=== PATIENT | male | born 1940 | race Caucasian/White ===

== ENCOUNTER 2020-01-03 13:19 | Inpatient (IN) | payer OTHER ==
--- NOTE | 2020-01-03 13:44 | PDOC ---
History of Present Illness - History of Present Illness Initial Comments: 79M hx of HLD, ESRD on HD T//Thu, BPH, anemia, HTN, PVD, DM, sent in from group home today for lethargy and decreased appetite. On presentation, pt is lethargic, but A&Ox4 and arousable. States that nothing is hurting or bothering him. States that he was sent in from group home due to decreased appetite. Denies chest pain/shortness of breath/abd pain. No headache/dizziness. No back pain. No leg swelling. 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 - General Stated Complaint: SEPSIS Time Seen by Provider: 01/03/20 13:43 Past History - Medical History Anemia: No Asthma: No Cancer: No CVA: Yes COPD: No CHF: Yes Dementia: No Diabetes: No GI Disorders: No HTN: No Hypercholesterolemia: No Liver Disease: No Seizures: No Thyroid Disease: No - Surgical History Abdominal Surgery: No Appendectomy: No Cardiac Surgery: No Cholecystectomy: No Lung Surgery: No Neurologic Surgery: No Orthopedic Surgery: No - Psycho-Social/Smoking History Smoking History: Former smoker Have you smoked in the past 12 months: No - Medical History Allergies/Adverse Reactions: Allergies Allergy/AdvReac Type Severity Reaction Status Date / Time No Known Allergies Allergy Verified 09/02/19 16:03 Home Medications: Ambulatory Orders Acetaminophen [Tylenol .Regular Strength -] 325 mg PO Q6H PRN tablet 09/09/19 Aspirin [ASA -] 81 mg PO DAILY 09/09/19 Atorvastatin Ca [Lipitor] 40 mg PO HS 09/09/19 Calcium 500Mg/Vit-D 200 Units [Os-Dustin 500+D -] 1 tab PO DAILY tab 09/09/19 Cyanocobalamin (Vitamin B-12) [Vitamin B-12] 1,000 mcg PO DAILY 09/09/19 Doxycycline Oral Suspension [Vibramycin Oral Suspension -] 100 mg PO BID@1000,1800 ml 09/09/19 Hydralazine HCl 25 mg PO TID 09/09/19 Lisinopril [Zestril] 2.5 mg PO DAILY 09/09/19 Tamsulosin HCl [Flomax] 0.4 mg PO DAILY 09/09/19 Zinc Sulfate [Orazinc -] 220 mg PO BID capsule 09/09/19 Review of Systems - Review of Systems Comments:: GENERAL/CONSTITUTIONAL: No fever or chills. No weakness._ HEAD, EYES, EARS, NOSE AND THROAT: No change in vision. No change in hearing. No sore throat._ CARDIOVASCULAR: No chest pain or shortness of breath_ RESPIRATORY: Denies cough, hemoptysis_ GASTROINTESTINAL: No nausea, vomiting, diarrhea or constipation._ GENITOURINARY: No dysuria, frequency, or change in urination._ MUSCULOSKELETAL: No joint or muscle swelling or pain. No neck or back pain._ SKIN: No rash_ NEUROLOGIC: No headache, vertigo, loss of consciousness, or change in strength/sensation._ HEMATOLOGIC/LYMPHATIC: No anemia, easy bleeding, or history of blood clots._ ALLERGIC/IMMUNOLOGIC: No hives or skin allergy._ *Physical Exam - Physical Exam GENERAL: Awake, alert, and oriented to person/place/time, in no acute distress_ HEAD: No signs of trauma, normocephalic, atraumatic _ EYES: PERRLA, EOMI, sclera anicteric, conjunctiva clear_ ENT: Hearing grossly normal, nares patent, oropharynx clear without exudates. No uvular deviation. Moist mucosa_ NECK: Normal ROM, supple, no lymphadenopathy, JVD, or masses_ LUNGS: No distress, speaks in full sentences, clear to auscultation bilaterally _ HEART: Regular rate and rhythm, normal S1 and S2, no murmurs appreciated, peripheral pulses normal and equal bilaterally._ CHEST: dialysis port in place ABDOMEN: Soft, nontender, normoactive bowel sounds. No guarding, no rebound. No masses_ EXTREMITIES: AV fistual over bilateral arms. Cellulitis over anterior aspect of right foot. Black gangrene covering right foot from toe to midfoot. No active bleeding or purulent discharge. NEUROLOGICAL: Limited assessment. No gross or focal neuro findings. Moving all four extremities. Normal speech. SKIN: Warm, Dry, normal turgor. Stage 1 sacral ulcer. ED Treatment Course - LABORATORY CBC & Chemistry Diagram: 01/03/20 13:52 01/03/20 14:02 - RADIOLOGY Radiology Studies Ordered: Category Date Time Status CHEST X-RAY PORTABLE* [RAD] Stat Radiology 01/03/20 13:43 Ordered Medical Decision Making - Medical Decision Making 79M hx of ESRD on HD, HTN, PVD DM, BIBEMS today from group home for lethargy and decreased appetite. Gangrenous right foot, awaiting BKA. -sepsis work up -bharat mayer 01/03/20 13:59 EKG shows 89 bpm, sinus rhythm with 1st degree AV block, LAFB, bifascicular block V1, AR 218, QTc 496, no ST elevation/depression, no significant interval changes from prior EKG (09/2019). 01/03/20 14:47 CXR negative for acute intrathoracic pathology. 01/03/20 15:00 Labs reviewed. Laboratory Last Values WBC 22.6 K/mm3 (4.0-10.0) H 01/03/20 13:52 RBC 4.32 M/mm3 (4.00-5.60) 01/03/20 13:52 Hgb 12.1 GM/dL (11.7-16.9) 01/03/20 13:52 Hct 39.0 % (35.4-49) D 01/03/20 13:52 MCV 90.3 fl (80-96) 01/03/20 13:52 MCH 28.0 pg (25.7-33.7) 01/03/20 13:52 MCHC 31.0 g/dl (32.0-35.9) L 01/03/20 13:52 RDW 16.3 % (11.9-15.9) H 01/03/20 13:52 Plt Count 369 K/MM3 (134-434) D 01/03/20 13:52 MPV 9.0 fl (7.5-11.1) 01/03/20 13:52 Absolute Neuts (auto) 21.0 K/mm3 (1.5-8.0) H 01/03/20 13:52 Neutrophils % 92.8 % (42.8-82.8) H 01/03/20 13:52 Neutrophils % (Manual) 95.0 % (42.8-82.8) H 01/03/20 13:52 Band Neutrophils % 0.0 % 01/03/20 13:52 Lymphocytes % 2.8 % (8-40) L D 01/03/20 13:52 Lymphocytes % (Manual) 1.0 % (8-40) L D 01/03/20 13:52 Monocytes % 4.2 % (3.8-10.2) 01/03/20 13:52 Monocytes % (Manual) 4 % (3.8-10.2) 01/03/20 13:52 Eosinophils % 0.1 % (0-4.5) D 01/03/20 13:52 Eosinophils % (Manual) 0.0 % (0-4.5) D 01/03/20 13:52 Basophils % 0.1 % (0-2.0) 01/03/20 13:52 Basophils % (Manual) 0.0 % (0-2.0) 01/03/20 13:52 Myelocytes % (Man) 0 % (0-2) 01/03/20 13:52 Promyelocytes % (Man) 0 % (0-2) 01/03/20 13:52 Blast Cells % (Manual) 0 % (0-0) 01/03/20 13:52 Nucleated RBC % 0 % (0-0) 01/03/20 13:52 Metamyelocytes 0 % (0-2) 01/03/20 13:52 Hypochromia 0 01/03/20 13:52 Platelet Estimate Normal 01/03/20 13:52 Polychromasia 0 01/03/20 13:52 Poikilocytosis 0 01/03/20 13:52 Anisocytosis 0 01/03/20 13:52 Microcytosis 0 01/03/20 13:52 Macrocytosis 0 01/03/20 13:52 PT with INR 12.90 SEC (9.7-13.0) 01/03/20 13:52 INR 1.09 (0.83-1.09) 01/03/20 13:52 PTT (Actin FS) 28.8 SECONDS (25.2-36.5) 01/03/20 13:52 Sodium 132 mmol/L (136-145) L 01/03/20 14:02 Potassium 6.9 mmol/L (3.5-5.1) H* 01/03/20 14:02 Chloride 97 mmol/L (98-107) L 01/03/20 14:02 Carbon Dioxide 21 mmol/L (21-32) 01/03/20 14:02 Anion Gap 14 MMOL/L (8-16) 01/03/20 14:02 BUN 84.8 mg/dL (7-18) H 01/03/20 14:02 Creatinine 7.4 mg/dL (0.55-1.3) H* 01/03/20 14:02 Est GFR (CKD-EPI)AfAm 7.29 01/03/20 14:02 Est GFR (CKD-EPI)NonAf 6.29 01/03/20 14:02 Random Glucose 161 mg/dL (74-106) H 01/03/20 14:02 Lactic Acid 1.6 mmol/L (0.4-2.0) 01/03/20 14:02 Calcium 9.1 mg/dL (8.5-10.1) 01/03/20 14:02 Total Bilirubin 0.8 mg/dL (0.2-1) 01/03/20 14:02 AST 105 U/L (15-37) H 01/03/20 14:02 ALT 94 U/L (13-61) H 01/03/20 14:02 Alkaline Phosphatase 118 U/L (45-117) H 01/03/20 14:02 Troponin I 0.12 ng/ml (0.00-0.05) H 01/03/20 13:43 Total Protein 7.4 g/dl (6.4-8.2) 01/03/20 14:02 Albumin 2.2 g/dl (3.4-5.0) L 01/03/20 14:02 01/03/20 15:36 D/w Dr. Dill who accepts the patient for admission. Discharge - Discharge Information Problems reviewed: Yes - Admission Yes - Discharge Information Clinical Impression/Diagnosis: Sepsis, Gangrene of foot, Failure to thrive Condition: Guarded
[2020-01-03] MEDS ORDERED: PIPERACILLIN/TAZOB 3.375 GM 3.375 GM in DEXTROSE 5%-WATER - 50 ML IVPB ONE (14:26)
[2020-01-03] MEDS ORDERED: VANCOMYCIN 1,000 MG in DEXTROSE 5%-WATER - 250 ML IVPB ONE (14:26)
--- NOTE | 2020-01-03 14:27 | PDOC ---
Attending Attestation - Resident Resident Name: Javed Charles - ED Attending Attestation I have performed the following: I have examined & evaluated the patient, The case was reviewed & discussed with the resident, I agree w/resident's findings & plan, Exceptions are as noted - HPI HPI: 01/03/20 14:25 79y M hx of esrd (tu,Th,Sa, last dialysis sat), dm, hl, anemia, htn, dm, pvd with a gangrenous foot pending BKA presents with lethargy, decreaesd appetite from skilled nursing. The pt states he has not been felling well recently, but is unable to provide detaioled history. He denies any acute pain including cp, sob, abd pain, back pain fevers, diarrhea, cough. - Physicial Exam PE: 01/03/20 15:12 exam: GENERAL: The patient is arousable, aox3, but will fall back asleep during exam HEAD: Normocephalic, atraumatic. EYES: extraocular movements intact, sclera anicteric, conjunctiva clear. ENT: Normal voice, Moist mucous membranes. NECK: Normal range of motion, supple LUNGS: Breath sounds equal, clear to auscultation bilaterally. No wheezes, no rhonchi, no rales. HEART: Regular rate and rhythm, normal S1 and S2 without murmur, rub or gallop. ABDOMEN: Soft, nontender, No guarding, no rebound. No CVA tenderness EXTREMITIES: gangrenous R foot, delayed cap refill NEUROLOGICAL: No facial assymetry, Normal speech, moving all 4 extremities spontaneously and symmetrically PSYCH: Normal mood, normal affect. SKIN: Warm, Dry, normal turgor, permcath in R chest - Medical Decision Making 01/03/20 15:12 A&p hemoydynamically stable, low grade temp will obtain blood work, bactermia, uti, pna, metabolic derangement anticipate admission Heart Score/ECG Review - ECG Impressions Comment:: 01/03/20 15:12 Twelve-lead EKG was performed and reviewed by me. There is normal sinus rhythm with a Rate of 89 First-degree AV block Left anterior fascicular block, right bundle ranch block When compared with prior EKG dated 09/09/2019, there are no significant changes Discharge - Discharge Information Problems reviewed: Yes Clinical Impression/Diagnosis: Sepsis, Gangrene of foot, Failure to thrive Condition: Guarded - Follow up/Referral - Patient Discharge Instructions - Post Discharge Activity
[2020-01-03] MEDS ORDERED: PIPERACILLIN/TAZOB 2.25 GM 2.25 GM in DEXTROSE 5%-WATER - 50 ML IVPB ONE (14:28)
[2020-01-03 14:35] LABS: BASO % 0.1 % (0-2.0); EOS % 0.1 % (0-4.5); HEMOGLOBIN 12.1 GM/dL (11.7-16.9); LYMPH % 2.8 % (8-40); MEAN CELL VOLUME 90.3 fl (80-96); MONO % 4.2 % (3.8-10.2); NEUT % 92.8 % (42.8-82.8); PLATELET COUNT 369 K/MM3 (134-434); RBC 4.32 M/mm3 (4.00-5.60); RDW 16.3 % (11.9-15.9); WHITE BLOOD COUNT 22.6 K/mm3 (4.0-10.0)
[2020-01-03 14:51] LABS: ACTIVATED PTT 28.8 SECONDS (25.2-36.5)
[2020-01-03 14:57] LABS: INR 1.09 (0.83-1.09); PROTHROMBIN TIME (PATIENT) 12.9 SEC (9.7-13.0)
[2020-01-03 15:01] LABS: ALBUMIN 2.2 g/dl (3.4-5.0); BILIRUBIN,TOTAL 0.8 mg/dL (0.2-1); BLOOD UREA NITROGEN 84.8 mg/dL (7-18); CALCIUM 9.1 mg/dL (8.5-10.1); TOT PROT 7.4 g/dl (6.4-8.2)
[2020-01-03 15:07] LABS: ANISOCYTOSIS 0; MACROCYTOSIS 0; PLATELET ESTIMATE NORMAL
[2020-01-03 15:18] LABS: CREATININE 7.4 mg/dL (0.55-1.3); POTASSIUM 6.9 mmol/L (3.5-5.1)
[2020-01-03] MEDS ORDERED: SODIUM CHLORIDE 250 ML IV PRN (16:09)
[2020-01-03] MEDS ORDERED: PIPERACILLIN/TAZOB 2.25 GM 2.25 GM/50 ML BAG IVPB ONE (16:19)
[2020-01-03] MEDS ORDERED: VANCOMYCIN 1 GRAM (PRE-DOCKED) 1,000 MG/250 ML BAG IVPB ONE (16:20)
[2020-01-03 17:02] LABS: ALBUMIN 2.5 g/dl (3.4-5.0); BILIRUBIN,TOTAL 0.5 mg/dL (0.2-1); CALCIUM 9.5 mg/dL (8.5-10.1); POTASSIUM 4.1 mmol/L (3.5-5.1); TOT PROT 7.3 g/dl (6.4-8.2)
[2020-01-03 17:24] LABS: CREATININE 7.6 mg/dL (0.55-1.3)
--- NOTE | 2020-01-03 17:51 | CONSULT ---
Consult Consult Specialty:: Nephrology Reason for Consultation:: ESRD - History of Present Illness Chief Complaint: lethargy and decreased appetite History of Present Illness: Pt is an 79 year old male with pmxh of esrd (TTS), dm, hld, anemia, htn, dm, pvd who was send in for increased lethargy and decreased po intake. He missed his HD today. He is unable to give much history. He has a pending BKA for gangrene. He denies shortness of breath. He appears fatigued. He was found to be hyperkalemic. 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 Cardio/Vascular: Yes: CHF, HTN Renal/: Yes: Renal Failure, Hemodialysis - Alcohol/Substance Use Hx Alcohol Use: No - Smoking History Smoking history: Former smoker Have you smoked in the past 12 months: No Home Medications - Allergies Allergies/Adverse Reactions: Allergies Allergy/AdvReac Type Severity Reaction Status Date / Time No Known Allergies Allergy Verified 09/02/19 16:03 - Home Medications Home Medications: Ambulatory Orders Acetaminophen [Tylenol .Regular Strength -] 325 mg PO Q6H PRN tablet 09/09/19 Aspirin [ASA -] 81 mg PO DAILY 09/09/19 Atorvastatin Ca [Lipitor] 40 mg PO HS 09/09/19 Calcium 500Mg/Vit-D 200 Units [Os-Dustin 500+D -] 1 tab PO DAILY tab 09/09/19 Cyanocobalamin (Vitamin B-12) [Vitamin B-12] 1,000 mcg PO DAILY 09/09/19 Doxycycline Oral Suspension [Vibramycin Oral Suspension -] 100 mg PO BID@1000,1800 ml 09/09/19 Hydralazine HCl 25 mg PO TID 09/09/19 Lisinopril [Zestril] 2.5 mg PO DAILY 09/09/19 Tamsulosin HCl [Flomax] 0.4 mg PO DAILY 09/09/19 Zinc Sulfate [Orazinc -] 220 mg PO BID capsule 09/09/19 Family Medical History Family History: Unable to Obtain Review of Systems - Review of Systems Constitutional: reports: Loss of Appetite, Malaise, Weakness Eyes: reports: No Symptoms HENT: reports: No Symptoms Neck: reports: No Symptoms Cardiovascular: reports: No Symptoms Respiratory: reports: No Symptoms Gastrointestinal: reports: No Symptoms Genitourinary: reports: No Symptoms Musculoskeletal: reports: No Symptoms Integumentary: reports: No Symptoms Neurological: reports: No Symptoms Endocrine: reports: No Symptoms Psychiatric: reports: No Symptoms Physical Exam Vital Signs: Vital Signs Temperature 99.9 F H 01/03/20 14:00 Pulse Rate 89 01/03/20 14:00 Respiratory Rate 16 01/03/20 14:00 Blood Pressure 111/51 L 01/03/20 14:00 O2 Sat by Pulse Oximetry (%) 97 01/03/20 14:00 Constitutional: Yes: Calm Eyes: Yes: Conjunctiva Clear HENT: Yes: Atraumatic Neck: Yes: Supple Cardiovascular: Yes: S1, S2 Respiratory: Yes: CTA Bilaterally Gastrointestinal: Yes: Normal Bowel Sounds, Soft Renal/: Yes: WNL Musculoskeletal: Yes: WNL Edema: No Neurological: Yes: Oriented Psychiatric: Yes: Oriented Labs: CBC, BMP 01/03/20 13:52 01/03/20 14:02 Imaging - Results Chest X-ray: Report Reviewed Problem List - Problems (1) ESRD (end stage renal disease) Code(s): N18.6 - END STAGE RENAL DISEASE Assessment/Plan Current Medications Generic Name Dose Route Start Last Admin Trade Name Freq PRN Reason Stop Dose Admin Sodium Chloride 250 mls @ 3,000 mls/hr 01/03/20 16:09 Normal Saline - IV 01/04/20 16:09 PRN PRN Hypotension during Dialysis 1. ESRD on HD 2. Hyperkalemia 3. hx covid 4. CHF 5. DM 6. anemia 7. gangrene Plan - will arrange for urgent HD tonight - will treat potassium with HD - renal diet - send blood cultures - vascular eval - repeat labs in am
[2020-01-03] MEDS ORDERED: ACETAMINOPHEN 325 MG TABLET (FP) PO PRN (20:00)
--- NOTE | 2020-01-03 20:02 | HP ---
Admitting History and Physical - Admission History of Present Illness: - HPI HPI: 01/03/20 14:25 79y M hx of esrd (,,, last dialysis sat), dm, hl, anemia, htn, dm, pvd with a gangrenous foot pending BKA presents with lethargy, decreaesd appetite from custodial. The pt states he has not been felling well recently, but is unable to provide detaioled history. He denies any acute pain including cp, sob, abd pain, back pain fevers, diarrhea, cough. 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 Cardiovascular: Yes: CHF, HTN Renal/: Yes: Renal Failure, Hemodialysis - Smoking History Smoking history: Former smoker Have you smoked in the past 12 months: No - Alcohol/Substance Use Hx Alcohol Use: No Home Medications - Allergies Allergies/Adverse Reactions: Allergies Allergy/AdvReac Type Severity Reaction Status Date / Time No Known Allergies Allergy Verified 09/02/19 16:03 - Home Medications Home Medications: Ambulatory Orders Acetaminophen [Tylenol .Regular Strength -] 325 mg PO Q6H PRN tablet 09/09/19 Aspirin [ASA -] 81 mg PO DAILY 09/09/19 Atorvastatin Ca [Lipitor] 40 mg PO HS 09/09/19 Calcium 500Mg/Vit-D 200 Units [Os-Dustin 500+D -] 1 tab PO DAILY tab 09/09/19 Cyanocobalamin (Vitamin B-12) [Vitamin B-12] 1,000 mcg PO DAILY 09/09/19 Doxycycline Oral Suspension [Vibramycin Oral Suspension -] 100 mg PO BID@1000,1800 ml 09/09/19 Hydralazine HCl 25 mg PO TID 09/09/19 Lisinopril [Zestril] 2.5 mg PO DAILY 09/09/19 Tamsulosin HCl [Flomax] 0.4 mg PO DAILY 09/09/19 Zinc Sulfate [Orazinc -] 220 mg PO BID capsule 09/09/19 Physical Examination Vital Signs: Vital Signs Temperature 99.8 F H 01/03/20 16:40 Pulse Rate 102 H 01/03/20 18:50 Respiratory Rate 18 01/03/20 18:50 Blood Pressure 130/65 01/03/20 18:50 O2 Sat by Pulse Oximetry (%) 97 01/03/20 14:00 Labs: CBC, BMP 01/03/20 13:52 01/03/20 14:02
[2020-01-03] MEDS ORDERED: PIPERACILLIN/TAZOBACTAM 2.25 GM VIAL IVPB ONE (22:37)
[2020-01-03] MEDS ORDERED: DEXTROSE 5%-WATER - 50 ML IVPB ONE (22:38)
[2020-01-03] MEDS: ATORVASTATIN CA 40 MG TABLET (FP) PO SCH (22:45)
[2020-01-03] MEDS: hydrALAZINE HCL 25 MG TABLET (FP) PO SCH (22:45)
[2020-01-03] MEDS: PIPERACILLIN/TAZOB 2.25 GM 2.25 GM in DEXTROSE 5%-WATER - 50 ML IVPB SCH (22:47)
[2020-01-04] MEDS ORDERED: DEXTROSE 5%-WATER - 50 ML IVPB ONE ×4 (01:55→17:36)
[2020-01-04] MEDS ORDERED: PIPERACILLIN/TAZOBACTAM 2.25 GM VIAL IVPB ONE ×4 (01:55→17:36)
[2020-01-04] MEDS: PIPERACILLIN/TAZOB 2.25 GM 2.25 GM in DEXTROSE 5%-WATER - 50 ML IVPB SCH ×3 (04:00→17:50)
[2020-01-04] MEDS: hydrALAZINE HCL 25 MG TABLET (FP) PO SCH ×3 (06:08→23:29)
[2020-01-04 08:33] LABS: BASO % 0.4 % (0-2.0); HEMATOCRIT 35.3 % (35.4-49); LYMPH % 3.5 % (8-40); MCH 27.7 pg (25.7-33.7); MCHC 31.1 g/dl (32.0-35.9); MEAN CELL VOLUME 89.3 fl (80-96); MEAN PLT VOLUME 8.3 fl (7.5-11.1); MONO % 4.4 % (3.8-10.2); NEUT % 91.7 % (42.8-82.8); PLATELET COUNT 331 K/MM3 (134-434); RBC 3.95 M/mm3 (4.00-5.60); WHITE BLOOD COUNT 20.4 K/mm3 (4.0-10.0)
[2020-01-04 09:11] LABS: ALBUMIN 2.2 g/dl (3.4-5.0); BILIRUBIN,TOTAL 0.8 mg/dL (0.2-1); CALCIUM 8.7 mg/dL (8.5-10.1); CREATININE 4.7 mg/dL (0.55-1.3); POTASSIUM 3.6 mmol/L (3.5-5.1); TOT PROT 6.7 g/dl (6.4-8.2)
[2020-01-04 09:14] LABS: BLOOD UREA NITROGEN 44.6 mg/dL (7-18)
--- NOTE | 2020-01-04 09:21 | EKG ---
Test Reason : Blood Pressure : / mmHG Vent. Rate : 089 BPM Atrial Rate : 089 BPM P-R Int : 218 ms QRS Dur : 150 ms QT Int : 408 ms P-R-T Axes : 067 -83 068 degrees QTc Int : 496 ms SINUS RHYTHM WITH 1ST DEGREE A-V BLOCK RIGHT BUNDLE BRANCH BLOCK LEFT ANTERIOR FASCICULAR BLOCK BIFASCICULAR BLOCK MINIMAL VOLTAGE CRITERIA FOR LVH, MAY BE NORMAL VARIANT SEPTAL INFARCT (CITED ON OR BEFORE 02-SEP-2019) ABNORMAL ECG WHEN COMPARED WITH ECG OF 09-SEP-2019 10:49, QUESTIONABLE CHANGE IN INITIAL FORCES OF SEPTAL LEADS NONSPECIFIC T WAVE ABNORMALITY NO LONGER EVIDENT IN INFERIOR LEADS QT HAS SHORTENED Confirmed by MD MERRY, LOPEZ ([id number]) on 01/04/2020 9:21:00 AM Referred By: Confirmed By:LOPEZ SOUSA MD
[2020-01-04 09:42] LABS: ANISOCYTOSIS 1+; MACROCYTOSIS 0; PLATELET ESTIMATE NORMAL
[2020-01-04] MEDS: ASPIRIN 81 MG CHEWABLE TABLETS PO SCH (10:10)
[2020-01-04] MEDS: LISINOPRIL 5 MG TABLET (FP) PO SCH (10:10)
--- NOTE | 2020-01-04 11:11 | CONSULT ---
- Consultation REQUESTING PROVIDER: CONSULT REQUEST: We have been asked to surgically evaluate this patient for right foot gangrene. PCP: Patricia Dill HISTORY OF PRESENT ILLNESS: 79M hx of HLD, ESRD on HD T//Thu, BPH, anemia, HTN, PVD, DM, sent in from long-term yesterday for lethargy and decreased appetite. 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 He denies shortness of breath. He appears fatigued. He was found to be hyperkalemic upon admission. Past History - Medical History Anemia: No Asthma: No Cancer: No CVA: Yes COPD: No CHF: Yes Dementia: No Diabetes: No GI Disorders: No HTN: No Hypercholesterolemia: No Liver Disease: No Seizures: No Thyroid Disease: No - Surgical History Abdominal Surgery: No Appendectomy: No Cardiac Surgery: No Cholecystectomy: No Lung Surgery: No Neurologic Surgery: No Orthopedic Surgery: No - Psycho-Social/Smoking History Smoking History: Former smoker Have you smoked in the past 12 months: No - Medical History Allergies/Adverse Reactions: Allergies Allergy/AdvReac Type Severity Reaction Status Date / Time No Known Allergies Allergy Verified 09/02/19 16:03 Home Medications: Ambulatory Orders Acetaminophen [Tylenol .Regular Strength -] 325 mg PO Q6H PRN tablet 09/09/19 Aspirin [ASA -] 81 mg PO DAILY 09/09/19 Atorvastatin Ca [Lipitor] 40 mg PO HS 09/09/19 Calcium 500Mg/Vit-D 200 Units [Os-Dustin 500+D -] 1 tab PO DAILY tab 09/09/19 Cyanocobalamin (Vitamin B-12) [Vitamin B-12] 1,000 mcg PO DAILY 09/09/19 Doxycycline Oral Suspension [Vibramycin Oral Suspension -] 100 mg PO BID@1000,1800 ml 09/09/19 Hydralazine HCl 25 mg PO TID 09/09/19 Lisinopril [Zestril] 2.5 mg PO DAILY 09/09/19 Tamsulosin HCl [Flomax] 0.4 mg PO DAILY 09/09/19 Zinc Sulfate [Orazinc -] 220 mg PO BID capsule 09/09/19 Review of Systems Unable to obtain Physical Exam GENERAL: Awake, alert, NAD HEAD: No signs of trauma, NC/AT LUNGS: Unlabored resp on RA on 2L NC, no accessory muscle use ABDOMEN: Soft, nontender, non-distended EXTREMITIES: B/L LE contracted, with no rashes or lesions seen over the legs. Cellulitis over anterior aspect of right forefoot extending up onto the ankle with large ulcerating wound extending over the dorsum of the foot with underlying structures exposed, dry gangrene/mummification covering right foot from great toe and second toe extending posteriorly over the plantar surface at the base of the 1st MTP joint with dry gangrene/eschar of instep and heel, + foul odor noted with no significant d/c. SKIN: Warm, Dry, normal turgor. Vital Signs Temp 98.7 F 01/04/20 10:33 Pulse 92 H 01/04/20 10:33 Resp 18 01/04/20 10:33 BP 112/55 L 01/04/20 10:33 Pulse Ox 96 01/04/20 10:33 Intake & Output 01/03/20 01/04/20 01/04/20 23:59 11:59 23:59 Intake Total 550 50 Output Total 500 Balance 50 50 Weight 100 lb Intake: IVPB 550 50 Output: Fluid Removed, 500 Hemodialysis Other: Voiding Method Toilet External Catheter Height 5 ft 2 in Body Mass Index (BMI) 18.3 Weight Measurement Method Built in [facility] Weight Measurement Method Estimated by Staff Labs WBC 22.6 K/mm3 (4.0-10.0) H 01/03/20 13:52 RBC 4.32 M/mm3 (4.00-5.60) 01/03/20 13:52 Hgb 12.1 GM/dL (11.7-16.9) 01/03/20 13:52 Hct 39.0 % (35.4-49) D 01/03/20 13:52 MCV 90.3 fl (80-96) 01/03/20 13:52 MCH 28.0 pg (25.7-33.7) 01/03/20 13:52 MCHC 31.0 g/dl (32.0-35.9) L 01/03/20 13:52 RDW 16.3 % (11.9-15.9) H 01/03/20 13:52 Plt Count 369 K/MM3 (134-434) D 01/03/20 13:52 MPV 9.0 fl (7.5-11.1) 01/03/20 13:52 Absolute Neuts (auto) 21.0 K/mm3 (1.5-8.0) H 01/03/20 13:52 Neutrophils % 92.8 % (42.8-82.8) H 01/03/20 13:52 Neutrophils % (Manual) 95.0 % (42.8-82.8) H 01/03/20 13:52 Band Neutrophils % 0.0 % 01/03/20 13:52 Lymphocytes % 2.8 % (8-40) L D 01/03/20 13:52 Lymphocytes % (Manual) 1.0 % (8-40) L D 01/03/20 13:52 Monocytes % 4.2 % (3.8-10.2) 01/03/20 13:52 Monocytes % (Manual) 4 % (3.8-10.2) 01/03/20 13:52 Eosinophils % 0.1 % (0-4.5) D 01/03/20 13:52 Eosinophils % (Manual) 0.0 % (0-4.5) D 01/03/20 13:52 Basophils % 0.1 % (0-2.0) 01/03/20 13:52 Basophils % (Manual) 0.0 % (0-2.0) 01/03/20 13:52 Myelocytes % (Man) 0 % (0-2) 01/03/20 13:52 Promyelocytes % (Man) 0 % (0-2) 01/03/20 13:52 Blast Cells % (Manual) 0 % (0-0) 01/03/20 13:52 Nucleated RBC % 0 % (0-0) 01/03/20 13:52 Metamyelocytes 0 % (0-2) 01/03/20 13:52 Hypochromia 0 01/03/20 13:52 Platelet Estimate Normal 01/03/20 13:52 Polychromasia 0 01/03/20 13:52 Poikilocytosis 0 01/03/20 13:52 Anisocytosis 0 01/03/20 13:52 Microcytosis 0 01/03/20 13:52 Macrocytosis 0 01/03/20 13:52 PT with INR 12.90 SEC (9.7-13.0) 01/03/20 13:52 INR 1.09 (0.83-1.09) 01/03/20 13:52 PTT (Actin FS) 28.8 SECONDS (25.2-36.5) 01/03/20 13:52 Sodium 132 mmol/L (136-145) L 01/03/20 14:02 Potassium 6.9 mmol/L (3.5-5.1) H* 01/03/20 14:02 Chloride 97 mmol/L (98-107) L 01/03/20 14:02 Carbon Dioxide 21 mmol/L (21-32) 01/03/20 14:02 Anion Gap 14 MMOL/L (8-16) 01/03/20 14:02 BUN 84.8 mg/dL (7-18) H 01/03/20 14:02 Creatinine 7.4 mg/dL (0.55-1.3) H* 01/03/20 14:02 Est GFR (CKD-EPI)AfAm 7.29 01/03/20 14:02 Est GFR (CKD-EPI)NonAf 6.29 01/03/20 14:02 Random Glucose 161 mg/dL (74-106) H 01/03/20 14:02 Lactic Acid 1.6 mmol/L (0.4-2.0) 01/03/20 14:02 Calcium 9.1 mg/dL (8.5-10.1) 01/03/20 14:02 Total Bilirubin 0.8 mg/dL (0.2-1) 01/03/20 14:02 AST 105 U/L (15-37) H 01/03/20 14:02 ALT 94 U/L (13-61) H 01/03/20 14:02 Alkaline Phosphatase 118 U/L (45-117) H 01/03/20 14:02 Troponin I 0.12 ng/ml (0.00-0.05) H 01/03/20 13:43 Total Protein 7.4 g/dl (6.4-8.2) 01/03/20 14:02 Albumin 2.2 g/dl (3.4-5.0) L 01/03/20 14:02 Problem List - Problems (1) Gangrene of foot Assessment/Plan: 79yo male with dry gangrene of right foot, will likely benefit from BKA. -CTA with runoff to evaluate right LE flow for surgical planning BKA vs AKA -Dialysis per renal-will plan CTA with dialysis to follow -renal puree diet -offload pressure sensitive areas -ABX per ID -surgical plan pending imaging -medical clearance for OR Evaluation and plan discussed with Dr Hensley Code(s): I96 - GANGRENE, NOT ELSEWHERE CLASSIFIED
--- NOTE | 2020-01-04 12:42 | CON.ID ---
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 CONTROL: Yes: CVA Cardio/Vascular: Yes: CHF, HTN Renal/: Yes: Renal Failure, BPH, Hemodialysis Heme/Onc: Yes: Anemia Additional Medical History: PVD - Past Surgical History Additional Surgical History: permacath - Alcohol/Substance Use Hx Alcohol Use: No - Smoking History Smoking history: Former smoker Have you smoked in the past 12 months: No - Social History Usual Living Arrangement: Snf ADL: Support Services History of Recent Travel: No Home Medications - Allergies Allergies/Adverse Reactions: Allergies Allergy/AdvReac Type Severity Reaction Status Date / Time No Known Allergies Allergy Verified 09/02/19 16:03 - Home Medications Home Medications: Ambulatory Orders Acetaminophen [Tylenol .Regular Strength -] 325 mg PO Q6H PRN tablet 09/09/19 Aspirin [ASA -] 81 mg PO DAILY 09/09/19 Atorvastatin Ca [Lipitor] 40 mg PO HS 09/09/19 Calcium 500Mg/Vit-D 200 Units [Os-Dustin 500+D -] 1 tab PO DAILY tab 09/09/19 Cyanocobalamin (Vitamin B-12) [Vitamin B-12] 1,000 mcg PO DAILY 09/09/19 Doxycycline Oral Suspension [Vibramycin Oral Suspension -] 100 mg PO BID@1000,1800 ml 09/09/19 Hydralazine HCl 25 mg PO TID 09/09/19 Lisinopril [Zestril] 2.5 mg PO DAILY 09/09/19 Tamsulosin HCl [Flomax] 0.4 mg PO DAILY 09/09/19 Zinc Sulfate [Orazinc -] 220 mg PO BID capsule 09/09/19 Family Medical History Family History: Unable to Obtain Review of Systems Unable to obtain ROS, reason: unable to obtain Physical Exam Vital Signs: Vital Signs Temperature 98.7 F 01/04/20 10:33 Pulse Rate 92 H 01/04/20 10:33 Respiratory Rate 18 01/04/20 10:33 Blood Pressure 112/55 L 01/04/20 10:33 O2 Sat by Pulse Oximetry (%) 96 01/04/20 10:33 Constitutional: Yes: No Distress, Calm HENT: Yes: Atraumatic, Normocephalic Neck: Yes: Supple Cardiovascular: Yes: Regular Rate and Rhythm Respiratory: Yes: Regular, CTA Bilaterally Gastrointestinal: Yes: Normal Bowel Sounds, Soft ...Rectal Exam: Yes: Deferred Extremities: Yes: Other (drygangrene of the right foot, exposed tendons, erythem of the forefoot, plantar surface and heel with large eschar +erythema) Neurological: Yes: Alert Labs: CBC, BMP 01/04/20 06:54 01/04/20 06:54 cultures pending Imaging - Results Chest X-ray: Report Reviewed, Image Reviewed Problem List - Problems (1) Cellulitis Code(s): L03.90 - CELLULITIS, UNSPECIFIED (2) Gangrene of foot Code(s): I96 - GANGRENE, NOT ELSEWHERE CLASSIFIED (3) ESRD (end stage renal disease) Code(s): N18.6 - END STAGE RENAL DISEASE (4) Abnormal LFTs Code(s): R94.5 - ABNORMAL RESULTS OF LIVER FUNCTION STUDIES (5) Elevated troponin Code(s): R79.89 - OTHER SPECIFIED ABNORMAL FINDINGS OF BLOOD CHEMISTRY Assessment/Plan will require amputation surgical eval in progress vancomycin by level continue zosyn adjusted for esrd consider imaging of gallbladder /lliver if lfts remain elevated cardiology eval for elevated troponins
--- NOTE | 2020-01-04 13:03 | PN ---
Progress Note (short form) - Note Progress Note: pt examined he is verbalizing pain in right foot awake looks weak Vital Signs - 24 hr 01/03/20 01/03/20 01/03/20 14:00 16:40 16:50 Temperature 99.9 F H 99.8 F H Pulse Rate 89 98 H 97 H Respiratory 16 18 18 Rate Blood Pressure 111/51 L 124/60 157/99 O2 Sat by Pulse 97 Oximetry (%) 01/03/20 01/03/20 01/03/20 17:20 17:50 18:20 Temperature Pulse Rate 100 H 98 H 70 Respiratory 18 18 18 Rate Blood Pressure 144/88 145/88 116/62 O2 Sat by Pulse Oximetry (%) 01/03/20 01/03/20 01/03/20 18:50 19:20 19:50 Temperature Pulse Rate 102 H 100 H 98 H Respiratory 18 18 18 Rate Blood Pressure 130/65 143/70 132/80 O2 Sat by Pulse Oximetry (%) 01/03/20 01/03/20 01/03/20 20:00 21:38 21:49 Temperature 98.4 F Pulse Rate 78 93 H Respiratory 18 20 20 Rate Blood Pressure 140/70 114/76 O2 Sat by Pulse 100 Oximetry (%) 01/04/20 01/04/20 00:51 10:33 Temperature 98.7 F Pulse Rate 92 H Respiratory 20 18 Rate Blood Pressure 112/55 L O2 Sat by Pulse 100 96 Oximetry (%) Current Medications Generic Name Dose Route Start Last Admin Trade Name Freq PRN Reason Stop Dose Admin Acetaminophen 650 mg 01/03/20 20:00 Tylenol - PO Q6H PRN FEVER Aspirin 81 mg 01/04/20 10:00 01/04/20 10:10 Asa - PO 81 mg DAILY ZOLTAN Administration Atorvastatin Calcium 40 mg 01/03/20 22:00 01/03/20 22:45 Lipitor - PO Not Given HS ZOLTAN Hydralazine HCl 25 mg 01/03/20 22:00 01/04/20 06:08 Apresoline - PO 25 mg TID ZOLTAN Administration Sodium Chloride 250 mls @ 3,000 mls/hr 01/03/20 16:09 Normal Saline - IV 01/04/20 16:09 PRN PRN Hypotension during Dialysis Piperacillin Sod/Tazobactam 50 mls @ 100 mls/hr 01/03/20 21:00 Sod 2.25 gm/ Dextrose IVPB Q6H-IV ZOLTAN Protocol Piperacillin Sod/Tazobactam 50 mls @ 100 mls/hr 01/03/20 21:00 01/04/20 09:55 Sod 2.25 gm/ Dextrose IVPB 01/04/20 15:29 100 mls/hr Q6H-IV ZOLTAN Administration Protocol Lisinopril 2.5 mg 01/04/20 10:00 01/04/20 10:10 Prinivil PO 2.5 mg DAILY ZOLTAN Administration Laboratory Results - last 24 hr 01/03/20 01/03/20 01/03/20 13:31 13:43 13:52 WBC RBC Hgb Hct MCV MCH MCHC RDW Plt Count MPV Absolute Neuts (auto) Neutrophils % Neutrophils % (Manual) Band Neutrophils % Lymphocytes % Lymphocytes % (Manual) Monocytes % Monocytes % (Manual) Eosinophils % Eosinophils % (Manual) Basophils % Basophils % (Manual) Myelocytes % (Man) Promyelocytes % (Man) Blast Cells % (Manual) Nucleated RBC % Metamyelocytes Hypochromia Platelet Estimate Polychromasia Poikilocytosis Anisocytosis Microcytosis Macrocytosis PT with INR 12.90 INR 1.09 PTT (Actin FS) 28.8 Sodium 136 Potassium 4.1 Chloride 97 L Carbon Dioxide 20 L Anion Gap 19 H BUN 85.0 H Creatinine 7.6 H* Est GFR (CKD-EPI)AfAm 7.06 Est GFR (CKD-EPI)NonAf 6.09 Random Glucose 130 H Lactic Acid Calcium 9.5 Total Bilirubin 0.5 AST 70 H ALT 93 H Alkaline Phosphatase 129 H Creatine Kinase Creatine Kinase Index CK-MB (CK-2) Troponin I 0.12 H Total Protein 7.3 Albumin 2.5 L 01/03/20 01/03/20 01/03/20 13:52 14:02 14:02 WBC 22.6 H RBC 4.32 Hgb 12.1 Hct 39.0 D MCV 90.3 MCH 28.0 MCHC 31.0 L RDW 16.3 H Plt Count 369 D MPV 9.0 Absolute Neuts (auto) 21.0 H Neutrophils % 92.8 H Neutrophils % (Manual) 95.0 H Band Neutrophils % 0.0 Lymphocytes % 2.8 L D Lymphocytes % (Manual) 1.0 L D Monocytes % 4.2 Monocytes % (Manual) 4 Eosinophils % 0.1 D Eosinophils % (Manual) 0.0 D Basophils % 0.1 Basophils % (Manual) 0.0 Myelocytes % (Man) 0 Promyelocytes % (Man) 0 Blast Cells % (Manual) 0 Nucleated RBC % 0 Metamyelocytes 0 Hypochromia 0 Platelet Estimate Normal Polychromasia 0 Poikilocytosis 0 Anisocytosis 0 Microcytosis 0 Macrocytosis 0 PT with INR INR PTT (Actin FS) Sodium 132 L Potassium 6.9 H* Chloride 97 L Carbon Dioxide 21 Anion Gap 14 BUN 84.8 H Creatinine 7.4 H* Est GFR (CKD-EPI)AfAm 7.29 Est GFR (CKD-EPI)NonAf 6.29 Random Glucose 161 H Lactic Acid 1.6 Calcium 9.1 Total Bilirubin 0.8 AST 105 H ALT 94 H Alkaline Phosphatase 118 H Creatine Kinase Creatine Kinase Index CK-MB (CK-2) Troponin I Total Protein 7.4 Albumin 2.2 L 01/04/20 01/04/20 01/04/20 00:15 06:54 06:54 WBC 20.4 H RBC 3.95 L Hgb 11.0 L Hct 35.3 L MCV 89.3 MCH 27.7 MCHC 31.1 L RDW 16.0 H Plt Count 331 MPV 8.3 Absolute Neuts (auto) 18.7 H Neutrophils % 91.7 H Neutrophils % (Manual) 85.8 H Band Neutrophils % 0.0 Lymphocytes % 3.5 L D Lymphocytes % (Manual) 6.1 L D Monocytes % 4.4 Monocytes % (Manual) 8 D Eosinophils % 0.0 D Eosinophils % (Manual) 0.0 Basophils % 0.4 D Basophils % (Manual) 0.0 Myelocytes % (Man) 0 Promyelocytes % (Man) 0 Blast Cells % (Manual) 0 Nucleated RBC % 0 Metamyelocytes 0 Hypochromia 0 Platelet Estimate Normal Polychromasia 0 Poikilocytosis 0 Anisocytosis 1+ Microcytosis 1+ Macrocytosis 0 PT with INR INR PTT (Actin FS) Sodium 143 Potassium 3.6 Chloride 106 Carbon Dioxide 25 Anion Gap 13 BUN 44.6 H Creatinine 4.7 H Est GFR (CKD-EPI)AfAm 12.63 Est GFR (CKD-EPI)NonAf 10.90 Random Glucose 117 H Lactic Acid Calcium 8.7 Total Bilirubin 0.8 AST 45 H ALT 67 H Alkaline Phosphatase 98 Creatine Kinase 163 Creatine Kinase Index 1.2 CK-MB (CK-2) 2.0 Troponin I 0.11 H Total Protein 6.7 Albumin 2.2 L S 1 S2 RRR Lungs decreased left chest wall permacath Abd- soft, NT No edema right foot -- gangrene toes, slight edema right foot A/P Sepsis AMS ESRD on HD severe malnutrition toxic metabolic encephalopathy gangrene right foot -- for CTA today -- will have HD afterwards -- pain control -- spoke with granddaughter-- Chery Dean - she consented for CTA, discussed about pt's condition -- iv antibiotics-- cardiology eval for clearance-- has bifascicular block on EKG-- ordered Echo-- he is not in heart failure Problem List - Problems (1) Failure to thrive Code(s): [id number] - (2) Gangrene of foot Code(s): I96 - GANGRENE, NOT ELSEWHERE CLASSIFIED (3) Sepsis Code(s): A41.9 - SEPSIS, UNSPECIFIED ORGANISM (4) Altered mental status Code(s): R41.82 - ALTERED MENTAL STATUS, UNSPECIFIED (5) Weakness Code(s): R53.1 - WEAKNESS (6) AMS (altered mental status) Code(s): R41.82 - ALTERED MENTAL STATUS, UNSPECIFIED Qualifiers: Altered mental status type: unspecified Qualified Code(s): R41.82 - Altered mental status, unspecified
--- NOTE | 2020-01-04 14:13 | CON.CARD ---
Consult Consult Specialty:: Cardiology - History of Present Illness History of Present Illness: 79y M hx of esrd (,Th,Sa, last dialysis sat), dm, hl, anemia, htn, dm, pvd with a gangrenous foot pending BKA presents with lethargy, decreaesd appetite from care home. The pt states he has not been felling well recently, but is unable to provide detaioled history. He denies any acute pain including cp, sob, abd pain, back pain fevers, diarrhea, cough. 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 Cardio/Vascular: Yes: CHF, HTN Renal/: Yes: Renal Failure, Hemodialysis - Alcohol/Substance Use Hx Alcohol Use: No - Smoking History Smoking history: Former smoker Have you smoked in the past 12 months: No Home Medications - Allergies Allergies/Adverse Reactions: Allergies Allergy/AdvReac Type Severity Reaction Status Date / Time No Known Allergies Allergy Verified 09/02/19 16:03 - Home Medications Home Medications: Ambulatory Orders Acetaminophen [Tylenol .Regular Strength -] 325 mg PO Q6H PRN tablet 09/09/19 Aspirin [ASA -] 81 mg PO DAILY 09/09/19 Atorvastatin Ca [Lipitor] 40 mg PO HS 09/09/19 Calcium 500Mg/Vit-D 200 Units [Os-Dustin 500+D -] 1 tab PO DAILY tab 09/09/19 Cyanocobalamin (Vitamin B-12) [Vitamin B-12] 1,000 mcg PO DAILY 09/09/19 Doxycycline Oral Suspension [Vibramycin Oral Suspension -] 100 mg PO BID@1000,1800 ml 09/09/19 Hydralazine HCl 25 mg PO TID 09/09/19 Lisinopril [Zestril] 2.5 mg PO DAILY 09/09/19 Tamsulosin HCl [Flomax] 0.4 mg PO DAILY 09/09/19 Zinc Sulfate [Orazinc -] 220 mg PO BID capsule 09/09/19 Review of Systems - Review of Systems Constitutional: reports: No Symptoms, Lethargy Eyes: reports: No Symptoms HENT: reports: No Symptoms Neck: reports: No Symptoms Cardiovascular: reports: No Symptoms Gastrointestinal: reports: No Symptoms Genitourinary: reports: No Symptoms Breasts: reports: No Symptoms Reported Musculoskeletal: reports: No Symptoms Integumentary: reports: No Symptoms Neurological: reports: No Symptoms Endocrine: reports: No Symptoms Hematology/Lymphatic: reports: No Symptoms Psychiatric: reports: No Symptoms Vital Signs: Vital Signs Temperature 98.7 F 01/04/20 10:33 Pulse Rate 92 H 01/04/20 10:33 Respiratory Rate 18 01/04/20 10:33 Blood Pressure 112/55 L 01/04/20 10:33 O2 Sat by Pulse Oximetry (%) 96 01/04/20 10:33 Constitutional: Yes: No Distress, Cachectic Eyes: Yes: WNL, Conjunctiva Clear, EOM Intact HENT: Yes: WNL, Atraumatic, Normocephalic Neck: Yes: WNL, Supple, Trachea Midline Respiratory: Yes: WNL, Regular, CTA Bilaterally Gastrointestinal: Yes: WNL, Normal Bowel Sounds Renal/: Yes: WNL Cardiovascular: Yes: WNL, Regular Rate and Rhythm Musculoskeletal: Yes: WNL Extremities: Yes: Other (gangrene r foot) Integumentary: Yes: WNL ...Motor Strength: WNL - Other Data Labs, Other Data: CBC, BMP 01/04/20 06:54 01/04/20 06:54 INR, PTT INR 1.09 (0.83-1.09) 01/03/20 13:52 Troponin, BNP 01/03/20 01/04/20 13:43 00:15 Troponin I 0.12 H 0.11 H Troponin, BNP 01/03/20 01/04/20 13:43 00:15 Troponin I 0.12 H 0.11 H Imaging - Results Chest X-ray: Image Reviewed (no i/e) EKG: Image Reviewed (sr bifascicular block) Problem List - Problems (1) Failure to thrive Code(s): [id number] - (2) Gangrene of foot Code(s): I96 - GANGRENE, NOT ELSEWHERE CLASSIFIED (3) Sepsis Code(s): A41.9 - SEPSIS, UNSPECIFIED ORGANISM (4) Altered mental status Code(s): R41.82 - ALTERED MENTAL STATUS, UNSPECIFIED (5) COVID-19 Code(s): U07.1 - COVID POSITIVE (6) Weakness Code(s): R53.1 - WEAKNESS (7) AMS (altered mental status) Code(s): R41.82 - ALTERED MENTAL STATUS, UNSPECIFIED Qualifiers: Altered mental status type: unspecified Qualified Code(s): R41.82 - Altered mental status, unspecified (8) CHF exacerbation Code(s): I50.9 - HEART FAILURE, UNSPECIFIED Qualifiers: Heart failure type: unspecified Qualified Code(s): I50.9 - Heart failure, unspecified (9) Diabetes Code(s): E11.9 - TYPE 2 DIABETES MELLITUS WITHOUT COMPLICATIONS (10) ESRD (end stage renal disease) Code(s): N18.6 - END STAGE RENAL DISEASE (11) Weakness Code(s): R53.1 - WEAKNESS (12) Elevated troponin Code(s): R79.89 - OTHER SPECIFIED ABNORMAL FINDINGS OF BLOOD CHEMISTRY (13) Transaminitis Code(s): R74.0 - NONSPEC ELEV OF LEVELS OF TRANSAMNS & LACTIC ACID DEHYDRGNSE Assessment/Plan Bifascicular block - chronic elevated troponins most likely due to ESRD/sepsis Sepsis AMS ESRD on HD severe malnutrition toxic metabolic encephalopathy gangrene right foot Plan; ECHO f/u EKG Cycle CE CTA
--- NOTE | 2020-01-04 14:30 | PN ---
Progress Note (short form) - Note Progress Note: RENAL Pt is awake and alert somewhat confused. Says he goes to hd everyday Last Vital Signs Temp Pulse Resp BP Pulse Ox 98.7 F 92 H 18 112/55 L 96 01/04/20 10:33 01/04/20 10:33 01/04/20 10:33 01/04/20 10:33 01/04/20 10:33 lungs clear cvs s1s2 rr abd soft ext no edema neuro awake. alert CBC, BMP 01/04/20 06:54 01/04/20 06:54 Current Medications Generic Name Dose Route Start Last Admin Trade Name Freq PRN Reason Stop Dose Admin Acetaminophen 650 mg 01/03/20 20:00 Tylenol - PO Q6H PRN FEVER Aspirin 81 mg 01/04/20 10:00 01/04/20 10:10 Asa - PO 81 mg DAILY ZOLTAN Administration Atorvastatin Calcium 40 mg 01/03/20 22:00 01/03/20 22:45 Lipitor - PO Not Given HS ZOLTAN Hydralazine HCl 25 mg 01/03/20 22:00 01/04/20 06:08 Apresoline - PO 25 mg TID ZOLTAN Administration Sodium Chloride 250 mls @ 3,000 mls/hr 01/03/20 16:09 Normal Saline - IV 01/04/20 16:09 PRN PRN Hypotension during Dialysis Piperacillin Sod/Tazobactam 50 mls @ 100 mls/hr 01/04/20 15:00 Sod 2.25 gm/ Dextrose IVPB Q6H-IV ZOLTAN Protocol Lisinopril 2.5 mg 01/04/20 10:00 01/04/20 10:10 Prinivil PO 2.5 mg DAILY ZOLTAN Administration IMPRESSION esr4d htn dementia gangrene PLAN would do cta tomorrow followed by hd continue antibiotics MV
[2020-01-04] MEDS ORDERED: HEPARIN NA (PORCINE) 5,000 UNITS/ML 1ML VIAL IVPUSH ONE (14:36)
[2020-01-04] MEDS ORDERED: PIPERACILLIN/TAZOB 2.25 GM 2.25 GM in DEXTROSE 5%-WATER - 50 ML IVPB SCH (15:00)
--- NOTE | 2020-01-04 15:30 | ECHO ---
Name: MARQUISE, GENE Exam:Adult Echocardiogram Study Date: 01/04/2020 02:23 PM Age: 79 yrs Height: 62 in Weight: 100 lb BSA: 1.4 m2 MMode/2D Measurements & Calculations IVSd: 1.1 cm Ao root diam: 2.3 cm LVIDd: 4.1 cm LA dimension: 3.0 cm LVIDs: 3.0 cm ACS: 1.0 cm LVPWd: 1.0 cm LVPWs: 1.5 cm EDV(Teich): 72.4 ml ESV(Teich): 35.8 ml Doppler Measurements & Calculations PA V2 max: 126.2 cm/sec PA max P.4 mmHg Tech Comments Technically difficult study due to body habitus. Images and measurements taken at subcostal view. Procedure Images were not obtained from all of the standard acoustic windows due to the limited scope of the [facility]. A two-dimensional transthoracic echocardiogram with color flow and Doppler was performed in limited e only. Left Ventricle The left ventricle is grossly normal size. Left ventricular systolic function is grossly normal. Ejec tion Fraction = 50-55%. Regional wall motion abnormalities cannot be excluded due to limited visualization . Right Ventricle The right ventricle is grossly normal size. The right ventricular systolic function is normal. Atria Normal left and right atrial size and function. Mitral Valve There is moderate to severe mitral annular calcification. Calcified mitral apparatus. Tricuspid Valve The tricuspid valve is not well visualized. Aortic Valve There is moderate to severe aortic sclerosis.;. Hemodynamically significant valvular aortic stenosis cannot be excluded. Pulmonic Valve The pulmonic valve is not well visualized. Great Vessels The aortic root is normal size. Pericardium/Pleura There is no pericardial effusion. Interpretation Summary Two-dimensional transthoracic echocardiogram with color flow and Doppler was performed in limited e only. Images were not obtained from all of the standard acoustic windows due to the limited scope of the [facility]. Left ventricular systolic function is grossly normal. Ejection Fraction = 50-55%. The right ventricle is grossly normal size. The right ventricular systolic function is normal. Normal left and right atrial size and function. There is moderate to severe aortic sclerosis.; Hemodynamically significant valvular aortic stenosis c annot be excluded. There is moderate to severe mitral annular calcification. Calcified mitral apparatus. MD Loan Bergeron 01/04/2020 03:29 PM
[2020-01-04] MEDS: ATORVASTATIN CA 40 MG TABLET (FP) PO SCH ×2 (23:29→23:36)
[2020-01-05] MEDS ORDERED: PIPERACILLIN/TAZOBACTAM 2.25 GM VIAL IVPB ONE ×3 (02:08→18:27)
[2020-01-05] MEDS ORDERED: DEXTROSE 5%-WATER - 50 ML IVPB ONE ×3 (02:08→18:27)
[2020-01-05] MEDS: PIPERACILLIN/TAZOB 2.25 GM 2.25 GM in DEXTROSE 5%-WATER - 50 ML IVPB SCH ×3 (02:20→18:44)
[2020-01-05] MEDS: hydrALAZINE HCL 25 MG TABLET (FP) PO SCH ×3 (06:16→22:06)
--- NOTE | 2020-01-05 07:02 | PN ---
Progress Note (short form) - Note Progress Note: VASCULAR SURGERY CTA with LE runoff to evaluate right LE flow pending Surgical plan to follow once results reviewed (planning BKA vs AKA) Cont medical optimization for impending surgery
[2020-01-05 08:34] LABS: BASO % 0.2 % (0-2.0); EOS % 0.1 % (0-4.5); HEMATOCRIT 34.2 % (35.4-49); HEMOGLOBIN 10.8 GM/dL (11.7-16.9); LYMPH % 5.2 % (8-40); MCHC 31.5 g/dl (32.0-35.9); MEAN CELL VOLUME 88.8 fl (80-96); MEAN PLT VOLUME 8.3 fl (7.5-11.1); MONO % 4.9 % (3.8-10.2); NEUT % 89.6 % (42.8-82.8); PLATELET COUNT 314 K/MM3 (134-434); RBC 3.86 M/mm3 (4.00-5.60); RDW 16.1 % (11.9-15.9)
[2020-01-05] MEDS ORDERED: SODIUM CHLORIDE 250 ML IV PRN (09:00)
[2020-01-05 09:05] LABS: ALBUMIN 2.1 g/dl (3.4-5.0); BILIRUBIN,TOTAL 0.6 mg/dL (0.2-1); BLOOD UREA NITROGEN 56.8 mg/dL (7-18); CALCIUM 8.6 mg/dL (8.5-10.1); POTASSIUM 3.7 mmol/L (3.5-5.1); TOT PROT 6.6 g/dl (6.4-8.2)
--- NOTE | 2020-01-05 10:29 | PN ---
Progress Note (short form) - Note Progress Note: pt examined he is verbalizing pain in right foot awake looks weak Vital Signs - 24 hr 01/04/20 01/04/20 01/04/20 14:38 21:00 23:25 Temperature 97.3 F L 98.8 F Pulse Rate 86 79 Respiratory 18 18 Rate Blood Pressure 106/58 L 115/54 L O2 Sat by Pulse 99 99 Oximetry (%) 01/05/20 06:00 Temperature 98.5 F Pulse Rate 74 Respiratory 18 Rate Blood Pressure 122/58 L O2 Sat by Pulse 96 Oximetry (%) Current Medications Generic Name Dose Route Start Last Admin Trade Name Freq PRN Reason Stop Dose Admin Acetaminophen 650 mg 01/03/20 20:00 Tylenol - PO Q6H PRN FEVER Aspirin 81 mg 01/04/20 10:00 01/04/20 10:10 Asa - PO 81 mg DAILY ZOLTAN Administration Atorvastatin Calcium 40 mg 01/03/20 22:00 01/04/20 23:36 Lipitor - PO Not Given HS ZOLTAN Hydralazine HCl 25 mg 01/03/20 22:00 01/05/20 06:16 Apresoline - PO Not Given TID ZOLTAN Piperacillin Sod/Tazobactam 50 mls @ 100 mls/hr 01/04/20 18:00 01/05/20 02:20 Sod 2.25 gm/ Dextrose IVPB 100 mls/hr Q8H-IV ZOLTAN Administration Protocol Lisinopril 2.5 mg 01/04/20 10:00 01/04/20 10:10 Prinivil PO 2.5 mg DAILY ZOLTAN Administration Laboratory Results - last 24 hr 01/04/20 01/05/20 01/05/20 01:15 07:05 07:05 WBC 20.0 H RBC 3.86 L Hgb 10.8 L Hct 34.2 L MCV 88.8 MCH 28.0 MCHC 31.5 L RDW 16.1 H Plt Count 314 MPV 8.3 Absolute Neuts (auto) 17.9 H Neutrophils % 89.6 H Lymphocytes % 5.2 L D Monocytes % 4.9 Eosinophils % 0.1 D Basophils % 0.2 Nucleated RBC % 0 Sodium Potassium Chloride Carbon Dioxide Anion Gap BUN Creatinine Est GFR (CKD-EPI)AfAm Est GFR (CKD-EPI)NonAf Random Glucose Calcium Total Bilirubin AST ALT Alkaline Phosphatase Total Protein Albumin Random Vancomycin 7.8 COVID-19 (ADRIANO) Not detected 01/05/20 07:05 WBC RBC Hgb Hct MCV MCH MCHC RDW Plt Count MPV Absolute Neuts (auto) Neutrophils % Lymphocytes % Monocytes % Eosinophils % Basophils % Nucleated RBC % Sodium 141 Potassium 3.7 Chloride 104 Carbon Dioxide 25 Anion Gap 12 BUN 56.8 H Creatinine 6.0 H Est GFR (CKD-EPI)AfAm 9.40 Est GFR (CKD-EPI)NonAf 8.11 Random Glucose 122 H Calcium 8.6 Total Bilirubin 0.6 AST 61 H ALT 77 H Alkaline Phosphatase 104 Total Protein 6.6 Albumin 2.1 L Random Vancomycin COVID-19 (ADRIANO) S 1 S2 RRR Lungs decreased left chest wall permacath Abd- soft, NT No edema right foot -- gangrene toes, slight edema right foot A/P Sepsis AMS ESRD on HD severe malnutrition toxic metabolic encephalopathy gangrene right foot -- contacted vascular team-- CTA could not be done as pt is contracted and iv lines are on his feet -- DR Hensley will take a look at the pt -- will have HD afterwards -- pain control -- spoke with granddaughter-- Chery Dean - she consented for CTA, discussed about pt's condition -- iv antibiotics-- cardiology eval for clearance-- has bifascicular block on EKG-- ordered Echo- results noted - he is not in heart failure
--- NOTE | 2020-01-05 10:34 | PN ---
Progress Note (short form) - Note Progress Note: RENAL Pt is awake and alert somewhat confused. Says he goes to hd everyday Last Vital Signs Temp Pulse Resp BP Pulse Ox 98.5 F 74 18 122/58 L 96 01/05/20 06:00 01/05/20 06:00 01/05/20 06:00 01/05/20 06:00 01/05/20 06:00 lungs clear cvs s1s2 rr abd soft ext no edema neuro awake. alert CBC, BMP 01/05/20 07:05 01/05/20 07:05 Current Medications Generic Name Dose Route Start Last Admin Trade Name Freq PRN Reason Stop Dose Admin Acetaminophen 650 mg 01/03/20 20:00 Tylenol - PO Q6H PRN FEVER Aspirin 81 mg 01/04/20 10:00 01/04/20 10:10 Asa - PO 81 mg DAILY ZOLTAN Administration Atorvastatin Calcium 40 mg 01/03/20 22:00 01/04/20 23:36 Lipitor - PO Not Given HS ZOLTAN Hydralazine HCl 25 mg 01/03/20 22:00 01/05/20 06:16 Apresoline - PO Not Given TID ZOLTAN Piperacillin Sod/Tazobactam 50 mls @ 100 mls/hr 01/04/20 18:00 01/05/20 02:20 Sod 2.25 gm/ Dextrose IVPB 100 mls/hr Q8H-IV ZOLTAN Administration Protocol Lisinopril 2.5 mg 01/04/20 10:00 01/04/20 10:10 Prinivil PO 2.5 mg DAILY ZOLTAN Administration IMPRESSION esr4d htn dementia gangrene PLAN to be dialyzed today, orders written continue antibiotics will use 3 k bath MV
[2020-01-05 11:19] LABS: ANISOCYTOSIS 1+; MACROCYTOSIS 0; PLATELET ESTIMATE NORMAL
[2020-01-05] MEDS: LISINOPRIL 5 MG TABLET (FP) PO SCH (12:35)
[2020-01-05] MEDS: ASPIRIN 81 MG CHEWABLE TABLETS PO SCH (12:35)
--- NOTE | 2020-01-05 13:48 | PN ---
Progress Note, Physician Chief Complaint: Pt alert; c/o pain "all over my body" (but no chest pain). History of Present Illness: Mr. Dean is an 79 yr old man with PM hx of esrd (,,, last dialysis sat), dm, hld, anemia, htn, dm, pvd with a gangrenous foot pending BKA presents with lethargy, decreased appetite from long-term. The pt states he has not been felling well recently, but is unable to provide detailed history. He denies any acute pain including cp, sob, abd pain, back pain fevers, diarrhea, cough. - Current Medication List Current Medications: Active Medications Acetaminophen (Tylenol -) 650 mg PO Q6H PRN PRN Reason: FEVER Aspirin (Asa -) 81 mg PO DAILY [facility] Last Admin: 01/05/20 12:35 Dose: 81 mg Documented by: Atorvastatin Calcium (Lipitor -) 40 mg PO HS [facility] Last Admin: 01/04/20 23:36 Dose: Not Given Documented by: Hydralazine HCl (Apresoline -) 25 mg PO TID [facility] Last Admin: 01/05/20 06:16 Dose: Not Given Documented by: Piperacillin Sod/Tazobactam (Sod 2.25 gm/ Dextrose) 50 mls @ 100 mls/hr IVPB Q8H-IV [facility]; Protocol Last Admin: 01/05/20 10:35 Dose: 100 mls/hr Documented by: Lisinopril (Prinivil) 2.5 mg PO DAILY [facility] Last Admin: 01/05/20 12:35 Dose: 2.5 mg Documented by: - Objective Vital Signs: Vital Signs Temperature 98.5 F 01/05/20 06:00 Pulse Rate 74 01/05/20 06:00 Respiratory Rate 18 01/05/20 06:00 Blood Pressure 122/58 L 01/05/20 06:00 O2 Sat by Pulse Oximetry (%) 96 01/05/20 06:00 Constitutional: Yes: Calm, Cachectic Eyes: Yes: Other (no gross abnormalities; pt does not like opening eyes because of the sun's brightness) Cardiovascular: Yes: Murmur (2/6 CONOR, RSB-->apex), S1, S2 (split) Respiratory: Yes: WNL Gastrointestinal: Yes: Soft ...Rectal Exam: Yes: Deferred Genitourinary: No: Anuria Musculoskeletal: Yes: Muscle Weakness Extremities: Yes: Cool Edema: Yes Edema: RLE: 1+ Peripheral Pulses WNL: No Peripheral Pulses: Left Doralis Pedis: 1+, Right Dorsalis Pedis: 1+ Integumentary: Yes: Other Wound/Incision: Yes: Dressing Dry and Intact Neurological: Yes: Alert, Oriented, Weakness Psychiatric: Yes: Alert, Oriented Labs: CBC, BMP 01/05/20 07:05 01/05/20 07:05 INR, PTT INR 1.09 (0.83-1.09) 01/03/20 13:52 Abnormal Lab Results 01/05/20 01/05/20 07:05 07:05 WBC 20.0 H RBC 3.86 L Hgb 10.8 L Hct 34.2 L MCHC 31.5 L RDW 16.1 H Absolute Neuts (auto) 17.9 H Neutrophils % 89.6 H Neutrophils % (Manual) 86.9 H Lymphocytes % 5.2 L D BUN 56.8 H Creatinine 6.0 H Random Glucose 122 H AST 61 H ALT 77 H Albumin 2.1 L Assessment/Plan Bifascicular block - chronic elevated troponins (since at least 08/2019), most likely due to ESRD/sepsis toxic metabolic encephalopathy Noted Rt cerebral infarct(s) on CT head AMS ESRD on HD Mild COPD (emphysema) PVD (Rt subclavian stent) severe malnutrition; cachexia gangrene right foot ECHO: normal LVEF; (limited study; cannot r/o significant aortic stenosis) elevated LFTS (improving) ?thyroid disorder Plan: COVID not detected. Continue lisinopril and hydralazine; f/u BP, BUN/Cr, electrolytes. Future repeat ECHO, when pt better able to cooperate, for closer study of aortic valve. Hemodialysis per network operations center technician (w/u noted) wound care, antibiotics; vascular f/u Aggressive control of lipids (hx CVA); on atorvastatin 40 mg daily. On ASA.
[2020-01-05] MEDS ORDERED: VANCOMYCIN 1 GRAM (PRE-DOCKED) 1,000 MG/250 ML BAG IVPB ONE (15:48)
--- NOTE | 2020-01-05 16:25 | EKG ---
Test Reason : Blood Pressure : / mmHG Vent. Rate : 084 BPM Atrial Rate : 084 BPM P-R Int : 226 ms QRS Dur : 148 ms QT Int : 430 ms P-R-T Axes : 071 -79 067 degrees QTc Int : 508 ms SINUS RHYTHM WITH 1ST DEGREE A-V BLOCK WITH PREMATURE ATRIAL COMPLEXES RIGHT BUNDLE BRANCH BLOCK LEFT ANTERIOR FASCICULAR BLOCK BIFASCICULAR BLOCK ABNORMAL ECG WHEN COMPARED WITH ECG OF 03-JAN-2020 13:42, PREMATURE ATRIAL COMPLEXES ARE NOW PRESENT CRITERIA FOR SEPTAL INFARCT ARE NO LONGER PRESENT Confirmed by UMAIR TO MD ([id number]) on 01/05/2020 4:25:20 PM Referred By: Confirmed By:UMAIR TO MD
--- NOTE | 2020-01-05 16:58 | PN ---
Progress Note (short form) - Note Progress Note: Vascular Surgery Pt seen and examined. Bilateral legs are contracted. The right foot has dry gangrene. Pt will need a AKA due to contracture. Please clear from cardiology standpoint. Will then book for surgery as long as pt consents. Shaun Hensley DO
--- NOTE | 2020-01-05 18:54 | PN ---
Progress Note (short form) - Note Progress Note: seen earlier this afternoon meditech down so could not document alert NAD Vital Signs Period Temp Pulse Resp BP Sys/Tapia Pulse Ox Last 24 Hr 97.4 F-98.8 F 74-83 18-18 115-138/54-77 96-99 cor-rrr lungs clear abd-soft, nt ext foot gangrene/cellulitis unchanged right cw pc no erythema CBC, BMP 01/05/20 07:05 01/05/20 07:05 Microbiology 01/03/20 13:52 Blood - Peripheral Venous Blood Culture - Preliminary NO GROWTH OBTAINED AFTER 48 HOURS, INCUBATION TO CONTINUE FOR 3 DAYS. 01/03/20 13:52 Blood - Peripheral Venous Blood Culture - Preliminary NO GROWTH OBTAINED AFTER 48 HOURS, INCUBATION TO CONTINUE FOR 3 DAYS. a/p gangrene of foot -redose vanco, continue zosyn, for aka per vascular esrd/hd-dose antibiotcs for ESRD Problem List - Problems (1) Cellulitis Code(s): L03.90 - CELLULITIS, UNSPECIFIED (2) Gangrene of foot Code(s): I96 - GANGRENE, NOT ELSEWHERE CLASSIFIED (3) ESRD (end stage renal disease) Code(s): N18.6 - END STAGE RENAL DISEASE (4) Abnormal LFTs Code(s): R94.5 - ABNORMAL RESULTS OF LIVER FUNCTION STUDIES (5) Elevated troponin Code(s): R79.89 - OTHER SPECIFIED ABNORMAL FINDINGS OF BLOOD CHEMISTRY
[2020-01-05] MEDS: ATORVASTATIN CA 40 MG TABLET (FP) PO SCH (22:06)
[2020-01-06] MEDS ORDERED: DEXTROSE 5%-WATER - 50 ML IVPB ONE ×3 (02:46→18:00)
[2020-01-06] MEDS ORDERED: PIPERACILLIN/TAZOBACTAM 2.25 GM VIAL IVPB ONE ×3 (02:46→18:00)
[2020-01-06] MEDS: PIPERACILLIN/TAZOB 2.25 GM 2.25 GM in DEXTROSE 5%-WATER - 50 ML IVPB SCH ×3 (02:47→18:02)
[2020-01-06] MEDS: hydrALAZINE HCL 25 MG TABLET (FP) PO SCH ×4 (07:03→21:10)
--- NOTE | 2020-01-06 08:48 | PN ---
Progress Note, Physician History of Present Illness: 79y M hx of esrd (,Th,Sa, last dialysis sat), dm, hl, anemia, htn, dm, pvd with a gangrenous foot pending BKA presents with lethargy, decreaesd appetite from [facility]. The pt states he has not been felling well recently, but is unable to provide detaioled history. He denies any acute pain including cp, sob, abd pain, back pain fevers, diarrhea, cough. - Current Medication List Current Medications: Active Medications Acetaminophen (Tylenol -) 650 mg PO Q6H PRN PRN Reason: FEVER Aspirin (Asa -) 81 mg PO DAILY [facility] Last Admin: 01/05/20 12:35 Dose: 81 mg Documented by: Atorvastatin Calcium (Lipitor -) 40 mg PO HS [facility] Last Admin: 01/05/20 22:06 Dose: 40 mg Documented by: Hydralazine HCl (Apresoline -) 25 mg PO TID [facility] Last Admin: 01/06/20 07:03 Dose: Not Given Documented by: Piperacillin Sod/Tazobactam (Sod 2.25 gm/ Dextrose) 50 mls @ 100 mls/hr IVPB Q8H-IV [facility]; Protocol Last Admin: 01/06/20 02:47 Dose: 100 mls/hr Documented by: Lisinopril (Prinivil) 2.5 mg PO DAILY [facility] Last Admin: 01/05/20 12:35 Dose: 2.5 mg Documented by: - Objective Vital Signs: Vital Signs Temperature 98.2 F 01/06/20 05:49 Pulse Rate 80 01/06/20 05:49 Respiratory Rate 18 01/06/20 05:49 Blood Pressure 107/60 01/06/20 05:49 O2 Sat by Pulse Oximetry (%) 98 01/06/20 05:49 Eyes: Yes: WNL, Conjunctiva Clear, EOM Intact HENT: Yes: WNL, Atraumatic, Normocephalic Neck: Yes: WNL, Supple, Trachea Midline Cardiovascular: Yes: WNL, Regular Rate and Rhythm, Murmur Respiratory: Yes: WNL, Regular, CTA Bilaterally Gastrointestinal: Yes: WNL, Normal Bowel Sounds Genitourinary: Yes: WNL Musculoskeletal: Yes: WNL Extremities: Yes: WNL Edema: No Integumentary: Yes: WNL Neurological: Yes: WNL, Alert, Oriented ...Motor Strength: WNL Psychiatric: Yes: WNL Labs: CBC, BMP 01/05/20 07:05 01/05/20 07:05 INR, PTT INR 1.09 (0.83-1.09) 01/03/20 13:52 Problem List - Problems (1) Failure to thrive Code(s): [id number] - (2) Gangrene of foot Code(s): I96 - GANGRENE, NOT ELSEWHERE CLASSIFIED (3) Sepsis Code(s): A41.9 - SEPSIS, UNSPECIFIED ORGANISM (4) Altered mental status Code(s): R41.82 - ALTERED MENTAL STATUS, UNSPECIFIED (5) COVID-19 Code(s): U07.1 - COVID POSITIVE (6) Weakness Code(s): R53.1 - WEAKNESS (7) AMS (altered mental status) Code(s): R41.82 - ALTERED MENTAL STATUS, UNSPECIFIED Qualifiers: Altered mental status type: unspecified Qualified Code(s): R41.82 - Altered mental status, unspecified (8) CHF exacerbation Code(s): I50.9 - HEART FAILURE, UNSPECIFIED Qualifiers: Heart failure type: unspecified Qualified Code(s): I50.9 - Heart failure, unspecified (9) Diabetes Code(s): E11.9 - TYPE 2 DIABETES MELLITUS WITHOUT COMPLICATIONS (10) ESRD (end stage renal disease) Code(s): N18.6 - END STAGE RENAL DISEASE (11) Weakness Code(s): R53.1 - WEAKNESS (12) Elevated troponin Code(s): R79.89 - OTHER SPECIFIED ABNORMAL FINDINGS OF BLOOD CHEMISTRY (13) Transaminitis Code(s): R74.0 - NONSPEC ELEV OF LEVELS OF TRANSAMNS & LACTIC ACID DEHYDRGNSE Assessment/Plan Bifascicular block - chronic elevated troponins (since at least 08/2019), most likely due to ESRD/sepsis toxic metabolic encephalopathy Noted Rt cerebral infarct(s) on CT head AMS ESRD on HD Mild COPD (emphysema) PVD (Rt subclavian stent) severe malnutrition; cachexia gangrene right foot ECHO: normal LVEF; (limited study; cannot r/o significant aortic stenosis) elevated LFTS (improving) ?thyroid disorder Plan: COVID not detected. Continue lisinopril and hydralazine; f/u BP, BUN/Cr, electrolytes. Future repeat ECHO, when pt better able to cooperate, for closer study of aortic valve. Hemodialysis per printing engineer (w/u noted) wound care, antibiotics; vascular f/u Aggressive control of lipids (hx CVA); on atorvastatin 40 mg daily. On ASA.
[2020-01-06] MEDS: LISINOPRIL 5 MG TABLET (FP) PO SCH (10:20)
[2020-01-06] MEDS: ASPIRIN 81 MG CHEWABLE TABLETS PO SCH (10:21)
--- NOTE | 2020-01-06 11:05 | PN ---
Progress Note, Physician History of Present Illness: pt seen/ examined chart reviewed awake chronic ill appearance complains of pain - Current Medication List Current Medications: Active Medications Acetaminophen (Tylenol -) 650 mg PO Q6H PRN PRN Reason: FEVER Aspirin (Asa -) 81 mg PO DAILY [facility] Last Admin: 01/06/20 10:21 Dose: 81 mg Documented by: Atorvastatin Calcium (Lipitor -) 40 mg PO HS [facility] Last Admin: 01/05/20 22:06 Dose: 40 mg Documented by: Hydralazine HCl (Apresoline -) 25 mg PO TID [facility] Last Admin: 01/06/20 07:03 Dose: Not Given Documented by: Piperacillin Sod/Tazobactam (Sod 2.25 gm/ Dextrose) 50 mls @ 100 mls/hr IVPB Q8H-IV [facility]; Protocol Last Admin: 01/06/20 10:21 Dose: 100 mls/hr Documented by: Lisinopril (Prinivil) 2.5 mg PO DAILY [facility] Last Admin: 01/06/20 10:20 Dose: 2.5 mg Documented by: - Objective Vital Signs: Vital Signs Temperature 98.2 F 01/06/20 05:49 Pulse Rate 80 01/06/20 05:49 Respiratory Rate 18 01/06/20 05:49 Blood Pressure 107/60 01/06/20 05:49 O2 Sat by Pulse Oximetry (%) 98 01/06/20 05:49 Constitutional: Yes: Mild Distress HENT: No: Tonsillar Exudate Neck: Yes: Supple Cardiovascular: Yes: Regular Rate and Rhythm Respiratory: Yes: Diminished Gastrointestinal: Yes: Soft Wound/Incision: Yes: Other (gangrenous foot -- right) Labs: CBC, BMP 01/05/20 07:05 01/05/20 07:05 INR, PTT INR 1.09 (0.83-1.09) 01/03/20 13:52 Problem List - Problems (1) Gangrene of foot Code(s): I96 - GANGRENE, NOT ELSEWHERE CLASSIFIED (2) Sepsis Code(s): A41.9 - SEPSIS, UNSPECIFIED ORGANISM (3) Weakness Code(s): R53.1 - WEAKNESS (4) ESRD (end stage renal disease) Code(s): N18.6 - END STAGE RENAL DISEASE Assessment/Plan Abx AKA recommended by Vascular Dialysis per renal Likely today Pain control Will add oxy for moderate to sever pain Cardiology on case Abx Will follow
--- NOTE | 2020-01-06 12:15 | PN ---
Progress Note (short form) - Note Progress Note: NAD Vital Signs Period Temp Pulse Resp BP Sys/Tapia Pulse Ox Last 24 Hr 97.4 F-98.2 F 80-92 18-18 107-145/60-81 96-98 cor-rrr lungs decreased bs at bases abd soft,nt ext Right foot unchanged CBC, BMP 01/05/20 07:05 01/05/20 07:05 Microbiology 01/03/20 13:52 Blood - Peripheral Venous Blood Culture - Preliminary NO GROWTH OBTAINED AFTER 48 HOURS, INCUBATION TO CONTINUE FOR 3 DAYS. 01/03/20 13:52 Blood - Peripheral Venous Blood Culture - Preliminary NO GROWTH OBTAINED AFTER 48 HOURS, INCUBATION TO CONTINUE FOR 3 DAYS. a/p gangrene of foot -redose vanco, continue zosyn, for aka per vascular esrd/hd-dose antibiotcs for ESRD check vanco level in am Problem List - Problems (1) Cellulitis Code(s): L03.90 - CELLULITIS, UNSPECIFIED (2) Gangrene of foot Code(s): I96 - GANGRENE, NOT ELSEWHERE CLASSIFIED (3) ESRD (end stage renal disease) Code(s): N18.6 - END STAGE RENAL DISEASE (4) Abnormal LFTs Code(s): R94.5 - ABNORMAL RESULTS OF LIVER FUNCTION STUDIES (5) Elevated troponin Code(s): R79.89 - OTHER SPECIFIED ABNORMAL FINDINGS OF BLOOD CHEMISTRY
--- NOTE | 2020-01-06 13:44 | PN ---
Progress Note (short form) - Note Progress Note: RENAL Pt is awake and alert did not get dialyzed yesterday as we were waiting for the cta to be done Last Vital Signs Temp Pulse Resp BP Pulse Ox 98.2 F 80 18 107/60 98 01/06/20 05:49 01/06/20 05:49 01/06/20 05:49 01/06/20 05:49 01/06/20 05:49 lungs clear cvs s1s2 rr abd soft ext no edema, left foot is dressed neuro awake. alert CBC, BMP 01/05/20 07:05 01/05/20 07:05 Current Medications Generic Name Dose Route Start Last Admin Trade Name Freq PRN Reason Stop Dose Admin Acetaminophen 650 mg 01/03/20 20:00 Tylenol - PO Q6H PRN FEVER Aspirin 81 mg 01/04/20 10:00 01/06/20 10:21 Asa - PO 81 mg DAILY [facility] Administration Atorvastatin Calcium 40 mg 01/03/20 22:00 01/05/20 22:06 Lipitor - PO 40 mg HS [facility] Administration Hydralazine HCl 25 mg 01/03/20 22:00 01/06/20 07:03 Apresoline - PO Not Given TID [facility] Piperacillin Sod/Tazobactam 50 mls @ 100 mls/hr 01/04/20 18:00 01/06/20 10:21 Sod 2.25 gm/ Dextrose IVPB 100 mls/hr Q8H-IV [facility] Administration Protocol Lisinopril 2.5 mg 01/04/20 10:00 01/06/20 10:20 Prinivil PO 2.5 mg DAILY [facility] Administration IMPRESSION esrd htn dementia gangrene PLAN pt needs to be dialyzed today with or without cta MV
[2020-01-06] MEDS ORDERED: DOCUSATE SODIUM 100 MG CAPSULE (FP) PO PRN (14:05)
[2020-01-06] MEDS: oxyCODONE HCL 5 MG TABLET PO PRN (18:02)
[2020-01-06] MEDS: ATORVASTATIN CA 40 MG TABLET (FP) PO SCH ×2 (21:06→21:12)
[2020-01-07] MEDS ORDERED: PIPERACILLIN/TAZOBACTAM 2.25 GM VIAL IVPB ONE ×3 (01:02→16:54)
[2020-01-07] MEDS ORDERED: DEXTROSE 5%-WATER - 50 ML IVPB ONE ×3 (01:02→16:54)
[2020-01-07] MEDS: PIPERACILLIN/TAZOB 2.25 GM 2.25 GM in DEXTROSE 5%-WATER - 50 ML IVPB SCH ×3 (01:17→17:01)
[2020-01-07] MEDS: hydrALAZINE HCL 25 MG TABLET (FP) PO SCH ×3 (05:50→21:03)
[2020-01-07] MEDS: ASPIRIN 81 MG CHEWABLE TABLETS PO SCH (09:43)
[2020-01-07] MEDS: LISINOPRIL 5 MG TABLET (FP) PO SCH (09:43)
--- NOTE | 2020-01-07 12:24 | PN ---
Progress Note, Physician History of Present Illness: pt seen/ examined chart reviewed awake chronic ill appearance comfortable - Current Medication List Current Medications: Active Medications Acetaminophen (Tylenol -) 650 mg PO Q6H PRN PRN Reason: FEVER Aspirin (Asa -) 81 mg PO DAILY [facility] Last Admin: 01/07/20 09:43 Dose: 81 mg Documented by: Atorvastatin Calcium (Lipitor -) 40 mg PO HS [facility] Last Admin: 01/06/20 21:12 Dose: Not Given Documented by: Docusate Sodium (Colace -) 100 mg PO BID PRN PRN Reason: CONSTIPATION Hydralazine HCl (Apresoline -) 25 mg PO TID [facility] Last Admin: 01/07/20 05:50 Dose: Not Given Documented by: Piperacillin Sod/Tazobactam (Sod 2.25 gm/ Dextrose) 50 mls @ 100 mls/hr IVPB Q8H-IV [facility]; Protocol Last Admin: 01/07/20 09:42 Dose: 100 mls/hr Documented by: Lisinopril (Prinivil) 2.5 mg PO DAILY [facility] Last Admin: 01/07/20 09:43 Dose: 2.5 mg Documented by: Oxycodone HCl (Roxicodone -) 5 mg PO Q6H PRN PRN Reason: PAIN LEVEL 6-10 Last Admin: 01/06/20 18:02 Dose: 5 mg Documented by: - Objective Vital Signs: Vital Signs Temperature 98.9 F 01/07/20 07:00 Pulse Rate 97 H 01/07/20 07:00 Respiratory Rate 18 01/07/20 07:00 Blood Pressure 112/65 01/07/20 07:00 O2 Sat by Pulse Oximetry (%) 96 01/07/20 07:00 Constitutional: Yes: No Distress, Other (weak) Neck: Yes: Supple Cardiovascular: Yes: Regular Rate and Rhythm Respiratory: Yes: Diminished Gastrointestinal: Yes: Soft Wound/Incision: Yes: Dressing Dry and Intact Neurological: Yes: Alert Labs: CBC, BMP 01/05/20 07:05 01/05/20 07:05 INR, PTT INR 1.09 (0.83-1.09) 01/03/20 13:52 Problem List - Problems (1) Gangrene of foot Code(s): I96 - GANGRENE, NOT ELSEWHERE CLASSIFIED (2) Sepsis Code(s): A41.9 - SEPSIS, UNSPECIFIED ORGANISM (3) Weakness Code(s): R53.1 - WEAKNESS (4) ESRD (end stage renal disease) Code(s): N18.6 - END STAGE RENAL DISEASE Assessment/Plan Abx AKA recommended by Vascular Dialysis per renal Pain control Cardiology on case Will continue to follow
--- NOTE | 2020-01-07 14:44 | PN ---
Progress Note (short form) - Note Progress Note: RENAL Pt is awake and alert comfortable Last Vital Signs Temp Pulse Resp BP Pulse Ox 98.9 F 97 H 18 112/65 96 01/07/20 07:00 01/07/20 07:00 01/07/20 07:00 01/07/20 07:00 01/07/20 07:00 lungs clear cvs s1s2 rr abd soft ext no edema, left foot is dressed neuro awake. alert CBC, BMP 01/05/20 07:05 01/05/20 07:05 Current Medications Generic Name Dose Route Start Last Admin Trade Name Freq PRN Reason Stop Dose Admin Acetaminophen 650 mg 01/03/20 20:00 Tylenol - PO Q6H PRN FEVER Aspirin 81 mg 01/04/20 10:00 01/07/20 09:43 Asa - PO 81 mg DAILY [facility] Administration Atorvastatin Calcium 40 mg 01/03/20 22:00 01/06/20 21:12 Lipitor - PO Not Given HS [facility] Docusate Sodium 100 mg 01/06/20 14:05 Colace - PO BID PRN CONSTIPATION Hydralazine HCl 25 mg 01/03/20 22:00 01/07/20 13:40 Apresoline - PO 25 mg TID [facility] Administration Piperacillin Sod/Tazobactam 50 mls @ 100 mls/hr 01/04/20 18:00 01/07/20 09:42 Sod 2.25 gm/ Dextrose IVPB 100 mls/hr Q8H-IV [facility] Administration Protocol Insulin Aspart 1 vial 01/07/20 16:30 Novolog Vial Sliding Scale - SQ BIDAC [facility] Protocol Lisinopril 2.5 mg 01/04/20 10:00 01/07/20 09:43 Prinivil PO 2.5 mg DAILY [facility] Administration Oxycodone HCl 5 mg 01/06/20 14:05 01/06/20 18:02 Roxicodone - PO 5 mg Q6H PRN Administration PAIN LEVEL 6-10 IMPRESSION esrd htn dementia gangrene PLAN will redialyze thursday can have his amputation aferwards MV
--- NOTE | 2020-01-07 16:08 | PN ---
Progress Note, Physician History of Present Illness: 79y M hx of esrd (,Th,Sa, last dialysis sat), dm, hl, anemia, htn, dm, pvd with a gangrenous foot pending BKA presents with lethargy, decreaesd appetite from skilled nursing. The pt states he has not been felling well recently, but is unable to provide detaioled history. He denies any acute pain including cp, sob, abd pain, back pain fevers, diarrhea, cough. - Current Medication List Current Medications: Active Medications Acetaminophen (Tylenol -) 650 mg PO Q6H PRN PRN Reason: FEVER Aspirin (Asa -) 81 mg PO DAILY [facility] Last Admin: 01/07/20 09:43 Dose: 81 mg Documented by: Atorvastatin Calcium (Lipitor -) 40 mg PO HS [facility] Last Admin: 01/06/20 21:12 Dose: Not Given Documented by: Docusate Sodium (Colace -) 100 mg PO BID PRN PRN Reason: CONSTIPATION Hydralazine HCl (Apresoline -) 25 mg PO TID [facility] Last Admin: 01/07/20 13:40 Dose: 25 mg Documented by: Piperacillin Sod/Tazobactam (Sod 2.25 gm/ Dextrose) 50 mls @ 100 mls/hr IVPB Q8H-IV [facility]; Protocol Last Admin: 01/07/20 09:42 Dose: 100 mls/hr Documented by: Insulin Aspart (Novolog Vial Sliding Scale -) 1 vial SQ [facility]IDAC [facility]; Protocol Lisinopril (Prinivil) 2.5 mg PO DAILY [facility] Last Admin: 01/07/20 09:43 Dose: 2.5 mg Documented by: Oxycodone HCl (Roxicodone -) 5 mg PO Q6H PRN PRN Reason: PAIN LEVEL 6-10 Last Admin: 01/06/20 18:02 Dose: 5 mg Documented by: - Objective Vital Signs: Vital Signs Temperature 98.9 F 01/07/20 07:00 Pulse Rate 97 H 01/07/20 07:00 Respiratory Rate 18 01/07/20 07:00 Blood Pressure 112/65 01/07/20 07:00 O2 Sat by Pulse Oximetry (%) 96 01/07/20 07:00 Eyes: Yes: WNL, Conjunctiva Clear, EOM Intact HENT: Yes: WNL, Atraumatic, Normocephalic Neck: Yes: WNL, Supple, Trachea Midline Cardiovascular: Yes: WNL, Regular Rate and Rhythm Respiratory: Yes: WNL, Regular, CTA Bilaterally Gastrointestinal: Yes: WNL, Normal Bowel Sounds Genitourinary: Yes: WNL Musculoskeletal: Yes: WNL Extremities: Yes: WNL Edema: No Integumentary: Yes: WNL Labs: CBC, BMP 01/05/20 07:05 01/05/20 07:05 INR, PTT INR 1.09 (0.83-1.09) 01/03/20 13:52 Problem List - Problems (1) Failure to thrive Code(s): DAC4269 - (2) Gangrene of foot Code(s): I96 - GANGRENE, NOT ELSEWHERE CLASSIFIED (3) Sepsis Code(s): A41.9 - SEPSIS, UNSPECIFIED ORGANISM (4) Altered mental status Code(s): R41.82 - ALTERED MENTAL STATUS, UNSPECIFIED (5) COVID-19 Code(s): U07.1 - COVID POSITIVE (6) Weakness Code(s): R53.1 - WEAKNESS (7) AMS (altered mental status) Code(s): R41.82 - ALTERED MENTAL STATUS, UNSPECIFIED Qualifiers: Altered mental status type: unspecified Qualified Code(s): R41.82 - Altered mental status, unspecified (8) CHF exacerbation Code(s): I50.9 - HEART FAILURE, UNSPECIFIED Qualifiers: Heart failure type: unspecified Qualified Code(s): I50.9 - Heart failure, unspecified (9) Diabetes Code(s): E11.9 - TYPE 2 DIABETES MELLITUS WITHOUT COMPLICATIONS (10) ESRD (end stage renal disease) Code(s): N18.6 - END STAGE RENAL DISEASE (11) Weakness Code(s): R53.1 - WEAKNESS (12) Elevated troponin Code(s): R79.89 - OTHER SPECIFIED ABNORMAL FINDINGS OF BLOOD CHEMISTRY (13) Transaminitis Code(s): R74.0 - NONSPEC ELEV OF LEVELS OF TRANSAMNS & LACTIC ACID DEHYDRGNSE Assessment/Plan Bifascicular block - chronic elevated troponins most likely due to ESRD/sepsis Sepsis AMS ESRD on HD severe malnutrition toxic metabolic encephalopathy gangrene right foot ECHO nl EF TDS cannot exclude severe Plan; Cardiac francois stable cont present rx
[2020-01-07] MEDS ORDERED: INSULIN (NOVOLOG) ASPART 100 UNITS/ML 10ML VIAL ONE (16:55)
[2020-01-07] MEDS: INSULIN SLIDING SCALE (NOVOLOG) 1 VIAL SQ SCH (17:01)
--- NOTE | 2020-01-07 18:46 | PN ---
Progress Note, Physician Chief Complaint: AWAKE IN BED CHRONICALLY ILL APPEARING AFEBRILE - Current Medication List Current Medications: Active Medications Acetaminophen (Tylenol -) 650 mg PO Q6H PRN PRN Reason: FEVER Aspirin (Asa -) 81 mg PO DAILY [facility] Last Admin: 01/07/20 09:43 Dose: 81 mg Documented by: Atorvastatin Calcium (Lipitor -) 40 mg PO HS [facility] Last Admin: 01/06/20 21:12 Dose: Not Given Documented by: Docusate Sodium (Colace -) 100 mg PO BID PRN PRN Reason: CONSTIPATION Hydralazine HCl (Apresoline -) 25 mg PO TID [facility] Last Admin: 01/07/20 13:40 Dose: 25 mg Documented by: Piperacillin Sod/Tazobactam (Sod 2.25 gm/ Dextrose) 50 mls @ 100 mls/hr IVPB Q8H-IV [facility]; Protocol Last Admin: 01/07/20 17:01 Dose: 100 mls/hr Documented by: Insulin Aspart (Novolog Vial Sliding Scale -) 1 vial SQ BIDAC [facility]; Protocol Last Admin: 01/07/20 17:01 Dose: 2 units Documented by: Lisinopril (Prinivil) 2.5 mg PO DAILY [facility] Last Admin: 01/07/20 09:43 Dose: 2.5 mg Documented by: Oxycodone HCl (Roxicodone -) 5 mg PO Q6H PRN PRN Reason: PAIN LEVEL 6-10 Last Admin: 01/06/20 18:02 Dose: 5 mg Documented by: - Objective Vital Signs: Vital Signs Temperature 98.9 F 01/07/20 07:00 Pulse Rate 97 H 01/07/20 07:00 Respiratory Rate 18 01/07/20 07:00 Blood Pressure 112/65 01/07/20 07:00 O2 Sat by Pulse Oximetry (%) 96 01/07/20 07:00 Constitutional: Yes: No Distress Eyes: Yes: Conjunctiva Clear Cardiovascular: Yes: Regular Rate and Rhythm, S1, S2 Respiratory: Yes: Diminished Gastrointestinal: Yes: Normal Bowel Sounds Extremities: Yes: Other (+ CONTRACTURES) Edema: No Labs: CBC, BMP 01/05/20 07:05 01/05/20 07:05 INR, PTT INR 1.09 (0.83-1.09) 07/28/20 13:52 Assessment/Plan GANGRENE,FOOT ESRD CONTINUE ZOSYN/ VANCOMYCIN CHECK RANDOM VANCO LEVEL AM
[2020-01-07] MEDS: ATORVASTATIN CA 40 MG TABLET (FP) PO SCH (21:03)
[2020-01-08] MEDS ORDERED: PIPERACILLIN/TAZOBACTAM 2.25 GM VIAL IVPB ONE ×3 (00:55→16:43)
[2020-01-08] MEDS ORDERED: DEXTROSE 5%-WATER - 50 ML IVPB ONE ×3 (00:56→16:43)
[2020-01-08] MEDS: PIPERACILLIN/TAZOB 2.25 GM 2.25 GM in DEXTROSE 5%-WATER - 50 ML IVPB SCH ×3 (01:13→17:10)
[2020-01-08] MEDS: hydrALAZINE HCL 25 MG TABLET (FP) PO SCH ×3 (06:16→21:15)
[2020-01-08] MEDS: INSULIN SLIDING SCALE (NOVOLOG) 1 VIAL SQ SCH ×2 (06:17→16:56)
[2020-01-08 09:05] LABS: BASO % 0.2 % (0-2.0); EOS % 0.3 % (0-4.5); HEMATOCRIT 34.4 % (35.4-49); HEMOGLOBIN 10.7 GM/dL (11.7-16.9); LYMPH % 5.7 % (8-40); MCH 28.2 pg (25.7-33.7); MONO % 3.4 % (3.8-10.2); NEUT % 90.4 % (42.8-82.8); PLATELET COUNT 259 K/MM3 (134-434); RBC 3.78 M/mm3 (4.00-5.60); RDW 16.5 % (11.9-15.9); WHITE BLOOD COUNT 19.5 K/mm3 (4.0-10.0)
[2020-01-08] MEDS: ASPIRIN 81 MG CHEWABLE TABLETS PO SCH (10:12)
[2020-01-08] MEDS: LISINOPRIL 5 MG TABLET (FP) PO SCH (10:12)
[2020-01-08 10:19] LABS: ANISOCYTOSIS 1+; MACROCYTOSIS 0; PLATELET ESTIMATE NORMAL
--- NOTE | 2020-01-08 10:49 | PN ---
Progress Note (short form) - Note Progress Note: RENAL Pt is awake and alert comfortable says he is as usual Last Vital Signs Temp Pulse Resp BP Pulse Ox 98.3 F 92 H 18 128/72 99 01/08/20 05:49 01/08/20 05:49 01/08/20 05:49 01/08/20 05:49 01/08/20 05:49 lungs clear cvs s1s2 rr abd soft ext no edema, left foot is dressed, contracted neuro awake. alert CBC, BMP 01/08/20 07:36 01/05/20 07:05 Current Medications Generic Name Dose Route Start Last Admin Trade Name Freq PRN Reason Stop Dose Admin Acetaminophen 650 mg 01/03/20 20:00 Tylenol - PO Q6H PRN FEVER Aspirin 81 mg 01/04/20 10:00 01/08/20 10:12 Asa - PO 81 mg DAILY ZOLTAN Administration Atorvastatin Calcium 40 mg 01/03/20 22:00 01/07/20 21:03 Lipitor - PO 40 mg HS ZOLTAN Administration Docusate Sodium 100 mg 01/06/20 14:05 Colace - PO BID PRN CONSTIPATION Hydralazine HCl 25 mg 01/03/20 22:00 01/08/20 06:16 Apresoline - PO 25 mg TID ZOLTAN Administration Piperacillin Sod/Tazobactam 50 mls @ 100 mls/hr 01/04/20 18:00 01/08/20 10:31 Sod 2.25 gm/ Dextrose IVPB 100 mls/hr Q8H-IV ZOLTAN Administration Protocol Insulin Aspart 1 vial 01/07/20 16:30 01/08/20 06:17 Novolog Vial Sliding Scale - SQ Not Given BIDAC [facility] Protocol Lisinopril 2.5 mg 01/04/20 10:00 01/08/20 10:12 Prinivil PO 2.5 mg DAILY ZOLTAN Administration Oxycodone HCl 5 mg 01/06/20 14:05 01/06/20 18:02 Roxicodone - PO 5 mg Q6H PRN Administration PAIN LEVEL 6-10 IMPRESSION esrd htn dementia gangrene PLAN will redialyze tomorrow can have his amputation aferwards MV
--- NOTE | 2020-01-08 12:11 | PN ---
Progress Note, Physician History of Present Illness: pt seen/ examined chart reviewed awake chronic ill appearance comfortable + PAIN d/w RN also - Current Medication List Current Medications: Active Medications Acetaminophen (Tylenol -) 650 mg PO Q6H PRN PRN Reason: FEVER Aspirin (Asa -) 81 mg PO DAILY [facility] Last Admin: 01/08/20 10:12 Dose: 81 mg Documented by: Atorvastatin Calcium (Lipitor -) 40 mg PO HS [facility] Last Admin: 01/07/20 21:03 Dose: 40 mg Documented by: Docusate Sodium (Colace -) 100 mg PO BID PRN PRN Reason: CONSTIPATION Hydralazine HCl (Apresoline -) 25 mg PO TID [facility] Last Admin: 01/08/20 06:16 Dose: 25 mg Documented by: Piperacillin Sod/Tazobactam (Sod 2.25 gm/ Dextrose) 50 mls @ 100 mls/hr IVPB Q8H-IV [facility]; Protocol Last Admin: 01/08/20 10:31 Dose: 100 mls/hr Documented by: Insulin Aspart (Novolog Vial Sliding Scale -) 1 vial SQ BIDAC [facility]; Protocol Last Admin: 01/08/20 06:17 Dose: Not Given Documented by: Lisinopril (Prinivil) 2.5 mg PO DAILY [facility] Last Admin: 01/08/20 10:12 Dose: 2.5 mg Documented by: Oxycodone HCl (Roxicodone -) 5 mg PO Q6H PRN PRN Reason: PAIN LEVEL 6-10 Last Admin: 01/06/20 18:02 Dose: 5 mg Documented by: - Objective Vital Signs: Vital Signs Temperature 98.3 F 01/08/20 05:49 Pulse Rate 92 H 01/08/20 05:49 Respiratory Rate 18 01/08/20 09:00 Blood Pressure 128/72 01/08/20 05:49 O2 Sat by Pulse Oximetry (%) 96 01/08/20 09:00 Constitutional: Yes: No Distress, Calm Eyes: Yes: Conjunctiva Clear Neck: Yes: Supple Cardiovascular: Yes: Regular Rate and Rhythm Respiratory: Yes: Diminished Gastrointestinal: Yes: Soft Extremities: Yes: Other (contracted --) Wound/Incision: Yes: Dressing Dry and Intact Neurological: Yes: Alert Labs: CBC, BMP 01/08/20 07:36 01/05/20 07:05 INR, PTT INR 1.09 (0.83-1.09) 01/03/20 13:52 Problem List - Problems (1) Gangrene of foot Code(s): I96 - GANGRENE, NOT ELSEWHERE CLASSIFIED (2) Sepsis Code(s): A41.9 - SEPSIS, UNSPECIFIED ORGANISM (3) Weakness Code(s): R53.1 - WEAKNESS (4) ESRD (end stage renal disease) Code(s): N18.6 - END STAGE RENAL DISEASE Assessment/Plan Abx AKVito recommended by Vascular Vascular to follow Medically stable for procedure-- Moderate risk Cardiology also cleared Dialysis per renal Pain control-- D/W RN also I discussed in detail with pts grand daughter -- Including AKA She agrees and understands She also would like to Vascular D/W RN Will continue to follow Monitor bgm
[2020-01-08] MEDS: oxyCODONE HCL 5 MG TABLET PO PRN ×2 (12:26→17:40)
--- NOTE | 2020-01-08 15:18 | PN ---
Progress Note, Physician History of Present Illness: 79y M hx of esrd (,Th,Sa, last dialysis sat), dm, hl, anemia, htn, dm, pvd with a gangrenous foot pending BKA presents with lethargy, decreaesd appetite from senior care. The pt states he has not been felling well recently, but is unable to provide detaioled history. He denies any acute pain including cp, sob, abd pain, back pain fevers, diarrhea, cough. - Current Medication List Current Medications: Active Medications Acetaminophen (Tylenol -) 650 mg PO Q6H PRN PRN Reason: FEVER Last Admin: 01/08/20 12:25 Dose: 650 mg Documented by: Aspirin (Asa -) 81 mg PO DAILY [facility] Last Admin: 01/08/20 10:12 Dose: 81 mg Documented by: Atorvastatin Calcium (Lipitor -) 40 mg PO HS [facility] Last Admin: 01/07/20 21:03 Dose: 40 mg Documented by: Docusate Sodium (Colace -) 100 mg PO BID PRN PRN Reason: CONSTIPATION Hydralazine HCl (Apresoline -) 25 mg PO TID [facility] Last Admin: 01/08/20 06:16 Dose: 25 mg Documented by: Piperacillin Sod/Tazobactam (Sod 2.25 gm/ Dextrose) 50 mls @ 100 mls/hr IVPB Q8H-IV [facility]; Protocol Last Admin: 01/08/20 10:31 Dose: 100 mls/hr Documented by: Insulin Aspart (Novolog Vial Sliding Scale -) 1 vial SQ BIDAC [facility]; Protocol Last Admin: 01/08/20 06:17 Dose: Not Given Documented by: Lisinopril (Prinivil) 2.5 mg PO DAILY [facility] Last Admin: 01/08/20 10:12 Dose: 2.5 mg Documented by: Oxycodone HCl (Roxicodone -) 5 mg PO Q6H PRN PRN Reason: PAIN LEVEL 6-10 Last Admin: 01/08/20 12:26 Dose: 5 mg Documented by: - Objective Vital Signs: Vital Signs Temperature 97.7 F 01/08/20 09:00 Pulse Rate 97 H 01/08/20 09:00 Respiratory Rate 18 01/08/20 09:00 Blood Pressure 136/69 01/08/20 09:00 O2 Sat by Pulse Oximetry (%) 96 01/08/20 09:00 Eyes: Yes: WNL, Conjunctiva Clear, EOM Intact HENT: Yes: WNL, Atraumatic, Normocephalic Neck: Yes: WNL, Supple, Trachea Midline Cardiovascular: Yes: WNL, Regular Rate and Rhythm Respiratory: Yes: WNL, Regular, CTA Bilaterally Gastrointestinal: Yes: WNL, Normal Bowel Sounds Genitourinary: Yes: WNL Musculoskeletal: Yes: WNL Edema: No Integumentary: Yes: WNL Labs: CBC, BMP 01/08/20 07:36 01/05/20 07:05 INR, PTT INR 1.09 (0.83-1.09) 01/03/20 13:52 Problem List - Problems (1) Failure to thrive Code(s): MIN5235 - (2) Gangrene of foot Code(s): I96 - GANGRENE, NOT ELSEWHERE CLASSIFIED (3) Sepsis Code(s): A41.9 - SEPSIS, UNSPECIFIED ORGANISM (4) Altered mental status Code(s): R41.82 - ALTERED MENTAL STATUS, UNSPECIFIED (5) COVID-19 Code(s): U07.1 - COVID POSITIVE (6) Weakness Code(s): R53.1 - WEAKNESS (7) AMS (altered mental status) Code(s): R41.82 - ALTERED MENTAL STATUS, UNSPECIFIED Qualifiers: Altered mental status type: unspecified Qualified Code(s): R41.82 - Altered mental status, unspecified (8) CHF exacerbation Code(s): I50.9 - HEART FAILURE, UNSPECIFIED Qualifiers: Heart failure type: unspecified Qualified Code(s): I50.9 - Heart failure, unspecified (9) Diabetes Code(s): E11.9 - TYPE 2 DIABETES MELLITUS WITHOUT COMPLICATIONS (10) ESRD (end stage renal disease) Code(s): N18.6 - END STAGE RENAL DISEASE (11) Weakness Code(s): R53.1 - WEAKNESS (12) Elevated troponin Code(s): R79.89 - OTHER SPECIFIED ABNORMAL FINDINGS OF BLOOD CHEMISTRY (13) Transaminitis Code(s): R74.0 - NONSPEC ELEV OF LEVELS OF TRANSAMNS & LACTIC ACID DEHYDRGNSE Assessment/Plan Bifascicular block - chronic elevated troponins most likely due to ESRD/sepsis Sepsis AMS ESRD on HD severe malnutrition toxic metabolic encephalopathy gangrene right foot ECHO nl EF TDS cannot exclude severe Plan; Cardiac francois stable cont present rx
[2020-01-08] MEDS: ATORVASTATIN CA 40 MG TABLET (FP) PO SCH (21:15)
[2020-01-09] MEDS: oxyCODONE HCL 5 MG TABLET PO PRN ×2 (00:19→09:14)
[2020-01-09] MEDS ORDERED: DEXTROSE 5%-WATER - 50 ML IVPB ONE ×3 (01:04→18:06)
[2020-01-09] MEDS ORDERED: PIPERACILLIN/TAZOBACTAM 2.25 GM VIAL IVPB ONE ×3 (01:04→18:06)
[2020-01-09] MEDS: PIPERACILLIN/TAZOB 2.25 GM 2.25 GM in DEXTROSE 5%-WATER - 50 ML IVPB SCH ×3 (01:17→18:12)
[2020-01-09] MEDS: INSULIN SLIDING SCALE (NOVOLOG) 1 VIAL SQ SCH ×2 (06:00→16:09)
[2020-01-09] MEDS: hydrALAZINE HCL 25 MG TABLET (FP) PO SCH ×3 (06:00→21:41)
--- NOTE | 2020-01-09 08:39 | PN ---
Progress Note, Physician History of Present Illness: 79y M hx of esrd (,Th,Sa, last dialysis sat), dm, hl, anemia, htn, dm, pvd with a gangrenous foot pending BKA presents with lethargy, decreaesd appetite from [facility]dc. The pt states he has not been felling well recently, but is unable to provide detaioled history. He denies any acute pain including cp, sob, abd pain, back pain fevers, diarrhea, cough. - Current Medication List Current Medications: Active Medications Acetaminophen (Tylenol -) 650 mg PO Q6H PRN PRN Reason: FEVER Last Admin: 01/08/20 12:25 Dose: 650 mg Documented by: Aspirin (Asa -) 81 mg PO DAILY [facility] Last Admin: 01/08/20 10:12 Dose: 81 mg Documented by: Atorvastatin Calcium (Lipitor -) 40 mg PO HS [facility] Last Admin: 01/08/20 21:15 Dose: 40 mg Documented by: Docusate Sodium (Colace -) 100 mg PO BID PRN PRN Reason: CONSTIPATION Hydralazine HCl (Apresoline -) 25 mg PO TID [facility] Last Admin: 01/09/20 06:00 Dose: 25 mg Documented by: Piperacillin Sod/Tazobactam (Sod 2.25 gm/ Dextrose) 50 mls @ 100 mls/hr IVPB Q8H-IV [facility]; Protocol Last Admin: 01/09/20 01:17 Dose: 100 mls/hr Documented by: Insulin Aspart (Novolog Vial Sliding Scale -) 1 vial SQ BIDAC [facility]; Protocol Last Admin: 01/09/20 06:00 Dose: Not Given Documented by: Lisinopril (Prinivil) 2.5 mg PO DAILY [facility] Last Admin: 01/08/20 10:12 Dose: 2.5 mg Documented by: Oxycodone HCl (Roxicodone -) 5 mg PO Q6H PRN PRN Reason: PAIN LEVEL 6-10 Last Admin: 01/09/20 00:19 Dose: 5 mg Documented by: - Objective Vital Signs: Vital Signs Temperature 98.2 F 01/09/20 05:00 Pulse Rate 97 H 01/09/20 05:00 Respiratory Rate 18 01/08/20 21:30 Blood Pressure 120/72 01/09/20 05:00 O2 Sat by Pulse Oximetry (%) 96 01/08/20 21:30 Eyes: Yes: WNL, Conjunctiva Clear, EOM Intact HENT: Yes: WNL, Atraumatic, Normocephalic Neck: Yes: WNL, Supple, Trachea Midline Cardiovascular: Yes: WNL, Regular Rate and Rhythm Respiratory: Yes: WNL, Regular, CTA Bilaterally Gastrointestinal: Yes: WNL, Normal Bowel Sounds Genitourinary: Yes: WNL Musculoskeletal: Yes: WNL Edema: No Integumentary: Yes: WNL Labs: CBC, BMP 01/08/20 07:36 01/05/20 07:05 INR, PTT INR 1.09 (0.83-1.09) 01/03/20 13:52 Problem List - Problems (1) Failure to thrive Code(s): [id number] - (2) Gangrene of foot Code(s): I96 - GANGRENE, NOT ELSEWHERE CLASSIFIED (3) Sepsis Code(s): A41.9 - SEPSIS, UNSPECIFIED ORGANISM (4) Altered mental status Code(s): R41.82 - ALTERED MENTAL STATUS, UNSPECIFIED (5) COVID-19 Code(s): U07.1 - COVID POSITIVE (6) Weakness Code(s): R53.1 - WEAKNESS (7) AMS (altered mental status) Code(s): R41.82 - ALTERED MENTAL STATUS, UNSPECIFIED Qualifiers: Altered mental status type: unspecified Qualified Code(s): R41.82 - Altered mental status, unspecified (8) CHF exacerbation Code(s): I50.9 - HEART FAILURE, UNSPECIFIED Qualifiers: Heart failure type: unspecified Qualified Code(s): I50.9 - Heart failure, unspecified (9) Diabetes Code(s): E11.9 - TYPE 2 DIABETES MELLITUS WITHOUT COMPLICATIONS (10) ESRD (end stage renal disease) Code(s): N18.6 - END STAGE RENAL DISEASE (11) Weakness Code(s): R53.1 - WEAKNESS (12) Elevated troponin Code(s): R79.89 - OTHER SPECIFIED ABNORMAL FINDINGS OF BLOOD CHEMISTRY (13) Transaminitis Code(s): R74.0 - NONSPEC ELEV OF LEVELS OF TRANSAMNS & LACTIC ACID DEHYDRGNSE Assessment/Plan Bifascicular block - chronic elevated troponins most likely due to ESRD/sepsis Sepsis AMS ESRD on HD severe malnutrition toxic metabolic encephalopathy gangrene right foot ECHO nl EF TDS cannot exclude severe Plan; Cardiac francois stable cont present rx
[2020-01-09] MEDS: ASPIRIN 81 MG CHEWABLE TABLETS PO SCH (09:14)
[2020-01-09] MEDS: LISINOPRIL 5 MG TABLET (FP) PO SCH (09:14)
--- NOTE | 2020-01-09 09:24 | PN ---
Progress Note (short form) - Note Progress Note: VASCULAR SURGERY Pt seen and examined. Bilateral legs are contracted. Right foot --> dry gangrene. Pt will need a AKA due to contracture. Cardio clearance Medical optimization/clearance
--- NOTE | 2020-01-09 11:26 | PN ---
Progress Note (short form) - Note Progress Note: RENAL Pt is awake and alert comfortable seen during hd Last Vital Signs Temp Pulse Resp BP Pulse Ox 97.7 F 109 H 18 81/38 L 96 01/09/20 09:45 01/09/20 10:50 01/09/20 10:50 01/09/20 10:50 01/08/20 21:30 lungs clear cvs s1s2 rr abd soft ext no edema, left foot is dressed, contracted neuro awake. alert CBC, BMP 01/08/20 07:36 01/05/20 07:05 Current Medications Generic Name Dose Route Start Last Admin Trade Name Freq PRN Reason Stop Dose Admin Acetaminophen 650 mg 01/03/20 20:00 01/08/20 12:25 Tylenol - PO 650 mg Q6H PRN Administration FEVER Aspirin 81 mg 01/04/20 10:00 01/09/20 09:14 Asa - PO 81 mg DAILY ZOLTAN Administration Atorvastatin Calcium 40 mg 01/03/20 22:00 01/08/20 21:15 Lipitor - PO 40 mg HS ZOLTAN Administration Docusate Sodium 100 mg 01/06/20 14:05 Colace - PO BID PRN CONSTIPATION Hydralazine HCl 25 mg 01/03/20 22:00 01/09/20 06:00 Apresoline - PO 25 mg TID ZOLTAN Administration Piperacillin Sod/Tazobactam 50 mls @ 100 mls/hr 01/04/20 18:00 01/09/20 09:15 Sod 2.25 gm/ Dextrose IVPB 100 mls/hr Q8H-IV [facility]AN Administration Protocol Insulin Aspart 1 vial 01/07/20 16:30 01/09/20 06:00 Novolog Vial Sliding Scale - SQ Not Given BIDAC [facility] Protocol Lisinopril 2.5 mg 01/04/20 10:00 01/09/20 09:14 Prinivil PO 2.5 mg DAILY [facility]AN Administration Oxycodone HCl 5 mg 01/06/20 14:05 01/09/20 09:14 Roxicodone - PO 5 mg Q6H PRN Administration PAIN LEVEL 6-10 IMPRESSION esrd htn dementia gangrene PLAN continue hd tiw for aka soon reduce bp meds MV
[2020-01-09] MEDS: ATORVASTATIN CA 40 MG TABLET (FP) PO SCH (21:41)
--- NOTE | 2020-01-09 22:45 | PN ---
Progress Note (short form) - Note Progress Note: pt examined he is verbalizing pain in right foot awake looks weak examined in dialysis today Vital Signs - 24 hr 01/09/20 01/09/20 01/09/20 05:00 09:45 09:50 Temperature 98.2 F 97.7 F Pulse Rate 97 H 91 H 91 H Respiratory 18 18 Rate Blood Pressure 120/72 109/43 L 117/44 L O2 Sat by Pulse Oximetry (%) 01/09/20 01/09/20 01/09/20 10:00 10:20 10:50 Temperature Pulse Rate 114 H 109 H Respiratory 18 18 Rate Blood Pressure 100/46 L 81/38 L O2 Sat by Pulse 97 Oximetry (%) 01/09/20 01/09/20 01/09/20 11:20 11:50 12:20 Temperature Pulse Rate 109 H 108 H 58 L Respiratory 18 18 18 Rate Blood Pressure 101/77 97/53 L 105/46 L O2 Sat by Pulse Oximetry (%) Current Medications Generic Name Dose Route Start Last Admin Trade Name Freq PRN Reason Stop Dose Admin Acetaminophen 650 mg 01/03/20 20:00 01/08/20 12:25 Tylenol - PO 650 mg Q6H PRN Administration FEVER Aspirin 81 mg 01/04/20 10:00 01/09/20 09:14 Asa - PO 81 mg DAILY [facility]AN Administration Atorvastatin Calcium 40 mg 01/03/20 22:00 01/09/20 21:41 Lipitor - PO 40 mg HS ZOLTAN Administration Docusate Sodium 100 mg 01/06/20 14:05 Colace - PO BID PRN CONSTIPATION Hydralazine HCl 25 mg 01/03/20 22:00 01/09/20 21:41 Apresoline - PO 25 mg TID [facility]OL[facility]AN Administration Piperacillin Sod/Tazobactam 50 mls @ 100 mls/hr 01/04/20 18:00 01/09/20 18:12 Sod 2.25 gm/ Dextrose IVPB 100 mls/hr Q8H-IV [facility] Administration Protocol Insulin Aspart 1 vial 01/07/20 16:30 01/09/20 16:09 Novolog Vial Sliding Scale - SQ Not Given BIDAC [facility] Protocol Lisinopril 2.5 mg 01/04/20 10:00 01/09/20 09:14 Prinivil PO 2.5 mg DAILY ZOLTAN Administration Laboratory Results - last 24 hr 01/09/20 01/09/20 05:53 16:03 POC Glucometer 146 149 S 1 S2 RRR Lungs decreased left chest wall permacath Abd- soft, NT No edema right foot -- gangrene toes, slight edema right foot A/P Sepsis AMS ESRD on HD severe malnutrition toxic metabolic encephalopathy gangrene right foot -- pt is scheduled for AKA -- [facility] in agreement -- medically cleared for surgery -- moderate risk -- senior account representative cleared pt -- continue with iv antibiotics Problem List - Problems (1) Cellulitis Code(s): L03.90 - CELLULITIS, UNSPECIFIED (2) Gangrene of foot Code(s): I96 - GANGRENE, NOT ELSEWHERE CLASSIFIED (3) Sepsis Code(s): A41.9 - SEPSIS, UNSPECIFIED ORGANISM (4) Altered mental status Code(s): R41.82 - ALTERED MENTAL STATUS, UNSPECIFIED (5) ESRD (end stage renal disease) Code(s): N18.6 - END STAGE RENAL DISEASE
[2020-01-09 23:07] LABS: HEP B CORE AB, TOT Negative (Negative)
[2020-01-10] MEDS ORDERED: PIPERACILLIN/TAZOBACTAM 2.25 GM VIAL IVPB ONE ×3 (01:07→18:23)
[2020-01-10] MEDS ORDERED: DEXTROSE 5%-WATER - 50 ML IVPB ONE ×3 (01:08→18:23)
[2020-01-10] MEDS: PIPERACILLIN/TAZOB 2.25 GM 2.25 GM in DEXTROSE 5%-WATER - 50 ML IVPB SCH ×3 (02:08→18:24)
[2020-01-10] MEDS: hydrALAZINE HCL 25 MG TABLET (FP) PO SCH ×3 (05:53→21:55)
[2020-01-10] MEDS: INSULIN SLIDING SCALE (NOVOLOG) 1 VIAL SQ SCH ×2 (06:02→16:45)
[2020-01-10] MEDS: LISINOPRIL 5 MG TABLET (FP) PO SCH (09:58)
[2020-01-10] MEDS: oxyCODONE HCL 5 MG TABLET PO PRN (09:58)
[2020-01-10] MEDS: ASPIRIN 81 MG CHEWABLE TABLETS PO SCH (09:58)
[2020-01-10] MEDS: HEPARIN NA (PORCINE) 5,000 UNITS/ML 1ML VIAL SQ SCH ×2 (09:58→21:55)
--- NOTE | 2020-01-10 11:56 | PN ---
Progress Note (short form) - Note Progress Note: RENAL Pt is awake and alert comfortable denies complaints Last Vital Signs Temp Pulse Resp BP Pulse Ox 98.0 F 95 H 20 123/68 95 01/10/20 10:00 01/10/20 10:00 01/10/20 10:00 01/10/20 10:00 01/10/20 10:00 lungs clear cvs s1s2 rr abd soft ext no edema, left foot is dressed, contracted neuro awake. alert Current Medications Generic Name Dose Route Start Last Admin Trade Name Freq PRN Reason Stop Dose Admin Acetaminophen 650 mg 01/03/20 20:00 01/08/20 12:25 Tylenol - PO 650 mg Q6H PRN Administration FEVER Aspirin 81 mg 01/04/20 10:00 01/10/20 09:58 Asa - PO 81 mg DAILY [facility] Administration Atorvastatin Calcium 40 mg 01/03/20 22:00 01/09/20 21:41 Lipitor - PO 40 mg HS [facility] Administration Docusate Sodium 100 mg 01/06/20 14:05 Colace - PO BID PRN CONSTIPATION Heparin Sodium (Porcine) 5,000 unit 01/10/20 10:00 01/10/20 09:58 Heparin - SQ 5,000 unit BID [facility] Administration Hydralazine HCl 25 mg 01/03/20 22:00 01/10/20 05:53 Apresoline - PO Not Given TID [facility]OLTAN Piperacillin Sod/Tazobactam 50 mls @ 100 mls/hr 01/04/20 18:00 01/10/20 10:05 Sod 2.25 gm/ Dextrose IVPB 100 mls/hr Q8H-IV [facility] Administration Protocol Insulin Aspart 1 vial 01/07/20 16:30 01/10/20 06:02 Novolog Vial Sliding Scale - SQ Not Given BIDAC [facility] Protocol Lisinopril 2.5 mg 01/04/20 10:00 01/10/20 09:58 Prinivil PO 2.5 mg DAILY [facility] Administration Oxycodone HCl 5 mg 01/10/20 01:29 01/10/20 09:58 Roxicodone - PO 5 mg Q6H PRN Administration PAIN LEVEL 6-10 CBC, BMP 01/08/20 07:36 01/05/20 07:05 IMPRESSION esrd htn dementia gangrene PLAN continue hd tiw for aka soon- has been cleared medically and cardiologically will order hd for tomorrow, no heparin MV
[2020-01-10] MEDS ORDERED: AMINO ACIDS/PROTEIN HYDROLYS 30 ML LIQUID.PKT PO SCH (17:30)
[2020-01-10] MEDS: AMINO ACIDS/PROTEIN HYDROLYS 30 ML LIQUID.PKT PO SCH (18:24)
--- NOTE | 2020-01-10 18:25 | PN ---
Progress Note, Physician Chief Complaint: Pt alert; says he has "mild" pain in leg, but does not want more pain medication.Says his appetite is "good". History of Present Illness: Mr. Dean is an 79 yr old white man with PM hx of esrd (,,, last dialysis sat), dm, hld, anemia, htn, dm, pvd with a gangrenous foot pending BKA presents with lethargy, decreased appetite from [facility]. The pt states he has not been felling well recently, but is unable to provide detailed history. He denies any acute pain including cp, sob, abd pain, back pain fevers, diarrhea, cough. - Current Medication List Current Medications: Active Medications Acetaminophen (Tylenol -) 650 mg PO Q6H PRN PRN Reason: FEVER Last Admin: 01/08/20 12:25 Dose: 650 mg Documented by: Amino Acids (Prosource No Carb Liquid Pkt) 30 ml PO BID@0800,1730 [facility] Aspirin (Asa -) 81 mg PO DAILY [facility] Last Admin: 01/10/20 09:58 Dose: 81 mg Documented by: Atorvastatin Calcium (Lipitor -) 40 mg PO HS [facility] Last Admin: 01/09/20 21:41 Dose: 40 mg Documented by: Docusate Sodium (Colace -) 100 mg PO BID PRN PRN Reason: CONSTIPATION Heparin Sodium (Porcine) (Heparin -) 5,000 unit SQ BID [facility] Last Admin: 01/10/20 09:58 Dose: 5,000 unit Documented by: Hydralazine HCl (Apresoline -) 25 mg PO TID [facility] Last Admin: 01/10/20 14:47 Dose: 25 mg Documented by: Piperacillin Sod/Tazobactam (Sod 2.25 gm/ Dextrose) 50 mls @ 100 mls/hr IVPB Q8H-IV [facility]; Protocol Last Admin: 01/10/20 10:05 Dose: 100 mls/hr Documented by: Insulin Aspart (Novolog Vial Sliding Scale -) 1 vial SQ BIDAC [facility]; Protocol Last Admin: 01/10/20 16:45 Dose: Not Given Documented by: Lisinopril (Prinivil) 2.5 mg PO DAILY [facility] Last Admin: 01/10/20 09:58 Dose: 2.5 mg Documented by: Oxycodone HCl (Roxicodone -) 5 mg PO Q6H PRN PRN Reason: PAIN LEVEL 6-10 Last Admin: 01/10/20 09:58 Dose: 5 mg Documented by: - Objective Vital Signs: Vital Signs Temperature 98.9 F 01/10/20 14:34 Pulse Rate 96 H 01/10/20 14:34 Respiratory Rate 01/10/20 14:34 Blood Pressure 123/70 01/10/20 14:34 O2 Sat by Pulse Oximetry (%) 94 L 01/10/20 14:34 Constitutional: Yes: Calm, Thin Eyes: Yes: Tearing, Other (left eye mildly ptotic) Neck: Yes: WNL Cardiovascular: Yes: S1 (varies in intensity), S2 Gastrointestinal: Yes: Soft ...Rectal Exam: Yes: Deferred Genitourinary: No: Anuria Musculoskeletal: Yes: Muscle Weakness Extremities: Yes: Cool, Other (amputation LE) Edema: No Peripheral Pulses WNL: No Integumentary: Yes: WNL Neurological: Yes: Alert, Oriented Psychiatric: Yes: Alert, Oriented Labs: CBC, BMP 01/08/20 07:36 01/05/20 07:05 INR, PTT INR 1.09 (0.83-1.09) 01/03/20 13:52 Assessment/Plan Bifascicular block - chronic elevated troponins (since at least 08/2019), most likely due to ESRD/sepsis toxic metabolic encephalopathy Noted Rt cerebral infarct(s) on CT head AMS ESRD on HD Mild COPD (emphysema) PVD (Rt subclavian stent) severe malnutrition; cachexia gangrene right foot ECHO: normal LVEF; (limited study; cannot r/o significant aortic stenosis) elevated LFTS (improving) ?thyroid disorder Plan: Planning for AKA of RLE. COVID not detected. Continue lisinopril and hydralazine; f/u BP, BUN/Cr, electrolytes. Future repeat ECHO, when pt better able to cooperate, for closer study of aortic valve. Hemodialysis per netsuite consultant ?on eye drops Aggressive control of lipids (hx CVA); on atorvastatin 40 mg daily.
--- NOTE | 2020-01-10 21:30 | PN ---
Progress Note (short form) - Note Progress Note: pt examined he is verbalizing pain in right foot awake looks weak Vital Signs - 24 hr 01/09/20 01/10/20 01/10/20 22:01 01:21 06:42 Temperature 98.8 F 98.6 F 98.8 F Pulse Rate 98 H 95 H 96 H Respiratory 18 18 20 Rate Blood Pressure 122/66 123/60 102/55 L O2 Sat by Pulse 95 97 Oximetry (%) 01/10/20 01/10/20 01/10/20 10:00 14:34 18:40 Temperature 98.0 F 98.9 F 98.7 F Pulse Rate 95 H 96 H 90 Respiratory 20 20 Rate Blood Pressure 123/68 123/70 129/60 O2 Sat by Pulse 95 94 L 96 Oximetry (%) Current Medications Generic Name Dose Route Start Last Admin Trade Name Freq PRN Reason Stop Dose Admin Acetaminophen 650 mg 01/03/20 20:00 01/08/20 12:25 Tylenol - PO 650 mg Q6H PRN Administration FEVER Amino Acids 30 ml 01/10/20 17:30 01/10/20 18:24 Prosource No Carb Liquid Pkt PO 30 ml BID@0800,1730 ZOLTAN Administration Aspirin 81 mg 01/04/20 10:00 01/10/20 09:58 Asa - PO 81 mg DAILY ZOLTAN Administration Atorvastatin Calcium 40 mg 01/03/20 22:00 01/09/20 21:41 Lipitor - PO 40 mg HS ZOLTAN Administration Docusate Sodium 100 mg 01/06/20 14:05 Colace - PO BID PRN CONSTIPATION Heparin Sodium (Porcine) 5,000 unit 01/10/20 10:00 01/10/20 09:58 Heparin - SQ 5,000 unit BID ZOLTAN Administration Hydralazine HCl 25 mg 01/03/20 22:00 01/10/20 14:47 Apresoline - PO 25 mg TID ZOLTAN Administration Piperacillin Sod/Tazobactam 50 mls @ 100 mls/hr 01/04/20 18:00 01/10/20 18:24 Sod 2.25 gm/ Dextrose IVPB 100 mls/hr Q8H-IV ZOLTAN Administration Protocol Insulin Aspart 1 vial 01/07/20 16:30 01/10/20 16:45 Novolog Vial Sliding Scale - SQ Not Given BIDAC [facility]OL[facility]AN Protocol Lisinopril 2.5 mg 01/04/20 10:00 01/10/20 09:58 Prinivil PO 2.5 mg DAILY ZOLTAN Administration Oxycodone HCl 5 mg 01/10/20 01:29 01/10/20 09:58 Roxicodone - PO 5 mg Q6H PRN Administration PAIN LEVEL 6-10 Laboratory Results - last 24 hr 01/03/20 01/10/20 01/10/20 17:10 05:49 07:15 POC Glucometer 103 Random Vancomycin 12.0 Hep A IgM Ab Confirm Negative Hepatitis A Ab Total Positive H Hep Bs Antigen Negative Hep Bs Antibody Non reactive Hep B Core Total Ab Negative Hep B Core IgM Ab Negative Hepatitis Be Antibody Negative Hepatitis Be Antigen Negative 01/10/20 16:35 POC Glucometer 147 Random Vancomycin Hep A IgM Ab Confirm Hepatitis A Ab Total Hep Bs Antigen Hep Bs Antibody Hep B Core Total Ab Hep B Core IgM Ab Hepatitis Be Antibody Hepatitis Be Antigen S 1 S2 RRR Lungs decreased left chest wall permacath Abd- soft, NT No edema right foot -- gangrene toes, slight edema right foot A/P Sepsis AMS ESRD on HD severe malnutrition toxic metabolic encephalopathy gangrene right foot -- pt is scheduled for AKA -- [facility] in agreement -- medically cleared for surgery -- moderate risk -- lead pressman cleared pt -- continue with iv antibiotics Problem List - Problems (1) Cellulitis Code(s): L03.90 - CELLULITIS, UNSPECIFIED (2) Gangrene of foot Code(s): I96 - GANGRENE, NOT ELSEWHERE CLASSIFIED (3) Sepsis Code(s): A41.9 - SEPSIS, UNSPECIFIED ORGANISM (4) Altered mental status Code(s): R41.82 - ALTERED MENTAL STATUS, UNSPECIFIED (5) ESRD (end stage renal disease) Code(s): N18.6 - END STAGE RENAL DISEASE
[2020-01-10] MEDS: ATORVASTATIN CA 40 MG TABLET (FP) PO SCH (21:55)
[2020-01-11] MEDS ORDERED: PIPERACILLIN/TAZOBACTAM 2.25 GM VIAL IVPB ONE ×3 (01:10→17:43)
[2020-01-11] MEDS: PIPERACILLIN/TAZOB 2.25 GM 2.25 GM in DEXTROSE 5%-WATER - 50 ML IVPB SCH ×3 (01:19→17:52)
[2020-01-11] MEDS: INSULIN SLIDING SCALE (NOVOLOG) 1 VIAL SQ SCH ×2 (06:16→17:12)
[2020-01-11] MEDS: hydrALAZINE HCL 25 MG TABLET (FP) PO SCH ×3 (06:16→21:38)
[2020-01-11] MEDS ORDERED: DEXTROSE 5%-WATER - 50 ML IVPB ONE ×2 (09:47→17:43)
[2020-01-11] MEDS: LISINOPRIL 5 MG TABLET (FP) PO SCH (09:50)
[2020-01-11] MEDS: oxyCODONE HCL 5 MG TABLET PO PRN (09:50)
[2020-01-11] MEDS: HEPARIN NA (PORCINE) 5,000 UNITS/ML 1ML VIAL SQ SCH ×2 (09:50→21:39)
[2020-01-11] MEDS: ASPIRIN 81 MG CHEWABLE TABLETS PO SCH (09:53)
[2020-01-11] MEDS: AMINO ACIDS/PROTEIN HYDROLYS 30 ML LIQUID.PKT PO SCH ×2 (09:53→17:52)
--- NOTE | 2020-01-11 10:44 | PN ---
Progress Note (short form) - Note Progress Note: Pt tentatively booked for tomorrow for r aka, 01/11 covid as of yesterday, reordered but needs to get to the lab prior to noon to be processed in time (RN aware) cleared by cards and medicine, anesthesia contacted and will evaluate pt. npo after midnight, cbc/chem t&s ordered 2 units prbc on hold for OR
--- NOTE | 2020-01-11 11:50 | PN ---
Progress Note, Physician History of Present Illness: 79y M hx of esrd (,Th,Sa, last dialysis sat), dm, hl, anemia, htn, dm, pvd with a gangrenous foot pending BKA presents with lethargy, decreaesd appetite from senior care. The pt states he has not been felling well recently, but is unable to provide detaioled history. He denies any acute pain including cp, sob, abd pain, back pain fevers, diarrhea, cough. - Current Medication List Current Medications: Active Medications Acetaminophen (Tylenol -) 650 mg PO Q6H PRN PRN Reason: FEVER Last Admin: 01/08/20 12:25 Dose: 650 mg Documented by: Amino Acids (Prosource No Carb Liquid Pkt) 30 ml PO BID@0800,1730 [facility] Last Admin: 01/11/20 09:53 Dose: 30 ml Documented by: Aspirin (Asa -) 81 mg PO DAILY [facility] Last Admin: 01/11/20 09:53 Dose: 81 mg Documented by: Atorvastatin Calcium (Lipitor -) 40 mg PO HS [facility] Last Admin: 01/10/20 21:55 Dose: 40 mg Documented by: Docusate Sodium (Colace -) 100 mg PO BID PRN PRN Reason: CONSTIPATION Heparin Sodium (Porcine) (Heparin -) 5,000 unit SQ BID [facility] Last Admin: 01/11/20 09:50 Dose: 5,000 unit Documented by: Hydralazine HCl (Apresoline -) 25 mg PO TID [facility] Last Admin: 01/11/20 06:16 Dose: 25 mg Documented by: Piperacillin Sod/Tazobactam (Sod 2.25 gm/ Dextrose) 50 mls @ 100 mls/hr IVPB Q8H-IV ZOLTAN; Protocol Last Admin: 01/11/20 09:48 Dose: 100 mls/hr Documented by: Insulin Aspart (Novolog Vial Sliding Scale -) 1 vial SQ BIDAC [facility]; Protocol Last Admin: 01/11/20 06:16 Dose: Not Given Documented by: Lisinopril (Prinivil) 2.5 mg PO DAILY [facility] Last Admin: 01/11/20 09:50 Dose: 2.5 mg Documented by: Oxycodone HCl (Roxicodone -) 5 mg PO Q6H PRN PRN Reason: PAIN LEVEL 6-10 Last Admin: 01/11/20 09:50 Dose: 5 mg Documented by: - Objective Vital Signs: Vital Signs Temperature 98.7 F 01/11/20 10:50 Pulse Rate 90 01/11/20 10:55 Respiratory Rate 18 01/11/20 10:55 Blood Pressure 118/60 01/11/20 10:55 O2 Sat by Pulse Oximetry (%) 94 L 01/11/20 09:05 Eyes: Yes: WNL, Conjunctiva Clear, EOM Intact HENT: Yes: WNL, Atraumatic, Normocephalic Neck: Yes: WNL, Supple, Trachea Midline Cardiovascular: Yes: WNL, Regular Rate and Rhythm Respiratory: Yes: WNL, Regular, CTA Bilaterally Gastrointestinal: Yes: WNL, Normal Bowel Sounds Genitourinary: Yes: WNL Musculoskeletal: Yes: WNL Edema: No Integumentary: Yes: WNL Labs: CBC, BMP 01/08/20 07:36 01/05/20 07:05 INR, PTT INR 1.09 (0.83-1.09) 01/03/20 13:52 Problem List - Problems (1) Failure to thrive Code(s): [id number] - (2) Gangrene of foot Code(s): I96 - GANGRENE, NOT ELSEWHERE CLASSIFIED (3) Sepsis Code(s): A41.9 - SEPSIS, UNSPECIFIED ORGANISM (4) Altered mental status Code(s): R41.82 - ALTERED MENTAL STATUS, UNSPECIFIED (5) COVID-19 Code(s): U07.1 - COVID POSITIVE (6) Weakness Code(s): R53.1 - WEAKNESS (7) AMS (altered mental status) Code(s): R41.82 - ALTERED MENTAL STATUS, UNSPECIFIED Qualifiers: Altered mental status type: unspecified Qualified Code(s): R41.82 - Altered mental status, unspecified (8) CHF exacerbation Code(s): I50.9 - HEART FAILURE, UNSPECIFIED Qualifiers: Heart failure type: unspecified Qualified Code(s): I50.9 - Heart failure, unspecified (9) Diabetes Code(s): E11.9 - TYPE 2 DIABETES MELLITUS WITHOUT COMPLICATIONS (10) ESRD (end stage renal disease) Code(s): N18.6 - END STAGE RENAL DISEASE (11) Weakness Code(s): R53.1 - WEAKNESS (12) Elevated troponin Code(s): R79.89 - OTHER SPECIFIED ABNORMAL FINDINGS OF BLOOD CHEMISTRY (13) Transaminitis Code(s): R74.0 - NONSPEC ELEV OF LEVELS OF TRANSAMNS & LACTIC ACID DEHYDRGNSE Assessment/Plan Bifascicular block - chronic elevated troponins (since at least 08/2019), most likely due to ESRD/sepsis toxic metabolic encephalopathy Noted Rt cerebral infarct(s) on CT head AMS ESRD on HD Mild COPD (emphysema) PVD (Rt subclavian stent) severe malnutrition; cachexia gangrene right foot ECHO: normal LVEF; (limited study; cannot r/o significant aortic stenosis) elevated LFTS (improving) ?thyroid disorder Plan: Planning for AKA of RLE. COVID not detected. Continue lisinopril and hydralazine; f/u BP, BUN/Cr, electrolytes. Future repeat ECHO, when pt better able to cooperate, for closer study of aortic valve. Hemodialysis per counselor education professor ?on eye drops Aggressive control of lipids (hx CVA); on atorvastatin 40 mg daily.
[2020-01-11 13:01] LABS: HEMOGLOBIN 9.9 GM/dL (11.7-16.9); MCH 27.7 pg (25.7-33.7); MCHC 30.9 g/dl (32.0-35.9); MEAN CELL VOLUME 89.6 fl (80-96); MEAN PLT VOLUME 9.3 fl (7.5-11.1); PLATELET COUNT 251 K/MM3 (134-434); RBC 3.58 M/mm3 (4.00-5.60); RDW 16.3 % (11.9-15.9); WHITE BLOOD COUNT 14.8 K/mm3 (4.0-10.0)
--- NOTE | 2020-01-11 13:50 | PN ---
Progress Note (short form) - Note Progress Note: RENAL Currently on hemodialysis comfortable Last Vital Signs Temp Pulse Resp BP Pulse Ox 98.7 F 90 18 118/60 94 L 01/11/20 10:50 01/11/20 10:55 01/11/20 10:55 01/11/20 10:55 01/11/20 09:05 lungs clear cvs s1s2 rr abd soft ext no edema, left foot is dressed, contracted neuro awake. alert Current Medications Generic Name Dose Route Start Last Admin Trade Name Freq PRN Reason Stop Dose Admin Acetaminophen 650 mg 01/03/20 20:00 01/08/20 12:25 Tylenol - PO 650 mg Q6H PRN Administration FEVER Amino Acids 30 ml 01/10/20 17:30 01/11/20 09:53 Prosource No Carb Liquid Pkt PO 30 ml BID@0800,1730 ZOLTAN Administration Aspirin 81 mg 01/04/20 10:00 01/11/20 09:53 Asa - PO 81 mg DAILY ZOLTAN Administration Atorvastatin Calcium 40 mg 01/03/20 22:00 01/10/20 21:55 Lipitor - PO 40 mg HS ZOLTAN Administration Docusate Sodium 100 mg 01/06/20 14:05 Colace - PO BID PRN CONSTIPATION Heparin Sodium (Porcine) 5,000 unit 01/10/20 10:00 01/11/20 09:50 Heparin - SQ 5,000 unit BID ZOLTAN Administration Hydralazine HCl 25 mg 01/03/20 22:00 01/11/20 06:16 Apresoline - PO 25 mg TID ZOLTAN Administration Piperacillin Sod/Tazobactam 50 mls @ 100 mls/hr 01/04/20 18:00 01/11/20 09:48 Sod 2.25 gm/ Dextrose IVPB 100 mls/hr Q8H-IV ZOLTAN Administration Protocol Insulin Aspart 1 vial 01/07/20 16:30 01/11/20 06:16 Novolog Vial Sliding Scale - SQ Not Given BIDAC [facility] Protocol Lisinopril 2.5 mg 01/04/20 10:00 01/11/20 09:50 Prinivil PO 2.5 mg DAILY ZOLTAN Administration Oxycodone HCl 5 mg 01/10/20 01:29 01/11/20 09:50 Roxicodone - PO 5 mg Q6H PRN Administration PAIN LEVEL 6-10 CBC, BMP 01/11/20 11:00 IMPRESSION esrd htn dementia gangrene PLAN continue hd tiw for aka soon- has been cleared medically and cardiologically no objection to proposed surgery MV
[2020-01-11] MEDS ORDERED: SODIUM CHLORIDE 250 ML IV PRN (13:51)
[2020-01-11 13:59] LABS: CALCIUM 7.7 mg/dL (8.5-10.1); CREATININE 6.6 mg/dL (0.55-1.3); POTASSIUM 4.1 mmol/L (3.5-5.1)
--- NOTE | 2020-01-11 14:19 | PN ---
Progress Note (short form) - Note Progress Note: pt examined no complaints pt in dialysis awake looks weak Vital Signs - 24 hr 01/10/20 01/10/20 01/10/20 14:34 18:40 21:00 Temperature 98.9 F 98.7 F Pulse Rate 96 H 90 Respiratory 20 20 Rate Blood Pressure 123/70 129/60 O2 Sat by Pulse 94 L 96 96 Oximetry (%) 01/11/20 01/11/20 01/11/20 06:00 09:00 09:05 Temperature 98.9 F 98.0 F Pulse Rate 89 93 H Respiratory 20 18 Rate Blood Pressure 121/57 L 100/74 O2 Sat by Pulse 97 94 L 94 L Oximetry (%) 01/11/20 01/11/20 10:50 10:55 Temperature 98.7 F Pulse Rate 94 H 90 Respiratory 18 18 Rate Blood Pressure 126/58 L 118/60 O2 Sat by Pulse Oximetry (%) Current Medications Generic Name Dose Route Start Last Admin Trade Name Freq PRN Reason Stop Dose Admin Acetaminophen 650 mg 01/03/20 20:00 01/08/20 12:25 Tylenol - PO 650 mg Q6H PRN Administration FEVER Amino Acids 30 ml 01/10/20 17:30 01/11/20 09:53 Prosource No Carb Liquid Pkt PO 30 ml BID@0800,1730 ZOLTAN Administration Aspirin 81 mg 01/04/20 10:00 01/11/20 09:53 Asa - PO 81 mg DAILY ZOLTAN Administration Atorvastatin Calcium 40 mg 01/03/20 22:00 01/10/20 21:55 Lipitor - PO 40 mg HS ZOLTAN Administration Docusate Sodium 100 mg 01/06/20 14:05 Colace - PO BID PRN CONSTIPATION Heparin Sodium (Porcine) 5,000 unit 01/10/20 10:00 01/11/20 09:50 Heparin - SQ 5,000 unit BID ZOLTAN Administration Hydralazine HCl 25 mg 01/03/20 22:00 01/11/20 06:16 Apresoline - PO 25 mg TID ZOLTAN Administration Piperacillin Sod/Tazobactam 50 mls @ 100 mls/hr 01/04/20 18:00 01/11/20 09:48 Sod 2.25 gm/ Dextrose IVPB 100 mls/hr Q8H-IV ZOLTAN Administration Protocol Sodium Chloride 250 mls @ 3,000 mls/hr 01/11/20 13:51 Normal Saline - IV 01/12/20 13:51 PRN PRN Hypotension during Dialysis Insulin Aspart 1 vial 01/07/20 16:30 01/11/20 06:16 Novolog Vial Sliding Scale - SQ Not Given BIDAC [facility] Protocol Lisinopril 2.5 mg 01/04/20 10:00 01/11/20 09:50 Prinivil PO 2.5 mg DAILY ZOLTAN Administration Multivit/Ca Carb/B Cmplx/FA/Prenat 1 tablet 01/12/20 10:00 Nephro-Cata - PO DAILY ZOLTAN Oxycodone HCl 5 mg 01/10/20 01:29 01/11/20 09:50 Roxicodone - PO 5 mg Q6H PRN Administration PAIN LEVEL 6-10 Laboratory Results - last 24 hr 01/10/20 01/11/20 01/11/20 16:35 06:13 11:00 WBC 14.8 H RBC 3.58 L Hgb 9.9 L Hct 32.0 L MCV 89.6 MCH 27.7 MCHC 30.9 L RDW 16.3 H Plt Count 251 MPV 9.3 Sodium Potassium Chloride Carbon Dioxide Anion Gap BUN Creatinine Est GFR (CKD-EPI)AfAm Est GFR (CKD-EPI)NonAf POC Glucometer 147 113 Random Glucose Calcium 01/11/20 11:00 WBC RBC Hgb Hct MCV MCH MCHC RDW Plt Count MPV Sodium 141 Potassium 4.1 Chloride 102 Carbon Dioxide 27 Anion Gap 13 BUN 53.0 H Creatinine 6.6 H Est GFR (CKD-EPI)AfAm 8.38 Est GFR (CKD-EPI)NonAf 7.23 POC Glucometer Random Glucose 154 H Calcium 7.7 L S 1 S2 RRR Lungs decreased left chest wall permacath Abd- soft, NT No edema right foot -- gangrene toes, slight edema right foot A/P Sepsis AMS ESRD on HD severe malnutrition toxic metabolic encephalopathy gangrene right foot -- pt is scheduled for [facility] -- lidiaefra in agreement -- medically cleared for surgery -- moderate risk -- [facility] former brace end cleared pt -- continue with iv antibiotics -- for surgery tomorrow Problem List - Problems (1) Cellulitis Code(s): L03.90 - CELLULITIS, UNSPECIFIED (2) Gangrene of foot Code(s): I96 - GANGRENE, NOT ELSEWHERE CLASSIFIED (3) Sepsis Code(s): A41.9 - SEPSIS, UNSPECIFIED ORGANISM (4) Altered mental status Code(s): R41.82 - ALTERED MENTAL STATUS, UNSPECIFIED (5) ESRD (end stage renal disease) Code(s): N18.6 - END STAGE RENAL DISEASE
[2020-01-11] MEDS: ATORVASTATIN CA 40 MG TABLET (FP) PO SCH (21:39)
[2020-01-12] MEDS ORDERED: DEXTROSE 5%-WATER - 50 ML IVPB ONE ×3 (01:47→17:40)
[2020-01-12] MEDS ORDERED: PIPERACILLIN/TAZOBACTAM 2.25 GM VIAL IVPB ONE ×3 (01:47→17:40)
[2020-01-12] MEDS: PIPERACILLIN/TAZOB 2.25 GM 2.25 GM in DEXTROSE 5%-WATER - 50 ML IVPB SCH ×3 (02:40→17:43)
[2020-01-12] MEDS: hydrALAZINE HCL 25 MG TABLET (FP) PO SCH ×3 (06:23→21:16)
[2020-01-12] MEDS: INSULIN SLIDING SCALE (NOVOLOG) 1 VIAL SQ SCH ×2 (06:24→17:32)
[2020-01-12] MEDS ORDERED: INSULIN (LEVEMIR) 100 UNITS/ML UNITS SQ ONE (06:56)
[2020-01-12] MEDS: AMINO ACIDS/PROTEIN HYDROLYS 30 ML LIQUID.PKT PO SCH ×2 (08:11→17:43)
[2020-01-12 08:13] LABS: BASO % 0.2 % (0-2.0); EOS % 0.9 % (0-4.5); HEMATOCRIT 34.4 % (35.4-49); HEMOGLOBIN 10.6 GM/dL (11.7-16.9); LYMPH % 10.2 % (8-40); MCH 27.7 pg (25.7-33.7); MCHC 30.8 g/dl (32.0-35.9); MEAN CELL VOLUME 89.9 fl (80-96); MEAN PLT VOLUME 9.4 fl (7.5-11.1); MONO % 4.5 % (3.8-10.2); NEUT % 84.2 % (42.8-82.8); PLATELET COUNT 250 K/MM3 (134-434); RBC 3.82 M/mm3 (4.00-5.60); RDW 15.9 % (11.9-15.9); WHITE BLOOD COUNT 12.8 K/mm3 (4.0-10.0)
[2020-01-12 08:48] LABS: POTASSIUM 3.9 mmol/L (3.5-5.1)
[2020-01-12 08:57] LABS: BLOOD UREA NITROGEN 35.9 mg/dL (7-18); CALCIUM 8.2 mg/dL (8.5-10.1); PHOSPHOROUS 3.7 mg/dL (2.5-4.9)
[2020-01-12] MEDS: ASPIRIN 81 MG CHEWABLE TABLETS PO SCH (09:26)
[2020-01-12] MEDS: LISINOPRIL 5 MG TABLET (FP) PO SCH (09:26)
[2020-01-12] MEDS ORDERED: VITAMIN B COMP W-C 1 EA TABLET (NEPHRO-VITE) PO SCH (10:00)
--- NOTE | 2020-01-12 10:05 | PN ---
Progress Note (short form) - Note Progress Note: RENAL comfortable Last Vital Signs Temp Pulse Resp BP Pulse Ox 99.7 F H 99 H 18 117/56 L 94 L 01/12/20 06:00 01/12/20 06:00 01/12/20 06:00 01/12/20 06:00 01/12/20 06:00 lungs clear cvs s1s2 rr abd soft ext no edema, left foot is dressed, contracted neuro awake. alert Current Medications Generic Name Dose Route Start Last Admin Trade Name Freq PRN Reason Stop Dose Admin Acetaminophen 650 mg 01/03/20 20:00 01/08/20 12:25 Tylenol - PO 650 mg Q6H PRN Administration FEVER Amino Acids 30 ml 01/10/20 17:30 01/12/20 08:11 Prosource No Carb Liquid Pkt PO Not Given BID@0800,1730 [facility] Aspirin 81 mg 01/04/20 10:00 01/12/20 09:26 Asa - PO Not Given DAILY ZOLTAN Atorvastatin Calcium 40 mg 01/03/20 22:00 01/11/20 21:39 Lipitor - PO 40 mg HS ZOLTAN Administration Docusate Sodium 100 mg 01/06/20 14:05 Colace - PO BID PRN CONSTIPATION Heparin Sodium (Porcine) 5,000 unit 01/10/20 10:00 01/11/20 21:39 Heparin - SQ 5,000 unit BID [facility]OL[facility]AN Administration Hydralazine HCl 25 mg 01/03/20 22:00 01/12/20 06:23 Apresoline - PO Not Given TID ZOLTAN Sodium Chloride 250 mls @ 3,000 mls/hr 01/11/20 13:51 Normal Saline - IV 01/12/20 13:51 PRN PRN Hypotension during Dialysis Piperacillin Sod/Tazobactam 50 mls @ 100 mls/hr 01/11/20 18:00 01/12/20 09:26 Sod 2.25 gm/ Dextrose IVPB 100 mls/hr Q8H-IV ZOLTAN Administration Protocol Insulin Aspart 1 vial 01/07/20 16:30 01/12/20 06:24 Novolog Vial Sliding Scale - SQ Not Given BIDAC [facility] Protocol Lisinopril 2.5 mg 01/04/20 10:00 01/12/20 09:26 Prinivil PO Not Given DAILY [facility] Multivit/Ca Carb/B Cmplx/FA/Prenat 1 tablet 01/12/20 10:00 01/12/20 09:26 Nephro-Cata - PO Not Given DAILY ZOLTAN Oxycodone HCl 5 mg 01/10/20 01:29 01/11/20 09:50 Roxicodone - PO 5 mg Q6H PRN Administration PAIN LEVEL 6-10 CBC, BMP 01/12/20 06:45 01/12/20 06:45 IMPRESSION esrd htn dementia gangrene PLAN continue hd tiw for aka soon- has been cleared medically and cardiologically no objection to proposed surgery HD tomorrow MV
[2020-01-12] MEDS ORDERED: ETOMIDATE 20 MG/10 ML AMPUL IVPUSH ONE (11:15)
[2020-01-12] MEDS ORDERED: fentaNYL CITRATE 250 MCG/5 ML VIAL ONE (11:15)
[2020-01-12] MEDS ORDERED: PROPOFOL 20 ML ONE (11:16)
[2020-01-12] MEDS ORDERED: ROCURONIUM BROMIDE 50 MG/5 ML SYRINGE ONE (11:16)
[2020-01-12] MEDS ORDERED: EPHEDRINE SULFATE/0.9% NACL/PF 50 MG/10 ML SYRINGE NR ONE ×2 (11:18→11:19)
--- NOTE | 2020-01-12 12:01 | PN ---
Progress Note, Physician History of Present Illness: 79y M hx of esrd (,Th,Sa, last dialysis sat), dm, hl, anemia, htn, dm, pvd with a gangrenous foot pending BKA presents with lethargy, [facility] The pt states he has not been felling well recently, but is unable to provide detaioled history. He denies any acute pain including cp, sob, abd pain, back pain fevers, diarrhea, cough. - Current Medication List Current Medications: Active Medications Acetaminophen (Tylenol -) 650 mg PO Q6H PRN PRN Reason: FEVER Last Admin: 01/08/20 12:25 Dose: 650 mg Documented by: Amino Acids (Prosource No Carb Liquid Pkt) 30 ml PO BID@0800,1730 [facility] Last Admin: 01/12/20 08:11 Dose: Not Given Documented by: Aspirin (Asa -) 81 mg PO DAILY [facility] Last Admin: 01/12/20 09:26 Dose: Not Given Documented by: Atorvastatin Calcium (Lipitor -) 40 mg PO HS [facility] Last Admin: 01/11/20 21:39 Dose: 40 mg Documented by: Docusate Sodium (Colace -) 100 mg PO BID PRN PRN Reason: CONSTIPATION Heparin Sodium (Porcine) (Heparin -) 5,000 unit SQ BID [facility] Last Admin: 01/11/20 21:39 Dose: 5,000 unit Documented by: Hydralazine HCl (Apresoline -) 25 mg PO TID [facility] Last Admin: 01/12/20 06:23 Dose: Not Given Documented by: Sodium Chloride (Normal Saline -) 250 mls @ 3,000 mls/hr IV PRN PRN PRN Reason: Hypotension during Dialysis Stop: 01/12/20 13:51 Piperacillin Sod/Tazobactam (Sod 2.25 gm/ Dextrose) 50 mls @ 100 mls/hr IVPB Q8H-IV [facility]; Protocol Last Admin: 01/12/20 09:26 Dose: 100 mls/hr Documented by: Insulin Aspart (Novolog Vial Sliding Scale -) 1 vial SQ BIDAC [facility]; Protocol Last Admin: 01/12/20 06:24 Dose: Not Given Documented by: Lisinopril (Prinivil) 2.5 mg PO DAILY [facility] Last Admin: 01/12/20 09:26 Dose: Not Given Documented by: Multivit/Ca Carb/B Cmplx/FA/Prenat (Nephro-Cata -) 1 tablet PO DAILY [facility] Last Admin: 01/12/20 09:26 Dose: Not Given Documented by: Oxycodone HCl (Roxicodone -) 5 mg PO Q6H PRN PRN Reason: PAIN LEVEL 6-10 Last Admin: 01/11/20 09:50 Dose: 5 mg Documented by: - Objective Vital Signs: Vital Signs Temperature 99.8 F H 01/12/20 09:00 Pulse Rate 94 H 01/12/20 09:00 Respiratory Rate 20 01/12/20 09:00 Blood Pressure 132/70 01/12/20 09:00 O2 Sat by Pulse Oximetry (%) 96 01/12/20 09:00 Eyes: Yes: WNL, Conjunctiva Clear, EOM Intact HENT: Yes: WNL, Atraumatic, Normocephalic Neck: Yes: WNL, Supple, Trachea Midline Cardiovascular: Yes: WNL, Regular Rate and Rhythm Respiratory: Yes: WNL, Regular, CTA Bilaterally Gastrointestinal: Yes: WNL, Normal Bowel Sounds Genitourinary: Yes: WNL Musculoskeletal: Yes: WNL Edema: No Integumentary: Yes: WNL Labs: CBC, BMP 01/12/20 06:45 01/12/20 06:45 INR, PTT INR 1.09 (0.83-1.09) 01/03/20 13:52 Problem List - Problems (1) Failure to thrive Code(s): [id number] - (2) Gangrene of foot Code(s): I96 - GANGRENE, NOT ELSEWHERE CLASSIFIED (3) Sepsis Code(s): A41.9 - SEPSIS, UNSPECIFIED ORGANISM (4) Altered mental status Code(s): R41.82 - ALTERED MENTAL STATUS, UNSPECIFIED (5) COVID-19 Code(s): U07.1 - COVID POSITIVE (6) Weakness Code(s): R53.1 - WEAKNESS (7) AMS (altered mental status) Code(s): R41.82 - ALTERED MENTAL STATUS, UNSPECIFIED Qualifiers: Altered mental status type: unspecified Qualified Code(s): R41.82 - Altered mental status, unspecified (8) CHF exacerbation Code(s): I50.9 - HEART FAILURE, UNSPECIFIED Qualifiers: Heart failure type: unspecified Qualified Code(s): I50.9 - Heart failure, unspecified (9) Diabetes Code(s): E11.9 - TYPE 2 DIABETES MELLITUS WITHOUT COMPLICATIONS (10) ESRD (end stage renal disease) Code(s): N18.6 - END STAGE RENAL DISEASE (11) Weakness Code(s): R53.1 - WEAKNESS (12) Elevated troponin Code(s): R79.89 - OTHER SPECIFIED ABNORMAL FINDINGS OF BLOOD CHEMISTRY (13) Transaminitis Code(s): R74.0 - NONSPEC ELEV OF LEVELS OF TRANSAMNS & LACTIC ACID DEHYDRGNSE Assessment/Plan Bifascicular block - chronic elevated troponins (since at least 08/2019), most likely due to ESRD/sepsis toxic metabolic encephalopathy Noted Rt cerebral infarct(s) on CT head AMS ESRD on HD Mild COPD (emphysema) PVD (Rt subclavian stent) severe malnutrition; cachexia gangrene right foot ECHO: normal LVEF; (limited study; cannot r/o significant aortic stenosis) elevated LFTS (improving) ?thyroid disorder Plan: Planning for AKA of RLE. COVID not detected. Continue lisinopril and hydralazine; f/u BP, BUN/Cr, electrolytes. Future repeat ECHO, when pt better able to cooperate, for closer study of aortic valve. Hemodialysis per car repairer ?on eye drops Aggressive control of lipids (hx CVA); on atorvastatin 40 mg daily.
--- NOTE | 2020-01-12 13:22 | PN ---
Progress Note (short form) - Note Progress Note: pt examined no complaints awake looks weak Vital Signs - 24 hr 01/11/20 01/11/20 01/11/20 13:25 13:55 14:10 Temperature Pulse Rate 102 H 106 H 105 H Respiratory 18 18 18 Rate Blood Pressure 107/57 L 107/51 L 90/60 O2 Sat by Pulse Oximetry (%) 01/11/20 01/11/20 01/11/20 14:23 15:24 19:07 Temperature 97.8 F 99.8 F H Pulse Rate 101 H 88 100 H Respiratory 18 20 Rate Blood Pressure 121/68 128/78 100/48 L O2 Sat by Pulse 95 95 Oximetry (%) 01/11/20 01/11/20 01/12/20 21:00 22:00 06:00 Temperature 99.7 F H 99.7 F H Pulse Rate 99 H 99 H Respiratory 18 18 18 Rate Blood Pressure 117/68 117/56 L O2 Sat by Pulse 97 97 94 L Oximetry (%) 01/12/20 09:00 Temperature 99.8 F H Pulse Rate 94 H Respiratory 20 Rate Blood Pressure 132/70 O2 Sat by Pulse 96 Oximetry (%) Current Medications Generic Name Dose Route Start Last Admin Trade Name Freq PRN Reason Stop Dose Admin Acetaminophen 650 mg 01/03/20 20:00 01/08/20 12:25 Tylenol - PO 650 mg Q6H PRN Administration FEVER Amino Acids 30 ml 01/10/20 17:30 01/12/20 08:11 Prosource No Carb Liquid Pkt PO Not Given BID@0800,1730 [facility] Aspirin 81 mg 01/04/20 10:00 01/12/20 09:26 Asa - PO Not Given DAILY [facility] Atorvastatin Calcium 40 mg 01/03/20 22:00 01/11/20 21:39 Lipitor - PO 40 mg HS [facility] Administration Docusate Sodium 100 mg 01/06/20 14:05 Colace - PO BID PRN CONSTIPATION Heparin Sodium (Porcine) 5,000 unit 01/10/20 10:00 01/11/20 21:39 Heparin - SQ 5,000 unit BID [facility] Administration Hydralazine HCl 25 mg 01/03/20 22:00 01/12/20 06:23 Apresoline - PO Not Given TID [facility] Sodium Chloride 250 mls @ 3,000 mls/hr 01/11/20 13:51 Normal Saline - IV 01/12/20 13:51 PRN PRN Hypotension during Dialysis Piperacillin Sod/Tazobactam 50 mls @ 100 mls/hr 01/11/20 18:00 01/12/20 09:26 Sod 2.25 gm/ Dextrose IVPB 100 mls/hr Q8H-IV [facility] Administration Protocol Insulin Aspart 1 vial 01/07/20 16:30 01/12/20 06:24 Novolog Vial Sliding Scale - SQ Not Given BIDAC [facility] Protocol Lisinopril 2.5 mg 01/04/20 10:00 01/12/20 09:26 Prinivil PO Not Given DAILY [facility] Multivit/Ca Carb/B Cmplx/FA/Prenat 1 tablet 01/12/20 10:00 01/12/20 09:26 Nephro-Cata - PO Not Given DAILY [facility] Oxycodone HCl 5 mg 01/10/20 01:29 01/11/20 09:50 Roxicodone - PO 5 mg Q6H PRN Administration PAIN LEVEL 6-10 Laboratory Results - last 24 hr 01/11/20 01/11/20 01/11/20 11:00 11:30 13:10 WBC RBC Hgb Hct MCV MCH MCHC RDW Plt Count MPV Absolute Neuts (auto) Neutrophils % Lymphocytes % Monocytes % Eosinophils % Basophils % Nucleated RBC % Sodium 141 Potassium 4.1 Chloride 102 Carbon Dioxide 27 Anion Gap 13 BUN 53.0 H Creatinine 6.6 H Est GFR (CKD-EPI)AfAm 8.38 Est GFR (CKD-EPI)NonAf 7.23 POC Glucometer Random Glucose 154 H Calcium 7.7 L Phosphorus COVID-19 ([facility]) Not detected Blood Type O POSITIVE Antibody Screen Negative Crossmatch See Detail 01/11/20 01/12/20 01/12/20 16:53 06:22 06:45 WBC RBC Hgb Hct MCV MCH MCHC RDW Plt Count MPV Absolute Neuts (auto) Neutrophils % Lymphocytes % Monocytes % Eosinophils % Basophils % Nucleated RBC % Sodium Potassium Chloride Carbon Dioxide Anion Gap BUN Creatinine Est GFR (CKD-EPI)AfAm Est GFR (CKD-EPI)NonAf POC Glucometer 145 129 Random Glucose Calcium Phosphorus COVID-19 ([facility]) Blood Type O POSITIVE Antibody Screen Negative Crossmatch 01/12/20 01/12/20 06:45 06:45 WBC 12.8 H RBC 3.82 L Hgb 10.6 L Hct 34.4 L MCV 89.9 MCH 27.7 MCHC 30.8 L RDW 15.9 Plt Count 250 MPV 9.4 Absolute Neuts (auto) 10.8 H Neutrophils % 84.2 H Lymphocytes % 10.2 D Monocytes % 4.5 Eosinophils % 0.9 D Basophils % 0.2 Nucleated RBC % 0 Sodium 142 Potassium 3.9 Chloride 103 Carbon Dioxide 29 Anion Gap 9 BUN 35.9 H Creatinine 4.0 H Est GFR (CKD-EPI)AfAm 15.35 Est GFR (CKD-EPI)NonAf 13.24 POC Glucometer Random Glucose 112 H Calcium 8.2 L Phosphorus 3.7 COVID-19 ([facility]) Blood Type Antibody Screen Crossmatch S 1 S2 RRR Lungs decreased left chest wall permacath Abd- soft, NT No edema right foot -- gangrene toes, slight edema right foot A/P Sepsis AMS ESRD on HD severe malnutrition toxic metabolic encephalopathy gangrene right foot -- pt for OR today -- granddaughter in agreement -- medically cleared for surgery -- moderate risk -- rip sawyer cleared pt -- continue with iv antibiotics -- for surgery Problem List - Problems (1) Cellulitis Code(s): L03.90 - CELLULITIS, UNSPECIFIED (2) Gangrene of foot Code(s): I96 - GANGRENE, NOT ELSEWHERE CLASSIFIED (3) Sepsis Code(s): A41.9 - SEPSIS, UNSPECIFIED ORGANISM (4) Altered mental status Code(s): R41.82 - ALTERED MENTAL STATUS, UNSPECIFIED (5) ESRD (end stage renal disease) Code(s): N18.6 - END STAGE RENAL DISEASE
--- NOTE | 2020-01-12 13:42 | OP ---
Operative Note - Note: Operative Date: 01/12/20 Pre-Operative Diagnosis: right foot gangrene Operation: right above knee amputation Post-Operative Diagnosis: Same as Pre-op Surgeon: Shaun Hensley Wire Harness Assembler: Obed Smith Anesthesia: General Estimated Blood Loss (mls): 50 Operative Report Dictated: Yes
[2020-01-12] MEDS ORDERED: morphine SULFATE 4 MG/ML VIAL IVPUSH PRN (13:44)
[2020-01-12] MEDS ORDERED: ONDANSETRON 4 MG/2 ML VIAL IVPUSH PRN (14:12)
[2020-01-12] MEDS ORDERED: SODIUM CHLORIDE 250 ML IV PRN (14:25)
[2020-01-12] MEDS ORDERED: DOCUSATE SODIUM 100 MG CAPSULE (FP) PO PRN (14:25)
--- NOTE | 2020-01-12 14:36 | SURG ---
Surgery Manager Material Note Manager Material: Obed Smith PA-C (Suzy) Date of Service: 01/12/20 Diagnosis: right foot gangrene Procedure: Operation: right above knee amputation I was present for the entirety of the operative procedure. For further detail, please refer to operative report.
[2020-01-12] MEDS ORDERED: POLYETHYLENE GLYCOL 3350 119 GM BTL PO PRN (14:43)
[2020-01-12] MEDS: HEPARIN NA (PORCINE) 5,000 UNITS/ML 1ML VIAL SQ SCH (21:16)
[2020-01-12] MEDS: ATORVASTATIN CA 40 MG TABLET (FP) PO SCH (21:16)
[2020-01-13] MEDS ORDERED: DEXTROSE 5%-WATER - 50 ML IVPB ONE ×2 (00:58→10:14)
[2020-01-13] MEDS ORDERED: PIPERACILLIN/TAZOBACTAM 2.25 GM VIAL IVPB ONE ×2 (00:58→10:14)
[2020-01-13] MEDS: PIPERACILLIN/TAZOB 2.25 GM 2.25 GM in DEXTROSE 5%-WATER - 50 ML IVPB SCH ×2 (01:01→12:00)
[2020-01-13] MEDS: ACETAMINOPHEN 325 MG TABLET (FP) PO PRN (01:05)
[2020-01-13] MEDS ORDERED: ALBUTEROL SO4 0.083% IH SOL 2.5 MG/3 ML VIAL.NEB. NEB ONE (06:22)
[2020-01-13] MEDS: INSULIN SLIDING SCALE (NOVOLOG) 1 VIAL SQ SCH ×2 (06:33→17:15)
[2020-01-13] MEDS: hydrALAZINE HCL 25 MG TABLET (FP) PO SCH ×3 (06:37→21:56)
--- NOTE | 2020-01-13 08:47 | PN ---
Progress Note (short form) - Note Progress Note: VASCULAR 79yo M s/p RT AKA POD 1. Pt appears to be doing well. Complains of mild pain around incision site, no significant swelling. Afebrile Last Vital Signs Temp Pulse Resp BP Pulse Ox 98.0 F 98 H 16 110/49 L 95 01/13/20 06:10 01/13/20 06:10 01/13/20 06:10 01/13/20 06:10 01/13/20 06:10 CBC, BMP 01/12/20 06:45 01/12/20 06:45 PE: Gen: Awake and oriented to voice Resp: breathing comfortably RLE: s/p AKA, dressing clean, no edema. Problem List - Problems (1) Gangrene of foot Assessment/Plan: Plan -pt appears to be stable, will plan to change dressing on 01/15 -abx per ID/med Pt discussed with Dr. Hensley, who agrees with plan Code(s): I96 - GANGRENE, NOT ELSEWHERE CLASSIFIED
--- NOTE | 2020-01-13 10:43 | PN ---
Progress Note (short form) - Note Progress Note: RENAL Asleep had AKA yesterday Last Vital Signs Temp Pulse Resp BP Pulse Ox 98.0 F 98 H 16 110/49 L 95 01/13/20 06:10 01/13/20 06:10 01/13/20 06:10 01/13/20 06:10 01/13/20 06:10 lungs clear cvs s1s2 rr Has CONOR abd soft ext no edema, left foot is dressed, contracted neuro awake. alert Current Medications Generic Name Dose Route Start Last Admin Trade Name Freq PRN Reason Stop Dose Admin Acetaminophen 650 mg 01/12/20 14:25 01/13/20 01:05 Tylenol - PO 650 mg Q6H PRN Administration FEVER Amino Acids 30 ml 01/12/20 17:30 01/12/20 17:43 Prosource No Carb Liquid Pkt PO 30 ml BID@0800,1730 [facility] Administration Aspirin 81 mg 01/13/20 10:00 Asa - PO DAILY [facility] Atorvastatin Calcium 40 mg 01/12/20 22:00 01/12/20 21:16 Lipitor - PO 40 mg HS [facility] Administration Docusate Sodium 100 mg 01/12/20 14:25 Colace - PO BID PRN CONSTIPATION Fentanyl 25 mcg 01/12/20 14:12 Sublimaze Injection - IVPUSH [id number] PRN PAIN-PACU ORDER X 4 DOSES ONLY Heparin Sodium (Porcine) 5,000 unit 01/12/20 22:00 01/12/20 21:16 Heparin - SQ 5,000 unit BID [facility] Administration Hydralazine HCl 25 mg 01/12/20 22:00 01/13/20 06:37 Apresoline - PO Not Given TID [facility] Sodium Chloride 250 mls @ 3,000 mls/hr 01/12/20 14:25 Normal Saline - IV PRN PRN Hypotension during Dialysis Piperacillin Sod/Tazobactam 50 mls @ 100 mls/hr 01/12/20 18:00 01/13/20 01:01 Sod 2.25 gm/ Dextrose IVPB 100 mls/hr Q8H-IV [facility] Administration Protocol Insulin Aspart 1 vial 01/12/20 16:30 01/13/20 06:33 Novolog Vial Sliding Scale - SQ Not Given BIDAC [facility] Protocol Lisinopril 2.5 mg 08/07/20 10:00 Prinivil PO DAILY [facility] Morphine Sulfate 4 mg 01/12/20 13:44 Morphine Sulfate IVPUSH Q6H PRN PAIN LEVEL 6-10 Multivit/Ca Carb/B Cmplx/FA/Prenat 1 tablet 01/13/20 10:00 Nephro-Cata - PO DAILY [facility] Ondansetron HCl 4 mg 01/12/20 14:12 Zofran Injection IVPUSH Q6H PRN NAUSEA AND/OR VOMITING Oxycodone HCl 5 mg 01/12/20 14:25 Roxicodone - PO Q6H PRN PAIN LEVEL 1-5 Polyethylene Glycol 17 gm 01/12/20 14:43 Miralax (For Daily Use) - PO DAILY PRN CONSTIPATION CBC, BMP 01/12/20 06:45 01/12/20 06:45 IMPRESSION esrd htn dementia gangrene s/p AKA pod 1 PLAN continue hd tiw HD today diet changed per dietitians recommendation will need a swallowing eval MV
[2020-01-13] MEDS ORDERED: SODIUM CHLORIDE 250 ML IV PRN (10:45)
[2020-01-13] MEDS: AMINO ACIDS/PROTEIN HYDROLYS 30 ML LIQUID.PKT PO SCH ×2 (11:04→17:14)
[2020-01-13] MEDS: HEPARIN NA (PORCINE) 5,000 UNITS/ML 1ML VIAL SQ SCH ×2 (11:59→21:56)
[2020-01-13] MEDS: LISINOPRIL 5 MG TABLET (FP) PO SCH (12:00)
--- NOTE | 2020-01-13 12:00 | PN ---
Progress Note (short form) - Note Progress Note: NAD POD #1 s/p right AKA eating lunch alert Vital Signs Period Temp Pulse Resp BP Sys/Tapia Pulse Ox Last 24 Hr 98.0 F-101.0 F 62-111 12-21 100-122/41-75 95-100 cor-rrr lungs clear abd soft,nt dressing right leg left foot small ulcer permacath CBC, BMP 01/12/20 06:45 01/12/20 06:45 Microbiology 01/03/20 13:52 Blood - Peripheral Venous Blood Culture - Final NO GROWTH AFTER 5 DAYS INCUBATION 01/03/20 13:52 Blood - Peripheral Venous Blood Culture - Final NO GROWTH AFTER 5 DAYS INCUBATION a/p pod #1 d/w surgery will d/c zosyn encourage incentive spirometry will need further workup if fevers recur esrd/hd Problem List - Problems (1) Cellulitis Code(s): L03.90 - CELLULITIS, UNSPECIFIED (2) Gangrene of foot Code(s): I96 - GANGRENE, NOT ELSEWHERE CLASSIFIED (3) ESRD (end stage renal disease) Code(s): N18.6 - END STAGE RENAL DISEASE (4) Abnormal LFTs Code(s): R94.5 - ABNORMAL RESULTS OF LIVER FUNCTION STUDIES (5) Elevated troponin Code(s): R79.89 - OTHER SPECIFIED ABNORMAL FINDINGS OF BLOOD CHEMISTRY
--- NOTE | 2020-01-13 12:15 | PN ---
Progress Note, Physician History of Present Illness: pt seen/ examined chart reviewed awake/ comfortable pod # 1 s/p right aka - Current Medication List Current Medications: Active Medications Acetaminophen (Tylenol -) 650 mg PO Q6H PRN PRN Reason: FEVER Last Admin: 01/13/20 01:05 Dose: 650 mg Documented by: Amino Acids (Prosource No Carb Liquid Pkt) 30 ml PO BID@0800,1730 [facility] Last Admin: 01/13/20 11:04 Dose: 30 ml Documented by: Aspirin (Asa -) 81 mg PO DAILY [facility] Atorvastatin Calcium (Lipitor -) 40 mg PO HS [facility] Last Admin: 01/12/20 21:16 Dose: 40 mg Documented by: Docusate Sodium (Colace -) 100 mg PO BID PRN PRN Reason: CONSTIPATION Fentanyl (Sublimaze Injection -) 25 mcg IVPUSH [id number] PRN PRN Reason: PAIN-PACU ORDER X 4 DOSES ONLY Heparin Sodium (Porcine) (Heparin -) 5,000 unit SQ BID [facility] Last Admin: 01/13/20 11:59 Dose: 5,000 unit Documented by: Hydralazine HCl (Apresoline -) 25 mg PO TID [facility] Last Admin: 01/13/20 06:37 Dose: Not Given Documented by: Sodium Chloride (Normal Saline -) 250 mls @ 3,000 mls/hr IV PRN PRN PRN Reason: Hypotension during Dialysis Stop: 01/14/20 10:45 Insulin Aspart ([facility] Vial Sliding Scale -) [facility] Protocol Last Admin: 01/13/20 06:33 Dose: Not Given Documented by: Lisinopril (Prinivil) 2.5 mg PO DAILY [facility] Last Admin: 01/13/20 12:00 Dose: Not Given Documented by: Morphine Sulfate (Morphine Sulfate) 4 mg IVPUSH Q6H PRN PRN Reason: PAIN LEVEL 6-10 Multivit/Ca Carb/B Cmplx/FA/Prenat (Nephro-Cata -) 1 tablet PO DAILY [facility] Ondansetron HCl (Zofran Injection) 4 mg IVPUSH Q6H PRN PRN Reason: NAUSEA AND/OR VOMITING Oxycodone HCl (Roxicodone -) 5 mg PO Q6H PRN PRN Reason: PAIN LEVEL 1-5 Polyethylene Glycol (Miralax (For Daily Use) -) 17 gm PO DAILY PRN PRN Reason: CONSTIPATION - Objective Vital Signs: Vital Signs Temperature 98.0 F 01/13/20 06:10 Pulse Rate 98 H 01/13/20 06:10 Respiratory Rate 16 01/13/20 06:10 Blood Pressure 110/49 L 01/13/20 06:10 O2 Sat by Pulse Oximetry (%) 95 01/13/20 06:10 Constitutional: Yes: No Distress, Calm Eyes: Yes: Conjunctiva Clear Neck: Yes: Supple Cardiovascular: Yes: Regular Rate and Rhythm Respiratory: Yes: Diminished Gastrointestinal: Yes: Soft Extremities: Yes: Amputation Wound/Incision: Yes: Dressing Dry and Intact Neurological: Yes: Alert Labs: CBC, BMP 01/12/20 06:45 01/12/20 06:45 INR, PTT INR 1.09 (0.83-1.09) 01/03/20 13:52 Problem List - Problems (1) Gangrene of foot Code(s): I96 - GANGRENE, NOT ELSEWHERE CLASSIFIED (2) Sepsis Code(s): A41.9 - SEPSIS, UNSPECIFIED ORGANISM (3) Weakness Code(s): R53.1 - WEAKNESS (4) ESRD (end stage renal disease) Code(s): N18.6 - END STAGE RENAL DISEASE Assessment/Plan Stable pod # 1 Post op fever Abx per i/d pain control f/u cbc will continue to follow PT D/W RN also
--- NOTE | 2020-01-13 15:40 | PN ---
Progress Note, Physician History of Present Illness: 79y M hx of esrd (,Th,Sa, last dialysis sat), dm, hl, anemia, htn, dm, pvd with a gangrenous foot pending BKA presents with lethargy, decreaesd appetite from senior care. The pt states he has not been felling well recently, but is unable to provide detaioled history. He denies any acute pain including cp, sob, abd pain, back pain fevers, diarrhea, cough. - Current Medication List Current Medications: Active Medications Acetaminophen (Tylenol -) 650 mg PO Q6H PRN PRN Reason: FEVER Last Admin: 01/13/20 01:05 Dose: 650 mg Documented by: Amino Acids (Prosource No Carb Liquid Pkt) 30 ml PO BID@0800,1730 [facility] Last Admin: 01/13/20 11:04 Dose: 30 ml Documented by: Aspirin (Asa -) 81 mg PO DAILY [facility] Atorvastatin Calcium (Lipitor -) 40 mg PO HS [facility] Last Admin: 01/12/20 21:16 Dose: 40 mg Documented by: Docusate Sodium (Colace -) 100 mg PO BID PRN PRN Reason: CONSTIPATION Fentanyl (Sublimaze Injection -) 25 mcg IVPUSH [id number] PRN PRN Reason: PAIN-PACU ORDER X 4 DOSES ONLY Heparin Sodium (Porcine) (Heparin -) 5,000 unit SQ BID [facility] Last Admin: 01/13/20 11:59 Dose: 5,000 unit Documented by: Hydralazine HCl (Apresoline -) 25 mg PO TID [facility] Last Admin: 01/13/20 06:37 Dose: Not Given Documented by: Sodium Chloride (Normal Saline -) 250 mls @ 3,000 mls/hr IV PRN PRN PRN Reason: Hypotension during Dialysis Stop: 01/14/20 10:45 Insulin Aspart (Novolog Vial Sliding Scale -) 1 vial SQ BIDAC [facility]; Protocol Last Admin: 01/13/20 06:33 Dose: Not Given Documented by: Lisinopril (Prinivil) 2.5 mg PO DAILY [facility] Last Admin: 01/13/20 12:00 Dose: Not Given Documented by: Morphine Sulfate (Morphine Sulfate) 4 mg IVPUSH Q6H PRN PRN Reason: PAIN LEVEL 6-10 Multivit/Ca Carb/B Cmplx/FA/Prenat (Nephro-Cata -) 1 tablet PO DAILY [facility] Ondansetron HCl (Zofran Injection) 4 mg IVPUSH Q6H PRN PRN Reason: NAUSEA AND/OR VOMITING Oxycodone HCl (Roxicodone -) 5 mg PO Q6H PRN PRN Reason: PAIN LEVEL 1-5 Polyethylene Glycol (Miralax (For Daily Use) -) 17 gm PO DAILY PRN PRN Reason: CONSTIPATION - Objective Vital Signs: Vital Signs Temperature 98.5 F 01/13/20 13:57 Pulse Rate 108 H 01/13/20 15:13 Respiratory Rate 18 01/13/20 15:13 Blood Pressure 110/81 01/13/20 15:13 O2 Sat by Pulse Oximetry (%) 95 01/13/20 13:57 Eyes: Yes: WNL, Conjunctiva Clear, EOM Intact HENT: Yes: WNL, Atraumatic, Normocephalic Neck: Yes: WNL, Supple, Trachea Midline Cardiovascular: Yes: WNL, Regular Rate and Rhythm Respiratory: Yes: WNL, Regular, CTA Bilaterally Gastrointestinal: Yes: WNL, Normal Bowel Sounds Genitourinary: Yes: WNL Musculoskeletal: Yes: WNL Extremities: Yes: Amputation (r aka) Edema: No Integumentary: Yes: WNL Labs: CBC, BMP 01/12/20 06:45 01/12/20 06:45 INR, PTT INR 1.09 (0.83-1.09) 01/03/20 13:52 Problem List - Problems (1) Failure to thrive Code(s): [id number] - (2) Gangrene of foot Code(s): I96 - GANGRENE, NOT ELSEWHERE CLASSIFIED (3) Sepsis Code(s): A41.9 - SEPSIS, UNSPECIFIED ORGANISM (4) Altered mental status Code(s): R41.82 - ALTERED MENTAL STATUS, UNSPECIFIED (5) COVID-19 Code(s): U07.1 - COVID POSITIVE (6) Weakness Code(s): R53.1 - WEAKNESS (7) AMS (altered mental status) Code(s): R41.82 - ALTERED MENTAL STATUS, UNSPECIFIED Qualifiers: Altered mental status type: unspecified Qualified Code(s): R41.82 - Altered mental status, unspecified (8) CHF exacerbation Code(s): I50.9 - HEART FAILURE, UNSPECIFIED Qualifiers: Heart failure type: unspecified Qualified Code(s): I50.9 - Heart failure, unspecified (9) Diabetes Code(s): E11.9 - TYPE 2 DIABETES MELLITUS WITHOUT COMPLICATIONS (10) ESRD (end stage renal disease) Code(s): N18.6 - END STAGE RENAL DISEASE (11) Weakness Code(s): R53.1 - WEAKNESS (12) Elevated troponin Code(s): R79.89 - OTHER SPECIFIED ABNORMAL FINDINGS OF BLOOD CHEMISTRY (13) Transaminitis Code(s): R74.0 - NONSPEC ELEV OF LEVELS OF TRANSAMNS & LACTIC ACID DEHYDRGNSE Assessment/Plan S/p r AKA POD# 1 Bifascicular block - chronic elevated troponins (since at least 08/2019), most likely due to ESRD/sepsis toxic metabolic encephalopathy Noted Rt cerebral infarct(s) on CT head AMS ESRD on HD Mild COPD (emphysema) PVD (Rt subclavian stent) severe malnutrition; cachexia gangrene right foot ECHO: normal LVEF; (limited study; cannot r/o significant aortic stenosis) elevated LFTS (improving) ?thyroid disorder Plan: stable cont present rx COVID not detected. Continue lisinopril and hydralazine; f/u BP, BUN/Cr, electrolytes. Future repeat ECHO, when pt better able to cooperate, for closer study of aortic valve. Hemodialysis per environmental services worker ?on eye drops Aggressive control of lipids (hx CVA); on atorvastatin 40 mg daily.
[2020-01-13] MEDS: VITAMIN B COMP W-C 1 EA TABLET (NEPHRO-VITE) PO SCH (17:15)
[2020-01-13] MEDS: ASPIRIN 81 MG CHEWABLE TABLETS PO SCH (17:15)
[2020-01-13] MEDS: ATORVASTATIN CA 40 MG TABLET (FP) PO SCH (21:56)
[2020-01-14] MEDS: oxyCODONE HCL 5 MG TABLET PO PRN ×2 (00:42→09:31)
[2020-01-14] MEDS: INSULIN SLIDING SCALE (NOVOLOG) 1 VIAL SQ SCH ×2 (06:51→16:21)
[2020-01-14] MEDS: hydrALAZINE HCL 25 MG TABLET (FP) PO SCH ×3 (06:51→21:57)
[2020-01-14] MEDS: AMINO ACIDS/PROTEIN HYDROLYS 30 ML LIQUID.PKT PO SCH ×2 (08:55→16:31)
[2020-01-14] MEDS: HEPARIN NA (PORCINE) 5,000 UNITS/ML 1ML VIAL SQ SCH ×2 (09:30→21:57)
[2020-01-14] MEDS: ASPIRIN 81 MG CHEWABLE TABLETS PO SCH (09:31)
[2020-01-14] MEDS: LISINOPRIL 5 MG TABLET (FP) PO SCH (09:31)
[2020-01-14] MEDS: VITAMIN B COMP W-C 1 EA TABLET (NEPHRO-VITE) PO SCH (09:32)
[2020-01-14 10:27] LABS: BASO % 0.1 % (0-2.0); EOS % 0.3 % (0-4.5); HEMATOCRIT 31.1 % (35.4-49); HEMOGLOBIN 9.5 GM/dL (11.7-16.9); MCH 27.6 pg (25.7-33.7); MCHC 30.7 g/dl (32.0-35.9); MEAN CELL VOLUME 90.1 fl (80-96); MEAN PLT VOLUME 9.6 fl (7.5-11.1); MONO % 5.5 % (3.8-10.2); NEUT % 86.1 % (42.8-82.8); PLATELET COUNT 227 K/MM3 (134-434); RBC 3.45 M/mm3 (4.00-5.60); WHITE BLOOD COUNT 19.6 K/mm3 (4.0-10.0)
--- NOTE | 2020-01-14 12:34 | PN ---
Progress Note (short form) - Note Progress Note: pt examined POD #2 right AKA no complaints awake looks weak lethargic but arousable Vital Signs - 24 hr 01/13/20 01/13/20 01/14/20 21:00 22:00 01:00 Temperature 98.5 F 99.3 F Pulse Rate 100 H Respiratory 18 18 Rate Blood Pressure 88/50 L O2 Sat by Pulse 98 98 Oximetry (%) 01/14/20 01/14/20 01/14/20 05:00 09:00 10:00 Temperature 98.2 F 97.8 F Pulse Rate 101 H 98 H Respiratory 16 20 Rate Blood Pressure 114/63 127/54 L O2 Sat by Pulse 98 100 100 Oximetry (%) Current Medications Generic Name Dose Route Start Last Admin Trade Name Freq PRN Reason Stop Dose Admin Acetaminophen 650 mg 01/12/20 14:25 01/13/20 01:05 Tylenol - PO 650 mg Q6H PRN Administration FEVER Amino Acids 30 ml 01/12/20 17:30 01/14/20 16:31 Prosource No Carb Liquid Pkt PO 30 ml BID@0800,1730 [facility] Administration Aspirin 81 mg 01/13/20 10:00 01/14/20 09:31 Asa - PO 81 mg DAILY [facility] Administration Atorvastatin Calcium 40 mg 01/12/20 22:00 01/13/20 21:56 Lipitor - PO 40 mg HS [facility] Administration Docusate Sodium 100 mg 01/12/20 14:25 Colace - PO BID PRN CONSTIPATION Fentanyl 25 mcg 01/12/20 14:12 Sublimaze Injection - IVPUSH [id number] PRN PAIN-PACU ORDER X 4 DOSES ONLY Heparin Sodium (Porcine) 5,000 unit 01/12/20 22:00 01/14/20 09:30 Heparin - SQ 5,000 unit BID [facility] Administration Hydralazine HCl 25 mg 01/12/20 22:00 01/14/20 14:41 Apresoline - PO 25 mg TID [facility] Administration Sodium Chloride 250 mls @ 3,000 mls/hr 01/13/20 10:45 Normal Saline - IV 01/14/20 10:45 PRN PRN Hypotension during Dialysis Insulin Aspart 1 vial 01/12/20 16:30 01/14/20 16:21 Novolog Vial Sliding Scale - SQ 4 units BIDAC [facility] Administration Protocol Lisinopril 2.5 mg 01/13/20 10:00 01/14/20 09:31 Prinivil PO 2.5 mg DAILY [facility] Administration Morphine Sulfate 4 mg 01/12/20 13:44 Morphine Sulfate IVPUSH Q6H PRN PAIN LEVEL 6-10 Multivit/Ca Carb/B Cmplx/FA/Prenat 1 tablet 01/13/20 10:00 01/14/20 09:32 Nephro-Cata - PO 1 tablet DAILY [facility] Administration Ondansetron HCl 4 mg 01/12/20 14:12 Zofran Injection IVPUSH Q6H PRN NAUSEA AND/OR VOMITING Oxycodone HCl 5 mg 01/12/20 14:25 01/14/20 09:31 Roxicodone - PO 5 mg Q6H PRN Administration PAIN LEVEL 1-5 Polyethylene Glycol 17 gm 01/12/20 14:43 Miralax (For Daily Use) - PO DAILY PRN CONSTIPATION Laboratory Results - last 24 hr 01/11/20 01/14/20 01/14/20 13:10 06:05 09:12 WBC 19.6 H RBC 3.45 L Hgb 9.5 L Hct 31.1 L MCV 90.1 MCH 27.6 MCHC 30.7 L RDW 16.0 H Plt Count 227 MPV 9.6 Absolute Neuts (auto) 16.9 H Neutrophils % 86.1 H Lymphocytes % 8.0 D Monocytes % 5.5 Eosinophils % 0.3 Basophils % 0.1 Nucleated RBC % 0 POC Glucometer 109 Blood Type O POSITIVE Antibody Screen Negative Crossmatch See Detail 01/14/20 01/14/20 11:15 16:09 WBC RBC Hgb Hct MCV MCH MCHC RDW Plt Count MPV Absolute Neuts (auto) Neutrophils % Lymphocytes % Monocytes % Eosinophils % Basophils % Nucleated RBC % POC Glucometer 181 224 Blood Type Antibody Screen Crossmatch S 1 S2 RRR Lungs decreased left chest wall permacath Abd- soft, NT No edema right foot -- gangrene toes, slight edema right foot A/P Sepsis AMS ESRD on HD severe malnutrition toxic metabolic encephalopathy gangrene right foot --HCT stable post surgery -- off antibiotics -- remains afebrile -- dressing change for Thursday Problem List - Problems (1) Cellulitis Code(s): L03.90 - CELLULITIS, UNSPECIFIED (2) Gangrene of foot Code(s): I96 - GANGRENE, NOT ELSEWHERE CLASSIFIED (3) Sepsis Code(s): A41.9 - SEPSIS, UNSPECIFIED ORGANISM (4) Altered mental status Code(s): R41.82 - ALTERED MENTAL STATUS, UNSPECIFIED (5) ESRD (end stage renal disease) Code(s): N18.6 - END STAGE RENAL DISEASE
--- NOTE | 2020-01-14 14:14 | PN ---
Progress Note, Physician Chief Complaint: NAD History of Present Illness: Seen and examined at the bedside sleeping but arouseble no overnight events s/p dialysis yesterday with 1L UF - Current Medication List Current Medications: Active Medications Acetaminophen (Tylenol -) 650 mg PO Q6H PRN PRN Reason: FEVER Last Admin: 01/13/20 01:05 Dose: 650 mg Documented by: Amino Acids (Prosource No Carb Liquid Pkt) 30 ml PO BID@0800,1730 [facility] Last Admin: 01/14/20 08:55 Dose: 30 ml Documented by: Aspirin (Asa -) 81 mg PO DAILY [facility] Last Admin: 01/14/20 09:31 Dose: 81 mg Documented by: Atorvastatin Calcium (Lipitor -) 40 mg PO HS [facility] Last Admin: 01/13/20 21:56 Dose: 40 mg Documented by: Docusate Sodium (Colace -) 100 mg PO BID PRN PRN Reason: CONSTIPATION Fentanyl (Sublimaze Injection -) 25 mcg IVPUSH [id number] PRN PRN Reason: PAIN-PACU ORDER X 4 DOSES ONLY Heparin Sodium (Porcine) (Heparin -) 5,000 unit SQ BID [facility] Last Admin: 01/14/20 09:30 Dose: 5,000 unit Documented by: Hydralazine HCl (Apresoline -) 25 mg PO TID [facility] Last Admin: 01/14/20 06:51 Dose: Not Given Documented by: Sodium Chloride (Normal Saline -) 250 mls @ 3,000 mls/hr IV PRN PRN PRN Reason: Hypotension during Dialysis Stop: 01/14/20 10:45 Insulin Aspart (Novolog Vial Sliding Scale -) [facility] Last Admin: 01/14/20 06:51 Dose: Not Given Documented by: Lisinopril (Prinivil) 2.5 mg PO DAILY [facility] Last Admin: 01/14/20 09:31 Dose: 2.5 mg Documented by: Morphine Sulfate (Morphine Sulfate) 4 mg IVPUSH Q6H PRN PRN Reason: PAIN LEVEL 6-10 Multivit/Ca Carb/B Cmplx/FA/Prenat (Nephro-Cata -) 1 tablet PO DAILY [facility] Last Admin: 01/14/20 09:32 Dose: 1 tablet Documented by: Ondansetron HCl (Zofran Injection) 4 mg IVPUSH Q6H PRN PRN Reason: NAUSEA AND/OR VOMITING Oxycodone HCl (Roxicodone -) 5 mg PO Q6H PRN PRN Reason: PAIN LEVEL 1-5 Last Admin: 01/14/20 09:31 Dose: 5 mg Documented by: Polyethylene Glycol (Miralax (For Daily Use) -) 17 gm PO DAILY PRN PRN Reason: CONSTIPATION - Objective Vital Signs: Vital Signs Temperature 97.8 F 01/14/20 10:00 Pulse Rate 98 H 01/14/20 10:00 Respiratory Rate 01/14/20 10:00 Blood Pressure 127/54 L 01/14/20 10:00 O2 Sat by Pulse Oximetry (%) 100 01/14/20 10:00 Constitutional: Yes: No Distress, Calm Neck: Yes: Supple Cardiovascular: Yes: Regular Rate and Rhythm Respiratory: Yes: Regular Gastrointestinal: Yes: Soft Extremities: Yes: Amputation. No: Cyanosis Edema: No Labs: CBC, BMP 01/14/20 09:12 01/12/20 06:45 INR, PTT INR 1.09 (0.83-1.09) 01/03/20 13:52 Assessment/Plan IMPRESSION esrd htn dementia gangrene s/p AKA pod 1 PLAN s/p dialysis yesterday, next planned dialysis is Thursday. Renal diet Pain control w/o NSAIDs vascular follow up Dwight Jolly DO
[2020-01-14] MEDS: ATORVASTATIN CA 40 MG TABLET (FP) PO SCH (21:58)
[2020-01-15] MEDS: hydrALAZINE HCL 25 MG TABLET (FP) PO SCH ×2 (06:44→14:33)
[2020-01-15] MEDS: INSULIN SLIDING SCALE (NOVOLOG) 1 VIAL SQ SCH ×2 (06:44→16:27)
[2020-01-15 08:01] LABS: BASO % 0.3 % (0-2.0); EOS % 0.4 % (0-4.5); HEMATOCRIT 29.2 % (35.4-49); HEMOGLOBIN 8.9 GM/dL (11.7-16.9); LYMPH % 13.7 % (8-40); MCH 27.4 pg (25.7-33.7); MCHC 30.6 g/dl (32.0-35.9); MEAN CELL VOLUME 89.6 fl (80-96); MEAN PLT VOLUME 9.7 fl (7.5-11.1); MONO % 4.7 % (3.8-10.2); NEUT % 80.9 % (42.8-82.8); PLATELET COUNT 255 K/MM3 (134-434); RBC 3.26 M/mm3 (4.00-5.60); RDW 15.7 % (11.9-15.9); WHITE BLOOD COUNT 12.3 K/mm3 (4.0-10.0)
[2020-01-15 08:03] LABS: BLOOD UREA NITROGEN 56.4 mg/dL (7-18); CALCIUM 7.3 mg/dL (8.5-10.1); CREATININE 5.4 mg/dL (0.55-1.3); POTASSIUM 3.4 mmol/L (3.5-5.1)
[2020-01-15] MEDS: oxyCODONE HCL 5 MG TABLET PO PRN (08:23)
[2020-01-15] MEDS: AMINO ACIDS/PROTEIN HYDROLYS 30 ML LIQUID.PKT PO SCH ×2 (08:23→16:57)
[2020-01-15] MEDS: ASPIRIN 81 MG CHEWABLE TABLETS PO SCH (09:01)
[2020-01-15] MEDS: LISINOPRIL 5 MG TABLET (FP) PO SCH (09:01)
[2020-01-15] MEDS: VITAMIN B COMP W-C 1 EA TABLET (NEPHRO-VITE) PO SCH (09:01)
[2020-01-15] MEDS: HEPARIN NA (PORCINE) 5,000 UNITS/ML 1ML VIAL SQ SCH ×2 (09:01→21:59)
--- NOTE | 2020-01-15 13:39 | PN ---
Progress Note (short form) - Note Progress Note: pt examined POD #3 right AKA no complaints awake looks weak lethargic but arousable Vital Signs - 24 hr 01/14/20 01/14/20 01/15/20 21:00 22:00 01:00 Temperature 98 F 98.0 F Pulse Rate 100 H 98 H Respiratory 18 18 20 Rate Blood Pressure 110/67 99/53 L O2 Sat by Pulse 98 98 95 Oximetry (%) 01/15/20 01/15/20 01/15/20 05:37 09:00 10:00 Temperature 98.0 F 97.8 F Pulse Rate 93 H 93 H Respiratory 22 H 20 Rate Blood Pressure 118/54 L 100/53 L O2 Sat by Pulse 99 98 98 Oximetry (%) Current Medications Generic Name Dose Route Start Last Admin Trade Name Freq PRN Reason Stop Dose Admin Acetaminophen 650 mg 01/12/20 14:25 01/13/20 01:05 Tylenol - PO 650 mg Q6H PRN Administration FEVER Amino Acids 30 ml 01/12/20 17:30 01/15/20 16:57 Prosource No Carb Liquid Pkt PO 30 ml BID@0800,1730 [facility] Administration Aspirin 81 mg 01/13/20 10:00 01/15/20 09:01 Asa - PO 81 mg DAILY [facility] Administration Atorvastatin Calcium 40 mg 01/12/20 22:00 01/14/20 21:58 Lipitor - PO 40 mg HS [facility] Administration Docusate Sodium 100 mg 01/12/20 14:25 Colace - PO BID PRN CONSTIPATION Epoetin Lucas 10,000 unit 01/16/20 08:00 Procrit - IVPUSH 01/16/20 08:01 ONCE ONE Fentanyl 25 mcg 01/12/20 14:12 Sublimaze Injection - IVPUSH [id number] PRN PAIN-PACU ORDER X 4 DOSES ONLY Heparin Sodium (Porcine) 5,000 unit 01/12/20 22:00 01/15/20 09:01 Heparin - SQ 5,000 unit BID [facility] Administration Hydralazine HCl 25 mg 01/12/20 22:00 01/15/20 14:33 Apresoline - PO 25 mg TID [facility] Administration Sodium Chloride 250 mls @ 3,000 mls/hr 01/15/20 13:14 Normal Saline - IV 01/16/20 13:14 PRN PRN Hypotension during Dialysis Insulin Aspart 1 vial 01/12/20 16:30 01/15/20 16:27 Novolog Vial Sliding Scale - SQ 2 units BIDAC [facility] Administration Protocol Lisinopril 2.5 mg 01/13/20 10:00 01/15/20 09:01 Prinivil PO 2.5 mg DAILY [facility] Administration Multivit/Ca Carb/B Cmplx/FA/Prenat 1 tablet 01/13/20 10:00 01/15/20 09:01 Nephro-Cata - PO 1 tablet DAILY [facility] Administration Ondansetron HCl 4 mg 01/12/20 14:12 Zofran Injection IVPUSH Q6H PRN NAUSEA AND/OR VOMITING Polyethylene Glycol 17 gm 01/12/20 14:43 Miralax (For Daily Use) - PO DAILY PRN CONSTIPATION Laboratory Results - last 24 hr 01/11/20 01/15/20 01/15/20 13:10 06:15 06:15 WBC 12.3 H RBC 3.26 L Hgb 8.9 L Hct 29.2 L MCV 89.6 MCH 27.4 MCHC 30.6 L RDW 15.7 Plt Count 255 MPV 9.7 Absolute Neuts (auto) 10.0 H Neutrophils % 80.9 Lymphocytes % 13.7 D Monocytes % 4.7 Eosinophils % 0.4 Basophils % 0.3 Nucleated RBC % 0 Sodium 143 Potassium 3.4 L Chloride 105 Carbon Dioxide 26 Anion Gap 12 BUN 56.4 H Creatinine 5.4 H Est GFR (CKD-EPI)AfAm 10.68 Est GFR (CKD-EPI)NonAf 9.21 POC Glucometer Random Glucose 77 Calcium 7.3 L Blood Type O POSITIVE Antibody Screen Negative Crossmatch See Detail 01/15/20 01/15/20 06:28 16:15 WBC RBC Hgb Hct MCV MCH MCHC RDW Plt Count MPV Absolute Neuts (auto) Neutrophils % Lymphocytes % Monocytes % Eosinophils % Basophils % Nucleated RBC % Sodium Potassium Chloride Carbon Dioxide Anion Gap BUN Creatinine Est GFR (CKD-EPI)AfAm Est GFR (CKD-EPI)NonAf POC Glucometer 75 161 Random Glucose Calcium Blood Type Antibody Screen Crossmatch S 1 S2 RRR Lungs decreased left chest wall permacath Abd- soft, NT No edema right foot -- gangrene toes, slight edema right foot A/P Sepsis AMS ESRD on HD severe malnutrition toxic metabolic encephalopathy gangrene right foot --HCT stable post surgery -- off antibiotics -- remains afebrile -- dressing change for Thursday -- october dc hydralazine due to low BP-- monitor for now Problem List - Problems (1) Cellulitis Code(s): L03.90 - CELLULITIS, UNSPECIFIED (2) Gangrene of foot Code(s): I96 - GANGRENE, NOT ELSEWHERE CLASSIFIED (3) Sepsis Code(s): A41.9 - SEPSIS, UNSPECIFIED ORGANISM (4) Altered mental status Code(s): R41.82 - ALTERED MENTAL STATUS, UNSPECIFIED (5) ESRD (end stage renal disease) Code(s): N18.6 - END STAGE RENAL DISEASE
--- NOTE | 2020-01-15 21:05 | PN ---
Progress Note, Physician Chief Complaint: Pt alert;c/o back and leg pains; denies chest pain or dyspnea. History of Present Illness: Mr. Dean is an 79 yr old white man with PM hx of esrd (,,, last dialysis sat), dm, hld, anemia, htn, dm, pvd with a gangrenous foot pending BKA presents with lethargy, decreased appetite from long-term. The pt states he has not been felling well recently, but is unable to provide detailed history. He denies any acute pain including cp, sob, abd pain, back pain fevers, diarrhea, cough. - Current Medication List Current Medications: Active Medications Acetaminophen (Tylenol -) 650 mg PO Q6H PRN PRN Reason: FEVER Last Admin: 01/13/20 01:05 Dose: 650 mg Documented by: Amino Acids (Prosource No Carb Liquid Pkt) 30 ml PO BID@0800,1730 [facility] Last Admin: 01/15/20 16:57 Dose: 30 ml Documented by: Aspirin (Asa -) 81 mg PO DAILY [facility] Last Admin: 01/15/20 09:01 Dose: 81 mg Documented by: Atorvastatin Calcium (Lipitor -) 40 mg PO HS [facility] Last Admin: 01/14/20 21:58 Dose: 40 mg Documented by: Docusate Sodium (Colace -) 100 mg PO BID PRN PRN Reason: CONSTIPATION Epoetin Lucas (Procrit -) 10,000 unit IVPUSH ONCE ONE Stop: 01/16/20 08:01 Fentanyl (Sublimaze Injection -) 25 mcg IVPUSH [id number] PRN PRN Reason: PAIN-PACU ORDER X 4 DOSES ONLY Heparin Sodium (Porcine) (Heparin -) 5,000 unit SQ BID [facility] Last Admin: 01/15/20 09:01 Dose: 5,000 unit Documented by: Sodium Chloride (Normal Saline -) 250 mls @ 3,000 mls/hr IV PRN PRN PRN Reason: Hypotension during Dialysis Stop: 01/16/20 13:14 Insulin Aspart ([facility] -[facility] Protocol Last Admin: 01/15/20 16:27 Dose: 2 units Documented by: Lisinopril (Prinivil) 2.5 mg PO DAILY [facility] Last Admin: 01/15/20 09:01 Dose: 2.5 mg Documented by: Multivit/Ca Carb/B Cmplx/FA/Prenat (Nephro-Cata -) 1 tablet PO DAILY [facility] Last Admin: 01/15/20 09:01 Dose: 1 tablet Documented by: Ondansetron HCl (Zofran Injection) 4 mg IVPUSH Q6H PRN PRN Reason: NAUSEA AND/OR VOMITING Polyethylene Glycol (Miralax (For Daily Use) -) 17 gm PO DAILY PRN PRN Reason: CONSTIPATION - Objective Vital Signs: Vital Signs Temperature 97.8 F 01/15/20 10:00 Pulse Rate 93 H 01/15/20 10:00 Respiratory Rate 01/15/20 10:00 Blood Pressure 100/53 L 01/15/20 10:00 O2 Sat by Pulse Oximetry (%) 98 01/15/20 10:00 Constitutional: Yes: Anxious Eyes: Yes: WNL HENT: Yes: WNL Cardiovascular: Yes: Pulse Irregular Respiratory: Yes: Regular Gastrointestinal: Yes: Soft ...Rectal Exam: Yes: Deferred Genitourinary: No: Anuria Musculoskeletal: Yes: Back Pain, Muscle Weakness Extremities: Yes: Amputation Edema: No Peripheral Pulses WNL: Yes Integumentary: Yes: WNL Neurological: Yes: Alert. No: Oriented Psychiatric: Yes: Alert, Oriented Labs: CBC, BMP 01/15/20 06:15 01/15/20 06:15 INR, PTT INR 1.09 (0.83-1.09) 01/03/20 13:52 - ....Imaging Chest X-ray: Image Reviewed EKG: Image Reviewed Assessment/Plan Bifascicular block - chronic elevated troponins (since at least 08/2019), most likely due to ESRD/sepsis toxic metabolic encephalopathy Noted Rt cerebral infarct(s) on CT head AMS ESRD on HD Mild COPD (emphysema) PVD (Rt subclavian stent) severe malnutrition; cachexia gangrene right foot ECHO: normal LVEF; (limited study; cannot r/o significant aortic stenosis) elevated LFTS (improving) ?thyroid disorder Plan: COVID not detected. Continue lisinopril and hydralazine; f/u BP, BUN/Cr, electrolytes. Future repeat ECHO, when pt better able to cooperate, for closer study of aortic valve. Hemodialysis per on site coordinator (w/u noted) wound care, antibiotics; vascular f/u Aggressive control of lipids (hx CVA); on atorvastatin 40 mg daily. On ASA.
[2020-01-15] MEDS: ATORVASTATIN CA 40 MG TABLET (FP) PO SCH (21:59)
[2020-01-16] MEDS: INSULIN SLIDING SCALE (NOVOLOG) 1 VIAL SQ SCH (06:58)
[2020-01-16] MEDS: AMINO ACIDS/PROTEIN HYDROLYS 30 ML LIQUID.PKT PO SCH (09:22)
[2020-01-16] MEDS ORDERED: SODIUM CHLORIDE 250 ML IV PRN (09:28)
[2020-01-16] MEDS ORDERED: EPOETIN ALFA 10,000 UNIT/1 ML VIAL IVPUSH ONE (09:30)
[2020-01-16] MEDS: VITAMIN B COMP W-C 1 EA TABLET (NEPHRO-VITE) PO SCH (10:15)
[2020-01-16] MEDS: LISINOPRIL 5 MG TABLET (FP) PO SCH (10:15)
[2020-01-16] MEDS: ASPIRIN 81 MG CHEWABLE TABLETS PO SCH (10:16)
[2020-01-16] MEDS: HEPARIN NA (PORCINE) 5,000 UNITS/ML 1ML VIAL SQ SCH (10:16)
[2020-01-16 10:54] LABS: HEMATOCRIT 28.2 % (35.4-49); HEMOGLOBIN 8.8 GM/dL (11.7-16.9); MCH 28.1 pg (25.7-33.7); MCHC 31.1 g/dl (32.0-35.9); MEAN CELL VOLUME 90.5 fl (80-96); MEAN PLT VOLUME 9.6 fl (7.5-11.1); PLATELET COUNT 274 K/MM3 (134-434); RBC 3.12 M/mm3 (4.00-5.60); WHITE BLOOD COUNT 9.9 K/mm3 (4.0-10.0)
[2020-01-16 11:19] LABS: BLOOD UREA NITROGEN 77.6 mg/dL (7-18); PHOSPHOROUS 6.5 mg/dL (2.5-4.9); POTASSIUM 3.5 mmol/L (3.5-5.1)
[2020-01-16 11:27] LABS: CALCIUM 6.5 mg/dL (8.5-10.1)
--- NOTE | 2020-01-16 11:51 | DS ---
Physical Examination Vital Signs: Vital Signs Temperature 98.5 F 01/16/20 09:45 Pulse Rate 57 L 01/16/20 11:20 Respiratory Rate 18 01/16/20 11:20 Blood Pressure 100/53 L 01/16/20 11:20 O2 Sat by Pulse Oximetry (%) 98 01/16/20 06:00 Findings/Remarks: Patient seen and examined in dialysis Comfortable No distress afebrile Off antibiotics Constitutional: Yes: No Distress, Calm Eyes: Yes: Conjunctiva Clear Neck: Yes: Supple Cardiovascular: Yes: Regular Rate and Rhythm Respiratory: Yes: Diminished Gastrointestinal: Yes: Soft. No: Hemorrhoids Edema: No Wound/Incision: Yes: Dressing Dry and Intact Neurological: Yes: Alert Labs: CBC, BMP 01/16/20 09:50 01/16/20 09:50 Discharge Summary Problems reviewed: Yes Reason For Visit: SEPSIS GANGRENE OF R FOOT Current Active Problems Abnormal LFTs (Acute) Cellulitis (Acute) Failure to thrive (Acute) Gangrene of foot (Acute) Sepsis (Acute) Hospital Course: Patient with extensive past medical history--- admitted for right foot gangrene Underwent right AKA POD #4 Overall doing okay Medically stable for going back to senior living I also discussed with Dr. Hensley--- Follow up with him as outpatient He also agreed with discharge Discussed with nursing staff also medications reconciled Will discharge to senior living --and follow-up over there Wound care team will be following Condition: Guarded - Instructions Diet, Activity, Other Instructions: Post-operative Instructions Wound: Keep your dressings clean and dry and in place until your claudia are removed. Diet/Self Care: Continue your regular diet. Eating a full balanced meal will help your wound heal. If you are taking medicines for high blood pressure, diabetes, high cholesterol take them as directed. Increase your fiber intake if taking narcotic pain medications as constipation is a common side effect. You may also take an over the counter stool softener such as Dulcoease. Pain Relief: Take pain medication as prescribed. Do not drive, drink alcohol or operate heavy machinery while taking narcotic pain medications. If the pain medication you have been prescribed for pain contains Acetaminophen (Tylenol), do not take additional Tylenol with this pain medication. You should not exceed more than 3g (3000mg) of Tylenol in 24 hours as this can lead to liver damage or failure. Follow-up Please call the office to schedule your follow up appointment in 2 weeks from surgery date. Call your doctors office or go to the ER immediately if you develop: Trouble breathing, chest tightness or shortness of breath Oral temperature greater than 100.5 F Excessive redness, swelling, or drainage at the incision site. Foul odor from the incision. New, increasing pain/numbness/weakness or coolness in your leg. Referrals: Hayder Galvan MD [Primary Care Provider] - Disposition: [facility] FACILITY - Home Medications Comprehensive Discharge Medication List: Ambulatory Orders Acetaminophen [Tylenol .Regular Strength -] 325 mg PO Q6H PRN tablet 09/09/19 Aspirin [ASA -] 81 mg PO DAILY 09/09/19 Atorvastatin Ca [Lipitor] 40 mg PO HS 09/09/19 Calcium 500Mg/Vit-D 200 Units [Os-Dustin 500+D -] 1 tab PO DAILY tab 09/09/19 Cyanocobalamin (Vitamin B-12) [Vitamin B-12] 1,000 mcg PO DAILY 09/09/19 Lisinopril [Zestril] 2.5 mg PO DAILY 09/09/19 Tamsulosin HCl [Flomax] 0.4 mg PO DAILY 09/09/19 Zinc Sulfate [Orazinc -] 220 mg PO BID capsule 09/09/19 Docusate Sodium [Colace -] 100 mg PO BID PRN capsule 01/16/20 Heparin - 5,000 unit SQ BID vial 01/16/20 Insulin Sliding Scale [Novolog Vial Sliding Scale -] 1 vial SQ BIDAC units 01/16/20 Polyethylene Glycol 3350 [Miralax 119 gm Btl -] 17 gm PO DAILY PRN bottle 01/16/20 Vitamin B Comp W-C [Nephro-Cata -] 1 tablet PO DAILY tablet 01/16/20
[2020-01-16 13:14] VITALS: BMI 15.7
--- NOTE | 2020-01-16 14:09 | PN ---
Progress Note, Physician History of Present Illness: Pt seen and examined at bedside. He is tolerating HD. - Current Medication List Current Medications: Active Medications Acetaminophen (Tylenol -) 650 mg PO Q6H PRN PRN Reason: FEVER Last Admin: 01/13/20 01:05 Dose: 650 mg Documented by: Amino Acids (Prosource No Carb Liquid Pkt) 30 ml PO BID@0800,1730 [facility] Last Admin: 01/16/20 09:22 Dose: 30 ml Documented by: Aspirin (Asa -) 81 mg PO DAILY [facility] Last Admin: 01/16/20 10:16 Dose: 81 mg Documented by: Atorvastatin Calcium (Lipitor -) 40 mg PO HS [facility] Last Admin: 01/15/20 21:59 Dose: 40 mg Documented by: Calcium Acetate (Phoslo -) 1,334 mg PO TIDCM [facility] Calcium Carbonate/Cholecalciferol (Os-Dustin 500+D -) 2 tab PO DAILY [facility] Calcium Gluconate (Calcium Gluconate 10% -) 1,000 mg IVPB ONCE ONE Stop: 01/16/20 14:08 Docusate Sodium (Colace -) 100 mg PO BID PRN PRN Reason: CONSTIPATION Fentanyl (Sublimaze Injection -) 25 mcg IVPUSH [id number] PRN PRN Reason: PAIN-PACU ORDER X 4 DOSES ONLY Heparin Sodium (Porcine) (Heparin -) 5,000 unit SQ BID [facility] Last Admin: 01/16/20 10:16 Dose: 5,000 unit Documented by: Insulin Aspart ([facility]olog Vial Sliding Scale -) [facility] Last Admin: 01/16/20 06:58 Dose: Not Given Documented by: Lisinopril (Prinivil) 2.5 mg PO DAILY [facility] Last Admin: 01/16/20 10:15 Dose: 2.5 mg Documented by: Multivit/Ca Carb/B Cmplx/FA/Prenat (Nephro-Cata -) 1 tablet PO DAILY [facility] Last Admin: 01/16/20 10:15 Dose: 1 tablet Documented by: Ondansetron HCl (Zofran Injection) 4 mg IVPUSH Q6H PRN PRN Reason: NAUSEA AND/OR VOMITING Polyethylene Glycol (Miralax (For Daily Use) -) 17 gm PO DAILY PRN PRN Reason: CONSTIPATION - Objective Vital Signs: Vital Signs Temperature 98 F 01/16/20 10:00 Pulse Rate 61 01/16/20 13:00 Respiratory Rate 18 01/16/20 13:00 Blood Pressure 102/42 L 01/16/20 13:00 O2 Sat by Pulse Oximetry (%) 98 01/16/20 10:00 Constitutional: Yes: Calm Eyes: Yes: Conjunctiva Clear HENT: Yes: Atraumatic Neck: Yes: Supple Cardiovascular: Yes: S1, S2 Respiratory: Yes: CTA Bilaterally Gastrointestinal: Yes: Soft Genitourinary: Yes: WNL Musculoskeletal: Yes: Other (s/p aka) Edema: No Integumentary: Yes: WNL Neurological: Yes: Oriented Labs: CBC, BMP 01/16/20 09:50 01/16/20 09:50 INR, PTT INR 1.09 (0.83-1.09) 01/03/20 13:52 Problem List - Problems (1) ESRD (end stage renal disease) Code(s): N18.6 - END STAGE RENAL DISEASE Assessment/Plan Current Medications Generic Name Dose Route Start Last Admin Trade Name Freq PRN Reason Stop Dose Admin Acetaminophen 650 mg 01/12/20 14:25 01/13/20 01:05 Tylenol - PO 650 mg Q6H PRN Administration FEVER Amino Acids 30 ml 01/12/20 17:30 01/16/20 09:22 Prosource No Carb Liquid Pkt PO 30 ml BID@0800,1730 [facility] Administration Aspirin 81 mg 01/13/20 10:00 01/16/20 10:16 Asa - PO 81 mg DAILY [facility] Administration Atorvastatin Calcium 40 mg 01/12/20 22:00 01/15/20 21:59 Lipitor - PO 40 mg HS [facility] Administration Calcium Acetate 1,334 mg 01/16/20 17:30 Phoslo - PO TIDCM [facility] Calcium Carbonate/Cholecalciferol 2 tab 01/16/20 14:15 Os-Dustin 500+D - PO DAILY [facility] Calcium Gluconate 1,000 mg 01/16/20 14:07 Calcium Gluconate 10% - IVPB 01/16/20 14:08 ONCE ONE Docusate Sodium 100 mg 01/12/20 14:25 Colace - PO BID PRN CONSTIPATION Fentanyl 25 mcg 01/12/20 14:12 Sublimaze Injection - IVPUSH [id number] PRN PAIN-PACU ORDER X 4 DOSES ONLY Heparin Sodium (Porcine) 5,000 unit 01/12/20 22:00 01/16/20 10:16 Heparin - SQ 5,000 unit BID [facility] Administration Insulin Aspart 1 vial 01/12/20 16:30 01/16/20 06:58 Novolog Vial Sliding Scale - SQ Not Given BIDAC [facility] Protocol Lisinopril 2.5 mg 01/13/20 10:00 01/16/20 10:15 Prinivil PO 2.5 mg DAILY [facility] Administration Multivit/Ca Carb/B Cmplx/FA/Prenat 1 tablet 01/13/20 10:00 01/16/20 10:15 Nephro-Cata - PO 1 tablet DAILY [facility] Administration Ondansetron HCl 4 mg 01/12/20 14:12 Zofran Injection IVPUSH Q6H PRN NAUSEA AND/OR VOMITING Polyethylene Glycol 17 gm 01/12/20 14:43 Miralax (For Daily Use) - PO DAILY PRN CONSTIPATION 1. ESRD on HD 2. Hyperkalemia 3. hx covid 4. CHF 5. DM 6. anemia 7. gangrene 8. s/p aka Plan - HD today - replace calcium - sart phoslo - monitor lytes - renal diet
[2020-01-16] MEDS ORDERED: CALCIUM 500MG/VIT-D 200 UNITS COMBO TABLET (FP) PO SCH (14:15)
[2020-01-16] MEDS ORDERED: CALCIUM GLUCONATE 10% - 1,000 MG/10 ML VIAL IVPB ONE (14:30)
[2020-01-16 14:48] VITALS: BP 106/70; PULSE 116; TEMP 98.6
[2020-01-16] MEDS: ACETAMINOPHEN 325 MG TABLET (FP) PO PRN (14:54)
--- NOTE | 2020-01-16 15:20 | PN ---
Progress Note (short form) - Note Progress Note: POD #4 s/p right above knee amputation. Patient's granddaughter visiting at bedside states he has been comfortable with no issues. He is suppose to be discharged to [facility] today. Nursing reports no issues. Vital Signs Temp 98.6 F 01/16/20 14:47 Pulse 116 H 01/16/20 14:47 Resp 18 01/16/20 14:47 BP 106/70 01/16/20 14:47 Pulse Ox 98 01/16/20 10:00 Intake & Output 01/15/20 01/16/20 01/16/20 23:59 11:59 23:59 Intake Total 500 200 200 Output Total 1281 Balance 500 200 -1081 Weight 86 lb 4 oz Intake: IV 200 200 Normal Saline - 250 ml @ 140 359 3151 mls/hr IV PRN PRN Rx #:[id number] Oral 500 Output: Fluid Removed, 1281 Hemodialysis Other: Voiding Method Incontinent Incontinent Incontinent # Unmeasured Voids Void 1 2 Bowel Movement Yes: large # Bowel Movements 1 Body Mass Index (BMI) 15.7 Weight Measurement Method Built in [facility] CBC, BMP 01/16/20 09:50 01/16/20 09:50 PE: comfortable with no signs of distress Unlabored resp on RA right LE thigh soft and supple. stump warm and well perfused. incision c/d/i with claudia in situ and surrounding tissue intact and no tracking erythema or evidence of collection or active d/c. Left LE contracted warm to touch Problem List - Problems (1) Gangrene of foot Assessment/Plan: 79yo male s/p AKA POD #4 doing well -d/c to recency - keep stump clean and dry -f/u with Dr Hensley as outpatient. Evaluation and plan discussed with Dr Hensley Code(s): I96 - GANGRENE, NOT ELSEWHERE CLASSIFIED
--- NOTE | 2020-01-16 17:16 | PATH ---
Surgical Pathology Report Patient Name: FLAKITA CAMARILLO Med. Rec. #: [id number] /Age/Gender: 1940 (Age: 79) / M Account: [id number] Location: [address] [place] [address]/[facility] Taken: 01/12/2020 Received: 01/12/2020 Reported: 01/16/2020 Physicians: Shaun Dill M.D. Specimen(s) Received RIGHT LEG Clinical History Sepsis, gangrene of right foot Final Diagnosis LEG, RIGHT, ABOVE THE KNEE AMPUTATION: LEG WITH GANGRENOUS NECROSIS INVOLVING ENTIRE FOOT AND DISTAL ANKLE. UNDERLYING BONE WITH ACUTE OSTEOMYELITIS. SURGICAL MARGINS ARE VIABLE. FOCAL, SEGMENTAL, MILD TO MODERATE CALCIFIC ATHEROSCLEROSIS. Electronically Signed Myesha Turcios M.D. Gross Description Received fresh labeled "right leg," is a 52 cm in length product of a right above the knee amputation. There is a 5 cm in length exposed portion of femur at the proximal aspect. The foot measures 21 cm from heel to toe. The entire foot and distal ankle displays a black, gangrenous lesion involving the underlying bone. The resection margin appears viable. Sectioning of the vasculature displays focal, segmental, mild to moderate atherosclerosis. Wrapper Stripper sections are submitted in 7 cassettes as follows: 1-lesion with underlying bone, following decalcification; 2-bone from margin, following decalcification; 3-skin and soft tissue margin; 4-popliteal artery; 5-anterior tibial artery; 6-posterior tibial artery; 7-dorsalis pedis. /01/13/2020 saudi/01/13/2020
[2020-01-16] MEDS ORDERED: CALCIUM ACETATE 667 MG CAPSULE (FP) PO SCH (17:30)
--- NOTE | 2020-01-16 18:22 | PN ---
Progress Note, Physician History of Present Illness: 79y M hx of esrd (,Th,Sa, last dialysis sat), dm, hl, anemia, htn, dm, pvd with a gangrenous foot pending BKA presents with lethargy, decreaesd appetite from intermediate. The pt states he has not been felling well recently, but is unable to provide detaioled history. He denies any acute pain including cp, sob, abd pain, back pain fevers, diarrhea, cough. - Current Medication List Current Medications: Active Medications Acetaminophen (Tylenol -) 650 mg PO Q6H PRN PRN Reason: FEVER Last Admin: 01/16/20 14:54 Dose: 650 mg Documented by: Amino Acids (Prosource No Carb Liquid Pkt) 30 ml PO BID@0800,1730 [facility] Last Admin: 01/16/20 09:22 Dose: 30 ml Documented by: Aspirin (Asa -) 81 mg PO DAILY [facility] Last Admin: 01/16/20 10:16 Dose: 81 mg Documented by: Atorvastatin Calcium (Lipitor -) 40 mg PO HS [facility] Last Admin: 01/15/20 21:59 Dose: 40 mg Documented by: Calcium Acetate (Phoslo -) 1,334 mg PO TIDCM [facility] Calcium Carbonate/Cholecalciferol (Os-Dustin 500+D -) 2 tab PO DAILY [facility] Last Admin: 01/16/20 14:51 Dose: 2 tab Documented by: Docusate Sodium (Colace -) 100 mg PO BID PRN PRN Reason: CONSTIPATION Fentanyl (Sublimaze Injection -) 25 mcg IVPUSH [id number] PRN PRN Reason: PAIN-PACU ORDER X 4 DOSES ONLY Heparin Sodium (Porcine) (Heparin -) 5,000 unit SQ BID [facility] Last Admin: 01/16/20 10:16 Dose: 5,000 unit Documented by: Insulin Aspart (Novolog Vial Sliding Scale -) 1 vial SQ BIDAC [facility]; Protocol Last Admin: 01/16/20 06:58 Dose: Not Given Documented by: Lisinopril (Prinivil) 2.5 mg PO DAILY [facility] Last Admin: 01/16/20 10:15 Dose: 2.5 mg Documented by: Multivit/Ca Carb/B Cmplx/FA/Prenat (Nephro-Cata -) 1 tablet PO DAILY [facility] Last Admin: 01/16/20 10:15 Dose: 1 tablet Documented by: Ondansetron HCl (Zofran Injection) 4 mg IVPUSH Q6H PRN PRN Reason: NAUSEA AND/OR VOMITING Polyethylene Glycol (Miralax (For Daily Use) -) 17 gm PO DAILY PRN PRN Reason: CONSTIPATION - Objective Vital Signs: Vital Signs Temperature 98.6 F 01/16/20 14:47 Pulse Rate 116 H 01/16/20 14:47 Respiratory Rate 18 01/16/20 14:47 Blood Pressure 106/70 01/16/20 14:47 O2 Sat by Pulse Oximetry (%) 98 01/16/20 10:00 Eyes: Yes: WNL, Conjunctiva Clear, EOM Intact HENT: Yes: WNL, Atraumatic, Normocephalic Neck: Yes: WNL, Supple, Trachea Midline Cardiovascular: Yes: WNL, Regular Rate and Rhythm Respiratory: Yes: WNL, Regular, CTA Bilaterally Gastrointestinal: Yes: WNL, Normal Bowel Sounds Genitourinary: Yes: WNL Musculoskeletal: Yes: WNL Extremities: Yes: Amputation Edema: No Integumentary: Yes: WNL Neurological: Yes: Alert Labs: CBC, BMP 01/16/20 09:50 01/16/20 09:50 INR, PTT INR 1.09 (0.83-1.09) 01/03/20 13:52 Problem List - Problems (1) Failure to thrive Code(s): BPK7455 - (2) Gangrene of foot Code(s): I96 - GANGRENE, NOT ELSEWHERE CLASSIFIED (3) Sepsis Code(s): A41.9 - SEPSIS, UNSPECIFIED ORGANISM (4) Altered mental status Code(s): R41.82 - ALTERED MENTAL STATUS, UNSPECIFIED (5) COVID-19 Code(s): U07.1 - COVID POSITIVE (6) Weakness Code(s): R53.1 - WEAKNESS (7) AMS (altered mental status) Code(s): R41.82 - ALTERED MENTAL STATUS, UNSPECIFIED Qualifiers: Altered mental status type: unspecified Qualified Code(s): R41.82 - Altered mental status, unspecified (8) CHF exacerbation Code(s): I50.9 - HEART FAILURE, UNSPECIFIED Qualifiers: Heart failure type: unspecified Qualified Code(s): I50.9 - Heart failure, unspecified (9) Diabetes Code(s): E11.9 - TYPE 2 DIABETES MELLITUS WITHOUT COMPLICATIONS (10) ESRD (end stage renal disease) Code(s): N18.6 - END STAGE RENAL DISEASE (11) Weakness Code(s): R53.1 - WEAKNESS (12) Elevated troponin Code(s): R79.89 - OTHER SPECIFIED ABNORMAL FINDINGS OF BLOOD CHEMISTRY (13) Transaminitis Code(s): R74.0 - NONSPEC ELEV OF LEVELS OF TRANSAMNS & LACTIC ACID DEHYDRGNSE Assessment/Plan S/p r AKA Bifascicular block - chronic elevated troponins (since at least 08/2019), most likely due to ESRD/sepsis toxic metabolic encephalopathy Noted Rt cerebral infarct(s) on CT head AMS ESRD on HD Mild COPD (emphysema) PVD (Rt subclavian stent) severe malnutrition; cachexia gangrene right foot ECHO: normal LVEF; (limited study; cannot r/o significant aortic stenosis) elevated LFTS (improving) ?thyroid disorder Plan: stable cont present rx COVID not detected. Continue lisinopril and hydralazine; f/u BP, BUN/Cr, electrolytes. Future repeat ECHO, when pt better able to cooperate, for closer study of aortic valve. Hemodialysis per yoga instructor ?on eye drops Aggressive control of lipids (hx CVA); on atorvastatin 40 mg daily.
--- NOTE | 2020-01-18 13:39 | OP ---
DATE OF OPERATION: 01/12/2020 PREOPERATIVE DIAGNOSIS: Right foot gangrene. POSTOPERATIVE DIAGNOSIS: Right foot gangrene. PROCEDURE: Right above-knee amputation. SURGEON: Shaun Hahn DO ANESTHESIA: Fractional. BLOOD LOSS: 50 mL. INDICATIONS: Patient is an 79-year-old male that comes in with right foot gangrene. He is contracted. [facility] and he needs an amputation due to the fact that he is contracted and does not walk. He needs an above-knee amputation. Consent was obtained from the niece who understands all the risks, benefits and alternatives and signed the consent form. Patient was cleared by medicine and cardiology. Patient was COVID negative. DESCRIPTION OF PROCEDURE: Patient was then brought to the operating room and laid on the operating table in the supine manner. We then cherelle a fishmouth incision using a skin marker 4 fingerbreadths above the knee. Patient was then administered general anesthesia. We then went ahead and using a 15-blade cut along our skin marker. Bovie electrocautery used to control hemostasis. We were then able to use Bovie electrocautery and take down the vastus medialis and vastus lateralis muscles. We then went medially and we were able to dissect out our femoral sheath and we were able to dissect out our femoral artery and vein. Those were clamped and suture ligated using 0 silk. We then were able to go posteriorly and take down our hamstring muscles using Bovie electrocautery. The femur was then well exposed. We then went ahead and used a saw and transected the femur and the leg was sent down to pathology. We then irrigated the wound copiously. Bovie electrocautery was used to control all hemostasis. We then used 2-0 Vicryl and the fascia was approximated in an interrupted manner. The skin was closed with skin claudia. Xeroform, 4 x 4's, ABD pads, Kerlix and Coban were placed. The patient tolerated this procedure with no complications. Total blood loss 50 mL. 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
== END 2020-01-16 18:25 | DRG 853 ==
LOC: JER 13:19 → JERBED 16:03 → J6S 20:33
PROVIDERS: ADMIT Internal Medicine; ATTEND Internal Medicine
PROC: 0Y6C0Z3 Detachment at Right Upper Leg, Low, Open Approach (ICD-10-PCS; principal; 2020-01-12 11:00)
PROC: 5A1D70Z Performance of Urinary Filtration, Intermittent, Less than 6 Hours Per Day (ICD-10-PCS; 2020-01-16)
DX: A41.9 Sepsis, unspecified organism (principal); N18.6 End stage renal disease; E43 Unspecified severe protein-calorie malnutrition; G92 Toxic encephalopathy; I45.2 Bifascicular block; E11.52 Type 2 diabetes mellitus with diabetic peripheral angiopathy with gangrene; I96 Gangrene, not elsewhere classified; Z68.1 Body mass index [BMI] 19.9 or less, adult; N17.9 Acute kidney failure, unspecified; I13.2 Hypertensive heart and chronic kidney disease with heart failure and with stage 5 chronic kidney disease, or end stage renal disease; M86.171 Other acute osteomyelitis, right ankle and foot; I70.261 Atherosclerosis of native arteries of extremities with gangrene, right leg; R64 Cachexia; N40.0 Benign prostatic hyperplasia without lower urinary tract symptoms; D64.9 Anemia, unspecified; R62.7 Adult failure to thrive; Z99.2 Dependence on renal dialysis; R41.82 Altered mental status, unspecified; I50.9 Heart failure, unspecified; J44.9 Chronic obstructive pulmonary disease, unspecified; E87.5 Hyperkalemia; F03.90 Unspecified dementia, unspecified severity, without behavioral disturbance, psychotic disturbance, mood disturbance, and anxiety; E11.69 Type 2 diabetes mellitus with other specified complication
CPT/HCPCS: 36415; 71045-TC-FY; 80048; 80053; 80061; 82550; 82553; 82962; 83036; 83605; 83721; 84100; 84484; 85025; 85027; 85610; 85730; 86704; 86706; 86707; 86708; 86709; 86803; 86850; 86900; 86901; 86922; 87040; 87340; 88307-TC; 88311-TC; 93005; 93010; 93306-TC; 94640; 94760; 99285-25; G0480; J0885; J1644; U0003

== ENCOUNTER 2020-02-02 14:13 | Inpatient (IN) | payer OTHER ==
[2020-02-02] MEDS ORDERED: RAPID SEQUENCE INTUBATION KIT NR ONE (14:27)
[2020-02-02] MEDS ORDERED: ROCURONIUM BROMIDE 50 MG/5 ML VIAL IV ONE (14:30)
[2020-02-02] MEDS ORDERED: ETOMIDATE 20 MG/10 ML AMPUL IVPUSH ONE (14:31)
[2020-02-02] MEDS ORDERED: NOREPINEPHRINE BITARTRATE 4 MG/4 ML ML IV ONE (14:42)
[2020-02-02] MEDS: NOREPINEPHRINE BITARTRATE 16,000 MCG in SODIUM CHLORIDE 484 ML IV SCH (14:42)
[2020-02-02] MEDS ORDERED: VANCOMYCIN 1 GM in D5W (PRE-DOCKED) 1,000 MG/250 ML IVPB ONE (14:50)
[2020-02-02] MEDS ORDERED: PIPERACILLIN/TAZOB 4.5 GM 4.5 GM in DEXTROSE 5%-WATER 100 ML IVPB ONE (14:50)
--- NOTE | 2020-02-02 14:58 | PDOC ---
History of Present Illness <Corey Pedraza - Last Filed: 02/02/20 17:01> - General History Source: Patient, EMS Exam Limitations: Clinical Condition - History of Present Illness Initial Comments: 02/02/20 14:57 EKG - afib w RVR CXR - ET tube well above olaf, OG tube in stomach Head CT bedside US - good EF, no pericardial effusion, no R heart strain --- 79yM w PMHx ESRD (, ,), DM, HL, anemia, htn, PVD recent R AKA presenting w AMS. hypotension, unresponsiveness. Found pt unresponsive at skilled nursing during dialysis. Found minimally responsive, hypotensive by EMS, given 2L fluids and started levophed. On arrival, pt was minimally responsive to sternal rub, hypotensive 50/30, spontaneous respirations but unable to obtain O2sat. Intubated w etomidate, mariela to protect airway, L femoral CVC placed for hypotension, R fem arterial line placed for accurate BP readings, hypothermic 94 rectal Started levo, versed drip, arturo hugger, fluids, vanc, zosyn Sepsis 2/2 PNA vs R amputation wound infection vs UTI Consulted ICU for admission - will evaluate pt Admitted to ICU for AMS, acute respiratory failure, septic shock - pending head CT <NetoMick - Last Filed: 02/02/20 19:24> - General Chief Complaint: SIRS, Suspected/Possible Stated Complaint: UNRESPONSIVE Time Seen by Provider: 02/02/20 14:46 Past History <StevenignacioCorey - Last Filed: 02/02/20 17:01> - Medical History Anemia: No Asthma: No Cancer: No CVA: Yes COPD: No CHF: Yes Dementia: No Diabetes: No Dialysis: Yes GI Disorders: No HTN: No Hypercholesterolemia: No Liver Disease: No Seizures: No Thyroid Disease: No - Surgical History Abdominal Surgery: No Appendectomy: No Cardiac Surgery: No Cholecystectomy: No Lung Surgery: No Neurologic Surgery: No Orthopedic Surgery: No - Psycho-Social/Smoking History Smoking History: Smoker current status UNK Have you smoked in the past 12 months: No Information on smoking cessation initiated: No - Substance Abuse Hx (Audit-C & DAST Scrn) How often the patient has a drink containing alcohol: Never Score: In Men: 4 or > Positive; In Women: 3 or > Positive: 0 Screen Result (Pos requires Nsg. Audit-10AR): Negative In the last yr the pt used illegal drug/Rx for NonMed reason: No Score: Yes response is considered Positive: 0 Screen Result (Positive result requires Nsg. DAST-10): Negative <Mick Duque - Last Filed: 02/02/20 19:24> - Medical History Allergies/Adverse Reactions: Allergies Allergy/AdvReac Type Severity Reaction Status Date / Time No Known Allergies Allergy Verified 02/02/20 14:36 Home Medications: Ambulatory Orders Acetaminophen [Tylenol .Regular Strength -] 325 mg PO Q6H PRN tablet 09/09/19 Aspirin [ASA -] 81 mg PO DAILY 09/09/19 Atorvastatin Ca [Lipitor] 40 mg PO HS 09/09/19 Calcium 500Mg/Vit-D 200 Units [Os-Dustin 500+D -] 1 tab PO DAILY tab 09/09/19 Cyanocobalamin (Vitamin B-12) [Vitamin B-12] 1,000 mcg PO DAILY 09/09/19 Lisinopril [Zestril] 2.5 mg PO DAILY 09/09/19 Tamsulosin HCl [Flomax] 0.4 mg PO DAILY 09/09/19 Zinc Sulfate [Orazinc -] 220 mg PO BID capsule 09/09/19 Docusate Sodium [Colace -] 100 mg PO BID PRN capsule 01/16/20 Heparin - 5,000 unit SQ BID vial 01/16/20 Insulin Sliding Scale [Novolog Vial Sliding Scale -] 1 vial SQ BIDAC units 01/16/20 Polyethylene Glycol 3350 [Miralax 119 gm Btl -] 17 gm PO DAILY PRN bottle 01/16/20 Vitamin B Comp W-C [Nephro-Cata -] 1 tablet PO DAILY tablet 01/16/20 Review of Systems - Review of Systems Able to Perform ROS?: No (non verbal) <Mick Duque - Last Filed: 02/02/20 19:24> *Physical Exam - Vital Signs Last Vital Signs Temp Pulse Resp BP Pulse Ox 95 F L 96 H 14 56/28 L 98 02/02/20 14:36 02/02/20 14:36 02/02/20 14:40 02/02/20 14:36 02/02/20 14:40 <Corey Pedraza - Last Filed: 02/02/20 17:01> - Vital Signs Last Vital Signs Temp Pulse Resp BP Pulse Ox 95 F L 96 H 16 56/28 L 65 L 02/02/20 14:36 02/02/20 14:36 02/02/20 14:36 02/02/20 14:36 02/02/20 14:36 - Physical Exam General Appearance: Yes: Nourished, Appropriately Dressed, Severe Distress HEENT: positive: EOMI, XOCHILT. negative: Normal Voice, Scleral Icterus (R), Scleral Icterus (L) Respiratory/Chest: positive: Respiratory Distress, Accessory Muscle Use, Labored Respiration, Crackles (christine). negative: Chest Tender Cardiovascular: positive: Regular Rhythm, Regular Rate, S1, S2. negative: Murmur Gastrointestinal/Abdominal: positive: Normal Bowel Sounds, Flat, Soft. negative: Tender, Organomegaly Extremity: positive: Delayed Capillary Refill, Other (R above knee amputation, purulent discharge from surgical wound) Integumentary: positive: Dry, Warm, Pale Neurologic: positive: Responsive. negative: Alert (minimally responsive to sternal rub, non verbal) <Mick Duque - Last Filed: 02/02/20 19:24> ED Treatment Course - LABORATORY CBC & Chemistry Diagram: 02/02/20 14:27 02/02/20 14:27 - ADDITIONAL ORDERS Additional order review: Laboratory Results 02/02/20 02/02/20 02/02/20 15:20 14:51 14:27 PT with INR INR PTT (Actin FS) Anticoagulation Therapy No Result Required. Puncture Site No Result Required. Patient Temperature No Result Required. ABG pH 7.331 L ABG pCO2 33.30 L ABG pO2 37.6 L* ABG HCO3 17.2 L ABG O2 Sat (Measured) 68.4 L ABG O2 Content No Result Required. ABG Base Excess -7.9 L Samson Test No Result Required. VBG pH 7.299 L POC VBG pCO2 37.9 L POC VBG pO2 135.0 H VBG HCO3 18.2 L VBG O2 Sat (Melyssa) TNP VBG Base Excess TNP Patient On Oxygen No Result Required. O2 Delivery Device No Result Required. Oxygen Flow Rate No Result Required. Vent Mode No Result Required. Vent Rate No Result Required. Mechanical Rate No Result Required. PEEP No Result Required. Pressure Support Vent No Result Required. Sodium Potassium Chloride Carbon Dioxide Anion Gap BUN Creatinine Est GFR (CKD-EPI)AfAm Est GFR (CKD-EPI)NonAf Random Glucose Lactic Acid Calcium Total Bilirubin AST ALT Alkaline Phosphatase Troponin I B-Natriuretic Peptide Total Protein Albumin Urine Color Yellow Urine Appearance Turbid Urine pH 8.5 H Ur Specific [place] 1.015 Urine Protein 4+ H Urine Glucose (UA) Negative Urine Ketones Negative Urine Blood 1+ H Urine Nitrite Negative Urine Bilirubin Negative Urine Urobilinogen 0.2 Ur Leukocyte Esterase Negative Urine WBC (Auto) 1555.4 Urine RBC (Auto) 400.3 Urine Casts (Auto) 0 U Epithel Cells (Auto) 28 Urine Bacteria (Auto) 36.3 Urine Yeast (Auto) Non seen 02/02/20 02/02/20 02/02/20 14:27 14:27 14:27 PT with INR INR PTT (Actin FS) Anticoagulation Therapy Puncture Site Patient Temperature ABG pH ABG pCO2 ABG pO2 ABG HCO3 ABG O2 Sat (Measured) ABG O2 Content ABG Base Excess Samson Test VBG pH POC VBG pCO2 POC VBG pO2 VBG HCO3 VBG O2 Sat (Melyssa) VBG Base Excess Patient On Oxygen O2 Delivery Device Oxygen Flow Rate Vent Mode Vent Rate Mechanical Rate PEEP Pressure Support Vent Sodium 137 Potassium 3.1 L Chloride 104 Carbon Dioxide 20 L Anion Gap 14 BUN 12.2 Creatinine 1.4 H Est GFR (CKD-EPI)AfAm 54.61 Est GFR (CKD-EPI)NonAf 47.12 Random Glucose 92 Lactic Acid 3.2 H* Calcium 6.9 L* Total Bilirubin 0.8 AST 42 H ALT 26 Alkaline Phosphatase 91 Troponin I 0.11 H B-Natriuretic Peptide 49342.4 H Total Protein 5.3 L Albumin 1.5 L Urine Color Urine Appearance Urine pH Ur Specific [place] Urine Protein Urine Glucose (UA) Urine Ketones Urine Blood Urine Nitrite Urine Bilirubin Urine Urobilinogen Ur Leukocyte Esterase Urine WBC (Auto) Urine RBC (Auto) Urine Casts (Auto) U Epithel Cells (Auto) Urine Bacteria (Auto) Urine Yeast (Auto) 02/02/20 14:27 PT with INR 12.80 INR 1.08 PTT (Actin FS) 26.5 Anticoagulation Therapy Puncture Site Patient Temperature ABG pH ABG pCO2 ABG pO2 ABG HCO3 ABG O2 Sat (Measured) ABG O2 Content ABG Base Excess Samson Test VBG pH POC VBG pCO2 POC VBG pO2 VBG HCO3 VBG O2 Sat (Melyssa) VBG Base Excess Patient On Oxygen O2 Delivery Device Oxygen Flow Rate Vent Mode Vent Rate Mechanical Rate PEEP Pressure Support Vent Sodium Potassium Chloride Carbon Dioxide Anion Gap BUN Creatinine Est GFR (CKD-EPI)AfAm Est GFR (CKD-EPI)NonAf Random Glucose Lactic Acid Calcium Total Bilirubin AST ALT Alkaline Phosphatase Troponin I B-Natriuretic Peptide Total Protein Albumin Urine Color Urine Appearance Urine pH Ur Specific [place] Urine Protein Urine Glucose (UA) Urine Ketones Urine Blood Urine Nitrite Urine Bilirubin Urine Urobilinogen Ur Leukocyte Esterase Urine WBC (Auto) Urine RBC (Auto) Urine Casts (Auto) U Epithel Cells (Auto) Urine Bacteria (Auto) Urine Yeast (Auto) 02/02/20 14:27 RBC 2.66 L MCV 91.5 MCHC 30.0 L RDW 16.4 H MPV 7.9 D Neutrophils % 94.9 H Lymphocytes % 2.3 L D Monocytes % 2.7 L Eosinophils % 0.0 D Basophils % 0.1 - Medications Given in the ED: ED Medications Discontinued Medications Generic Name Dose Route Start Last Admin Trade Name Freq PRN Reason Stop Dose Admin Etomidate 20 mg 02/02/20 14:31 02/02/20 14:36 Amidate - IVPUSH 02/02/20 14:32 20 mg ONCE ONE Administration Piperacillin Sod/Tazobactam 100 mls @ 200 mls/hr 02/02/20 14:50 02/02/20 15:47 Sod 4.5 gm/ Dextrose IVPB 02/02/20 15:19 200 mls/hr ONCE ONE Administration Protocol Lactated Ringer's 1,000 ml 02/02/20 15:43 02/02/20 15:47 Lactated Ringers Solution IV 02/02/20 15:44 1,000 ml ONCE ONE Administration Rocuronium [place] 50 mg 02/02/20 14:30 02/02/20 14:36 Zemuron - IV 02/02/20 14:31 50 mg ONCE ONE Administration Sodium Chloride 1,000 ml 02/02/20 15:04 02/02/20 15:47 Normal Saline - IV 02/02/20 15:05 1,000 ml ONCE ONE Administration Vancomycin HCl 1,000 mg 02/02/20 14:50 02/02/20 16:05 Vancomycin (Pre-Docked) IVPB 02/02/20 14:51 1,000 mg ONCE ONE Administration Protocol <Corey Pedraza - Last Filed: 02/02/20 17:01> - LABORATORY CBC & Chemistry Diagram: 02/02/20 14:27 02/02/20 14:27 <Mick Duque - Last Filed: 02/02/20 19:24> Medical Decision Making - Critical Care Time Total Critical Care Time (minutes): 45 Critical Care Statement: The care of this patient involved high complexity decision making to prevent further life threatening deterioration of the patient's condition and/or to evaluate & treat vital organ system(s) failure or risk of failure. <Mick Duque - Last Filed: 02/02/20 19:24> Discharge <Corey Pedraza - Last Filed: 02/02/20 17:01> - Discharge Information Problems reviewed: Yes <Mick Duque - Last Filed: 02/02/20 19:24> - Discharge Information Clinical Impression/Diagnosis: Septic shock Acute respiratory failure Qualifiers: Respiratory failure complication: hypoxia Qualified Code(s): J96.01 - Acute respiratory failure with hypoxia Condition: Critical Intubation - Intubation Reason for Intubation: Airway Protection Intubation Method: orotracheal Blade used: Glidescope Tube Size (cm): 7.5 Tube position @ lip (cm): 120 Tube position confirmed by: Direct visualization, CO2 detector, Chest x-ray, Breath sounds Breath Sounds after Intubation: equal Post Intubation Xray: Yes <Corey Pedraza - Last Filed: 02/02/20 17:01>
[2020-02-02] MEDS ORDERED: MIDAZOLAM IN 0.9 % SOD.CHLORID 1 MG/1 ML PLAST..BAG ONE (15:03)
[2020-02-02] MEDS ORDERED: SODIUM CHLORIDE 0.9% 500 ML INFUS.BAG IV ONE (15:04)
[2020-02-02] MEDS: MIDAZOLAM 100 MG in SODIUM CHLORIDE 100 ML IVPB SCH (15:05)
--- NOTE | 2020-02-02 15:06 | PDOC ---
Attending Attestation - Resident Resident Name: Mick Duque - ED Attending Attestation I have performed the following: I have examined & evaluated the patient, The case was reviewed & discussed with the resident, I agree w/resident's findings & plan, Exceptions are as noted - HPI HPI: 02/02/20 15:01 79M hx of ESRD (Tu, Th,Sa), DM, HL, anemia, htn, PVD recent R AKA Presents with altered mental status, patient [facility] when they found the patient unresponsive. MS was called upon arrival the patient was nonresponsive hypotensive, The patient was started on pressors in the field upon arrival the patient was minimally responsive to sternal rub, blood pressure noted to be 50s over 30s, Respiring spontaneously however we were unable to obtain an O2 saturation. Decision was made to intubate the patient, the patient was intubated by resident Pedraza successfully on the initial attempt using the glide scope, a central line was placed by resident Delatorre on the L femoral for central access and pressures/fluids resusitation. BGM by EMS 200s Noted to have a packed wound on the right AKA site, Have rales at the left lung. History otherwise limited due to the patient's clinical condition - Physicial Exam PE: 02/02/20 15:05 GENERAL: The patient is lethargic, moans to sternal rub HEAD: Normocephalic, atraumatic. EYES: extraocular movements intact, sclera anicteric, conjunctiva clear. ENT: Normal voice, dry mucous membranes, ETT in place NECK: Normal range of motion, supple LUNGS: rales to L lung HEART: tachycardic ABDOMEN: Soft, nontender, No guarding, no rebound. No CVA tenderness EXTREMITIES:sp R AKA with packed wound, mild erythema on medial aspect, stage 1 ulcers on L 1st toe NEUROLOGICAL: unable to asess PSYCH: unable to assess - Critical Care Time Total Critical Care Time: 65 Critical Care Statement: The care of this patient involved high complexity decision making to prevent further life threatening deterioration of the patient's condition and/or to evaluate & treat vital organ system(s) failure or risk of failure. 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 will place an A line for more accurate blood pressure monitoring. pt written for abx 02/02/20 16:48 on bedside US, there was an incidental finding of a 3cm aortic anurysm Discharge - Discharge Information Problems reviewed: Yes Clinical Impression/Diagnosis: Septic shock Acute respiratory failure Qualifiers: Respiratory failure complication: hypoxia Qualified Code(s): J96.01 - Acute respiratory failure with hypoxia Condition: Critical Disposition: - Admission Yes - Follow up/Referral - Patient Discharge Instructions - Post Discharge Activity
[2020-02-02 15:15] LABS: BASO % 0.1 % (0-2.0); HEMATOCRIT 24.3 % (35.4-49); HEMOGLOBIN 7.3 GM/dL (11.7-16.9); LYMPH % 2.3 % (8-40); MCH 27.4 pg (25.7-33.7); MEAN CELL VOLUME 91.5 fl (80-96); MEAN PLT VOLUME 7.9 fl (7.5-11.1); MONO % 2.7 % (3.8-10.2); NEUT % 94.9 % (42.8-82.8); PLATELET COUNT 253 K/MM3 (134-434); RBC 2.66 M/mm3 (4.00-5.60); RDW 16.4 % (11.9-15.9); WHITE BLOOD COUNT 17.9 K/mm3 (4.0-10.0)
[2020-02-02 15:23] LABS: INR 1.08 (0.83-1.09); PROTHROMBIN TIME (PATIENT) 12.8 SEC (9.7-13.0)
[2020-02-02 15:25] LABS: ACTIVATED PTT 26.5 SECONDS (25.2-36.5)
[2020-02-02 15:38] LABS: ARTERIAL BLD GAS O2 SATURATION 68.4 mmHg (95-98); ARTERIAL BLOOD GAS BASE EXCESS -7.9 mmol/L (-2-2); ARTERIAL BLOOD GAS pH 7.331 (7.350-7.450)
[2020-02-02 15:42] LABS: ARTERIAL BLOOD GAS PO2 37.6 mmHg (80-100)
[2020-02-02] MEDS ORDERED: VANCOMYCIN 1 GRAM (PRE-DOCKED) 1,000 MG/250 ML BAG IVPB ONE (15:42)
[2020-02-02 15:43] LABS: EPI CELLS 28 /uL (0-25.1); HYALINE CASTS 0 /uL (0-3.1); PH,URINE 8.5 (5.0-8.0); URINE APPEARANCE TURBID; URINE BILIRUBIN NEGATIVE (NEGATIVE); URINE COLOR YELLOW; URINE GLUCOSE (UA) NEGATIVE (NEGATIVE); URINE KETONE NEGATIVE (NEGATIVE); URINE LEUK ESTERASE NEGATIVE (NEGATIVE); URINE NITRITE NEGATIVE (NEGATIVE); URINE PROTEIN 4+ (NEGATIVE); URINE UROBILINOGEN 0.2 mg/dL (0.2-1.0)
[2020-02-02] MEDS ORDERED: PIPERACILLIN/TAZOB 3.375 GM 3.375 GM/50 ML BAG IVPB ONE (15:43)
[2020-02-02] MEDS ORDERED: LACTATED RINGERS SOLUTION 1000 ML INFUS.BAG IV ONE ×2 (15:43→21:22)
[2020-02-02 15:52] LABS: ALBUMIN 1.5 g/dl (3.4-5.0); BILIRUBIN,TOTAL 0.8 mg/dL (0.2-1); BLOOD UREA NITROGEN 12.2 mg/dL (7-18); CREATININE 1.4 mg/dL (0.55-1.3); POTASSIUM 3.1 mmol/L (3.5-5.1); TOT PROT 5.3 g/dl (6.4-8.2)
[2020-02-02 15:54] LABS: ANISOCYTOSIS 1+; MACROCYTOSIS 1+; PLATELET ESTIMATE NORMAL
[2020-02-02 15:57] LABS: URINE BACTERIA 36.3 /uL (0-1359); URINE RBC 400.3 /uL (0-23.9); URINE WBC 1555.4 /uL (0-25.8); YEAST NON SEEN (NEGATIVE)
[2020-02-02 16:02] LABS: N-TERMINAL BNP 11491.4 pg/ml (5-450)
[2020-02-02] MEDS: FENTANYL IVPB 500 MCG/100 ML BAG IVPB SCH (16:05)
[2020-02-02] MEDS ORDERED: DOPAMINE 400 MG/D5W - 400,000 MCG/250 ML INFUS.BAG IVPB SCH (16:15)
[2020-02-02 16:17] LABS: CALCIUM 6.9 mg/dL (8.5-10.1)
--- NOTE | 2020-02-02 16:19 | HP ---
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 Cardiovascular: Yes: CHF, HTN Renal/: Yes: Renal Failure, Hemodialysis Heme/Onc: Yes: Anemia - Smoking History Smoking history: Smoker current status UNK Have you smoked in the past 12 months: No - Alcohol/Substance Use Hx Alcohol Use: No - Social History ADL: Support Services History of Recent Travel: No Home Medications - Allergies Allergies/Adverse Reactions: Allergies Allergy/AdvReac Type Severity Reaction Status Date / Time No Known Allergies Allergy Verified 02/02/20 14:36 - Home Medications Home Medications: Ambulatory Orders Acetaminophen [Tylenol .Regular Strength -] 325 mg PO Q6H PRN tablet 09/09/19 Aspirin [ASA -] 81 mg PO DAILY 09/09/19 Atorvastatin Ca [Lipitor] 40 mg PO HS 09/09/19 Calcium 500Mg/Vit-D 200 Units [Os-Dustin 500+D -] 1 tab PO DAILY tab 09/09/19 Cyanocobalamin (Vitamin B-12) [Vitamin B-12] 1,000 mcg PO DAILY 09/09/19 Lisinopril [Zestril] 2.5 mg PO DAILY 09/09/19 Tamsulosin HCl [Flomax] 0.4 mg PO DAILY 09/09/19 Zinc Sulfate [Orazinc -] 220 mg PO BID capsule 09/09/19 Docusate Sodium [Colace -] 100 mg PO BID PRN capsule 01/16/20 Heparin - 5,000 unit SQ BID vial 01/16/20 Insulin Sliding Scale [Novolog Vial Sliding Scale -] 1 vial SQ BIDAC units 01/16/20 Polyethylene Glycol 3350 [Miralax 119 gm Btl -] 17 gm PO DAILY PRN bottle 01/16/20 Vitamin B Comp W-C [Nephro-Cata -] 1 tablet PO DAILY tablet 01/16/20 Physical Examination Vital Signs: Vital Signs Temperature 95 F L 02/02/20 14:36 Pulse Rate 96 H 02/02/20 14:36 Respiratory Rate 14 02/02/20 14:40 Blood Pressure 56/28 L 02/02/20 14:36 O2 Sat by Pulse Oximetry (%) 98 02/02/20 14:40 Labs: CBC, BMP 02/02/20 14:27 02/02/20 14:27
[2020-02-02 16:23] LABS: VENOUS PCO2 37.9 mmHg (38-52); VENOUS PH 7.299 (7.310-7.410)
[2020-02-02] MEDS ORDERED: DOPAMINE 400 MG/D5W - 400,000 MCG/250 ML INFUS.BAG IVPB ONE (16:58)
--- NOTE | 2020-02-02 17:59 | CONSULT ---
Consultation: REQUESTING PROVIDER: CONSULT REQUEST: We have been asked to medically evaluate this patient for (specify). 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 Pt unresponsive at bedside so most of history was gotten from [facility] long term nurses and dialysis center nurses. Dialysis center nurses explained that pt came in responsive with bp in 70-80s. Pt was mid dialysis (2.5 hours in for normal 3 hr course), where BP is checked every 30 minutes and BP went down to 39/17. At that point long term team noticed pt was unresponsive gave him 2L of NS and started him on levophed. On arrival, pt was minimally responsive to sternal rub, hypotensive 50/30, spontaneous respirations but unable to obtain O2sat. Intubated w etomidate, mariela to protect airway, L femoral CVC placed for hypoten nohelia, R fem arterial line placed for accurate BP readings, hypothermic 94 rectal. Pt according to [facility] nursing staff explained that pt was complaining of increased right leg pain on 01/31, but denies fevers, or hypotension (morning bp 123/58). 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 Put central line, prashant, and intubated pt. REVIEW OF SYSTEMS: Unable to attain due to pt being intubated and sedated. PHYSICAL EXAMINATION GENERAL: Intubated and sedated HEAD: No signs of trauma, normocephalic, atraumatic EYES: sclera anicteric, conjunctiva clear ENT: Auricles normal inspection,normal, nares patent, pt intubated with OG tube NECK: Normal ROM, supple, no lymphadenopathy, JVD, or masses LUNGS: Bilateral rhonchi worse on the left. HEART: Tachycardic and rhythm, normal S1 and S2. Perma cath on left chest ABDOMEN: Soft normoactive bowel sounds. EXTREMITIES : Righ and left arm fistula is engorged with no continuous bruit or palpable thrill. Unable to palpate right arm and left arm radial pulse. Pt cap refill is about 4 seconds on bilateral upper ext. Pt Left leg shows +1 pulse with no edema. 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 With surgical scar and claudia with purulent pustule drainage. No abscess noted. Vital Signs - 24 hr 02/02/20 02/02/20 02/02/20 14:24 14:36 14:40 Temperature 94.7 F L 95 F L Pulse Rate 96 H Respiratory 16 14 Rate Blood Pressure 56/28 L O2 Sat by Pulse 65 L 98 Oximetry (%) 02/02/20 17:35 Temperature Pulse Rate Respiratory 14 Rate Blood Pressure O2 Sat by Pulse 98 Oximetry (%) Laboratory Results - last 24 hr 02/02/20 02/02/20 02/02/20 14:27 14:27 14:27 WBC 17.9 H RBC 2.66 L Hgb 7.3 L Hct 24.3 L MCV 91.5 MCH 27.4 MCHC 30.0 L RDW 16.4 H Plt Count 253 MPV 7.9 D Absolute Neuts (auto) 17.0 H Neutrophils % 94.9 H Neutrophils % (Manual) 92.9 H Band Neutrophils % 1.0 Lymphocytes % 2.3 L D Lymphocytes % (Manual) 2.0 L D Monocytes % 2.7 L Monocytes % (Manual) 4 Eosinophils % 0.0 D Eosinophils % (Manual) 0.0 D Basophils % 0.1 Basophils % (Manual) 0.0 Myelocytes % (Man) 0 D Promyelocytes % (Man) 0 Blast Cells % (Manual) 0 Nucleated RBC % 0 Metamyelocytes 0 Hypochromia 0 Platelet Estimate Normal Polychromasia 1+ Poikilocytosis 0 Anisocytosis 1+ Microcytosis 1+ Macrocytosis 1+ PT with INR 12.80 INR 1.08 PTT (Actin FS) 26.5 Anticoagulation Therapy Puncture Site Patient Temperature ABG pH ABG pCO2 ABG pO2 ABG HCO3 ABG O2 Sat (Measured) ABG O2 Content ABG Base Excess Samson Test VBG pH POC VBG pCO2 POC VBG pO2 VBG HCO3 VBG O2 Sat (Melyssa) VBG Base Excess Patient On Oxygen O2 Delivery Device Oxygen Flow Rate Vent Mode Vent Rate Mechanical Rate PEEP Pressure Support Vent Sodium Potassium Chloride Carbon Dioxide Anion Gap BUN Creatinine Est GFR (CKD-EPI)AfAm Est GFR (CKD-EPI)NonAf Random Glucose Lactic Acid Calcium Total Bilirubin AST ALT Alkaline Phosphatase Troponin I 0.11 H B-Natriuretic Peptide 77148.4 H Total Protein Albumin Urine Color Urine Appearance Urine pH Ur Specific [place] Urine Protein Urine Glucose (UA) Urine Ketones Urine Blood Urine Nitrite Urine Bilirubin Urine Urobilinogen Ur Leukocyte Esterase Urine WBC (Auto) Urine RBC (Auto) Urine Casts (Auto) U Epithel Cells (Auto) Urine Bacteria (Auto) Urine Yeast (Auto) 02/02/20 02/02/20 02/02/20 14:27 14:27 14:27 WBC RBC Hgb Hct MCV MCH MCHC RDW Plt Count MPV Absolute Neuts (auto) Neutrophils % Neutrophils % (Manual) Band Neutrophils % Lymphocytes % Lymphocytes % (Manual) Monocytes % Monocytes % (Manual) Eosinophils % Eosinophils % (Manual) Basophils % Basophils % (Manual) Myelocytes % (Man) Promyelocytes % (Man) Blast Cells % (Manual) Nucleated RBC % Metamyelocytes Hypochromia Platelet Estimate Polychromasia Poikilocytosis Anisocytosis Microcytosis Macrocytosis PT with INR INR PTT (Actin FS) Anticoagulation Therapy No Result Required. Puncture Site No Result Required. Patient Temperature No Result Required. ABG pH 7.331 L ABG pCO2 33.30 L ABG pO2 37.6 L* ABG HCO3 17.2 L ABG O2 Sat (Measured) 68.4 L ABG O2 Content No Result Required. ABG Base Excess -7.9 L Samson Test No Result Required. VBG pH POC VBG pCO2 POC VBG pO2 VBG HCO3 VBG O2 Sat (Melyssa) VBG Base Excess Patient On Oxygen No Result Required. O2 Delivery Device No Result Required. Oxygen Flow Rate No Result Required. Vent Mode No Result Required. Vent Rate No Result Required. Mechanical Rate No Result Required. PEEP No Result Required. Pressure Support Vent No Result Required. Sodium 137 Potassium 3.1 L Chloride 104 Carbon Dioxide 20 L Anion Gap 14 BUN 12.2 Creatinine 1.4 H Est GFR (CKD-EPI)AfAm 54.61 Est GFR (CKD-EPI)NonAf 47.12 Random Glucose 92 Lactic Acid 3.2 H* Calcium 6.9 L* Total Bilirubin 0.8 AST 42 H ALT 26 Alkaline Phosphatase 91 Troponin I B-Natriuretic Peptide Total Protein 5.3 L Albumin 1.5 L Urine Color Urine Appearance Urine pH Ur Specific [place] Urine Protein Urine Glucose (UA) Urine Ketones Urine Blood Urine Nitrite Urine Bilirubin Urine Urobilinogen Ur Leukocyte Esterase Urine WBC (Auto) Urine RBC (Auto) Urine Casts (Auto) U Epithel Cells (Auto) Urine Bacteria (Auto) Urine Yeast (Auto) 02/02/20 02/02/20 14:51 15:20 WBC RBC Hgb Hct MCV MCH MCHC RDW Plt Count MPV Absolute Neuts (auto) Neutrophils % Neutrophils % (Manual) Band Neutrophils % Lymphocytes % Lymphocytes % (Manual) Monocytes % Monocytes % (Manual) Eosinophils % Eosinophils % (Manual) Basophils % Basophils % (Manual) Myelocytes % (Man) Promyelocytes % (Man) Blast Cells % (Manual) Nucleated RBC % Metamyelocytes Hypochromia Platelet Estimate Polychromasia Poikilocytosis Anisocytosis Microcytosis Macrocytosis PT with INR INR PTT (Actin FS) Anticoagulation Therapy Puncture Site Patient Temperature ABG pH ABG pCO2 ABG pO2 ABG HCO3 ABG O2 Sat (Measured) ABG O2 Content ABG Base Excess Samson Test VBG pH 7.299 L POC VBG pCO2 37.9 L POC VBG pO2 135.0 H VBG HCO3 18.2 L VBG O2 Sat (Melyssa) TNP VBG Base Excess TNP Patient On Oxygen O2 Delivery Device Oxygen Flow Rate Vent Mode Vent Rate Mechanical Rate PEEP Pressure Support Vent Sodium Potassium Chloride Carbon Dioxide Anion Gap BUN Creatinine Est GFR (CKD-EPI)AfAm Est GFR (CKD-EPI)NonAf Random Glucose Lactic Acid Calcium Total Bilirubin AST ALT Alkaline Phosphatase Troponin I B-Natriuretic Peptide Total Protein Albumin Urine Color Yellow Urine Appearance Turbid Urine pH 8.5 H Ur Specific [place] 1.015 Urine Protein 4+ H Urine Glucose (UA) Negative Urine Ketones Negative Urine Blood 1+ H Urine Nitrite Negative Urine Bilirubin Negative Urine Urobilinogen 0.2 Ur Leukocyte Esterase Negative Urine WBC (Auto) 1555.4 Urine RBC (Auto) 400.3 Urine Casts (Auto) 0 U Epithel Cells (Auto) 28 Urine Bacteria (Auto) 36.3 Urine Yeast (Auto) Non seen Active Medications Generic Name Dose Route Start Last Admin Trade Name Fregale PRN Reason Stop Dose Admin Chlorhexidine Gluconate 1 applic 02/02/20 22:00 Hibiclens For Decolonization - TP HS ZOLTAN Norepinephrine Bitartrate 16, 500 mls @ 9.375 mls/hr 02/02/20 14:45 02/02/20 14:42 000 mcg/ Sodium Chloride IV 5 mcg/min TITR ZOLTAN 9.375 mls/hr Administration Protocol 5 MCG/MIN Midazolam HCl 100 mg/ Sodium 100 mls @ 1 mls/hr 02/02/20 14:45 02/02/20 15:05 Chloride IVPB 1 mg/hr TITR ZOLTAN 1 mls/hr Administration Protocol 1 MG/HR Fentanyl 500 mcg in 100 mls @ 10 mls/hr 02/02/20 15:45 02/02/20 16:05 Sublimaze Ivpb IVPB 1 mcg/kg/hr TITR ZOLTAN 10 mls/hr Administration 1 MCG/KG/HR Dopamine HCl/Dextrose 400,000 mcg in 250 mls @ 9.375 mls/hr 02/02/20 16:15 02/02/20 16:59 Dopamine 400 Mg/D5w - IVPB 5 mcg/kg/min TITR ZOLTAN 9.375 mls/hr Administration Protocol 5 MCG/KG/MIN Insulin Aspart 1 vial 02/02/20 22:00 Novolog Vial Sliding Scale - SQ ACHS ZOLTAN Protocol Mupirocin 1 applic 02/02/20 22:00 Bactroban Ointment (For Decolonization) - NS 02/07/20 21:59 BID ZOLTAN ASSESSMENT/PLAN: Dispo: We will continue to follow the patient. Thank you for this consultative opportunity. ICU will be accepting this Pt. 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 will repeat EKG - difficult BPs to read secondary to surgical interventions. Arterial line is MAP 84. MAP goal >65 - Troponin .11 most likely demand will order second - Repeat EKG will consult Cardio if need be - BNP elevated will repeat - Hold lisinopril, tamsulosin - ASA and atorvastatin will be given Resp: - Ventilated on settings: Rate 14, Tital volume 400, PEEP 5 FiO2 100%. Will titrate as need be - SpO2>96% - questionable PNA vs atelectasis left lower lung will start empiric Abx - ABG ph:7.311 metabolic acidosis will repeat ABG in the AM - repeat CXR AM ID - Leukocytosis 17.9 hypothermic - PNA vs infected surgical wound (right knee amputation purulent discharge with erythema) - Blood cultures sent. - Wound culture sent - Urine culture sent - UA showed elevated WBC - Lactic acid 4.2 received 2 L of fluid ( will repeat lactic acid at 7:30 pm) - Likely source of infection due to surgical wound. - ID consulted - Surgery consulted for wound - Heme Onc - Hgb 7.3 no reported melena or hematochezia - will repeat CBC in AM to trend hgb Renal - hx of esrd HLD (t, th, S) thorugh permacath - received dialysis today at [facility] (not complete 2.5 hrs out of 3) - Cr 1.4 today will trend with CMP in the AM - pt produces urine - nephrology consult placed for dialysis Endo - DM will order sliding scale GI - Pt currently intubated no reported rectal bleeding or melena - will provide GI prophylaxis FEN - hypokalemia K 3.1 will replete - Ca 6.9 corrected to 8.9 - Bicarb 20 replete K will give 2 K riders. - will check electrolytes +Mg in AM Prophylaxis - Heparin 5000 TID - SCDs Visit type - Medication Review Med list reviewed for High Risk Meds patients 65 and older: Yes - Emergency Visit Emergency Visit: Yes ED Registration Date: 02/02/20 Care time: The patient presented to the Emergency Department on the above date and was hospitalized for further evaluation of their emergent condition. - New Patient This patient is new to me today: Yes Date on this admission: 02/02/20 - Critical Care Critical Care patient: Yes Total Critical Care Time (in minutes): 36 Critical Care Statement: The care of this patient involved high complexity decision making to prevent further life threatening deterioration of the patient's condition and/or to evaluate & treat vital organ system(s) failure or risk of failure. ATTENDING PHYSICIAN STATEMENT I saw and evaluated the patient. I reviewed the resident's note and discussed the case with the resident. I agree with the resident's findings and plan as documented. SUBJECTIVE: OBJECTIVE: ASSESSMENT AND PLAN:
[2020-02-02] MEDS ORDERED: VASOPRESSIN 20 UNITS/ML VIAL IV ONE (20:47)
[2020-02-02] MEDS: VASOPRESSIN 40 UNITS in SODIUM CHLORIDE 98 ML IVPB SCH (21:06)
[2020-02-02] MEDS: KCL 10 MEQ IVPB 10 MEQ/100 ML INFUS.BAG IVPB SCH ×3 (21:06→23:18)
[2020-02-02] MEDS: MUPIROCIN 2% TOPICAL OINTMENT FOR DECOLONIZATION NS SCH (21:07)
[2020-02-02 21:24] LABS: BLOOD UREA NITROGEN 18.1 mg/dL (7-18); CALCIUM 7.1 mg/dL (8.5-10.1); CREATININE 1.6 mg/dL (0.55-1.3)
[2020-02-02] MEDS ORDERED: HEPARIN NA (PORCINE) 5,000 UNITS/ML 1ML VIAL SQ SCH (22:00)
[2020-02-02] MEDS: CHLORHEXIDINE GLUCONATE 4% CLEANSER FOR DECOLONIZATION TP SCH (22:41)
[2020-02-02] MEDS: ATORVASTATIN CA 40 MG TABLET (FP) PO SCH (23:18)
[2020-02-02] MEDS: INSULIN SLIDING SCALE (NOVOLOG) 1 VIAL SQ SCH (23:33)
[2020-02-03 01:19] LABS: BLOOD UREA NITROGEN 20.4 mg/dL (7-18); CREATININE 1.7 mg/dL (0.55-1.3); MAGNESIUM 1.7 mg/dL (1.8-2.4); PHOSPHOROUS 3.5 mg/dL (2.5-4.9); POTASSIUM 4.4 mmol/L (3.5-5.1)
[2020-02-03] MEDS ORDERED: MAGNESIUM 2GM/50ML STERILE WATER IVPB IVPB ONE (02:08)
[2020-02-03] MEDS ORDERED: DEXTROSE 5%-WATER 100 ML IVPB ONE (02:20)
[2020-02-03] MEDS ORDERED: PIPERACILLIN/TAZOBACTAM 4.5 GM VIAL IVPB ONE (02:20)
[2020-02-03] MEDS ORDERED: PIPERACILLIN/TAZOB 4.5 GM 4.5 GM in DEXTROSE 5%-WATER 100 ML IVPB ONE (02:50)
--- NOTE | 2020-02-03 03:21 | CON.CARD ---
Consult Consult Specialty:: cardiology Reason for Consultation:: AMS; shock;elevatrd TNI; hypotension - History of Present Illness Chief Complaint: Intubated; unresponsive History of Present Illness: Mr. Dean is an 79M with PMhx of ESRD (, ,), DM, HLD, diastolic CHF, anemia, Htn, PVD, COPD, s/p CVA many years ago, R AKA earlier this month, who now presents with altered mental status. Patient was receiving hemodialysis at the senior care when they found him unresponsive. EMS was called; upon arrival the patient was unresponsive, hypotensive. He was started on IVF and norepinephrine. Upon arrival, the patient was minimally responsive to sternal rub, blood pressure noted to be 50s over 30s, respiring spontaneously; however, unable to obtain an O2 saturation;hypothermic; leukocytotic. He was intubated and a central line was placed in the L femoral artery; Rt femoral arterial line. BGM by EMS 200s Noted to have a packed wound on the right AKA site. 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 Cardio/Vascular: Yes: CHF, HTN Renal/: Yes: Renal Failure, Hemodialysis Heme/Onc: Yes: Anemia Additional Medical History: PVD - Past Surgical History Past Surgical History: Yes: Amputation (R AKA 01/2020) - Alcohol/Substance Use Hx Alcohol Use: No - Smoking History Smoking history: Smoker current status UNK Have you smoked in the past 12 months: No - Social History Usual Living Arrangement: Jail ADL: Support Services History of Recent Travel: No Home Medications - Allergies Allergies/Adverse Reactions: Allergies Allergy/AdvReac Type Severity Reaction Status Date / Time No Known Allergies Allergy Verified 02/02/20 14:36 - Home Medications Home Medications: Ambulatory Orders Acetaminophen [Tylenol .Regular Strength -] 325 mg PO Q6H PRN tablet 09/09/19 Aspirin [ASA -] 81 mg PO DAILY 09/09/19 Atorvastatin Ca [Lipitor] 40 mg PO HS 09/09/19 Calcium 500Mg/Vit-D 200 Units [Os-Dustin 500+D -] 1 tab PO DAILY tab 09/09/19 Cyanocobalamin (Vitamin B-12) [Vitamin B-12] 1,000 mcg PO DAILY 09/09/19 Lisinopril [Zestril] 2.5 mg PO DAILY 09/09/19 Tamsulosin HCl [Flomax] 0.4 mg PO DAILY 09/09/19 Zinc Sulfate [Orazinc -] 220 mg PO BID capsule 09/09/19 Docusate Sodium [Colace -] 100 mg PO BID PRN capsule 01/16/20 Heparin - 5,000 unit SQ BID vial 01/16/20 Insulin Sliding Scale [Novolog Vial Sliding Scale -] 1 vial SQ BIDAC units 01/16/20 Polyethylene Glycol 3350 [Miralax 119 gm Btl -] 17 gm PO DAILY PRN bottle 01/16/20 Vitamin B Comp W-C [Nephro-Cata -] 1 tablet PO DAILY tablet 01/16/20 Family Medical History Family History: Unable to Obtain Review of Systems Unable to obtain ROS, reason: Intubated; unresponsive; - Risk Factors Known Risk Factors: Yes: Age, Diabetes Mellitus, Gender, Hypercholesterolemia, Hypertension, Physical Inactivity, Other (ESRD) Vital Signs: Vital Signs Temperature 94.7 F L 02/02/20 14:50 Pulse Rate 103 H 02/02/20 21:07 Respiratory Rate 15 02/03/20 00:02 Blood Pressure 137/53 L 02/02/20 21:07 O2 Sat by Pulse Oximetry (%) 100 02/03/20 00:02 Constitutional: Yes: Thin, Other Eyes: Yes: Tearing Neck: Yes: Decreased ROM Respiratory: Yes: Diminished, Intubated, Mechanically Ventilated Gastrointestinal: Yes: Soft Renal/: Yes: Kelly Present, Other. No: Anuria Cardiovascular: Yes: Tachycardia, Pulse Irregular JVD: Yes Carotid Bruit: No PMI: Displaced Heart Sounds: Yes: S1 (varies in intensity), Split S2 Murmur: Yes: Systolic Murmur, Grade 2 Musculoskeletal: Yes: Muscle Weakness Extremities: Yes: Cool Edema: Yes Edema: LLE: Trace, RLE: Trace Peripheral Pulses WNL: Yes Neurological: Yes: Unresponsive Psychiatric: Yes: Other (hx dementia) - Other Data Labs, Other Data: CBC, BMP 02/02/20 14:27 02/03/20 00:20 INR, PTT INR 1.08 (0.83-1.09) 02/02/20 14:27 Troponin, BNP 02/02/20 02/02/20 02/03/20 14:27 20:15 00:20 Troponin I 0.11 H 0.65 H* 1.49 H* B-Natriuretic Peptide 29854.4 H Troponin, BNP 02/02/20 02/02/20 02/03/20 14:27 20:15 00:20 Troponin I 0.11 H 0.65 H* 1.49 H* B-Natriuretic Peptide 83803.4 H Abnormal Lab Results 02/02/20 02/03/20 02/03/20 20:15 00:20 00:20 WBC RBC Hgb Hct MCHC RDW Absolute Neuts (auto) Neutrophils % Neutrophils % (Manual) Lymphocytes % Lymphocytes % (Manual) PT with INR INR PTT (Actin FS) ABG pH ABG pCO2 ABG pO2 ABG HCO3 ABG O2 Sat (Measured) ABG Base Excess Sodium Potassium 3.0 L Carbon Dioxide 19 L 19 L BUN 18.1 H 20.4 H Creatinine 1.6 H 1.7 H Random Glucose 216 H 207 H Lactic Acid Calcium 7.1 L 7.0 L Magnesium 1.7 L 1.7 L Total Bilirubin AST ALT Creatine Kinase Index 11.9 H CK-MB (CK-2) 20.4 H Troponin I 0.65 H* 1.49 H* Total Protein Albumin Crossmatch 02/03/20 02/03/20 02/03/20 00:20 05:48 06:00 WBC RBC Hgb Hct MCHC RDW Absolute Neuts (auto) Neutrophils % Neutrophils % (Manual) Lymphocytes % Lymphocytes % (Manual) PT with INR INR PTT (Actin FS) ABG pH 7.281 L ABG pCO2 34.80 L ABG pO2 266.3 H ABG HCO3 16.0 L ABG O2 Sat (Measured) 99.5 H ABG Base Excess -9.8 L Sodium Potassium Carbon Dioxide BUN Creatinine Random Glucose Lactic Acid 3.4 H* Calcium Magnesium Total Bilirubin AST ALT Creatine Kinase Index CK-MB (CK-2) Troponin I Total Protein Albumin Crossmatch See Detail 02/03/20 02/03/20 02/03/20 06:00 06:00 06:00 WBC 22.1 H RBC 3.18 L Hgb 8.9 L Hct 29.1 L D MCHC 30.6 L RDW 16.4 H Absolute Neuts (auto) 20.1 H Neutrophils % 90.8 H Neutrophils % (Manual) 84.0 H Lymphocytes % 4.9 L D Lymphocytes % (Manual) 5.0 L D PT with INR 13.90 H INR 1.18 H PTT (Actin FS) ABG pH ABG pCO2 ABG pO2 ABG HCO3 ABG O2 Sat (Measured) ABG Base Excess Sodium Potassium Carbon Dioxide BUN Creatinine Random Glucose Lactic Acid Calcium Magnesium Total Bilirubin AST ALT Creatine Kinase Index 18.1 H CK-MB (CK-2) 38.2 H Troponin I 6.64 H* Total Protein Albumin Crossmatch 02/03/20 02/03/20 02/03/20 06:00 15:45 17:00 WBC 28.9 H RBC 3.53 L Hgb 9.9 L Hct 32.1 L MCHC 30.7 L RDW 16.6 H Absolute Neuts (auto) Neutrophils % Neutrophils % (Manual) Lymphocytes % Lymphocytes % (Manual) PT with INR INR PTT (Actin FS) 177.4 H ABG pH ABG pCO2 ABG pO2 ABG HCO3 ABG O2 Sat (Measured) ABG Base Excess Sodium 135 L Potassium Carbon Dioxide BUN 21.3 H Creatinine 1.9 H Random Glucose 133 H Lactic Acid Calcium 7.1 L Magnesium 2.6 H Total Bilirubin 1.7 H AST 515 H ALT 270 H Creatine Kinase Index CK-MB (CK-2) Troponin I Total Protein 5.0 L Albumin 1.4 L Crossmatch 02/03/20 17:00 WBC RBC Hgb Hct MCHC RDW Absolute Neuts (auto) Neutrophils % Neutrophils % (Manual) Lymphocytes % Lymphocytes % (Manual) PT with INR INR PTT (Actin FS) ABG pH ABG pCO2 ABG pO2 ABG HCO3 ABG O2 Sat (Measured) ABG Base Excess Sodium Potassium Carbon Dioxide BUN Creatinine Random Glucose Lactic Acid Calcium Magnesium Total Bilirubin AST ALT Creatine Kinase Index 20.1 H CK-MB (CK-2) 43.1 H Troponin I 8.29 H* Total Protein Albumin Crossmatch Echo: Report Reviewed Imaging - Results Chest X-ray: Image Reviewed EKG: Image Reviewed Assessment/Plan Septic shock (hypotensive; hypothermic; leukocytosis; unresponsive)-->in tubation, fluids Acute respiratory failure Acute NSTEMI Bifascicular AV block; ?PAF ESRD Chronic anemia; quaiac + Gangrenous RLE-->AKA amputation 01/2020 PVD (hx Rt subclavian stent) DM Hx OMS, dementia Plan: On norepinephrine and Vasopressin IVF PRBCs; increase Hb to approximately 10. Start ASA, IV heparin once hematologically stable. High-dose statin On Vancomycin and Zosyn CC time spent: 75 minutes
[2020-02-03] MEDS ORDERED: HEPARIN NA (PORCINE) 5,000 UNITS/ML 1ML VIAL IVPUSH PRN ×2 (04:34)
[2020-02-03 06:17] LABS: ARTERIAL BLD GAS O2 SATURATION 99.5 mmHg (95-98); ARTERIAL BLOOD GAS BASE EXCESS -9.8 mmol/L (-2-2); ARTERIAL BLOOD GAS PO2 266.3 mmHg (80-100); ARTERIAL BLOOD GAS pH 7.281 (7.350-7.450)
[2020-02-03] MEDS: INSULIN SLIDING SCALE (NOVOLOG) 1 VIAL SQ SCH ×4 (06:25→23:14)
[2020-02-03] MEDS: HEPARIN SOD,PORK IN 0.45% NACL 25,000 UNIT/500 ML INFUS.BAG IVPB SCH (06:33)
[2020-02-03 06:39] LABS: VENT MODE A/C; VENT RATE 14
[2020-02-03 07:07] LABS: BASO % 0.1 % (0-2.0); EOS % 0.2 % (0-4.5); HEMATOCRIT 29.1 % (35.4-49); HEMOGLOBIN 8.9 GM/dL (11.7-16.9); LYMPH % 4.9 % (8-40); MCHC 30.6 g/dl (32.0-35.9); MEAN CELL VOLUME 91.6 fl (80-96); MEAN PLT VOLUME 7.8 fl (7.5-11.1); NEUT % 90.8 % (42.8-82.8); PLATELET COUNT 291 K/MM3 (134-434); RBC 3.18 M/mm3 (4.00-5.60); RDW 16.4 % (11.9-15.9); WHITE BLOOD COUNT 22.1 K/mm3 (4.0-10.0)
[2020-02-03 07:17] LABS: INR 1.18 (0.83-1.09); PROTHROMBIN TIME (PATIENT) 13.9 SEC (9.7-13.0)
[2020-02-03 07:19] LABS: ACTIVATED PTT 30.2 SECONDS (25.2-36.5)
[2020-02-03 07:31] LABS: ALBUMIN 1.4 g/dl (3.4-5.0); BILIRUBIN,TOTAL 1.7 mg/dL (0.2-1); BLOOD UREA NITROGEN 21.3 mg/dL (7-18); CALCIUM 7.1 mg/dL (8.5-10.1); CREATININE 1.9 mg/dL (0.55-1.3)
[2020-02-03 08:33] LABS: MAGNESIUM 2.6 mg/dL (1.8-2.4); PHOSPHOROUS 3.1 mg/dL (2.5-4.9)
--- NOTE | 2020-02-03 08:37 | PN ---
Progress Note, Physician History of Present Illness: Mr. 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 Patient was receiving hemodialysis at the care home when they found him unresponsive. EMS was called; upon arrival the patient was unresponsive, hypotensive. He was started on IVF and norepi nephrine. Upon arrival, the patient was minimally responsive to sternal rub, blood pressure noted to be 50s over 30s, respiring spontaneously; however, unable to obtain an O2 saturation;hypothermic; leukocytotic. He was intubated and a central line was placed in the L femoral artery; Rt femoral arterial line. BGM by EMS 200s Noted to have a packed wound on the right AKA site. - Current Medication List Current Medications: Active Medications Atorvastatin Calcium (Lipitor -) 40 mg PO HS [facility] Last Admin: 02/02/20 23:18 Dose: Not Given Documented by: Chlorhexidine Gluconate (Hibiclens For Decolonization -) 1 applic TP HS [facility] Last Admin: 02/02/20 22:41 Dose: 1 applic Documented by: Heparin Sodium (Porcine) (Heparin -) 1,000 unit IVPUSH PRN PRN PRN Reason: Heparin Heparin Sodium (Porcine) (Heparin -) 5,000 unit IVPUSH PRN PRN PRN Reason: Heparin Norepinephrine Bitartrate 16, (000 mcg/ Sodium Chloride) 500 mls @ 9.375 mls/hr IV TITR [facility]; Protocol Last Titration: 02/03/20 07:00 Dose: 30 mcg/min, 56.25 mls/hr Documented by: Midazolam HCl 100 mg/ Sodium (Chloride) 100 mls @ 1 mls/hr IVPB TITR [facility]; Protocol Last Admin: 02/02/20 15:05 Dose: 1 mg/hr, 1 mls/hr Documented by: Fentanyl (Sublimaze Ivpb) 500 mcg in 100 mls @ 10 mls/hr IVPB TITR [facility] Last Titration: 02/03/20 07:00 Dose: 2 mcg/kg/hr, 20 mls/hr Documented by: Vasopressin 40 units/ Sodium (Chloride) 100 mls @ 5 mls/hr IVPB ASDIR [facility]; Protocol Last Titration: 02/03/20 07:00 Dose: 6 units/hr, 15 mls/hr Documented by: Vancomycin HCl 750 mg/ (Dextrose) 250 mls @ 250 mls/hr IVPB ONCE ONE; Protocol Stop: 02/03/20 16:59 HEPARIN SOD,PORK IN 0.45% NACL (Heparin-1/2ns 25,000 Units/500) 25,000 unit in 500 mls @ 16 mls/hr IVPB TITR [facility]; Protocol Last Admin: 02/03/20 06:33 Dose: 800 units/hr, 16 mls/hr Documented by: Insulin Aspart (Novolog Vial Sliding Scale -) 1 vial SQ ACHS [facility]; Protocol Last Admin: 02/03/20 06:25 Dose: Not Given Documented by: Mupirocin (Bactroban Ointment (For Decolonization) -) 1 applic NS BID [facility] Stop: 02/07/20 21:59 Last Admin: 02/02/20 21:07 Dose: 1 applic Documented by: - Objective Vital Signs: Vital Signs Temperature 98.7 F 02/03/20 06:00 Pulse Rate 96 H 02/03/20 06:00 Respiratory Rate 14 02/03/20 08:34 Blood Pressure 113/53 L 02/03/20 06:00 O2 Sat by Pulse Oximetry (%) 95 02/03/20 08:34 Eyes: Yes: WNL, Conjunctiva Clear, EOM Intact HENT: Yes: WNL, Atraumatic, Normocephalic Neck: Yes: WNL, Supple, Trachea Midline Cardiovascular: Yes: WNL, Regular Rate and Rhythm, S1, S2 Respiratory: Yes: Diminished, Intubated, Mechanically Ventilated Gastrointestinal: Yes: WNL, Normal Bowel Sounds Genitourinary: Yes: WNL Musculoskeletal: Yes: WNL Extremities: Yes: Amputation Edema: No Integumentary: Yes: WNL Labs: CBC, BMP 02/03/20 06:00 02/03/20 06:00 INR, PTT INR 1.18 (0.83-1.09) H 02/03/20 06:00 Assessment/Plan Septic shock (hypotensive; hypothermic; leukocytosis; unresponsive)-->intubation, fluids NSTEMI TNI 6.64 Bifascicular AV block; ?PAF ESRD Chronic anemia; quaiac + Gangrenous RLE-->AKA amputation 01/2020 PVD (hx Rt subclavian stent) DM ECHO severely reduced LVSF , mildly dilated RV with reduced systolic FX new from last month R/o PE Plan: On norepinephrine and Vasopressin IVF PRBCs; increase Hb to approximately 10. Start ASA, IV heparin once hematologically stable. High-dose statin On Vancomycin and Zosyn Cardiac w/u when septic shocks resolves however due to CVA , Alzheimer dementia at baseline patient was unable to tolerate a stress test. cc time spent 37 min
[2020-02-03] MEDS ORDERED: LACTATED RINGERS SOLUTION 1000 ML INFUS.BAG IV ONE (08:40)
[2020-02-03 09:30] LABS: ANISOCYTOSIS 1+; MACROCYTOSIS 0; PLATELET ESTIMATE NORMAL
[2020-02-03] MEDS: MUPIROCIN 2% TOPICAL OINTMENT FOR DECOLONIZATION NS SCH ×2 (09:40→21:33)
[2020-02-03] MEDS ORDERED: ASPIRIN 325 MG TABLET PO ONE (10:15)
--- NOTE | 2020-02-03 10:19 | CONSULT ---
- Consultation REQUESTING PROVIDER: CONSULT REQUEST: We have been asked to surgically evaluate this patient for Right wound surgical site infection. PCP:Patricia Dill HISTORY OF PRESENT ILLNESS:The patient is known to the surgical service. He is s/p R AKA on 01/[address] Hensley. He returned to the ER after becoming unresponsive at HD yesterday. He was treated with pressors in the field for hypotension. Upon arrival to the ED he was intubated and resuscitated. Today, the pt remains intubated and in the ICU. He was seen by Dr. Hensley and myself this am and the wound aleksander were removed. The wound was already partially open upon inspection and some purulent drainage was noted with palpation PMHx: HT< CHF, ESRD on HD, anemia PSHx: Pc to left chest, R AKA 01/11 Home Medications Medication Instructions Recorded Acetaminophen [Tylenol .Regular 325 mg PO Q6H PRN tablet 09/09/19 Strength -] Aspirin [ASA -] 81 mg PO DAILY 09/09/19 Atorvastatin Ca [Lipitor] 40 mg PO HS 09/09/19 Calcium 500Mg/Vit-D 200 Units 1 tab PO DAILY tab 09/09/19 [Os-Dustin 500+D -] Cyanocobalamin (Vitamin B-12) 1,000 mcg PO DAILY 09/09/19 [Vitamin B-12] Lisinopril [Zestril] 2.5 mg PO DAILY 09/09/19 Tamsulosin HCl [Flomax] 0.4 mg PO DAILY 09/09/19 Zinc Sulfate [Orazinc -] 220 mg PO BID capsule 09/09/19 Docusate Sodium [Colace -] 100 mg PO BID PRN capsule 01/16/20 Heparin - 5,000 unit SQ BID vial 01/16/20 Insulin Sliding Scale [Novolog 1 vial SQ BIDAC units 01/16/20 Vial Sliding Scale -] Polyethylene Glycol 3350 [Miralax 17 gm PO DAILY PRN bottle 01/16/20 119 gm Btl -] Vitamin B Comp W-C [Nephro-Cata -] 1 tablet PO DAILY tablet 01/16/20 Allergies Allergy/AdvReac Type Severity Reaction Status Date / Time No Known Allergies Allergy Verified 02/02/20 14:36 REVIEW OF SYSTEMS:Unable to obtain, pt intubated. PHYSICAL EXAM: GENERAL:Intubated and responds to painful stimuli. LOWER EXTREMITIES: Right AKA site with aleksander and skin edges open in two places with necrotic tissue. Medially the incision is intact for approximately 3 cm. where the skin edges were open the aleksander were removed-approximately 4 cm, there is a small bridge of intact skin with superficial skin break down, Then the wound is open again with purulent drainage and necrotic tissue. no erythema or swelling noted. The wound was packed with kerlix. Left chest permacath without any drainage/erythema to insertion site. Vital Signs Temperature 98.7 F 02/03/20 06:00 Pulse Rate 96 H 02/03/20 06:00 Respiratory Rate 17 02/03/20 09:30 Blood Pressure 113/53 L 02/03/20 06:00 O2 Sat by Pulse Oximetry (%) 95 02/03/20 08:34 Lab Results WBC 22.1 K/mm3 (4.0-10.0) H 02/03/20 06:00 RBC 3.18 M/mm3 (4.00-5.60) L 02/03/20 06:00 Hgb 8.9 GM/dL (11.7-16.9) L 02/03/20 06:00 Hct 29.1 % (35.4-49) L D 02/03/20 06:00 MCV 91.6 fl (80-96) 02/03/20 06:00 MCHC 30.6 g/dl (32.0-35.9) L 02/03/20 06:00 RDW 16.4 % (11.9-15.9) H 02/03/20 06:00 Plt Count 291 K/MM3 (134-434) 02/03/20 06:00 INR 1.18 (0.83-1.09) H 02/03/20 06:00 Sodium 135 mmol/L (136-145) L 02/03/20 06:00 Potassium 4.0 mmol/L (3.5-5.1) 02/03/20 06:00 Chloride 104 mmol/L (98-107) 02/03/20 06:00 Carbon Dioxide 21 mmol/L (21-32) 02/03/20 06:00 Anion Gap 10 MMOL/L (8-16) 02/03/20 06:00 BUN 21.3 mg/dL (7-18) H 02/03/20 06:00 Creatinine 1.9 mg/dL (0.55-1.3) H 02/03/20 06:00 Random Glucose 133 mg/dL (74-106) H 02/03/20 06:00 Calcium 7.1 mg/dL (8.5-10.1) L 02/03/20 06:00 Blood Type O POSITIVE 02/03/20 00:20 Antibody Screen Negative 02/03/20 00:20 Microbiology Blood, urine and wound cultures pending Laboratory Tests 02/02/20 02/02/20 02/03/20 14:27 20:15 00:20 Troponin I 0.11 H 0.65 H* 1.49 H* 02/03/20 06:00 Troponin I 6.64 H* Problem List - Problems (1) Gangrene of foot Assessment/Plan: s/p R AKA 01/11 with surgical wound infection. Aleksander removed today with Dr. Hensley and packed with wet to dry kerlix. Plan plan for washout and debridment , possible VAC placement on Thursday if stable. Pt remains on 2 blood pressure support medications. His troponin values are levated and rising. Local wound care daily with wet to dry kerlix Wd culture pending IV abx as per ID-broad spectrum with culture followup Problems reviewed: Yes Code(s): I96 - GANGRENE, NOT ELSEWHERE CLASSIFIED
[2020-02-03 10:32] LABS: MAGNESIUM 1.7 mg/dL (1.8-2.4)
[2020-02-03] MEDS ORDERED: PT OWN MED DRAWER 7, Y5N ONE ×2 (10:42→16:02)
--- NOTE | 2020-02-03 10:54 | PN ---
Teaching Attending Note Name of Resident: Osman Blanco ATTENDING PHYSICIAN STATEMENT I saw and evaluated the patient. I reviewed the resident's note and discussed the case with the resident. I agree with the resident's findings and plan as documented. SUBJECTIVE: Pt seen and examined in the ICU. Remains intubated, sedated on levophed and vasopressin gtts. Purulent drainage from stump. OBJECTIVE: Vital Signs Period Temp Pulse Resp BP Sys/Tapia Pulse Ox Last 24 Hr 94.7 F-99.9 F 96-127 14-17 56-137/28-96 65-100 Intake & Output 01/31/20 02/01/20 02/02/20 02/03/20 23:59 23:59 23:59 23:59 Output Total 200 100 Balance -200 -100 Weight 43.726 kg 43.726 kg Gen: intubated, sedated Heart: RRR Lung: scattered rhonchi Abd: soft, nontender Ext: stump wrapped CBC, BMP 02/03/20 06:00 02/03/20 06:00 Active Medications Atorvastatin Calcium (Lipitor -) 40 mg PO HS ZOLTAN Last Admin: 02/02/20 23:18 Dose: Not Given Documented by: Chlorhexidine Gluconate (Hibiclens For Decolonization -) 1 applic TP HS [facility] Last Admin: 02/02/20 22:41 Dose: 1 applic Documented by: Heparin Sodium (Porcine) (Heparin -) 1,000 unit IVPUSH PRN PRN PRN Reason: Heparin Heparin Sodium (Porcine) (Heparin -) 5,000 unit IVPUSH PRN PRN PRN Reason: Heparin Last Admin: 02/03/20 08:41 Dose: 5,000 unit Documented by: Norepinephrine Bitartrate 16, (000 mcg/ Sodium Chloride) 500 mls @ 9.375 mls/hr IV TITR [facility]; Protocol Last Titration: 02/03/20 07:00 Dose: 30 mcg/min, 56.25 mls/hr Documented by: Midazolam HCl 100 mg/ Sodium (Chloride) 100 mls @ 1 mls/hr IVPB TITR [facility]; Protocol Last Titration: 02/03/20 07:00 Dose: 0 mg/hr, 0 mls/hr Documented by: Fentanyl (Sublimaze Ivpb) 500 mcg in 100 mls @ 10 mls/hr IVPB TITR [facility] Last Titration: 02/03/20 07:00 Dose: 2 mcg/kg/hr, 20 mls/hr Documented by: Vasopressin 40 units/ Sodium (Chloride) 100 mls @ 5 mls/hr IVPB ASDIR [facility]; Pro tocol Last Titration: 02/03/20 07:00 Dose: 6 units/hr, 15 mls/hr Documented by: Vancomycin HCl 750 mg/ (Dextrose) 250 mls @ 250 mls/hr IVPB ONCE ONE; Protocol Stop: 02/03/20 16:59 HEPARIN SOD,PORK IN 0.45% NACL (Heparin-1/2ns 25,000 Units/500) 25,000 unit in 500 mls @ 16 mls/hr IVPB TITR [facility]; Protocol Last Titration: 02/03/20 08:40 Dose: 950 units/hr, 19 mls/hr Documented by: Piperacillin Sod/Tazobactam (Sod 2.25 gm/ Dextrose) 50 mls @ 100 mls/hr IVPB Q8H-IV [facility]; Protocol Vancomycin HCl 1,000 mg/ (Dextrose) 250 mls @ 166.667 mls/hr IVPB ONCE ONE; Protocol Stop: 02/03/20 11:44 Insulin Aspart (Novolog Vial Sliding Scale -) 1 vial SQ ACHS [facility]; Protocol Last Admin: 02/03/20 06:25 Dose: Not Given Documented by: Mupirocin (Bactroban Ointment (For Decolonization) -) 1 applic NS BID [facility] Stop: 02/07/20 21:59 Last Admin: 02/03/20 09:40 Dose: 1 applic Documented by: ASSESSMENT AND PLAN: Acute Respiratory Failure Recent R AKA Stump Infection Septic Shock Lactic Acidosis Acute NSTEMI ESRD on HD PAD DM Anemia - broad spectrum antibiotics - f/u cultures - wound care - IVF - trend lactate, cardiac enzymes - titrate pressors to maintain MAP >65 - stress dose steroids - titrate FiO2 to keep SpO2 >90% - monitor H/H - continue volume assist control - sedate for vent synchrony - DVT/GI prophylaxis - continue ICU monitoring critical care time spent in reviewing chart, evaluating patient and formulating plan 35 min
--- NOTE | 2020-02-03 10:57 | EKG ---
Test Reason : Blood Pressure : / mmHG Vent. Rate : 094 BPM Atrial Rate : 094 BPM P-R Int : 288 ms QRS Dur : 130 ms QT Int : 374 ms P-R-T Axes : 075 -77 102 degrees QTc Int : 467 ms SINUS RHYTHM WITH 1ST DEGREE A-V BLOCK LEFT AXIS DEVIATION RIGHT BUNDLE BRANCH BLOCK NONSPECIFIC ST ABNORMALITY ABNORMAL ECG WHEN COMPARED WITH ECG OF 03-FEB-2020 02:04, CRITERIA FOR SEPTAL INFARCT ARE NO LONGER PRESENT Confirmed by TEOFILO BARDALES MD ([id number]) on 02/03/2020 10:57:37 AM Referred By: GIRISH OLMSTEAD,[facility] Confirmed By:TEOFILO BARDALES MD
--- NOTE | 2020-02-03 10:59 | EKG ---
Test Reason : Blood Pressure : / mmHG Vent. Rate : 099 BPM Atrial Rate : 099 BPM P-R Int : 240 ms QRS Dur : 134 ms QT Int : 356 ms P-R-T Axes : 000 -75 097 degrees QTc Int : 456 ms SINUS RHYTHM WITH 1ST DEGREE A-V BLOCK LEFT AXIS DEVIATION RIGHT BUNDLE BRANCH BLOCK NONSPECIFIC T WAVE ABNORMALITY ABNORMAL ECG Confirmed by TEOFILO BARDALES MD ([id number]) on 02/03/2020 10:58:49 AM Referred By: MONICA Confirmed By:TEOFILO BARDALES MD
[2020-02-03] MEDS ORDERED: PIPERACILLIN/TAZOB 2.25 GM 2.25 GM in DEXTROSE 5%-WATER - 50 ML IVPB SCH (11:00)
--- NOTE | 2020-02-03 11:06 | EKG ---
Test Reason : Blood Pressure : / mmHG Vent. Rate : 136 BPM Atrial Rate : 136 BPM P-R Int : 000 ms QRS Dur : 144 ms QT Int : 378 ms P-R-T Axes : 000 -85 094 degrees QTc Int : 568 ms ATRIAL FIBRILLATION WITH RAPID VENTRICULAR RESPONSE WITH PREMATURE VENTRICULAR OR ABERRANTLY CONDUCTED COMPLEXES LEFT ANTERIOR FASCICULAR BLOCK RIGHT BUNDLE BRANCH BLOCK NONSPECIFIC T WAVE ABNORMALITY ABNORMAL ECG WHEN COMPARED WITH ECG OF 05-JAN-2020 14:12, ATRIAL FIBRILLATION HAS REPLACED SINUS RHYTHM Confirmed by TEOFILO BARDALES MD ([id number]) on 02/03/2020 11:05:53 AM Referred By: Confirmed By:TEOFILO BARDALES MD
--- NOTE | 2020-02-03 11:07 | PN ---
Progress Note (short form) - Note Progress Note: ID CONSULT DICTATED SEPSIS/ SEPTIC SHOCK INFECTED L AKA WOUND R/O SEPSIS SECONDARY TO INFECTED WOUND UTI LACTIC ACIDOSIS ESRD ELEVATED LFTS ? SHOCK LIVER LEUKOCYTOSIS HYPOTHERMIA PNEUMONIA AWAIT C/S CONTINUE EMPIRIC ZOSYN/ VANCOMYCIN ADJUSTED FOR ESRD CONTINUE HEMODYNAMIC/VENTILATORY SUPPORT CRITICAL CARE TIME 35MIN
[2020-02-03] MEDS ORDERED: DEXTROSE 50%-WATER - 25 GM/50 ML VIAL IVPUSH ONE (11:12)
--- NOTE | 2020-02-03 11:32 | PN ---
Progress Note, Physician History of Present Illness: pt seen/ examined in icu Chart is reviewed Intubated/sedated On pressor support - Current Medication List Current Medications: Active Medications Atorvastatin Calcium (Lipitor -) 40 mg PO HS [facility] Last Admin: 02/02/20 23:18 Dose: Not Given Documented by: Chlorhexidine Gluconate (Hibiclens For Decolonization -) 1 applic TP HS [facility] Last Admin: 02/02/20 22:41 Dose: 1 applic Documented by: Dextrose (D50w (Vial) -) 25 gm IVPUSH NOW ONE Stop: 02/03/20 11:13 Heparin Sodium (Porcine) (Heparin -) 1,000 unit IVPUSH PRN PRN PRN Reason: Heparin Heparin Sodium (Porcine) (Heparin -) 5,000 unit IVPUSH PRN PRN PRN Reason: Heparin Last Admin: 02/03/20 08:41 Dose: 5,000 unit Documented by: Hydrocortisone Sodium Succinate (Solu-Cortef -) 100 mg IVPB Q8H [facility] Norepinephrine Bitartrate 16, (000 mcg/ Sodium Chloride) 500 mls @ 9.375 mls/hr IV TITR [facility]; Protocol Last Titration: 02/03/20 07:00 Dose: 30 mcg/min, 56.25 mls/hr Documented by: Midazolam HCl 100 mg/ Sodium (Chloride) 100 mls @ 1 mls/hr IVPB TITR [facility]; Protocol Last Titration: 02/03/20 07:00 Dose: 0 mg/hr, 0 mls/hr Documented by: Fentanyl (Sublimaze Ivpb) 500 mcg in 100 mls @ 10 mls/hr IVPB TITR [facility] Last Titration: 02/03/20 07:00 Dose: 2 mcg/kg/hr, 20 mls/hr Documented by: Vasopressin 40 units/ Sodium (Chloride) 100 mls @ 5 mls/hr IVPB [facility]; Protocol Last Titration: 02/03/20 07:00 Dose: 6 units/hr, 15 mls/hr Documented by: Vancomycin HCl 750 mg/ (Dextrose) 250 mls @ 250 mls/hr IVPB ONCE ONE; Protocol Stop: 02/03/20 16:59 HEPARIN SOD,PORK IN 0.45% NACL (Heparin-1/2ns 25,000 Units/500) 25,000 unit in 500 mls @ 16 mls/hr IVPB TITR [facility]; Protocol Last Titration: 02/03/20 08:40 Dose: 950 units/hr, 19 mls/hr Documented by: Piperacillin Sod/Tazobactam (Sod 2.25 gm/ Dextrose) 50 mls @ 100 mls/hr IVPB Q8H-IV [facility]; Protocol Vancomycin HCl 1,000 mg/ (Dextrose) 250 mls @ 166.667 mls/hr IVPB ONCE ONE; Protocol Stop: 02/03/20 11:44 Propofol (Diprivan -) 1,000,000 mcg in 100 mls @ 1.312 mls/hr IVPB TITR [facility]; Protocol Insulin Aspart (Novolog Vial Sliding Scale -) 1 vial SQ ACHS [facility]; Protocol Last Admin: 02/03/20 06:25 Dose: Not Given Documented by: Mupirocin (Bactroban Ointment (For Decolonization) -) 1 applic NS BID [facility] Stop: 02/07/20 21:59 Last Admin: 02/03/20 09:40 Dose: 1 applic Documented by: - Objective Vital Signs: Vital Signs Temperature 98.7 F 02/03/20 06:00 Pulse Rate 96 H 02/03/20 06:00 Respiratory Rate 17 02/03/20 09:30 Blood Pressure 113/53 L 02/03/20 06:00 O2 Sat by Pulse Oximetry (%) 95 02/03/20 08:34 Cardiovascular: Yes: Regular Rate and Rhythm Respiratory: Yes: Diminished Gastrointestinal: Yes: Soft Edema: No Wound/Incision: Yes: Other (infected stump) Labs: CBC, BMP 02/03/20 06:00 02/03/20 06:00 INR, PTT INR 1.18 (0.83-1.09) H 02/03/20 06:00 Problem List - Problems (1) Acute respiratory failure Code(s): J96.00 - ACUTE RESPIRATORY FAILURE, UNSP W HYPOXIA OR HYPERCAPNIA Qualifiers: Respiratory failure complication: hypoxia Qualified Code(s): J96.01 - Acute respiratory failure with hypoxia (2) Septic shock Code(s): A41.9 - SEPSIS, UNSPECIFIED ORGANISM; R65.21 - SEVERE SEPSIS WITH SEPTIC SHOCK (3) ESRD (end stage renal disease) Code(s): N18.6 - END STAGE RENAL DISEASE Assessment/Plan Septic shock Acute Respiratory Failure Recent R AKA--Infected Stump Acute NSTEMI ESRD on HD Diabetes Anemia Continue present care Condition miguel xiao d/w Rn / icu team time spend approx 35 min Will follow
[2020-02-03] MEDS ORDERED: DEXTROSE 50%-WATER 25 GM/50 ML DISP.SYRIN ONE (11:51)
[2020-02-03] MEDS ORDERED: HYDROCORTISONE SOD SUCCINATE 2 ML ONE (11:51)
--- NOTE | 2020-02-03 11:59 | ECHO ---
Version: 1 Name: FLAKITA CAMARILLO Exam: Adult Echocardiogram Study Date: 02/03/2020, 10:34 AM Age: 79 Years Doppler Measurements & Calculations MV E max kendra: 75.7 cm/sec TR max kendra: 247.0 cm/sec TR max P.4 mmHg Procedure The study was technically difficult with many images being suboptimal in quality. Images were not ob tained from all of the standard acoustic windows due to the limited scope of the study. Left Ventricle Although wall motion is not well seen, left ventricular systolic function appears severely reduced w ith severe global hypokinesis. The transmitral spectral Doppler flow pattern is suggestive of restrictiv e physiology. Septal motion is consistent with conduction abnormality. There is severe global hypokine sis of the left ventricle. Right Ventricle The right ventricle is mildly dilated. The right ventricular systolic function is mild to moderately reduced. Atria The left atrium is not well visualized. Mitral Valve The mitral valve is not well visualized. There is no mitral valve stenosis. There is no mitral regur gitation noted. Tricuspid Valve The tricuspid valve is not well visualized, but is grossly normal. There is mild tricuspid regurgita tion. Right ventricular systolic pressure is normal. Aortic Valve The aortic valve is not well visualized. Pulmonic Valve The pulmonic valve is not well visualized. Great Vessels The aortic root is not well visualized. Pericardium/Pleura There is no pericardial effusion. Tech Comments Technically difficult study due to body habitus. Summary Statements Suggest repeat TTE with contrast as outpatient for better visualization of wall motion and assessmen t of LVEF. The study was technically difficult with many images being suboptimal in quality. Images were not obtained from all of the standard acoustic windows due to the limited scope of the s tudy. Although wall motion is not well seen, left ventricular systolic function appears severely reduced w ith severe global hypokinesis. The right ventricle is mildly dilated. The right ventricular systolic function is mild to moderately reduced. There is mild tricuspid regurgitation. Right ventricular systolic pressure is normal. The aortic valve is not well visualized. Suggest repeat TTE with contrast as outpatient for better visualization of wall motion and assessmen t of LVEF. MD Mathew 02/03/2020, 11:59 AM *[place] Ordering Physician: Vivek Sims Referring Physician: VIVEK SIMS Performed By: Bradford Haley
[2020-02-03] MEDS: HYDROCORTISONE SOD SUCCINATE 100 MG/2 ML VIAL IVPB SCH ×2 (12:02→17:35)
--- NOTE | 2020-02-03 12:11 | CONS ---
DATE OF CONSULTATION: DATE OF DICTATION: 02/03/2020 CHIEF COMPLAINT/HISTORY OF PRESENT ILLNESS: The patient is an 79-year-old male who is evaluated for septic shock. He was admitted from the halfway with hypotension and unresponsiveness. History was obtained from the chart as he cannot give a reliable history. He recently underwent a right [id number] amputation in January of 2020 for gangrene of the right foot. He was receiving hemodialysis at his regularly scheduled session when he was noted to be poorly responsive, with hypotension. According to the notes, his blood pressure was 39/17. He required IV fluid resuscitation. He was taken to the emergency room, where he was noted to be hypotensive and hypothermic and poorly responsive. CAT scan of the head was negative for acute infarct or bleed. He was given IV fluids and placed on pressors. He was transferred to the intensive care unit, where he remains on fluids and pressors. His course has been complicated by hypothermia and white blood cell count elevation, 17,000. The patient required intubation. He is presently sedated on the ventilator. Cultures were obtained. He was empirically treated with vancomycin and Zosyn. He is poorly responsive on the ventilator. He is in no acute respiratory distress. He was seen in consultation by Vascular Surgery. The claudia were removed from his right hqcwb-[id number]-evis amputation surgical site, and gross purulence was encountered. Cultures were obtained. PAST MEDICAL HISTORY: Positive for end-stage renal disease on hemodialysis, congestive heart failure, diabetes mellitus, hypertension, hyperlipidemia, peripheral vascular disease. PAST SURGICAL HISTORY: Status post right jlqqk-[id number]-yaxi amputation on January 12, 2020. ALLERGIES: No known allergies. MEDICATIONS: Include Zosyn, vancomycin, heparin, Lipitor, aspirin, fentanyl, magnesium, vasopressin. SOCIAL HISTORY: He resides in a senior care facility. He is a nonsmoker, nondrinker. Recent hospitalizations as described. REVIEW OF SYSTEMS: Neurologic: Positive for poor responsiveness. No seizure activity or focal weakness. Cardiac: Negative chest pain or palpitations. Respiratory: Negative cough or sputum production. Gastrointestinal: Negative vomiting or diarrhea. Genitourinary: End-stage renal disease on hemodialysis. LABORATORY DATA: White count 22.1, 84 neutrophils, 2 bands, 5 lymphocytes, 5 monocytes. Hematocrit 29.1, platelet count 291. BUN 21, creatinine 1.9. Lactic acid 3.4. Total bilirubin 1.7, alkaline phosphatase 88. AST 515, ALT 270. Urinalysis: White cells 1555. COVID-19 PCR negative. Cultures are pending. PHYSICAL EXAMINATION: General: He is poorly responsive, intubated, no acute distress. Vital Signs: Temperature 98.7. Blood pressure is 113/53. Pulse 96, regular. Respirations 20 per minute. HEENT: Sclerae are anicteric. Cardiovascular: Heart sounds S1, S2. Lungs: Air entry bilaterally. Abdomen: Soft. No tenderness elicited. Extremities: He is status post right dajrl-tzj-jazj amputation. The surgical wound has been opened. It is packed. There is no gross purulence or foul odor. Left lower extremity with peripheral cyanosis. IMPRESSION: 1. Sepsis/septic shock. 2. Infected right above-knee amputation surgical site, probable sepsis secondary to infected surgical wound. 3. Possible pneumonia. 4. Urinary tract infection. 5. Lactic acidosis. 6. End-stage renal disease on hemodialysis. 7. Marked leukocytosis. 8. Hypothermia. 9. Elevated liver enzymes, probable shock liver secondary to hypotension. Await sepsis workup. Empiric antibiotic coverage for hospital-acquired pathogens with Zosyn and vancomycin adjusted for renal insufficiency. Continue IV fluid hydration, hemodynamic and ventilatory support. Prognosis is guarded. CRITICAL CARE TIME SPENT: Thirty-five minutes. Thank you for the kind referral. TEOFILO GEIGER M.D. [id number]
[2020-02-03] MEDS ORDERED: VANCOMYCIN 1 GRAM (PRE-DOCKED) 1,000 MG/250 ML BAG IVPB ONE (12:15)
[2020-02-03] MEDS ORDERED: PIPERACILLIN/TAZOBACTAM 2.25 GM VIAL IVPB ONE ×2 (12:17→17:33)
[2020-02-03] MEDS ORDERED: DEXTROSE 5%-WATER - 50 ML IVPB ONE ×2 (12:17→17:33)
[2020-02-03] MEDS: PIPERACILLIN/TAZOB 2.25 GM 2.25 GM in DEXTROSE 5%-WATER - 50 ML IVPB SCH ×2 (12:22→17:34)
[2020-02-03] MEDS: PROPOFOL 1,000,000 MCG/100 ML VIAL IVPB SCH (13:19)
[2020-02-03] MEDS ORDERED: SODIUM CHLORIDE 250 ML IV STA (13:59)
[2020-02-03] MEDS ORDERED: VANCOMYCIN 750 MG in DEXTROSE 5%-WATER - 250 ML IVPB ONE (16:00)
[2020-02-03] MEDS: NOREPINEPHRINE BITARTRATE 16,000 MCG in SODIUM CHLORIDE 484 ML IV SCH (16:34)
[2020-02-03] MEDS: MIDAZOLAM 100 MG in SODIUM CHLORIDE 100 ML IVPB SCH (16:40)
[2020-02-03] MEDS: FENTANYL IVPB 500 MCG/100 ML BAG IVPB SCH (16:40)
--- NOTE | 2020-02-03 16:40 | PN ---
Physical Exam: SUBJECTIVE: Patient seen and examined. Pt sedated and intubated OBJECTIVE: GENERAL: Intubated and sedated HEAD: No signs of trauma, normocephalic, atraumatic EYES: sclera anicteric, conjunctiva clear ENT: Auricles normal inspection,normal, nares patent, pt intubated with OG tube NECK: Normal ROM, supple, no lymphadenopathy, JVD, or masses LUNGS: Bilateral rhonchi worse on the left. HEART: Tachycardic and rhythm, normal S1 and S2. Perma cath on left chest ABDOMEN: Soft normoactive bowel sounds. EXTREMITIES : Righ and left arm fistula is engorged with no continuous bruit or palpable thrill. Unable to palpate right arm and left arm radial pulse. Pt Left leg shows +1 pulse with no edema. 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 With surgical scar and claudia with purulent pustule drainage. No abscess noted. Vital Signs Period Temp Pulse Resp BP Sys/Tapia Pulse Ox Last 24 Hr 95.6 F-99.9 F 96-117 14-17 64-137/45-96 95-100 Laboratory Results - last 24 hr 02/02/20 02/02/20 02/02/20 14:27 14:27 14:27 WBC RBC Hgb Hct MCV MCH MCHC RDW Plt Count MPV Absolute Neuts (auto) Neutrophils % Neutrophils % (Manual) Band Neutrophils % Lymphocytes % Lymphocytes % (Manual) Monocytes % Monocytes % (Manual) Eosinophils % Eosinophils % (Manual) Basophils % Basophils % (Manual) Myelocytes % (Man) Promyelocytes % (Man) Blast Cells % (Manual) Nucleated RBC % Metamyelocytes Hypochromia Platelet Estimate Polychromasia Poikilocytosis Anisocytosis Microcytosis Macrocytosis PT with INR INR PTT (Actin FS) Anticoagulation Therapy Puncture Site Patient Temperature ABG pH ABG pCO2 ABG pO2 ABG HCO3 ABG O2 Sat (Measured) ABG O2 Content ABG Base Excess Samson Test VBG pH POC VBG pCO2 POC VBG pO2 VBG HCO3 VBG O2 Sat (Melyssa) VBG Base Excess Patient On Oxygen O2 Delivery Device Oxygen Flow Rate Vent Mode Vent Rate Mechanical Rate PEEP Pressure Support Vent Sodium Potassium Chloride Carbon Dioxide Anion Gap BUN Creatinine Est GFR (CKD-EPI)AfAm Est GFR (CKD-EPI)NonAf POC Glucometer Random Glucose Lactic Acid 3.2 H* Calcium 6.9 L* Phosphorus Magnesium Total Bilirubin AST ALT Alkaline Phosphatase Creatine Kinase Creatine Kinase Index CK-MB (CK-2) Troponin I Total Protein Albumin COVID-19 (ADRIANO) Not detected Blood Type Antibody Screen Crossmatch 02/02/20 02/02/20 02/02/20 14:51 20:15 20:15 WBC RBC Hgb Hct MCV MCH MCHC RDW Plt Count MPV Absolute Neuts (auto) Neutrophils % Neutrophils % (Manual) Band Neutrophils % Lymphocytes % Lymphocytes % (Manual) Monocytes % Monocytes % (Manual) Eosinophils % Eosinophils % (Manual) Basophils % Basophils % (Manual) Myelocytes % (Man) Promyelocytes % (Man) Blast Cells % (Manual) Nucleated RBC % Metamyelocytes Hypochromia Platelet Estimate Polychromasia Poikilocytosis Anisocytosis Microcytosis Macrocytosis PT with INR INR PTT (Actin FS) Anticoagulation Therapy Puncture Site Patient Temperature ABG pH ABG pCO2 ABG pO2 ABG HCO3 ABG O2 Sat (Measured) ABG O2 Content ABG Base Excess Samson Test VBG pH 7.299 L POC VBG pCO2 37.9 L POC VBG pO2 135.0 H VBG HCO3 18.2 L VBG O2 Sat (Melyssa) TNP VBG Base Excess TNP Patient On Oxygen O2 Delivery Device Oxygen Flow Rate Vent Mode Vent Rate Mechanical Rate PEEP Pressure Support Vent Sodium 137 Potassium 3.0 L Chloride 103 Carbon Dioxide 19 L Anion Gap 15 BUN 18.1 H Creatinine 1.6 H Est GFR (CKD-EPI)AfAm 46.47 Est GFR (CKD-EPI)NonAf 40.09 POC Glucometer Random Glucose 216 H Lactic Acid 1.9 Calcium 7.1 L Phosphorus Magnesium 1.7 L Total Bilirubin AST ALT Alkaline Phosphatase Creatine Kinase 171 Creatine Kinase Index 11.9 H CK-MB (CK-2) 20.4 H Troponin I 0.65 H* Total Protein Albumin COVID-19 (ADRIANO) Blood Type Antibody Screen Crossmatch 02/02/20 02/03/20 02/03/20 23:30 00:20 00:20 WBC RBC Hgb Hct MCV MCH MCHC RDW Plt Count MPV Absolute Neuts (auto) Neutrophils % Neutrophils % (Manual) Band Neutrophils % Lymphocytes % Lymphocytes % (Manual) Monocytes % Monocytes % (Manual) Eosinophils % Eosinophils % (Manual) Basophils % Basophils % (Manual) Myelocytes % (Man) Promyelocytes % (Man) Blast Cells % (Manual) Nucleated RBC % Metamyelocytes Hypochromia Platelet Estimate Polychromasia Poikilocytosis Anisocytosis Microcytosis Macrocytosis PT with INR INR PTT (Actin FS) Anticoagulation Therapy Puncture Site Patient Temperature ABG pH ABG pCO2 ABG pO2 ABG HCO3 ABG O2 Sat (Measured) ABG O2 Content ABG Base Excess Samson Test VBG pH POC VBG pCO2 POC VBG pO2 VBG HCO3 VBG O2 Sat (Melyssa) VBG Base Excess Patient On Oxygen O2 Delivery Device Oxygen Flow Rate Vent Mode Vent Rate Mechanical Rate PEEP Pressure Support Vent Sodium 136 Potassium 4.4 Chloride 105 Carbon Dioxide 19 L Anion Gap 13 BUN 20.4 H Creatinine 1.7 H Est GFR (CKD-EPI)AfAm 43.18 Est GFR (CKD-EPI)NonAf 37.26 POC Glucometer 211 Random Glucose 207 H Lactic Acid Calcium 7.0 L Phosphorus 3.5 Magnesium 1.7 L Total Bilirubin AST ALT Alkaline Phosphatase Creatine Kinase Creatine Kinase Index CK-MB (CK-2) Troponin I 1.49 H* Total Protein Albumin COVID-19 (ADRIANO) Blood Type Antibody Screen Crossmatch 02/03/20 02/03/20 02/03/20 00:20 05:48 06:00 WBC RBC Hgb Hct MCV MCH MCHC RDW Plt Count MPV Absolute Neuts (auto) Neutrophils % Neutrophils % (Manual) Band Neutrophils % Lymphocytes % Lymphocytes % (Manual) Monocytes % Monocytes % (Manual) Eosinophils % Eosinophils % (Manual) Basophils % Basophils % (Manual) Myelocytes % (Man) Promyelocytes % (Man) Blast Cells % (Manual) Nucleated RBC % Metamyelocytes Hypochromia Platelet Estimate Polychromasia Poikilocytosis Anisocytosis Microcytosis Macrocytosis PT with INR INR PTT (Actin FS) Anticoagulation Therapy No Result Required. Puncture Site Arterial line Patient Temperature No Result Required. ABG pH 7.281 L ABG pCO2 34.80 L ABG pO2 266.3 H ABG HCO3 16.0 L ABG O2 Sat (Measured) 99.5 H ABG O2 Content No Result Required. ABG Base Excess -9.8 L Samson Test Not applicable VBG pH POC VBG pCO2 POC VBG pO2 VBG HCO3 VBG O2 Sat (Melyssa) VBG Base Excess Patient On Oxygen Yes O2 Delivery Device Vent Oxygen Flow Rate 100% Vent Mode A/c Vent Rate 14 Mechanical Rate Yes PEEP 5.0 Pressure Support Vent 400 Sodium Potassium Chloride Carbon Dioxide Anion Gap BUN Creatinine Est GFR (CKD-EPI)AfAm Est GFR (CKD-EPI)NonAf POC Glucometer Random Glucose Lactic Acid 3.4 H* Calcium Phosphorus Magnesium Total Bilirubin AST ALT Alkaline Phosphatase Creatine Kinase Creatine Kinase Index CK-MB (CK-2) Troponin I Total Protein Albumin COVID-19 (ADRIANO) Blood Type O POSITIVE Antibody Screen Negative Crossmatch See Detail 02/03/20 02/03/20 02/03/20 06:00 06:00 06:00 WBC 22.1 H RBC 3.18 L Hgb 8.9 L Hct 29.1 L D MCV 91.6 MCH 28.0 MCHC 30.6 L RDW 16.4 H Plt Count 291 MPV 7.8 Absolute Neuts (auto) 20.1 H Neutrophils % 90.8 H Neutrophils % (Manual) 84.0 H Band Neutrophils % 2.0 Lymphocytes % 4.9 L D Lymphocytes % (Manual) 5.0 L D Monocytes % 4.0 Monocytes % (Manual) 5 Eosinophils % 0.2 D Eosinophils % (Manual) 1.0 D Basophils % 0.1 Basophils % (Manual) 0.0 Myelocytes % (Man) 1 D Promyelocytes % (Man) 0 Blast Cells % (Manual) 0 Nucleated RBC % 0 Metamyelocytes 0 Hypochromia 0 Platelet Estimate Normal Polychromasia 1+ Poikilocytosis 0 Anisocytosis 1+ Microcytosis 1+ Macrocytosis 0 PT with INR 13.90 H INR 1.18 H PTT (Actin FS) 30.2 Anticoagulation Therapy Puncture Site Patient Temperature ABG pH ABG pCO2 ABG pO2 ABG HCO3 ABG O2 Sat (Measured) ABG O2 Content ABG Base Excess Samson Test VBG pH POC VBG pCO2 POC VBG pO2 VBG HCO3 VBG O2 Sat (Melyssa) VBG Base Excess Patient On Oxygen O2 Delivery Device Oxygen Flow Rate Vent Mode Vent Rate Mechanical Rate PEEP Pressure Support Vent Sodium Potassium Chloride Carbon Dioxide Anion Gap BUN Creatinine Est GFR (CKD-EPI)AfAm Est GFR (CKD-EPI)NonAf POC Glucometer Random Glucose Lactic Acid Calcium Phosphorus Magnesium Total Bilirubin AST ALT Alkaline Phosphatase Creatine Kinase 211 Creatine Kinase Index 18.1 H CK-MB (CK-2) 38.2 H Troponin I 6.64 H* Total Protein Albumin COVID-19 (ADRIANO) Blood Type Antibody Screen Crossmatch 02/03/20 02/03/20 02/03/20 06:00 06:08 11:08 WBC RBC Hgb Hct MCV MCH MCHC RDW Plt Count MPV Absolute Neuts (auto) Neutrophils % Neutrophils % (Manual) Band Neutrophils % Lymphocytes % Lymphocytes % (Manual) Monocytes % Monocytes % (Manual) Eosinophils % Eosinophils % (Manual) Basophils % Basophils % (Manual) Myelocytes % (Man) Promyelocytes % (Man) Blast Cells % (Manual) Nucleated RBC % Metamyelocytes Hypochromia Platelet Estimate Polychromasia Poikilocytosis Anisocytosis Microcytosis Macrocytosis PT with INR INR PTT (Actin FS) Anticoagulation Therapy Puncture Site Patient Temperature ABG pH ABG pCO2 ABG pO2 ABG HCO3 ABG O2 Sat (Measured) ABG O2 Content ABG Base Excess Samson Test VBG pH POC VBG pCO2 POC VBG pO2 VBG HCO3 VBG O2 Sat (Melyssa) VBG Base Excess Patient On Oxygen O2 Delivery Device Oxygen Flow Rate Vent Mode Vent Rate Mechanical Rate PEEP Pressure Support Vent Sodium 135 L Potassium 4.0 Chloride 104 Carbon Dioxide 21 Anion Gap 10 BUN 21.3 H Creatinine 1.9 H Est GFR (CKD-EPI)AfAm 37.75 Est GFR (CKD-EPI)NonAf 32.57 POC Glucometer 128 69 Random Glucose 133 H Lactic Acid Calcium 7.1 L Phosphorus 3.1 Magnesium 2.6 H Total Bilirubin 1.7 H AST 515 H ALT 270 H Alkaline Phosphatase 88 Creatine Kinase Creatine Kinase Index CK-MB (CK-2) Troponin I Total Protein 5.0 L Albumin 1.4 L COVID-19 (ADRIANO) Blood Type Antibody Screen Crossmatch Active Medications Generic Name Dose Route Start Last Admin Trade Name Freq PRN Reason Stop Dose Admin Atorvastatin Calcium 40 mg 02/02/20 22:00 02/02/20 23:18 Lipitor - PO Not Given HS ZOLTAN Chlorhexidine Gluconate 1 applic 02/02/20 22:00 02/02/20 22:41 Hibiclens For Decolonization - TP 1 applic HS ZOLTAN Administration Heparin Sodium (Porcine) 1,000 unit 02/03/20 04:34 Heparin - IVPUSH PRN PRN Heparin Heparin Sodium (Porcine) 5,000 unit 02/03/20 04:34 02/03/20 08:41 Heparin - IVPUSH 5,000 unit PRN PRN Administration Heparin Hydrocortisone Sodium Succinate 100 mg 02/03/20 12:00 02/03/20 12:02 Solu-Cortef - IVPB 100 mg Q8H-IV ZOLTAN Administration Norepinephrine Bitartrate 16, 500 mls @ 9.375 mls/hr 02/02/20 14:45 02/03/20 07:00 000 mcg/ Sodium Chloride IV 30 mcg/min TITR ZOLTAN 56.25 mls/hr Titration Protocol 5 MCG/MIN Midazolam HCl 100 mg/ Sodium 100 mls @ 1 mls/hr 02/02/20 14:45 02/03/20 07:00 Chloride IVPB 0 mg/hr TITR ZOLTAN 0 mls/hr Titration Protocol 1 MG/HR Fentanyl 500 mcg in 100 mls @ 10 mls/hr 02/02/20 15:45 02/03/20 07:00 Sublimaze Ivpb IVPB 2 mcg/kg/hr TITR ZOLTAN 20 mls/hr Titration 1 MCG/KG/HR Vasopressin 40 units/ Sodium 100 mls @ 5 mls/hr 02/02/20 20:30 02/03/20 07:00 Chloride IVPB 6 units/hr ASDIR ZOLTAN 15 mls/hr Titration Protocol 2 UNITS/HR Vancomycin HCl 750 mg/ 250 mls @ 250 mls/hr 02/03/20 16:00 Dextrose IVPB 02/03/20 16:59 ONCE ONE Protocol HEPARIN SOD,PORK IN 0.45% NACL 25,000 unit in 500 mls @ 16 mls/hr 02/03/20 04:45 02/03/20 08:40 Heparin-1/2ns 25,000 Units/500 IVPB 950 units/hr TITR ZOLTAN 19 mls/hr Titration Protocol 800 UNITS/HR Piperacillin Sod/Tazobactam 50 mls @ 100 mls/hr 02/03/20 12:00 02/03/20 12:22 Sod 2.25 gm/ Dextrose IVPB 100 mls/hr Q8H-IV ZOLTAN Administration Protocol Propofol 1,000,000 mcg in 100 mls @ 1.312 mls/hr 02/03/20 11:45 02/03/20 13:19 Diprivan - IVPB 5 mcg/kg/min TITR ZOLTAN 1.312 mls/hr Administration Protocol 5 MCG/KG/MIN Insulin Aspart 1 vial 02/02/20 22:00 02/03/20 11:34 Novolog Vial Sliding Scale - SQ Not Given ACHS [facility] Protocol Mupirocin 1 applic 02/02/20 22:00 02/03/20 09:40 Bactroban Ointment (For Decolonization) - NS 02/07/20 21:59 1 applic BID [facility] Administration ASSESSMENT/PLAN: 79 yo male with pmh of hx of esrd (,Th,Sa, last dialysis sat), dm, hl, anemia, htn, dm, pvd, CHF (last echo not known), CVA (50 years ago), 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 Start ASA, IV heparin once hematologically stable. High-dose statin Trending troponin and EKG showing no ST segment changes Stress test when sepsis treated appreciate cardiology consult Resp: - Ventilated on settings: Rate 14, Tital volume 400, PEEP 5 FiO2 100%. Will titrate as need be - SpO2>96% - questionable PNA vs atelectasis left lower lung will start empiric Abx - ABG shows metabolic acidosis and over vented pt Pt vent settings changed. - Stress dose steroid 100mg hydroxycortisone q8hrs (started 02/02) ID - Leukocytosis 22.1 - PNA vs infected surgical wound (right knee amputation purulent discharge with erythema) - Blood cultures pending - Wound culture pending - Urine culture pending - Lactic acid 3.4 received LR and blood but will go slow because pt not making much urine and BP is stable - Likely source of infection due to surgical wound. -CONTINUE EMPIRIC ZOSYN/ VANCOMYCIN (check vanco level daily) (started dose 02/01) - ID consulted - Surgery consulted for wound-Local wound care daily with wet to dry kerlix Wd culture pending. Will consider later washout - Heme Onc - Hgb 7.3 no reported melena or hematochezia will give PRBC to keep hgb approx 10 - will repeat CBC in AM to trend hgb Renal - hx of esrd HLD (t, th, S) thorugh permacath - pt produces minor amount of urine - electrolytes stable - appreciate renal consult Endo - DM will order sliding scale GI - Pt currently intubated no reported rectal bleeding or melena - will provide GI prophylaxis FEN - Will monitor electrolytes and replete - Prophylaxis - Heparin 5000 TID - SCDs Visit type - Emergency Visit Emergency Visit: Yes ED Registration Date: 02/02/20 Care time: The patient presented to the Emergency Department on the above date and was hospitalized for further evaluation of their emergent condition. - New Patient This patient is new to me today: No - Critical Care Critical Care patient: Yes Total Critical Care Time (in minutes): 36 Critical Care Statement: The care of this patient involved high complexity decision making to prevent further life threatening deterioration of the patient's condition and/or to evaluate & treat vital organ system(s) failure or risk of failure. - Medication Review Med list reviewed for High Risk Meds patients 65 and older: Yes ATTENDING PHYSICIAN STATEMENT I saw and evaluated the patient. I reviewed the resident's note and discussed the case with the resident. I agree with the resident's findings and plan as documented. SUBJECTIVE: OBJECTIVE: ASSESSMENT AND PLAN:
--- NOTE | 2020-02-03 16:47 | PROC ---
Central Line Insertion - Procedure Note TIME OUT performed prior to this procedure with verbal confirmation of correct patient identity, correct side, agreement of the procedure, correct patient position, availability of necessary equipment. The consent form is complete and accurate. Risk of possible infection, bleeding and pneumothorax have been discussed with the HCP. Safety precautions based on patient history or medication use has been addressed. Indication: CVP Monitoring Central Line: Triple Lumen Catheter Position: Trendelenburg Area prepped with Chlorhexidine solution then draped using sterile barrier protection. Technique used: Seldinger Ultrasound Guided Assistance: No Site: Right Subclavian (ICU residents tried mutliple times under U/S guidance right IJ.) Dark venous non-pulsatile flow noted from hub of needle. The catheter was introduced. Guide wire removed intact. Each port aspirated then flushed with sterile normal saline and capped. Line secured to skin with silk suture. Biopatch placed around base of line. Sterile occlusive dressing applied. No complications. Patient tolerated the procedure well. STAT chest xray ordered to confirm position and rule out pneumothorax
[2020-02-03 17:22] LABS: HEMATOCRIT 32.1 % (35.4-49); HEMOGLOBIN 9.9 GM/dL (11.7-16.9); MCH 27.9 pg (25.7-33.7); MCHC 30.7 g/dl (32.0-35.9); MEAN PLT VOLUME 8.2 fl (7.5-11.1); PLATELET COUNT 259 K/MM3 (134-434); RBC 3.53 M/mm3 (4.00-5.60); RDW 16.6 % (11.9-15.9); WHITE BLOOD COUNT 28.9 K/mm3 (4.0-10.0)
[2020-02-03] MEDS: PANTOPRAZOLE SODIUM 40 MG VIAL IVPUSH SCH (19:01)
--- NOTE | 2020-02-03 19:08 | CONSULT ---
Consult Consult Specialty:: Nephrology Reason for Consultation:: ESRD - History of Present Illness Chief Complaint: sent in after being found unresponsive History of Present Illness: Pt is an 79 year old gentleman with pmhx of esrd (TTS), dm, hld, anemai, htn, dm, pvd, chf, cva, s/p right aka on 01/11 how was sent in after being found unresponsive. He had a bp of 39/17. We were called to evaluate him for ESRD. His last HD was yesterday and he completed about 2.5 hrs. He is now intubated and unable to give history. He is admitted to the ICU. remains intubated and is on pressors. 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 Cardio/Vascular: Yes: CHF, HTN Renal/: Yes: Renal Failure, Hemodialysis Additional Medical History: PVD - Past Surgical History Past Surgical History: Yes: Amputation (R AKA 01/2020) - Alcohol/Substance Use Hx Alcohol Use: No - Smoking History Smoking history: Smoker current status UNK Have you smoked in the past 12 months: No - Social History Usual Living Arrangement: Care Home ADL: Support Services History of Recent Travel: No Home Medications - Allergies Allergies/Adverse Reactions: Allergies Allergy/AdvReac Type Severity Reaction Status Date / Time No Known Allergies Allergy Verified 02/02/20 14:36 - Home Medications Home Medications: Ambulatory Orders Acetaminophen [Tylenol .Regular Strength -] 325 mg PO Q6H PRN tablet 09/09/19 Aspirin [ASA -] 81 mg PO DAILY 09/09/19 Atorvastatin Ca [Lipitor] 40 mg PO HS 09/09/19 Calcium 500Mg/Vit-D 200 Units [Os-Dustin 500+D -] 1 tab PO DAILY tab 09/09/19 Cyanocobalamin (Vitamin B-12) [Vitamin B-12] 1,000 mcg PO DAILY 09/09/19 Lisinopril [Zestril] 2.5 mg PO DAILY 09/09/19 Tamsulosin HCl [Flomax] 0.4 mg PO DAILY 09/09/19 Zinc Sulfate [Orazinc -] 220 mg PO BID capsule 09/09/19 Docusate Sodium [Colace -] 100 mg PO BID PRN capsule 01/16/20 Heparin - 5,000 unit SQ BID vial 01/16/20 Insulin Sliding Scale [Novolog Vial Sliding Scale -] 1 vial SQ BIDAC units 01/16/20 Polyethylene Glycol 3350 [Miralax 119 gm Btl -] 17 gm PO DAILY PRN bottle 01/16/20 Vitamin B Comp W-C [Nephro-Cata -] 1 tablet PO DAILY tablet 01/16/20 Family Medical History Family History: Unable to Obtain Review of Systems Unable to obtain ROS, reason: intubated and on pressors Physical Exam Vital Signs: Vital Signs Temperature 98.3 F 02/03/20 18:00 Pulse Rate 96 H 02/03/20 18:00 Respiratory Rate 16 02/03/20 18:00 Blood Pressure 147/57 L 02/03/20 17:01 O2 Sat by Pulse Oximetry (%) 98 02/03/20 18:00 Constitutional: Yes: Calm Eyes: Yes: Conjunctiva Clear HENT: Yes: Atraumatic Cardiovascular: Yes: S1, S2 Respiratory: Yes: Mechanically Ventilated Gastrointestinal: Yes: Soft Renal/: Yes: Kelly Present Extremities: Yes: Other (right aka) Edema: No Neurological: Yes: Lethargy Labs: CBC, BMP 02/03/20 17:00 02/03/20 06:00 Imaging - Results X-ray: Report Reviewed Problem List - Problems (1) Acute respiratory failure Code(s): J96.00 - ACUTE RESPIRATORY FAILURE, UNSP W HYPOXIA OR HYPERCAPNIA Qualifiers: Respiratory failure complication: hypoxia Qualified Code(s): J96.01 - Acute respiratory failure with hypoxia (2) Septic shock Code(s): A41.9 - SEPSIS, UNSPECIFIED ORGANISM; R65.21 - SEVERE SEPSIS WITH SEPTIC SHOCK (3) Altered mental status Code(s): R41.82 - ALTERED MENTAL STATUS, UNSPECIFIED (4) Cellulitis Code(s): L03.90 - CELLULITIS, UNSPECIFIED (5) Sepsis Code(s): A41.9 - SEPSIS, UNSPECIFIED ORGANISM (6) ESRD (end stage renal disease) Code(s): N18.6 - END STAGE RENAL DISEASE Assessment/Plan Current Medications Generic Name Dose Route Start Last Admin Trade Name Freq PRN Reason Stop Dose Admin Atorvastatin Calcium 40 mg 02/02/20 22:00 02/02/20 23:18 Lipitor - PO Not Given HS ZOLTAN Chlorhexidine Gluconate 1 applic 02/02/20 22:00 02/02/20 22:41 Hibiclens For Decolonization - TP 1 applic HS ZOLTAN Administration Heparin Sodium (Porcine) 1,000 unit 02/03/20 04:34 Heparin - IVPUSH PRN PRN Heparin Heparin Sodium (Porcine) 5,000 unit 02/03/20 04:34 02/03/20 08:41 Heparin - IVPUSH 5,000 unit PRN PRN Administration Heparin Hydrocortisone Sodium Succinate 100 mg 02/03/20 12:00 02/03/20 17:35 Solu-Cortef - IVPB 100 mg Q8H-IV ZOLTAN Administration Norepinephrine Bitartrate 16, 500 mls @ 9.375 mls/hr 02/02/20 14:45 02/03/20 16:34 000 mcg/ Sodium Chloride IV 30 mcg/min TITR ZOLTAN 56.25 mls/hr Administration Protocol 5 MCG/MIN Midazolam HCl 100 mg/ Sodium 100 mls @ 1 mls/hr 02/02/20 14:45 02/03/20 16:40 Chloride IVPB Not Given TITR ZOLTAN Protocol 1 MG/HR Fentanyl 500 mcg in 100 mls @ 10 mls/hr 02/02/20 15:45 02/03/20 16:40 Sublimaze Ivpb IVPB Not Given TITR ZOLTAN 1 MCG/KG/HR Vasopressin 40 units/ Sodium 100 mls @ 5 mls/hr 02/02/20 20:30 02/03/20 17:01 Chloride IVPB 4 units/hr ASDIR ZOLTAN 10 mls/hr Titration Protocol 2 UNITS/HR HEPARIN SOD,PORK IN 0.45% NACL 25,000 unit in 500 mls @ 16 mls/hr 02/03/20 04:45 02/03/20 18:15 Heparin-1/2ns 25,000 Units/500 IVPB 650 units/hr TITR ZOLTAN 13 mls/hr Titration Protocol 800 UNITS/HR Piperacillin Sod/Tazobactam 50 mls @ 100 mls/hr 02/03/20 12:00 02/03/20 17:34 Sod 2.25 gm/ Dextrose IVPB 100 mls/hr Q8H-IV ZOLTAN Administration Protocol Propofol 1,000,000 mcg in 100 mls @ 1.312 mls/hr 02/03/20 11:45 08/28/20 13:19 Diprivan - IVPB 5 mcg/kg/min TITR ZOLTAN 1.312 mls/hr Administration Protocol 5 MCG/KG/MIN Insulin Aspart 1 vial 02/02/20 22:00 02/03/20 16:46 Novolog Vial Sliding Scale - SQ Not Given ACHS ZOLTAN Protocol Mupirocin 1 applic 02/02/20 22:00 02/03/20 09:40 Bactroban Ointment (For Decolonization) - NS 02/07/20 21:59 1 applic BID ZOLTAN Administration Pantoprazole Sodium 40 mg 02/03/20 19:00 02/03/20 19:01 Protonix Iv IVPUSH 40 mg DAILY ZOLTAN Administration 1. ESRD on HD 2. sepsis 3. hx covid 4. CHF 5. DM 6. anemia 7. s/p right aka with stump infection 8. shock 9. hypotension 10. acute resp failure requiring intubation Plan - pt on TTS schedule - HD tomorrow if stable - repeat cxr in am - follow cultures - vascular to evaluate stump - cont abx - cont pressors to a map of 65 - cont ICU care - cont vent support - discussed with ICU team
[2020-02-03] MEDS ORDERED: SODIUM CHLORIDE 250 ML IV PRN (19:10)
[2020-02-03] MEDS: ATORVASTATIN CA 40 MG TABLET (FP) PO SCH (21:33)
[2020-02-03] MEDS: CHLORHEXIDINE GLUCONATE 4% CLEANSER FOR DECOLONIZATION TP SCH (21:33)
[2020-02-03] MEDS: VASOPRESSIN 40 UNITS in SODIUM CHLORIDE 98 ML IVPB SCH (21:33)
[2020-02-04] MEDS ORDERED: PIPERACILLIN/TAZOBACTAM 2.25 GM VIAL IVPB ONE ×3 (01:17→16:45)
[2020-02-04] MEDS ORDERED: DEXTROSE 5%-WATER - 50 ML IVPB ONE ×3 (01:18→16:45)
[2020-02-04] MEDS: PIPERACILLIN/TAZOB 2.25 GM 2.25 GM in DEXTROSE 5%-WATER - 50 ML IVPB SCH ×3 (01:20→17:27)
[2020-02-04] MEDS: HYDROCORTISONE SOD SUCCINATE 100 MG/2 ML VIAL IVPB SCH ×3 (01:20→17:27)
[2020-02-04 05:58] LABS: ARTERIAL BLD GAS O2 SATURATION 98.8 mmHg (95-98); ARTERIAL BLOOD GAS BASE EXCESS -13.3 mmol/L (-2-2); ARTERIAL BLOOD GAS PO2 175.2 mmHg (80-100)
[2020-02-04] MEDS: INSULIN SLIDING SCALE (NOVOLOG) 1 VIAL SQ SCH ×4 (06:12→23:51)
[2020-02-04 06:58] LABS: VENT MODE A/C
[2020-02-04 06:59] LABS: VENT RATE 14
--- NOTE | 2020-02-04 07:07 | PN ---
Progress Note (short form) - Note Progress Note: Coverage for Dr. Tianna Diaz Chief Complaint: Events noted, notes reviewed, remains intubated and sedated, remains on pressors, no acute distress History of Present Illness: Seen and examined in the ICU. Events noted, notes reviewed, remains intubated and sedated, remains on pressors, no acute distress Medications: Current Medications Generic Name Dose Route Start Last Admin Trade Name Freq PRN Reason Stop Dose Admin Atorvastatin Calcium 40 mg 02/02/20 22:00 02/03/20 21:33 Lipitor - PO 40 mg HS ZOLTAN Administration Chlorhexidine Gluconate 1 applic 02/02/20 22:00 02/03/20 21:33 Hibiclens For Decolonization - TP 1 applic HS ZOLTAN Administration Heparin Sodium (Porcine) 1,000 unit 02/03/20 04:34 Heparin - IVPUSH PRN PRN Heparin Heparin Sodium (Porcine) 5,000 unit 02/03/20 04:34 02/03/20 08:41 Heparin - IVPUSH 5,000 unit PRN PRN Administration Heparin Hydrocortisone Sodium Succinate 100 mg 02/03/20 12:00 02/04/20 01:20 Solu-Cortef - IVPB 100 mg Q8H-IV ZOLTAN Administration Norepinephrine Bitartrate 16, 500 mls @ 9.375 mls/hr 02/02/20 14:45 02/04/20 07:01 000 mcg/ Sodium Chloride IV 30 mcg/min TITR ZOLTAN 56.25 mls/hr Titration Protocol 5 MCG/MIN Midazolam HCl 100 mg/ Sodium 100 mls @ 1 mls/hr 02/02/20 14:45 02/03/20 16:40 Chloride IVPB Not Given TITR ZOLTAN Protocol 1 MG/HR Fentanyl 500 mcg in 100 mls @ 10 mls/hr 02/02/20 15:45 02/03/20 16:40 Sublimaze Ivpb IVPB Not Given TITR ZOLTAN 1 MCG/KG/HR Vasopressin 40 units/ Sodium 100 mls @ 5 mls/hr 02/02/20 20:30 02/04/20 07:02 Chloride IVPB 5 units/hr ASDIR ZOLTAN 12.5 mls/hr Titration Protocol 2 UNITS/HR HEPARIN SOD,PORK IN 0.45% NACL 25,000 unit in 500 mls @ 16 mls/hr 02/03/20 04:45 02/04/20 00:10 Heparin-1/2ns 25,000 Units/500 IVPB 600 units/hr TITR ZOLTAN 12 mls/hr Titration Protocol 800 UNITS/HR Piperacillin Sod/Tazobactam 50 mls @ 100 mls/hr 02/03/20 12:00 02/04/20 01:20 Sod 2.25 gm/ Dextrose IVPB 100 mls/hr Q8H-IV ZOLTAN Administration Protocol Propofol 1,000,000 mcg in 100 mls @ 1.312 mls/hr 02/03/20 11:45 02/04/20 03:00 Diprivan - IVPB 10 mcg/kg/min TITR ZOLTAN 2.624 mls/hr Titration Protocol 5 MCG/KG/MIN Sodium Chloride 250 mls @ 3,000 mls/hr 02/03/20 19:10 Normal Saline - IV 02/04/20 19:10 PRN PRN Hypotension during Dialysis Insulin Aspart 1 vial 02/02/20 22:00 02/04/20 06:12 Novolog Vial Sliding Scale - SQ Not Given ACHS ZOLTAN Protocol Mupirocin 1 applic 02/02/20 22:00 02/03/20 21:33 Bactroban Ointment (For Decolonization) - NS 02/07/20 21:59 1 applic BID ZOLTAN Administration Pantoprazole Sodium 40 mg 02/03/20 19:00 02/03/20 19:01 Protonix Iv IVPUSH 40 mg DAILY ZOLTAN Administration Review of Systems Unable to obtain/intubated and sedated Vital Signs: Last Vital Signs Temp Pulse Resp BP Pulse Ox 98.0 F 92 H 14 114/56 L 98 02/04/20 06:00 02/04/20 07:02 02/04/20 06:00 02/04/20 07:02 02/03/20 22:00 Intake & Output 02/01/20 02/02/20 02/03/20 02/04/20 23:59 23:59 23:59 23:59 Intake Total 1800 1431.6 Output Total 200 100 Balance -200 1700 1431.6 Weight 96 lb 6.4 oz 96 lb 6.4 oz Neck: Supple Negative JVD Respiratory: Diminished Breath Sounds at the Bases Cardiovascular: S1 S2 Regular Rate Rhythm Gastrointestinal: Soft Benign Normal Bowel Sounds Ext: Edema Labs: CBC, BMP 02/04/20 05:40 02/04/20 05:40 CBC, BMP 02/03/20 17:00 02/03/20 06:00 Hepatic Panel Total Bilirubin 1.7 mg/dL (0.2-1) H 02/03/20 06:00 AST 515 U/L (15-37) H 02/03/20 06:00 ALT 270 U/L (13-61) H 02/03/20 06:00 Alkaline Phosphatase 88 U/L (45-117) 02/03/20 06:00 Albumin 1.4 g/dl (3.4-5.0) L 02/03/20 06:00 INR, PTT INR 1.18 (0.83-1.09) H 02/03/20 06:00 Assessment/Plan ASSESSMENT: 1. Acute hypoxic respiratory failure related to sepsis syndrome/septic shock on pressors 2. Coronary artery disease with evidence of non-ST segment elevation myocardial infarction/demand ischemic injury angina pectoris 3. Systolic left ventricular dysfunction with clinical class I [place] [employer] classification left ventricular failure 4. Abnormal electrocardiogram 5. History of Coronavirus/COVID 19 infection 6. Diabetes mellitus 7. 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 End-stage renal disease on hemodialysis 9. Anemia PLAN: 1. Continue pressors and attempt to titrate off; hemodynamics permitting maintaining mean arterial pressure 65 mmHg and above 2. Antibiotics as per the primary team 3. Monitor hemoglobin and transfuse as needed maintaining hemoglobin equal or greater than 8.0 Overall poor prognosis Regina Iraheta MD
[2020-02-04 07:58] LABS: INR 1.07 (0.83-1.09); PROTHROMBIN TIME (PATIENT) 12.6 SEC (9.7-13.0)
[2020-02-04 08:14] LABS: BASO % 0.1 % (0-2.0); HEMATOCRIT 31.5 % (35.4-49); HEMOGLOBIN 9.8 GM/dL (11.7-16.9); LYMPH % 1.9 % (8-40); MCH 28.8 pg (25.7-33.7); MEAN CELL VOLUME 92.9 fl (80-96); MEAN PLT VOLUME 8.3 fl (7.5-11.1); MONO % 2.2 % (3.8-10.2); NEUT % 95.8 % (42.8-82.8); PLATELET COUNT 254 K/MM3 (134-434); RBC 3.39 M/mm3 (4.00-5.60)
[2020-02-04 08:15] LABS: ALBUMIN 1.3 g/dl (3.4-5.0); BILIRUBIN,TOTAL 0.8 mg/dL (0.2-1); BLOOD UREA NITROGEN 28.8 mg/dL (7-18); POTASSIUM 4.4 mmol/L (3.5-5.1); TOT PROT 4.8 g/dl (6.4-8.2)
[2020-02-04] MEDS ORDERED: VASOPRESSIN 20 UNITS/ML VIAL IV ONE ×2 (08:43→17:10)
[2020-02-04 09:01] LABS: CALCIUM 6.5 mg/dL (8.5-10.1)
[2020-02-04 09:05] LABS: WHITE BLOOD COUNT 30.6 K/mm3 (4.0-10.0)
--- NOTE | 2020-02-04 09:46 | PN ---
Progress Note (short form) - Note Progress Note: RENAL Pt is intubated unable to give any history sedated Last Vital Signs Temp Pulse Resp BP Pulse Ox 98.0 F 93 H 12 120/56 L 98 02/04/20 08:00 02/04/20 08:00 02/04/20 08:00 02/04/20 08:00 02/03/20 22:00 lungs bilat air entry cvs s1s2 rr abd soft ext s/p AKA neuro sedated CBC, BMP 02/04/20 05:40 02/04/20 05:40 Current Medications Generic Name Dose Route Start Last Admin Trade Name Freq PRN Reason Stop Dose Admin Atorvastatin Calcium 40 mg 02/02/20 22:00 02/03/20 21:33 Lipitor - PO 40 mg HS ZOLTAN Administration Chlorhexidine Gluconate 1 applic 02/02/20 22:00 02/03/20 21:33 Hibiclens For Decolonization - TP 1 applic HS ZOLTAN Administration Heparin Sodium (Porcine) 1,000 unit 02/03/20 04:34 Heparin - IVPUSH PRN PRN Heparin Heparin Sodium (Porcine) 5,000 unit 02/03/20 04:34 02/03/20 08:41 Heparin - IVPUSH 5,000 unit PRN PRN Administration Heparin Hydrocortisone Sodium Succinate 100 mg 02/03/20 12:00 02/04/20 01:20 Solu-Cortef - IVPB 100 mg Q8H-IV ZOLTAN Administration Norepinephrine Bitartrate 16, 500 mls @ 9.375 mls/hr 02/02/20 14:45 02/04/20 07:01 000 mcg/ Sodium Chloride IV 30 mcg/min TITR ZOLTAN 56.25 mls/hr Titration Protocol 5 MCG/MIN Midazolam HCl 100 mg/ Sodium 100 mls @ 1 mls/hr 02/02/20 14:45 02/03/20 16:40 Chloride IVPB Not Given TITR ZOLTAN Protocol 1 MG/HR Fentanyl 500 mcg in 100 mls @ 10 mls/hr 02/02/20 15:45 02/03/20 16:40 Sublimaze Ivpb IVPB Not Given TITR ZOLTAN 1 MCG/KG/HR Vasopressin 40 units/ Sodium 100 mls @ 5 mls/hr 02/02/20 20:30 02/04/20 07:02 Chloride IVPB 5 units/hr ASDIR ZOLTAN 12.5 mls/hr Titration Protocol 2 UNITS/HR HEPARIN SOD,PORK IN 0.45% NACL 25,000 unit in 500 mls @ 16 mls/hr 02/03/20 04:45 02/04/20 00:10 Heparin-1/2ns 25,000 Units/500 IVPB 600 units/hr TITR ZOLTAN 12 mls/hr Titration Protocol 800 UNITS/HR Piperacillin Sod/Tazobactam 50 mls @ 100 mls/hr 02/03/20 12:00 02/04/20 01:20 Sod 2.25 gm/ Dextrose IVPB 100 mls/hr Q8H-IV ZOLTAN Administration Protocol Propofol 1,000,000 mcg in 100 mls @ 1.312 mls/hr 02/03/20 11:45 02/04/20 03:00 Diprivan - IVPB 10 mcg/kg/min TITR ZOLTAN 2.624 mls/hr Titration Protocol 5 MCG/KG/MIN Sodium Chloride 250 mls @ 3,000 mls/hr 02/03/20 19:10 Normal Saline - IV 02/04/20 19:10 PRN PRN Hypotension during Dialysis Insulin Aspart 1 vial 02/02/20 22:00 02/04/20 06:12 Novolog Vial Sliding Scale - SQ Not Given ACHS ZOLTAN Protocol Mupirocin 1 applic 02/02/20 22:00 02/03/20 21:33 Bactroban Ointment (For Decolonization) - NS 02/07/20 21:59 1 applic BID ZOLTAN Administration Pantoprazole Sodium 40 mg 02/03/20 19:00 02/03/20 19:01 Protonix Iv IVPUSH 40 mg DAILY ZOLTAN Administration 1. ESRD on HD 2. sepsis 3. hx covid 4. CHF 5. DM 6. anemia 7. s/p right aka with stump infection 8. shock 9. NSTEMI 10. acute resp failure requiring intubation 11. metabolic and respiratory acidosis Plan - HD today, no fluid removal- need to help with acidosis - repeat cxr in am - follow cultures - vascular to evaluate stump - cont abx - cont pressors to a map of 65 - cont ICU care - cont vent support - cardiology note read and appreciated
[2020-02-04 10:11] LABS: ANISOCYTOSIS 1+; MACROCYTOSIS 0; PLATELET ESTIMATE NORMAL
[2020-02-04] MEDS: MUPIROCIN 2% TOPICAL OINTMENT FOR DECOLONIZATION NS SCH ×2 (10:47→22:49)
[2020-02-04] MEDS: PANTOPRAZOLE SODIUM 40 MG VIAL IVPUSH SCH (10:47)
[2020-02-04] MEDS: HEPARIN SOD,PORK IN 0.45% NACL 25,000 UNIT/500 ML INFUS.BAG IVPB SCH (10:48)
--- NOTE | 2020-02-04 10:56 | PN ---
Teaching Attending Note Name of Resident: Gerardo Betancourt ATTENDING PHYSICIAN STATEMENT I saw and evaluated the patient. I reviewed the resident's note and discussed the case with the resident. I agree with the resident's findings and plan as documented. SUBJECTIVE: Pt seen and examined in the ICU. Remains intubated, sedated on levophed and vasopressin gtts. OBJECTIVE: Vital Signs Period Temp Pulse Resp BP Sys/Tapia Pulse Ox Last 24 Hr 97 F-98.8 F 83-96 12-17 114-149/50-63 95-98 Intake & Output 02/01/20 02/02/20 02/03/20 02/04/20 23:59 23:59 23:59 23:59 Intake Total 1800 1431.6 Output Total 200 100 Balance -200 1700 1431.6 Weight 43.726 kg 43.726 kg Gen: intubated, sedated Heart: RRR Lung: scattered rhonchi Abd: soft, nontender Ext: stump wrapped CBC, BMP 02/04/20 05:40 02/04/20 05:40 Active Medications Atorvastatin Calcium (Lipitor -) 40 mg PO HS ZOLTAN Last Admin: 02/03/20 21:33 Dose: 40 mg Documented by: Chlorhexidine Gluconate (Hibiclens For Decolonization -) 1 applic TP HS ZOLTAN Last Admin: 02/03/20 21:33 Dose: 1 applic Documented by: Heparin Sodium (Porcine) (Heparin -) 1,000 unit IVPUSH PRN PRN PRN Reason: Heparin Heparin Sodium (Porcine) (Heparin -) 5,000 unit IVPUSH PRN PRN PRN Reason: Heparin Last Admin: 02/03/20 08:41 Dose: 5,000 unit Documented by: Hydrocortisone Sodium Succinate (Solu-Cortef -) 100 mg IVPB Q8H-IV ZOLTAN Last Admin: 02/04/20 10:47 Dose: 100 mg Documented by: Norepinephrine Bitartrate 16, (000 mcg/ Sodium Chloride) 500 mls @ 9.375 mls/hr IV TITR ZOLTAN; Protocol Last Titration: 02/04/20 07:01 Dose: 30 mcg/min, 56.25 mls/hr Documented by: Midazolam HCl 100 mg/ Sodium (Chloride) 100 mls @ 1 mls/hr IVPB TITR ZOLTAN; Protocol Last Admin: 02/03/20 16:40 Dose: Not Given Documented by: Fentanyl (Sublimaze Ivpb) 500 mcg in 100 mls @ 10 mls/hr IVPB TITR ZOLTAN Last Admin: 02/03/20 16:40 Dose: Not Given Documented by: Vasopressin 40 units/ Sodium (Chloride) 100 mls @ 5 mls/hr IVPB ASDIR ZOLTAN; Protocol Last Titration: 02/04/20 07:02 Dose: 5 units/hr, 12.5 mls/hr Documented by: HEPARIN SOD,PORK IN 0.45% NACL (Heparin-1/2ns 25,000 Units/500) 25,000 unit in 500 mls @ 16 mls/hr IVPB TITR ZOLTAN; Protocol Last Titration: 02/04/20 10:46 Dose: 600 units/hr, 12 mls/hr Documented by: Piperacillin Sod/Tazobactam (Sod 2.25 gm/ Dextrose) 50 mls @ 100 mls/hr IVPB Q8H-IV ZOLTAN; Protocol Last Admin: 02/04/20 10:47 Dose: 100 mls/hr Documented by: Propofol (Diprivan -) 1,000,000 mcg in 100 mls @ 1.312 mls/hr IVPB TITR ZOLTAN; Protocol Last Titration: 02/04/20 03:00 Dose: 10 mcg/kg/min, 2.624 mls/hr Documented by: Sodium Chloride (Normal Saline -) 250 mls @ 3,000 mls/hr IV PRN PRN PRN Reason: Hypotension during Dialysis Stop: 02/04/20 19:10 Insulin Aspart (Novolog Vial Sliding Scale -) 1 vial SQ ACHS [facility]; Protocol Last Admin: 02/04/20 06:12 Dose: Not Given Documented by: Mupirocin (Bactroban Ointment (For Decolonization) -) 1 applic NS BID ZOLTNA Stop: 02/07/20 21:59 Last Admin: 02/04/20 10:47 Dose: 1 applic Documented by: Pantoprazole Sodium (Protonix Iv) 40 mg IVPUSH DAILY [facility] Last Admin: 02/04/20 10:47 Dose: 40 mg Documented by: ASSESSMENT AND PLAN: Acute Respiratory Failure Recent R AKA Stump Infection Septic Shock Lactic Acidosis Acute NSTEMI ESRD on HD PAD DM Anemia - broad spectrum antibiotics - f/u cultures - wound care - trend lactate, cardiac enzymes - titrate pressors to maintain MAP >65 - stress dose steroids - titrate FiO2 to keep SpO2 >90% - monitor H/H - continue volume assist control - sedate for vent synchrony - DVT/GI prophylaxis - continue ICU monitoring - pt now DNR critical care time spent in reviewing chart, evaluating patient and formulating plan 35 min
--- NOTE | 2020-02-04 11:10 | PN ---
Progress Note, Physician History of Present Illness: pt seen/ examined in icu Chart is reviewed Intubated/sedated On pressor support all f/u noted - Current Medication List Current Medications: Active Medications Atorvastatin Calcium (Lipitor -) 40 mg PO HS ZOLTAN Last Admin: 02/03/20 21:33 Dose: 40 mg Documented by: Chlorhexidine Gluconate (Hibiclens For Decolonization -) 1 applic TP HS ZOLTAN Last Admin: 02/03/20 21:33 Dose: 1 applic Documented by: Heparin Sodium (Porcine) (Heparin -) 1,000 unit IVPUSH PRN PRN PRN Reason: Heparin Heparin Sodium (Porcine) (Heparin -) 5,000 unit IVPUSH PRN PRN PRN Reason: Heparin Last Admin: 02/03/20 08:41 Dose: 5,000 unit Documented by: Hydrocortisone Sodium Succinate (Solu-Cortef -) 100 mg IVPB Q8H-IV ZOLTAN Last Admin: 02/04/20 10:47 Dose: 100 mg Documented by: Norepinephrine Bitartrate 16, (000 mcg/ Sodium Chloride) 500 mls @ 9.375 mls/hr IV TITR ZOLTAN; Protocol Last Titration: 02/04/20 07:01 Dose: 30 mcg/min, 56.25 mls/hr Documented by: Midazolam HCl 100 mg/ Sodium (Chloride) 100 mls @ 1 mls/hr IVPB TITR ZOLTAN; Protocol Last Admin: 02/03/20 16:40 Dose: Not Given Documented by: Fentanyl (Sublimaze Ivpb) 500 mcg in 100 mls @ 10 mls/hr IVPB TITR ZOLTAN Last Admin: 02/03/20 16:40 Dose: Not Given Documented by: Vasopressin 40 units/ Sodium (Chloride) 100 mls @ 5 mls/hr IVPB ASDIR ZOLTAN; Protocol Last Titration: 02/04/20 07:02 Dose: 5 units/hr, 12.5 mls/hr Documented by: HEPARIN SOD,PORK IN 0.45% NACL (Heparin-1/2ns 25,000 Units/500) 25,000 unit in 500 mls @ 16 mls/hr IVPB TITR ZOLTAN; Protocol Last Titration: 02/04/20 10:46 Dose: 600 units/hr, 12 mls/hr Documented by: Piperacillin Sod/Tazobactam (Sod 2.25 gm/ Dextrose) 50 mls @ 100 mls/hr IVPB Q8H-IV ZOLTAN; Protocol Last Admin: 02/04/20 10:47 Dose: 100 mls/hr Documented by: Propofol (Diprivan -) 1,000,000 mcg in 100 mls @ 1.312 mls/hr IVPB TITR [facility]; Protocol Last Titration: 02/04/20 03:00 Dose: 10 mcg/kg/min, 2.624 mls/hr Documented by: Sodium Chloride (Normal Saline -) 250 mls @ 3,000 mls/hr IV PRN PRN PRN Reason: Hypotension during Dialysis Stop: 02/04/20 19:10 Insulin Aspart (Novolog Vial Sliding Scale -) 1 vial SQ ACHS [facility]; Protocol Last Admin: 02/04/20 06:12 Dose: Not Given Documented by: Mupirocin (Bactroban Ointment (For Decolonization) -) 1 applic NS BID [facility] Stop: 02/07/20 21:59 Last Admin: 02/04/20 10:47 Dose: 1 applic Documented by: Pantoprazole Sodium (Protonix Iv) 40 mg IVPUSH DAILY [facility] Last Admin: 02/04/20 10:47 Dose: 40 mg Documented by: - Objective Vital Signs: Vital Signs Temperature 98.0 F 02/04/20 10:00 Pulse Rate 83 02/04/20 10:00 Respiratory Rate 14 02/04/20 09:35 Blood Pressure 149/62 02/04/20 10:00 O2 Sat by Pulse Oximetry (%) 98 02/04/20 09:35 Cardiovascular: Yes: Regular Rate and Rhythm Respiratory: Yes: Diminished Gastrointestinal: Yes: Soft Extremities: Yes: Amputation Wound/Incision: Yes: Dressing Dry and Intact Labs: CBC, BMP 02/04/20 05:40 02/04/20 05:40 INR, PTT INR 1.07 (0.83-1.09) 02/04/20 05:40 Problem List - Problems (1) Acute respiratory failure Code(s): J96.00 - ACUTE RESPIRATORY FAILURE, UNSP W HYPOXIA OR HYPERCAPNIA Qualifiers: Respiratory failure complication: hypoxia Qualified Code(s): J96.01 - Acute respiratory failure with hypoxia (2) Septic shock Code(s): A41.9 - SEPSIS, UNSPECIFIED ORGANISM; R65.21 - SEVERE SEPSIS WITH SEPTIC SHOCK (3) ESRD (end stage renal disease) Code(s): N18.6 - END STAGE RENAL DISEASE Assessment/Plan Septic shock Acute Respiratory Failure Recent R AKA--Infected Stump Acute NSTEMI ESRD on HD Diabetes Anemia Continue present care on heparin drip Condition gadenisse xiao d/w Rn / icu team again today Family signed dnr- agree with same time spend approx 35 min Will follow
[2020-02-04] MEDS: NOREPINEPHRINE BITARTRATE 16,000 MCG in SODIUM CHLORIDE 484 ML IV SCH (12:00)
[2020-02-04 12:57] LABS: ARTERIAL BLD GAS O2 SATURATION 98.6 mmHg (95-98); ARTERIAL BLOOD GAS BASE EXCESS -12.9 mmol/L (-2-2); ARTERIAL BLOOD GAS pH 7.227 (7.350-7.450)
[2020-02-04 12:58] LABS: ALLENS TEST POSITIVE; VENT MODE NC; VENT RATE 24
[2020-02-04] MEDS: FENTANYL IVPB 500 MCG/100 ML BAG IVPB SCH (13:26)
[2020-02-04] MEDS ORDERED: FENTANYL NS IVPB 500 MCG/100 ML BAG IVPB ONE (13:34)
[2020-02-04 14:19] LABS: MAGNESIUM 2.1 mg/dL (1.8-2.4)
[2020-02-04] MEDS: MIDAZOLAM 100 MG in SODIUM CHLORIDE 100 ML IVPB SCH (17:25)
[2020-02-04] MEDS: VASOPRESSIN 40 UNITS in SODIUM CHLORIDE 98 ML IVPB SCH ×2 (17:28→22:49)
[2020-02-04] MEDS ORDERED: PT OWN MED DRAWER 7, Y5N ONE ×2 (18:03→20:21)
[2020-02-04 22:38] LABS: ARTERIAL BLD GAS O2 SATURATION 99.2 mmHg (95-98); ARTERIAL BLOOD GAS PO2 189.1 mmHg (80-100); ARTERIAL BLOOD GAS pH 7.273 (7.350-7.450)
[2020-02-04 22:39] LABS: ALLENS TEST POSITIVE
[2020-02-04 22:40] LABS: VENT MODE A/C; VENT RATE 24
[2020-02-04] MEDS: CHLORHEXIDINE GLUCONATE 4% CLEANSER FOR DECOLONIZATION TP SCH (22:49)
[2020-02-04] MEDS: PROPOFOL 1,000,000 MCG/100 ML VIAL IVPB SCH (22:49)
[2020-02-04] MEDS: ATORVASTATIN CA 40 MG TABLET (FP) PO SCH (22:49)
--- NOTE | 2020-02-04 22:59 | PN ---
Progress Note, Physician History of Present Illness: POORLY RESPONSIVE AFEBRILE WBC ELEVATED VANCOMYCIN LEVEL NOTED - Current Medication List Current Medications: Active Medications Atorvastatin Calcium (Lipitor -) 40 mg PO HS ZOLTAN Last Admin: 02/04/20 22:49 Dose: 40 mg Documented by: Chlorhexidine Gluconate (Hibiclens For Decolonization -) 1 applic TP HS ZOLTAN Last Admin: 02/04/20 22:49 Dose: 1 applic Documented by: Heparin Sodium (Porcine) (Heparin -) 1,000 unit IVPUSH PRN PRN PRN Reason: Heparin Heparin Sodium (Porcine) (Heparin -) 5,000 unit IVPUSH PRN PRN PRN Reason: Heparin Last Admin: 02/03/20 08:41 Dose: 5,000 unit Documented by: Hydrocortisone Sodium Succinate (Solu-Cortef -) 100 mg IVPB Q8H-IV ZOLTAN Last Admin: 02/04/20 17:27 Dose: 100 mg Documented by: Norepinephrine Bitartrate 16, (000 mcg/ Sodium Chloride) 500 mls @ 9.375 mls/hr IV TITR [facility]; Protocol Last Admin: 02/04/20 12:00 Dose: 30 mcg/min, 56.25 mls/hr Documented by: Midazolam HCl 100 mg/ Sodium (Chloride) 100 mls @ 1 mls/hr IVPB TITR [facility]; Protocol Last Admin: 02/04/20 17:25 Dose: Not Given Documented by: Fentanyl (Sublimaze Ivpb) 500 mcg in 100 mls @ 10 mls/hr IVPB TITR ZOLTAN Last Admin: 02/04/20 13:26 Dose: 2 mcg/kg/hr, 20 mls/hr Documented by: Vasopressin 40 units/ Sodium (Chloride) 100 mls @ 5 mls/hr IVPB ASDIR ZOLTAN; Protocol Last Admin: 02/04/20 22:49 Dose: 4 units/hr, 10 mls/hr Documented by: HEPARIN SOD,PORK IN 0.45% NACL (Heparin-1/2ns 25,000 Units/500) 25,000 unit in 500 mls @ 16 mls/hr IVPB TITR [facility]; Protocol Last Admin: 02/04/20 10:48 Dose: 600 units/hr, 12 mls/hr Documented by: Piperacillin Sod/Tazobactam (Sod 2.25 gm/ Dextrose) 50 mls @ 100 mls/hr IVPB Q8 H-IV [facility]; Protocol Last Admin: 02/04/20 17:27 Dose: 100 mls/hr Documented by: Propofol (Diprivan -) 1,000,000 mcg in 100 mls @ 1.312 mls/hr IVPB TITR [facility]; Protocol Last Admin: 02/04/20 22:49 Dose: 10 mcg/kg/min, 2.624 mls/hr Documented by: Sodium Chloride (Normal Saline -) 250 mls @ 3,000 mls/hr IV PRN PRN PRN Reason: Hypotension during Dialysis Stop: 02/04/20 19:10 Insulin Aspart (Novolog Vial Sliding Scale -) 1 vial SQ ACHS [facility]; Protocol Last Admin: 02/04/20 17:27 Dose: Not Given Documented by: Mupirocin (Bactroban Ointment (For Decolonization) -) 1 applic NS BID ZOLTAN Stop: 02/07/20 21:59 Last Admin: 02/04/20 22:49 Dose: 1 applic Documented by: Pantoprazole Sodium (Protonix Iv) 40 mg IVPUSH DAILY [facility] Last Admin: 02/04/20 10:47 Dose: 40 mg Documented by: - Objective Vital Signs: Vital Signs Temperature 98.1 F 02/04/20 14:00 Pulse Rate 85 02/04/20 18:00 Respiratory Rate 24 H 02/04/20 20:47 Blood Pressure 118/58 L 02/04/20 18:00 O2 Sat by Pulse Oximetry (%) 98 02/04/20 10:00 Constitutional: Yes: No Distress Cardiovascular: Yes: Regular Rate and Rhythm, S1, S2 Respiratory: Yes: Diminished Gastrointestinal: Yes: Normal Bowel Sounds, Soft Extremities: Yes: Other (R AKA STUMP SITE OPEN WITH DRAINAGE) Labs: CBC, BMP 02/04/20 05:40 02/04/20 05:40 INR, PTT INR 1.07 (0.83-1.09) 02/04/20 05:40 Fibrinogen 355.0 mg/dL (238-498) 02/04/20 13:30 Assessment/Plan SEPSIS, SEPTIC SHOCK INFECTED AKA STUMP SITE ESRD LEUKOCYTOSIS ELEVATED LFTS CONTINUE EMPIRIC ZOSYN PROGNOSIS POOR
--- NOTE | 2020-02-04 23:57 | PN ---
Physical Exam: SUBJECTIVE: Patient seen and examined. Pt sedated and intubated. Family has signed DNR. OBJECTIVE: Vital Signs Period Temp Pulse Resp BP Sys/Tapia Pulse Ox Last 24 Hr 97.8 F-98.2 F 81-96 12-24 114-160/56-66 98-98 GENERAL: Intubated and sedated HEAD: Jaw is now mottled EYES: left pupil dilated and right pupil pinpoint ENT: Auricles normal inspection,normal, nares patent, pt intubated with OG tube LUNGS: Bilateral rhonchi worse on the left. HEART: Tachycardic and rhythm, normal S1 and S2. Perma cath on left chest ABDOMEN: Soft abdomen EXTREMITIES : Righ and left arm fistula is engorged with no continuous bruit or palpable thrill. Unable to palpate right arm and left arm radial pulse. Pt Left leg shows mottling with digits turning blue. 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 With surgical scar and claudia with purulent pustule drainage and now darkening debris. No abscess noted. : genital area is swollen and mottled appearing Laboratory Results - last 24 hr 02/03/20 02/03/20 02/03/20 23:12 23:20 23:20 WBC RBC Hgb Hct MCV MCH MCHC RDW Plt Count MPV Absolute Neuts (auto) Neutrophils % Neutrophils % (Manual) Band Neutrophils % Lymphocytes % Lymphocytes % (Manual) Monocytes % Monocytes % (Manual) Eosinophils % Eosinophils % (Manual) Basophils % Basophils % (Manual) Myelocytes % (Man) Promyelocytes % (Man) Blast Cells % (Manual) Nucleated RBC % Metamyelocytes Hypochromia Platelet Estimate Polychromasia Poikilocytosis Anisocytosis Macrocytosis Shaila Cells PT with INR INR PTT (Actin FS) 77.6 H Fibrinogen D-Dimer Anticoagulation Therapy Puncture Site Patient Temperature ABG pH ABG pCO2 ABG pO2 ABG HCO3 ABG O2 Sat (Measured) ABG O2 Content ABG Base Excess Samson Test Patient On Oxygen O2 Delivery Device Oxygen Flow Rate Vent Mode Vent Rate Mechanical Rate PEEP Pressure Support Vent Sodium Potassium Chloride Carbon Dioxide Anion Gap BUN Creatinine Est GFR (CKD-EPI)AfAm Est GFR (CKD-EPI)NonAf POC Glucometer 229 Random Glucose Lactic Acid Calcium Phosphorus Magnesium Total Bilirubin AST ALT Alkaline Phosphatase Creatine Kinase 188 Creatine Kinase Index 20.0 H CK-MB (CK-2) 37.6 H Troponin I 10.60 H* Total Protein Albumin Random Vancomycin 02/04/20 02/04/20 02/04/20 05:30 05:40 05:40 WBC RBC Hgb Hct MCV MCH MCHC RDW Plt Count MPV Absolute Neuts (auto) Neutrophils % Neutrophils % (Manual) Band Neutrophils % Lymphocytes % Lymphocytes % (Manual) Monocytes % Monocytes % (Manual) Eosinophils % Eosinophils % (Manual) Basophils % Basophils % (Manual) Myelocytes % (Man) Promyelocytes % (Man) Blast Cells % (Manual) Nucleated RBC % Metamyelocytes Hypochromia Platelet Estimate Polychromasia Poikilocytosis Anisocytosis Macrocytosis Shaila Cells PT with INR INR PTT (Actin FS) Fibrinogen D-Dimer Anticoagulation Therapy No Result Required. Puncture Site Arterial line Patient Temperature No Result Required. ABG pH 7.170 L* ABG pCO2 40.90 ABG pO2 175.2 H ABG HCO3 14.6 L ABG O2 Sat (Measured) 98.8 H ABG O2 Content No Result Required. ABG Base Excess -13.3 L Samson Test Not applicable Patient On Oxygen Yes O2 Delivery Device Vent Oxygen Flow Rate 60% Vent Mode A/c Vent Rate 14 Mechanical Rate Yes PEEP 5.0 Pressure Support Vent Vent Sodium 131 L Potassium 4.4 Chloride 103 Carbon Dioxide 18 L Anion Gap 11 BUN 28.8 H Creatinine 2.0 H Est GFR (CKD-EPI)AfAm 35.48 Est GFR (CKD-EPI)NonAf 30.61 POC Glucometer Random Glucose 139 H Lactic Acid Calcium 6.5 L* Phosphorus 4.0 Magnesium 2.1 Total Bilirubin 0.8 AST 309 H ALT 298 H Alkaline Phosphatase 92 Creatine Kinase 150 Creatine Kinase Index 22.8 H CK-MB (CK-2) 34.2 H Troponin I 14.40 H* Total Protein 4.8 L Albumin 1.3 L Random Vancomycin 21.5 02/04/20 02/04/20 02/04/20 05:40 05:40 05:40 WBC 30.6 H* RBC 3.39 L Hgb 9.8 L Hct 31.5 L MCV 92.9 MCH 28.8 MCHC 31.0 L RDW 17.0 H Plt Count 254 MPV 8.3 Absolute Neuts (auto) 29.3 H Neutrophils % 95.8 H Neutrophils % (Manual) 93.9 H Band Neutrophils % 4.1 Lymphocytes % 1.9 L D Lymphocytes % (Manual) 0.0 L Monocytes % 2.2 L Monocytes % (Manual) 2 L Eosinophils % 0.0 D Eosinophils % (Manual) 0.0 D Basophils % 0.1 Basophils % (Manual) 0.0 Myelocytes % (Man) 0 D Promyelocytes % (Man) 0 Blast Cells % (Manual) 0 Nucleated RBC % 0 Metamyelocytes 0 Hypochromia 0 Platelet Estimate Normal Polychromasia 1+ Poikilocytosis 2+ Anisocytosis 1+ Macrocytosis 0 Shaila Cells 1+ PT with INR 12.60 INR 1.07 PTT (Actin FS) 64.0 H Fibrinogen D-Dimer 1396 H Anticoagulation Therapy Puncture Site Patient Temperature ABG pH ABG pCO2 ABG pO2 ABG HCO3 ABG O2 Sat (Measured) ABG O2 Content ABG Base Excess Samson Test Patient On Oxygen O2 Delivery Device Oxygen Flow Rate Vent Mode Vent Rate Mechanical Rate PEEP Pressure Support Vent Sodium Potassium Chloride Carbon Dioxide Anion Gap BUN Creatinine Est GFR (CKD-EPI)AfAm Est GFR (CKD-EPI)NonAf POC Glucometer Random Glucose Lactic Acid Calcium Phosphorus Magnesium Total Bilirubin AST ALT Alkaline Phosphatase Creatine Kinase Creatine Kinase Index CK-MB (CK-2) Troponin I Total Protein Albumin Random Vancomycin 02/04/20 02/04/20 02/04/20 05:50 07:43 12:00 WBC RBC Hgb Hct MCV MCH MCHC RDW Plt Count MPV Absolute Neuts (auto) Neutrophils % Neutrophils % (Manual) Band Neutrophils % Lymphocytes % Lymphocytes % (Manual) Monocytes % Monocytes % (Manual) Eosinophils % Eosinophils % (Manual) Basophils % Basophils % (Manual) Myelocytes % (Man) Promyelocytes % (Man) Blast Cells % (Manual) Nucleated RBC % Metamyelocytes Hypochromia Platelet Estimate Polychromasia Poikilocytosis Anisocytosis Macrocytosis Corcoran Cells PT with INR INR PTT (Actin FS) Fibrinogen D-Dimer Anticoagulation Therapy No Result Required. Puncture Site Arterial line Patient Temperature No Result Required. ABG pH 7.227 L ABG pCO2 33.60 L ABG pO2 151.0 H ABG HCO3 13.7 L ABG O2 Sat (Measured) 98.6 H ABG O2 Content No Result Required. ABG Base Excess -12.9 L Samson Test Positive Patient On Oxygen Yes O2 Delivery Device V Oxygen Flow Rate 60 Vent Mode Nc Vent Rate 24 Mechanical Rate V PEEP 5.0 Pressure Support Vent 400 Sodium Potassium Chloride Carbon Dioxide Anion Gap BUN Creatinine Est GFR (CKD-EPI)AfAm Est GFR (CKD-EPI)NonAf POC Glucometer 134 Random Glucose Lactic Acid 1.6 Calcium Phosphorus Magnesium Total Bilirubin AST ALT Alkaline Phosphatase Creatine Kinase Creatine Kinase Index CK-MB (CK-2) Troponin I Total Protein Albumin Random Vancomycin 02/04/20 02/04/20 02/04/20 12:13 13:30 17:50 WBC RBC Hgb Hct MCV MCH MCHC RDW Plt Count MPV Absolute Neuts (auto) Neutrophils % Neutrophils % (Manual) Band Neutrophils % Lymphocytes % Lymphocytes % (Manual) Monocytes % Monocytes % (Manual) Eosinophils % Eosinophils % (Manual) Basophils % Basophils % (Manual) Myelocytes % (Man) Promyelocytes % (Man) Blast Cells % (Manual) Nucleated RBC % Metamyelocytes Hypochromia Platelet Estimate Polychromasia Poikilocytosis Anisocytosis Macrocytosis Corcoran Cells PT with INR INR PTT (Actin FS) Fibrinogen 355.0 D-Dimer Anticoagulation Therapy Puncture Site Patient Temperature ABG pH ABG pCO2 ABG pO2 ABG HCO3 ABG O2 Sat (Measured) ABG O2 Content ABG Base Excess Samson Test Patient On Oxygen O2 Delivery Device Oxygen Flow Rate Vent Mode Vent Rate Mechanical Rate PEEP Pressure Support Vent Sodium Potassium Chloride Carbon Dioxide Anion Gap BUN Creatinine Est GFR (CKD-EPI)AfAm Est GFR (CKD-EPI)NonAf POC Glucometer 157 144 Random Glucose Lactic Acid Calcium Phosphorus Magnesium Total Bilirubin AST ALT Alkaline Phosphatase Creatine Kinase Creatine Kinase Index CK-MB (CK-2) Troponin I Total Protein Albumin Random Vancomycin 02/04/20 02/04/20 22:30 23:50 WBC RBC Hgb Hct MCV MCH MCHC RDW Plt Count MPV Absolute Neuts (auto) Neutrophils % Neutrophils % (Manual) Band Neutrophils % Lymphocytes % Lymphocytes % (Manual) Monocytes % Monocytes % (Manual) Eosinophils % Eosinophils % (Manual) Basophils % Basophils % (Manual) Myelocytes % (Man) Promyelocytes % (Man) Blast Cells % (Manual) Nucleated RBC % Metamyelocytes Hypochromia Platelet Estimate Polychromasia Poikilocytosis Anisocytosis Macrocytosis Corcoran Cells PT with INR INR PTT (Actin FS) Fibrinogen D-Dimer Anticoagulation Therapy No Result Required. Puncture Site Arterial line Patient Temperature No Result Required. ABG pH 7.273 L ABG pCO2 30.10 L ABG pO2 189.1 H ABG HCO3 13.6 L ABG O2 Sat (Measured) 99.2 H ABG O2 Content No Result Required. ABG Base Excess -12.0 L Samson Test Positive Patient On Oxygen Yes O2 Delivery Device Vent Oxygen Flow Rate 60 Vent Mode A/c Vent Rate 24 Mechanical Rate A/c PEEP 5.0 Pressure Support Vent 400 Sodium Potassium Chloride Carbon Dioxide Anion Gap BUN Creatinine Est GFR (CKD-EPI)AfAm Est GFR (CKD-EPI)NonAf POC Glucometer 117 Random Glucose Lactic Acid Calcium Phosphorus Magnesium Total Bilirubin AST ALT Alkaline Phosphatase Creatine Kinase Creatine Kinase Index CK-MB (CK-2) Troponin I Total Protein Albumin Random Vancomycin Active Medications Generic Name Dose Route Start Last Admin Trade Name Freq PRN Reason Stop Dose Admin Atorvastatin Calcium 40 mg 02/02/20 22:00 02/04/20 22:49 Lipitor - PO 40 mg HS ZOLTAN Administration Chlorhexidine Gluconate 1 applic 02/02/20 22:00 02/04/20 22:49 Hibiclens For Decolonization - TP 1 applic HS ZOLTAN Administration Heparin Sodium (Porcine) 1,000 unit 02/03/20 04:34 Heparin - IVPUSH PRN PRN Heparin Heparin Sodium (Porcine) 5,000 unit 02/03/20 04:34 02/03/20 08:41 Heparin - IVPUSH 5,000 unit PRN PRN Administration Heparin Hydrocortisone Sodium Succinate 100 mg 02/03/20 12:00 02/04/20 17:27 Solu-Cortef - IVPB 100 mg Q8H-IV ZOLTAN Administration Norepinephrine Bitartrate 16, 500 mls @ 9.375 mls/hr 02/02/20 14:45 02/04/20 12:00 000 mcg/ Sodium Chloride IV 30 mcg/min TITR ZOLTAN 56.25 mls/hr Administration Protocol 5 MCG/MIN Midazolam HCl 100 mg/ Sodium 100 mls @ 1 mls/hr 02/02/20 14:45 02/04/20 17:25 Chloride IVPB Not Given TITR ZOLTAN Protocol 1 MG/HR Fentanyl 500 mcg in 100 mls @ 10 mls/hr 02/02/20 15:45 02/04/20 13:26 Sublimaze Ivpb IVPB 2 mcg/kg/hr TITR ZOLTAN 20 mls/hr Administration 1 MCG/KG/HR Vasopressin 40 units/ Sodium 100 mls @ 5 mls/hr 02/02/20 20:30 02/04/20 22:49 Chloride IVPB 4 units/hr ASDIR ZOLTAN 10 mls/hr Administration Protocol 2 UNITS/HR HEPARIN SOD,PORK IN 0.45% NACL 25,000 unit in 500 mls @ 16 mls/hr 02/03/20 04:45 02/04/20 10:48 Heparin-1/2ns 25,000 Units/500 IVPB 600 units/hr TITR ZOLTAN 12 mls/hr Administration Protocol 800 UNITS/HR Piperacillin Sod/Tazobactam 50 mls @ 100 mls/hr 02/03/20 12:00 02/04/20 17:27 Sod 2.25 gm/ Dextrose IVPB 100 mls/hr Q8H-IV ZOLTAN Administration Protocol Propofol 1,000,000 mcg in 100 mls @ 1.312 mls/hr 02/03/20 11:45 02/04/20 22:49 Diprivan - IVPB 10 mcg/kg/min TITR ZOLTAN 2.624 mls/hr Administration Protocol 5 MCG/KG/MIN Sodium Chloride 250 mls @ 3,000 mls/hr 02/03/20 19:10 Normal Saline - IV 02/04/20 19:10 PRN PRN Hypotension during Dialysis Insulin Aspart 1 vial 02/02/20 22:00 02/04/20 23:51 Novolog Vial Sliding Scale - SQ Not Given ACHS ZOLTAN Protocol Mupirocin 1 applic 02/02/20 22:00 02/04/20 22:49 Bactroban Ointment (For Decolonization) - NS 02/07/20 21:59 1 applic BID ZOLTAN Administration Pantoprazole Sodium 40 mg 02/03/20 19:00 02/04/20 10:47 Protonix Iv IVPUSH 40 mg DAILY ZOLTAN Administration ASSESSMENT/PLAN: 79 yo male with pmh of hx of esrd (,,, last dialysis sat), dm, hl, anemia, htn, dm, pvd, CHF (last echo not known), CVA (50 years ago), 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 Cardiac: ECHO severely reduced LVSF , mildly dilated RV with reduced systolic FX new from last month On norepinephrine and Vasopressin- Central line placed in right subclavian IVF PRBCs; increase Hb to approximately 8. Start ASA, IV heparin once hematologically stable. High-dose statin Trending troponin and EKG showing no ST segment changes Stress test when sepsis treated appreciate cardiology consult Resp: - Ventilated on settings: Rate 14, Tital volume 400, PEEP 5 FiO2 100%. Will titrate as need be - SpO2>96% - questionable PNA vs atelectasis left lower lung will start empiric Abx - Will get CXR tomorrow - ABG shows metabolic acidosis and over vented pt Pt vent settings changed to RR 18, TV 400, PEEP 5 FiO2: 60%. Will monitor if pH dros below 7.15 please give bicarb drip (D5 water 3 amps 1 L H2O 50-75ml/hr) - Stress dose steroid 100mg hydroxycortisone q8hrs (started 02/02) ID - Leukocytosis 30;.6 - PNA vs infected surgical wound (right knee amputation purulent discharge with erythema) - Blood cultures pending - Wound culture Legionella and gram neg bacilli - Urine culture negative - Lactic acid 3.4 received LR and blood but will go slow because pt not making much urine and BP is stable - Likely source of infection due to surgical wound. -CONTINUE EMPIRIC ZOSYN/ VANCOMYCIN (check vanco level daily) (started dose 02/01) vanco levels held today will keep checking - ID consulted - Surgery consulted for wound-Local wound care daily with wet to dry kerlix Wd culture pending. Will consider later washout - Heme Onc - Hgb 7.3 no reported melena or hematochezia will give PRBC to keep hgb approx 8 - will repeat CBC in AM to trend hgb Renal - hx of esrd HLD (t, , S) thorugh permacath - pt produces minor amount of urine - electrolytes stable - appreciate renal consult - pt was dialyzed (02/03) no fluid taken out Endo - DM will order sliding scale GI - Pt currently intubated no reported rectal bleeding or melena - will provide GI prophylaxis FEN - Will monitor electrolytes and replete - Prophylaxis - Heparin 5000 TID - SCDs Visit type - Emergency Visit Emergency Visit: Yes ED Registration Date: 02/02/20 Care time: The patient presented to the Emergency Department on the above date and was hospitalized for further evaluation of their emergent condition. - New Patient This patient is new to me today: No - Critical Care Critical Care patient: Yes Total Critical Care Time (in minutes): 36 Critical Care Statement: The care of this patient involved high complexity decision making to prevent further life threatening deterioration of the pat ient's condition and/or to evaluate & treat vital organ system(s) failure or risk of failure. - Medication Review Med list reviewed for High Risk Meds patients 65 and older: Yes ATTENDING PHYSICIAN STATEMENT I saw and evaluated the patient. I reviewed the resident's note and discussed the case with the resident. I agree with the resident's findings and plan as documented. SUBJECTIVE: OBJECTIVE: ASSESSMENT AND PLAN:
[2020-02-05] MEDS ORDERED: VASOPRESSIN 20 UNITS/ML VIAL IV ONE (02:59)
[2020-02-05] MEDS ORDERED: DEXTROSE 5%-WATER - 50 ML IVPB ONE ×3 (03:33→17:15)
[2020-02-05] MEDS ORDERED: PIPERACILLIN/TAZOBACTAM 2.25 GM VIAL IVPB ONE ×3 (03:33→17:14)
[2020-02-05] MEDS: PIPERACILLIN/TAZOB 2.25 GM 2.25 GM in DEXTROSE 5%-WATER - 50 ML IVPB SCH ×3 (03:39→17:15)
[2020-02-05] MEDS: HYDROCORTISONE SOD SUCCINATE 100 MG/2 ML VIAL IVPB SCH ×3 (03:39→17:15)
[2020-02-05 05:44] LABS: ARTERIAL BLD GAS O2 SATURATION 99.2 mmHg (95-98); ARTERIAL BLOOD GAS PO2 193.6 mmHg (80-100)
[2020-02-05 05:55] LABS: VENT MODE A/C; VENT RATE 24
[2020-02-05] MEDS: INSULIN SLIDING SCALE (NOVOLOG) 1 VIAL SQ SCH ×4 (06:02→22:55)
--- NOTE | 2020-02-05 06:43 | PN ---
Progress Note (short form) - Note Progress Note: Coverage for Dr. Tianna Diaz Chief Complaint: Events noted, notes reviewed, remains intubated and sedated, remains on pressors, no acute distress History of Present Illness: Seen and examined in the ICU. Events noted, notes reviewed, remains intubated and sedated, remains on pressors, no acute distress Medications: Current Medications Generic Name Dose Route Start Last Admin Trade Name Freq PRN Reason Stop Dose Admin Atorvastatin Calcium 40 mg 02/02/20 22:00 02/04/20 22:49 Lipitor - PO 40 mg HS ZOLTAN Administration Chlorhexidine Gluconate 1 applic 02/02/20 22:00 02/04/20 22:49 Hibiclens For Decolonization - TP 1 applic HS ZOLTAN Administration Heparin Sodium (Porcine) 1,000 unit 02/03/20 04:34 Heparin - IVPUSH PRN PRN Heparin Heparin Sodium (Porcine) 5,000 unit 02/03/20 04:34 02/03/20 08:41 Heparin - IVPUSH 5,000 unit PRN PRN Administration Heparin Hydrocortisone Sodium Succinate 100 mg 02/03/20 12:00 02/05/20 03:39 Solu-Cortef - IVPB 100 mg Q8H-IV ZOLTAN Administration Norepinephrine Bitartrate 16, 500 mls @ 9.375 mls/hr 02/02/20 14:45 02/05/20 05:11 000 mcg/ Sodium Chloride IV 20 mcg/min TITR ZOLTAN 37.5 mls/hr Titration Protocol 5 MCG/MIN Midazolam HCl 100 mg/ Sodium 100 mls @ 1 mls/hr 02/02/20 14:45 02/04/20 17:25 Chloride IVPB Not Given TITR ZOLTAN Protocol 1 MG/HR Fentanyl 500 mcg in 100 mls @ 10 mls/hr 02/02/20 15:45 02/04/20 13:26 Sublimaze Ivpb IVPB 2 mcg/kg/hr TITR ZOLTAN 20 mls/hr Administration 1 MCG/KG/HR Vasopressin 40 units/ Sodium 100 mls @ 5 mls/hr 02/02/20 20:30 02/05/20 05:10 Chloride IVPB 2 units/hr ASDIR ZOLTAN 5 mls/hr Titration Protocol 2 UNITS/HR HEPARIN SOD,PORK IN 0.45% NACL 25,000 unit in 500 mls @ 16 mls/hr 02/03/20 04:45 02/04/20 10:48 Heparin-1/2ns 25,000 Units/500 IVPB 600 units/hr TITR ZOLTAN 12 mls/hr Administration Protocol 800 UNITS/HR Piperacillin Sod/Tazobactam 50 mls @ 100 mls/hr 02/03/20 12:00 02/05/20 03:39 Sod 2.25 gm/ Dextrose IVPB 100 mls/hr Q8H-IV ZOLTAN Administration Protocol Propofol 1,000,000 mcg in 100 mls @ 1.312 mls/hr 02/03/20 11:45 02/04/20 22:49 Diprivan - IVPB 10 mcg/kg/min TITR ZOLTAN 2.624 mls/hr Administration Protocol 5 MCG/KG/MIN Sodium Chloride 250 mls @ 3,000 mls/hr 02/03/20 19:10 Normal Saline - IV 02/04/20 19:10 PRN PRN Hypotension during Dialysis Insulin Aspart 1 vial 02/02/20 22:00 02/05/20 06:02 Novolog Vial Sliding Scale - SQ Not Given ACHS ZOLTAN Protocol Mupirocin 1 applic 02/02/20 22:00 02/04/20 22:49 Bactroban Ointment (For Decolonization) - NS 02/07/20 21:59 1 applic BID ZOLTAN Administration Pantoprazole Sodium 40 mg 02/03/20 19:00 02/04/20 10:47 Protonix Iv IVPUSH 40 mg DAILY ZOLTAN Administration Review of Systems Unable to obtain/intubated and sedated Vital Signs: Last Vital Signs Temp Pulse Resp BP Pulse Ox 96.8 F L 70 14 116/48 L 100 02/05/20 06:00 02/05/20 06:00 02/05/20 06:00 02/05/20 06:00 02/04/20 21:00 Intake & Output 02/02/20 02/03/20 02/04/20 02/05/20 23:59 23:59 23:59 23:59 Intake Total 1800 3410.4 1061 Output Total 200 100 0 Balance -200 1700 3410.4 1061 Weight 96 lb 6.4 oz 96 lb 6.4 oz 96 lb 123 lb 4.8 oz Neck: Supple Negative JVD Respiratory: Diminished Breath Sounds at the Bases Cardiovascular: S1 S2 Regular Rate Rhythm Gastrointestinal: Soft Benign Normal Bowel Sounds Ext: Edema Labs: CBC, BMP 02/05/20 05:30 02/05/20 05:30 CBC, BMP 02/04/20 05:40 02/04/20 05:40 Hepatic Panel Total Bilirubin 0.8 mg/dL (0.2-1) 02/04/20 05:40 AST 309 U/L (15-37) H 02/04/20 05:40 ALT 298 U/L (13-61) H 02/04/20 05:40 Alkaline Phosphatase 92 U/L (45-117) 02/04/20 05:40 Albumin 1.3 g/dl (3.4-5.0) L 02/04/20 05:40 INR, PTT INR 1.07 (0.83-1.09) 02/04/20 05:40 Fibrinogen 355.0 mg/dL (238-498) 02/04/20 13:30 ABG Results ABG pH 7.300 (7.350-7.450) L 02/05/20 05:25 ABG HCO3 14.2 mmol/L (22-27) L 02/05/20 05:25 ABG O2 Sat (Measured) 99.2 mmHg (95-98) H 02/05/20 05:25 ABG O2 Content No Result Required. 02/05/20 05:25 ABG Base Excess -11.0 mmol/L (-2-2) L 02/05/20 05:25 Assessment/Plan ASSESSMENT: 1. Acute hypoxic respiratory failure related to sepsis syndrome/septic shock on pressors 2. Coronary artery disease with evidence of non-ST segment elevation myocardial infarction/demand ischemic injury angina pectoris 3. Systolic left ventricular dysfunction with clinical class I [place] [employer] classification left ventricular failure 4. Abnormal electrocardiogram 5. History of Coronavirus/COVID 19 infection 6. Diabetes mellitus 7. 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 End-stage renal disease on hemodialysis 9. Anemia PLAN: 1. Continue pressors and attempt to titrate off; hemodynamics permitting maintaining mean arterial pressure 65 mmHg and above 2. Antibiotics as per the primary team 3. Monitor hemoglobin and transfuse as needed maintaining hemoglobin equal or greater than 8.0 Overall poor prognosis Regina Iraheta MD
[2020-02-05] MEDS: FENTANYL IVPB 500 MCG/100 ML BAG IVPB SCH ×3 (07:16→16:56)
[2020-02-05 07:48] LABS: HEMATOCRIT 28.5 % (35.4-49); MCHC 31.5 g/dl (32.0-35.9); PLATELET COUNT 186 K/MM3 (134-434); RDW 16.7 % (11.9-15.9); WHITE BLOOD COUNT 26.9 K/mm3 (4.0-10.0)
[2020-02-05 07:56] LABS: ACTIVATED PTT 75.4 SECONDS (25.2-36.5); INR 1.02 (0.83-1.09)
[2020-02-05] MEDS: HEPARIN SOD,PORK IN 0.45% NACL 25,000 UNIT/500 ML INFUS.BAG IVPB SCH (08:10)
[2020-02-05 08:26] LABS: ALBUMIN 1.2 g/dl (3.4-5.0); BILIRUBIN,TOTAL 0.8 mg/dL (0.2-1); BLOOD UREA NITROGEN 33.9 mg/dL (7-18); CREATININE 2.3 mg/dL (0.55-1.3); MAGNESIUM 2.1 mg/dL (1.8-2.4); PHOSPHOROUS 3.9 mg/dL (2.5-4.9); POTASSIUM 4.2 mmol/L (3.5-5.1); TOT PROT 4.5 g/dl (6.4-8.2)
[2020-02-05 09:12] LABS: CALCIUM 6.4 mg/dL (8.5-10.1)
[2020-02-05] MEDS: MUPIROCIN 2% TOPICAL OINTMENT FOR DECOLONIZATION NS SCH ×2 (09:42→21:38)
[2020-02-05] MEDS: PANTOPRAZOLE SODIUM 40 MG VIAL IVPUSH SCH (09:42)
--- NOTE | 2020-02-05 10:08 | PN ---
Progress Note, Physician History of Present Illness: POORLY RESPONSIVE HYPOTENSIVE ON PRESSORS AFEBRILE WBC REMAINS ELEVATED VANCOMYCIN LEVEL NOTED WOUND C/S MIXED ORGANISMS BC GNR GROWING ANAEROBICALLY - Current Medication List Current Medications: Active Medications Atorvastatin Calcium (Lipitor -) 40 mg PO HS ZOLTAN Last Admin: 02/04/20 22:49 Dose: 40 mg Documented by: Chlorhexidine Gluconate (Hibiclens For Decolonization -) 1 applic TP HS ZOLTAN Last Admin: 02/04/20 22:49 Dose: 1 applic Documented by: Heparin Sodium (Porcine) (Heparin -) 1,000 unit IVPUSH PRN PRN PRN Reason: Heparin Heparin Sodium (Porcine) (Heparin -) 5,000 unit IVPUSH PRN PRN PRN Reason: Heparin Last Admin: 02/03/20 08:41 Dose: 5,000 unit Documented by: Hydrocortisone Sodium Succinate (Solu-Cortef -) 100 mg IVPB Q8H-IV ZOLTAN Last Admin: 02/05/20 09:42 Dose: 100 mg Documented by: Norepinephrine Bitartrate 16, (000 mcg/ Sodium Chloride) 500 mls @ 9.375 mls/hr IV TITR ZOLTAN; Protocol Last Titration: 02/05/20 05:11 Dose: 20 mcg/min, 37.5 mls/hr Documented by: Midazolam HCl 100 mg/ Sodium (Chloride) 100 mls @ 1 mls/hr IVPB TITR ZOLTAN; Protocol Last Admin: 02/04/20 17:25 Dose: Not Given Documented by: Fentanyl (Sublimaze Ivpb) 500 mcg in 100 mls @ 10 mls/hr IVPB TITR ZOLTAN Last Admin: 02/05/20 07:16 Dose: 2 mcg/kg/hr, 20 mls/hr Documented by: Vasopressin 40 units/ Sodium (Chloride) 100 mls @ 5 mls/hr IVPB ASDIR ZOLTAN; Protocol Last Titration: 02/05/20 08:26 Dose: 1 units/hr, 2.5 mls/hr Documented by: HEPARIN SOD,PORK IN 0.45% NACL (Heparin-1/2ns 25,000 Units/500) 25,000 unit in 500 mls @ 16 mls/hr IVPB TITR ZOLTAN; Protocol Last Admin: 02/05/20 08:10 Dose: Not Given Documented by: Piperacillin Sod/Tazobactam (Sod 2.25 gm/ Dextrose) 50 mls @ 100 mls/hr IVPB Q8H-IV [facility]; Protocol Last Admin: 02/05/20 09:42 Dose: 100 mls/hr Documented by: Propofol (Diprivan -) 1,000,000 mcg in 100 mls @ 1.312 mls/hr IVPB TITR [facility]; Protocol Last Admin: 02/04/20 22:49 Dose: 10 mcg/kg/min, 2.624 mls/hr Documented by: Sodium Chloride (Normal Saline -) 250 mls @ 3,000 mls/hr IV PRN PRN PRN Reason: Hypotension during Dialysis Stop: 02/04/20 19:10 Insulin Aspart (Novolog Vial Sliding Scale -) 1 vial SQ ACHS [facility]; Protocol Last Admin: 02/05/20 06:02 Dose: Not Given Documented by: Mupirocin (Bactroban Ointment (For Decolonization) -) 1 applic NS BID [facility] Stop: 02/07/20 21:59 Last Admin: 02/05/20 09:42 Dose: 1 applic Documented by: Pantoprazole Sodium (Protonix Iv) 40 mg IVPUSH DAILY [facility] Last Admin: 02/05/20 09:42 Dose: 40 mg Documented by: - Objective Vital Signs: Vital Signs Temperature 98.1 F 02/05/20 08:00 Pulse Rate 76 02/05/20 08:26 Respiratory Rate 24 H 02/05/20 08:25 Blood Pressure 109/46 L 02/05/20 08:26 O2 Sat by Pulse Oximetry (%) 98 02/05/20 08:27 Constitutional: Yes: No Distress Eyes: Yes: Conjunctiva Clear Cardiovascular: Yes: Regular Rate and Rhythm, S1, S2 Respiratory: Yes: Mechanically Ventilated Gastrointestinal: Yes: Normal Bowel Sounds, Soft. No: Tenderness Extremities: Yes: Other (R AKA STUMP SITE OPEN WITH DRAINAGE) Labs: CBC, BMP 02/05/20 05:30 02/05/20 05:30 INR, PTT INR 1.02 (0.83-1.09) 02/05/20 05:30 Fibrinogen 355.0 mg/dL (238-498) 02/04/20 13:30 Assessment/Plan SEPSIS, SEPTIC SHOCK INFECTED AKA STUMP SITE ESRD LEUKOCYTOSIS ELEVATED LFTS CONTINUE EMPIRIC ZOSYN PROGNOSIS POOR
--- NOTE | 2020-02-05 10:20 | PN ---
Teaching Attending Note Name of Resident: Neto Busby ATTENDING PHYSICIAN STATEMENT I saw and evaluated the patient. I reviewed the resident's note and discussed the case with the resident. I agree with the resident's findings and plan as documented. SUBJECTIVE: Pt seen and examined in the ICU. Remains intubated, sedated on levophed 15mcgs and vasopressin 1unit. OBJECTIVE: Vital Signs Period Temp Pulse Resp BP Sys/Tapia Pulse Ox Last 24 Hr 96.4 F-98.1 F 67-88 14-24 109-160/46-66 98-100 Intake & Output 02/02/20 02/03/20 02/04/20 02/05/20 23:59 23:59 23:59 23:59 Intake Total 1800 3410.4 1061 Output Total 200 100 0 Balance -200 1700 3410.4 1061 Weight 43.726 kg 43.726 kg 43.545 kg 55.928 kg Gen: intubated, sedated Heart: RRR Lung: scattered rhonchi Abd: soft, nontender Ext: stump wrapped CBC, BMP 02/05/20 05:30 02/05/20 05:30 Active Medications Atorvastatin Calcium (Lipitor -) 40 mg PO HS ZOLTAN Last Admin: 02/04/20 22:49 Dose: 40 mg Documented by: Chlorhexidine Gluconate (Hibiclens For Decolonization -) 1 applic TP HS ZOLTAN Last Admin: 02/04/20 22:49 Dose: 1 applic Documented by: Heparin Sodium (Porcine) (Heparin -) 1,000 unit IVPUSH PRN PRN PRN Reason: Heparin Heparin Sodium (Porcine) (Heparin -) 5,000 unit IVPUSH PRN PRN PRN Reason: Heparin Last Admin: 02/03/20 08:41 Dose: 5,000 unit Documented by: Hydrocortisone Sodium Succinate (Solu-Cortef -) 100 mg IVPB Q8H-IV ZOLTAN Last Admin: 02/05/20 09:42 Dose: 100 mg Documented by: Norepinephrine Bitartrate 16, (000 mcg/ Sodium Chloride) 500 mls @ 9.375 mls/hr IV TITR ZOLTAN; Protocol Last Titration: 02/05/20 05:11 Dose: 20 mcg/min, 37.5 mls/hr Documented by: Midazolam HCl 100 mg/ Sodium (Chloride) 100 mls @ 1 mls/hr IVPB TITR ZOLTAN; Protocol Last Admin: 02/04/20 17:25 Dose: Not Given Documented by: Fentanyl (Sublimaze Ivpb) 500 mcg in 100 mls @ 10 mls/hr IVPB TITR ZOLTAN Last Admin: 02/05/20 07:16 Dose: 2 mcg/kg/hr, 20 mls/hr Documented by: Vasopressin 40 units/ Sodium (Chloride) 100 mls @ 5 mls/hr IVPB ASDIR ZOLTAN; Protocol Last Titration: 02/05/20 08:26 Dose: 1 units/hr, 2.5 mls/hr Documented by: HEPARIN SOD,PORK IN 0.45% NACL (Heparin-1/2ns 25,000 Units/500) 25,000 unit in 500 mls @ 16 mls/hr IVPB TITR ZOLTAN; Protocol Last Admin: 02/05/20 08:10 Dose: Not Given Documented by: Piperacillin Sod/Tazobactam (Sod 2.25 gm/ Dextrose) 50 mls @ 100 mls/hr IVPB Q8H-IV ZOLTAN; Protocol Last Admin: 02/05/20 09:42 Dose: 100 mls/hr Documented by: Propofol (Diprivan -) 1,000,000 mcg in 100 mls @ 1.312 mls/hr IVPB TITR ZOLTAN; Protocol Last Admin: 02/04/20 22:49 Dose: 10 mcg/kg/min, 2.624 mls/hr Documented by: Sodium Chloride (Normal Saline -) 250 mls @ 3,000 mls/hr IV PRN PRN PRN Reason: Hypotension during Dialysis Stop: 02/04/20 19:10 Insulin Aspart (Novolog Vial Sliding Scale -) 1 vial SQ ACHS [facility]; Protocol Last Admin: 02/05/20 06:02 Dose: Not Given Documented by: Mupirocin (Bactroban Ointment (For Decolonization) -) 1 applic NS BID [facility] Stop: 02/07/20 21:59 Last Admin: 02/05/20 09:42 Dose: 1 applic Documented by: Pantoprazole Sodium (Protonix Iv) 40 mg IVPUSH DAILY [facility] Last Admin: 02/05/20 09:42 Dose: 40 mg Documented by: ASSESSMENT AND PLAN: Acute Respiratory Failure Recent R AKA Stump Infection Septic Shock Lactic Acidosis Acute NSTEMI ESRD on HD PAD DM Anemia - broad spectrum antibiotics - f/u cultures - wound care - titrate pressors to maintain MAP >65 - stress dose steroids - titrate FiO2 to keep SpO2 >90% - monitor H/H - continue volume assist control - sedate for vent synchrony - DVT/GI prophylaxis - continue ICU monitoring - pt now DNR critical care time spent in reviewing chart, evaluating patient and formulating plan 35 min
--- NOTE | 2020-02-05 10:25 | PN ---
Progress Note, Physician History of Present Illness: pt seen/ examined in icu Chart is reviewed Intubated/sedated On pressor support all f/u noted discussed with nursing staff also - Current Medication List Current Medications: Active Medications Atorvastatin Calcium (Lipitor -) 40 mg PO HS ZOLTAN Last Admin: 02/04/20 22:49 Dose: 40 mg Documented by: Chlorhexidine Gluconate (Hibiclens For Decolonization -) 1 applic TP HS ZOLTAN Last Admin: 02/04/20 22:49 Dose: 1 applic Documented by: Heparin Sodium (Porcine) (Heparin -) 1,000 unit IVPUSH PRN PRN PRN Reason: Heparin Heparin Sodium (Porcine) (Heparin -) 5,000 unit IVPUSH PRN PRN PRN Reason: Heparin Last Admin: 02/03/20 08:41 Dose: 5,000 unit Documented by: Hydrocortisone Sodium Succinate (Solu-Cortef -) 100 mg IVPB Q8H-IV ZOLTAN Last Admin: 02/05/20 09:42 Dose: 100 mg Documented by: Norepinephrine Bitartrate 16, (000 mcg/ Sodium Chloride) 500 mls @ 9.375 mls/hr IV TITR ZOLTAN; Protocol Last Titration: 02/05/20 05:11 Dose: 20 mcg/min, 37.5 mls/hr Documented by: Midazolam HCl 100 mg/ Sodium (Chloride) 100 mls @ 1 mls/hr IVPB TITR ZOLTAN; Protocol Last Admin: 02/04/20 17:25 Dose: Not Given Documented by: Fentanyl (Sublimaze Ivpb) 500 mcg in 100 mls @ 10 mls/hr IVPB TITR ZOLTAN Last Admin: 02/05/20 07:16 Dose: 2 mcg/kg/hr, 20 mls/hr Documented by: Vasopressin 40 units/ Sodium (Chloride) 100 mls @ 5 mls/hr IVPB ASDIR ZOLTAN; Protocol Last Titration: 02/05/20 08:26 Dose: 1 units/hr, 2.5 mls/hr Documented by: HEPARIN SOD,PORK IN 0.45% NACL (Heparin-1/2ns 25,000 Units/500) 25,000 unit in 500 mls @ 16 mls/hr IVPB TITR ZOLTAN; Protocol Last Admin: 02/05/20 08:10 Dose: Not Given Documented by: Piperacillin Sod/Tazobactam (Sod 2.25 gm/ Dextrose) 50 mls @ 100 mls/hr IVPB Q8H-IV [facility]; Protocol Last Admin: 02/05/20 09:42 Dose: 100 mls/hr Documented by: Propofol (Diprivan -) 1,000,000 mcg in 100 mls @ 1.312 mls/hr IVPB TITR [facility]; Protocol Last Admin: 02/04/20 22:49 Dose: 10 mcg/kg/min, 2.624 mls/hr Documented by: Sodium Chloride (Normal Saline -) 250 mls @ 3,000 mls/hr IV PRN PRN PRN Reason: Hypotension during Dialysis Stop: 02/04/20 19:10 Insulin Aspart (Novolog Vial Sliding Scale -) 1 vial SQ ACHS [facility]; Protocol Last Admin: 02/05/20 06:02 Dose: Not Given Documented by: Mupirocin (Bactroban Ointment (For Decolonization) -) 1 applic NS BID [facility] Stop: 02/07/20 21:59 Last Admin: 02/05/20 09:42 Dose: 1 applic Documented by: Pantoprazole Sodium (Protonix Iv) 40 mg IVPUSH DAILY [facility] Last Admin: 02/05/20 09:42 Dose: 40 mg Documented by: - Objective Vital Signs: Vital Signs Temperature 98.1 F 02/05/20 08:00 Pulse Rate 76 02/05/20 08:26 Respiratory Rate 24 H 02/05/20 08:25 Blood Pressure 109/46 L 02/05/20 08:26 O2 Sat by Pulse Oximetry (%) 98 02/05/20 08:27 Neck: Yes: Other (Intubated) Cardiovascular: Yes: Regular Rate and Rhythm Respiratory: Yes: Diminished Gastrointestinal: Yes: Soft Extremities: Yes: Amputation Edema: No Wound/Incision: Yes: Dressing Dry and Intact Labs: CBC, BMP 02/05/20 05:30 02/05/20 05:30 INR, PTT INR 1.02 (0.83-1.09) 02/05/20 05:30 Fibrinogen 355.0 mg/dL (238-498) 02/04/20 13:30 Problem List - Problems (1) Acute respiratory failure Code(s): J96.00 - ACUTE RESPIRATORY FAILURE, UNSP W HYPOXIA OR HYPERCAPNIA Qualifiers: Respiratory failure complication: hypoxia Qualified Code(s): J96.01 - Acute respiratory failure with hypoxia (2) Septic shock Code(s): A41.9 - SEPSIS, UNSPECIFIED ORGANISM; R65.21 - SEVERE SEPSIS WITH SEPTIC SHOCK (3) ESRD (end stage renal disease) Code(s): N18.6 - END STAGE RENAL DISEASE Assessment/Plan Septic shock Acute Respiratory Failure Recent R AKA--Infected Stump Acute NSTEMI ESRD on HD Diabetes Anemia Continue present care on heparin drip Condition gaurded abx patient is DNR critical care time approximately 30 minutes Will follow
--- NOTE | 2020-02-05 11:48 | PN ---
Progress Note (short form) - Note Progress Note: RENAL Pt is intubated unable to give any history sedated Last Vital Signs Temp Pulse Resp BP Pulse Ox 98.4 F 73 24 H 109/46 L 95 02/05/20 10:00 02/05/20 10:00 02/05/20 10:43 02/05/20 08:26 02/05/20 10:43 lungs bilat air entry cvs s1s2 rr abd soft ext s/p AKA, stump infected neuro sedated CBC, BMP 02/05/20 05:30 02/05/20 05:30 Current Medications Generic Name Dose Route Start Last Admin Trade Name Freq PRN Reason Stop Dose Admin Atorvastatin Calcium 40 mg 02/02/20 22:00 02/04/20 22:49 Lipitor - PO 40 mg HS ZOLTAN Administration Chlorhexidine Gluconate 1 applic 02/02/20 22:00 02/04/20 22:49 Hibiclens For Decolonization - TP 1 applic HS ZOLTAN Administration Heparin Sodium (Porcine) 1,000 unit 02/03/20 04:34 Heparin - IVPUSH PRN PRN Heparin Heparin Sodium (Porcine) 5,000 unit 02/03/20 04:34 02/03/20 08:41 Heparin - IVPUSH 5,000 unit PRN PRN Administration Heparin Hydrocortisone Sodium Succinate 100 mg 02/03/20 12:00 02/05/20 09:42 Solu-Cortef - IVPB 100 mg Q8H-IV ZOLTAN Administration Norepinephrine Bitartrate 16, 500 mls @ 9.375 mls/hr 02/02/20 14:45 02/05/20 05:11 000 mcg/ Sodium Chloride IV 20 mcg/min TITR ZOLTAN 37.5 mls/hr Titration Protocol 5 MCG/MIN Midazolam HCl 100 mg/ Sodium 100 mls @ 1 mls/hr 02/02/20 14:45 02/04/20 17:25 Chloride IVPB Not Given TITR ZOLTAN Protocol 1 MG/HR Fentanyl 500 mcg in 100 mls @ 10 mls/hr 02/02/20 15:45 02/05/20 07:16 Sublimaze Ivpb IVPB 2 mcg/kg/hr TITR ZOLTAN 20 mls/hr Administration 1 MCG/KG/HR Vasopressin 40 units/ Sodium 100 mls @ 5 mls/hr 02/02/20 20:30 02/05/20 08:26 Chloride IVPB 1 units/hr ASDIR ZOLTAN 2.5 mls/hr Titration Protocol 2 UNITS/HR HEPARIN SOD,PORK IN 0.45% NACL 25,000 unit in 500 mls @ 16 mls/hr 02/03/20 04:45 02/05/20 08:10 Heparin-1/2ns 25,000 Units/500 IVPB Not Given TITR ZOLTAN Protocol 800 UNITS/HR Piperacillin Sod/Tazobactam 50 mls @ 100 mls/hr 02/03/20 12:00 02/05/20 09:42 Sod 2.25 gm/ Dextrose IVPB 100 mls/hr Q8H-IV ZOLTAN Administration Protocol Propofol 1,000,000 mcg in 100 mls @ 1.312 mls/hr 02/03/20 11:45 02/04/20 22:49 Diprivan - IVPB 10 mcg/kg/min TITR ZOLTAN 2.624 mls/hr Administration Protocol 5 MCG/KG/MIN Sodium Chloride 250 mls @ 3,000 mls/hr 02/03/20 19:10 Normal Saline - IV 02/04/20 19:10 PRN PRN Hypotension during Dialysis Insulin Aspart 1 vial 02/02/20 22:00 02/05/20 06:02 Novolog Vial Sliding Scale - SQ Not Given ACHS ZOLTAN Protocol Mupirocin 1 applic 02/02/20 22:00 02/05/20 09:42 Bactroban Ointment (For Decolonization) - NS 02/07/20 21:59 1 applic BID ZOLTAN Administration Pantoprazole Sodium 40 mg 02/03/20 19:00 02/05/20 09:42 Protonix Iv IVPUSH 40 mg DAILY ZOLTAN Administration 1. ESRD on HD 2. sepsis 3. hx covid 4. CHF 5. DM 6. anemia 7. s/p right aka with stump infection 8. shock 9. NSTEMI 10. acute resp failure requiring intubation 11. metabolic and respiratory acidosis Plan pt was not dialyzed yesterday but will be dialyzed today will try some fluid removal today despite troponin elevaation MV
--- NOTE | 2020-02-05 11:53 | EKG ---
Test Reason : Blood Pressure : / mmHG Vent. Rate : 077 BPM Atrial Rate : 077 BPM P-R Int : 248 ms QRS Dur : 124 ms QT Int : 440 ms P-R-T Axes : 090 -70 -87 degrees QTc Int : 497 ms SINUS RHYTHM WITH 1ST DEGREE A-V BLOCK LEFT ANTERIOR FASCICULAR BLOCK RIGHT BUNDLE BRANCH BLOCK ABNORMAL ECG Confirmed by TEOFILO BARDALES MD ([id number] on 02/05/2020 11:53:34 AM Referred By: Maik IGLESIAS Confirmed By:TEOFILO BARDALES MD
[2020-02-05] MEDS ORDERED: FENTANYL NS IVPB 500 MCG/100 ML BAG IVPB ONE (12:05)
[2020-02-05] MEDS: PROPOFOL 1,000,000 MCG/100 ML VIAL IVPB SCH (12:07)
--- NOTE | 2020-02-05 12:07 | EKG ---
Test Reason : Blood Pressure : / mmHG Vent. Rate : 095 BPM Atrial Rate : 095 BPM P-R Int : 232 ms QRS Dur : 130 ms QT Int : 398 ms P-R-T Axes : 068 -73 127 degrees QTc Int : 500 ms SINUS RHYTHM WITH 1ST DEGREE A-V BLOCK WITH PREMATURE VENTRICULAR COMPLEXES OR FUSION COMPLEXES LEFT ANTERIOR HEMIBLOCK RIGHT BUNDLE BRANCH BLOCK NONSPECIFIC ST ABNORMALITY ABNORMAL ECG Confirmed by TEOFILO BARDALES MD ([id number]) on 02/05/2020 12:07:14 PM Referred By: BRITTANY Confirmed By:TEOFILO BARDALES MD
[2020-02-05] MEDS: MIDAZOLAM 100 MG in SODIUM CHLORIDE 100 ML IVPB SCH (14:10)
[2020-02-05] MEDS: NOREPINEPHRINE BITARTRATE 16,000 MCG in SODIUM CHLORIDE 484 ML IV SCH (14:29)
[2020-02-05] MEDS: ATORVASTATIN CA 40 MG TABLET (FP) PO SCH (21:37)
[2020-02-05] MEDS: CHLORHEXIDINE GLUCONATE 4% CLEANSER FOR DECOLONIZATION TP SCH (21:38)
[2020-02-06] MEDS ORDERED: PIPERACILLIN/TAZOBACTAM 2.25 GM VIAL IVPB ONE ×3 (00:33→17:47)
[2020-02-06] MEDS ORDERED: DEXTROSE 5%-WATER - 50 ML IVPB ONE ×3 (00:33→17:48)
[2020-02-06] MEDS: HYDROCORTISONE SOD SUCCINATE 100 MG/2 ML VIAL IVPB SCH ×3 (01:03→17:52)
[2020-02-06] MEDS: PIPERACILLIN/TAZOB 2.25 GM 2.25 GM in DEXTROSE 5%-WATER - 50 ML IVPB SCH ×3 (01:03→17:49)
[2020-02-06] MEDS: VASOPRESSIN 40 UNITS in SODIUM CHLORIDE 98 ML IVPB SCH ×2 (03:10→20:30)
[2020-02-06 06:15] LABS: HEMATOCRIT 27.7 % (35.4-49); HEMOGLOBIN 8.8 GM/dL (11.7-16.9); MCHC 31.7 g/dl (32.0-35.9); MEAN CELL VOLUME 88.3 fl (80-96); MEAN PLT VOLUME 8.2 fl (7.5-11.1); PLATELET COUNT 161 K/MM3 (134-434); RBC 3.14 M/mm3 (4.00-5.60); RDW 15.9 % (11.9-15.9); WHITE BLOOD COUNT 25.7 K/mm3 (4.0-10.0)
[2020-02-06 06:23] LABS: ARTERIAL BLD GAS O2 SATURATION 98.8 mmHg (95-98); ARTERIAL BLOOD GAS BASE EXCESS -5.7 mmol/L (-2-2); ARTERIAL BLOOD GAS pH 7.366 (7.350-7.450)
[2020-02-06 06:42] LABS: ALBUMIN 1.1 g/dl (3.4-5.0); BILIRUBIN,TOTAL 0.8 mg/dL (0.2-1); BLOOD UREA NITROGEN 20.8 mg/dL (7-18); CREATININE 1.7 mg/dL (0.55-1.3); MAGNESIUM 1.8 mg/dL (1.8-2.4); PHOSPHOROUS 2.8 mg/dL (2.5-4.9); POTASSIUM 3.3 mmol/L (3.5-5.1); TOT PROT 4.3 g/dl (6.4-8.2)
[2020-02-06 06:43] LABS: VENT MODE A/C; VENT RATE 24
[2020-02-06 07:20] LABS: CALCIUM 6.4 mg/dL (8.5-10.1)
[2020-02-06] MEDS: INSULIN SLIDING SCALE (NOVOLOG) 1 VIAL SQ SCH ×4 (08:31→22:55)
[2020-02-06] MEDS: FENTANYL IVPB 500 MCG/100 ML BAG IVPB SCH ×2 (09:02→16:09)
[2020-02-06] MEDS: HEPARIN SOD,PORK IN 0.45% NACL 25,000 UNIT/500 ML INFUS.BAG IVPB SCH (10:09)
[2020-02-06] MEDS: PANTOPRAZOLE SODIUM 40 MG VIAL IVPUSH SCH (10:14)
[2020-02-06] MEDS: MUPIROCIN 2% TOPICAL OINTMENT FOR DECOLONIZATION NS SCH ×2 (10:18→21:03)
--- NOTE | 2020-02-06 10:33 | PN ---
Progress Note (short form) - Note Progress Note: RENAL Pt is intubated unable to give any history sedated Last Vital Signs Temp Pulse Resp BP Pulse Ox 97.2 F L 74 24 H 141/57 L 100 02/06/20 06:00 02/06/20 06:00 02/06/20 08:33 02/06/20 10:24 02/06/20 08:33 lungs bilat air entry cvs s1s2 rr +CONOR abd soft ext s/p AKA, stump infected, left foot ischemic neuro sedated CBC, BMP 02/06/20 05:30 02/06/20 05:30 Current Medications Generic Name Dose Route Start Last Admin Trade Name Freq PRN Reason Stop Dose Admin Atorvastatin Calcium 40 mg 02/02/20 22:00 02/05/20 21:37 Lipitor - PO 40 mg HS ZOLTAN Administration Chlorhexidine Gluconate 1 applic 02/02/20 22:00 02/05/20 21:38 Hibiclens For Decolonization - TP 1 applic HS ZOLTAN Administration Heparin Sodium (Porcine) 1,000 unit 02/03/20 04:34 Heparin - IVPUSH PRN PRN Heparin Heparin Sodium (Porcine) 5,000 unit 02/03/20 04:34 02/03/20 08:41 Heparin - IVPUSH 5,000 unit PRN PRN Administration Heparin Hydrocortisone Sodium Succinate 100 mg 02/03/20 12:00 02/06/20 10:10 Solu-Cortef - IVPB 100 mg Q8H-IV ZOLTAN Administration Norepinephrine Bitartrate 16, 500 mls @ 9.375 mls/hr 02/02/20 14:45 02/06/20 10:24 000 mcg/ Sodium Chloride IV 8 mcg/min TITR ZOLTAN 15 mls/hr Titration Protocol 5 MCG/MIN Midazolam HCl 100 mg/ Sodium 100 mls @ 1 mls/hr 02/02/20 14:45 02/05/20 14:10 Chloride IVPB Not Given TITR ZOLTAN Protocol 1 MG/HR Fentanyl 500 mcg in 100 mls @ 10 mls/hr 02/02/20 15:45 02/06/20 09:02 Sublimaze Ivpb IVPB 2 mcg/kg/hr TITR ZOLTAN 20 mls/hr Administration 1 MCG/KG/HR Vasopressin 40 units/ Sodium 100 mls @ 5 mls/hr 02/02/20 20:30 02/06/20 03:10 Chloride IVPB 2 units/hr ASDIR ZOLTAN 5 mls/hr Administration Protocol 2 UNITS/HR HEPARIN SOD,PORK IN 0.45% NACL 25,000 unit in 500 mls @ 16 mls/hr 02/03/20 04:45 02/06/20 10:09 Heparin-1/2ns 25,000 Units/500 IVPB 550 units/hr TITR ZOLTAN 11 mls/hr Administration Protocol 800 UNITS/HR Piperacillin Sod/Tazobactam 50 mls @ 100 mls/hr 02/03/20 12:00 02/06/20 10:12 Sod 2.25 gm/ Dextrose IVPB 100 mls/hr Q8H-IV [facility]OLTAN Administration Protocol Propofol 1,000,000 mcg in 100 mls @ 1.312 mls/hr 02/03/20 11:45 02/05/20 12:07 Diprivan - IVPB 10 mcg/kg/min TITR ZOLTAN 2.624 mls/hr Administration Protocol 5 MCG/KG/MIN Sodium Chloride 250 mls @ 3,000 mls/hr 02/03/20 19:10 Normal Saline - IV 02/04/20 19:10 PRN PRN Hypotension during Dialysis Potassium Chloride 10 meq in 100 mls @ 100 mls/hr 02/06/20 07:30 Potassium Chloride 10 Meq Premix Ivpb - IVPB 02/06/20 10:29 Q60M ZOLTAN Insulin Aspart 1 vial 02/02/20 22:00 02/06/20 08:31 Novolog Vial Sliding Scale - SQ 2 units ACHS ZOLTAN Administration Protocol Mupirocin 1 applic 02/02/20 22:00 02/06/20 10:18 Bactroban Ointment (For Decolonization) - NS 02/07/20 21:59 1 applic BID ZOLTAN Administration Pantoprazole Sodium 40 mg 02/03/20 19:00 02/06/20 10:14 Protonix Iv IVPUSH 40 mg DAILY ZOLTAN Administration 1. ESRD on HD 2. sepsis 3. hx covid 4. CHF 5. DM 6. anemia 7. s/p right aka with stump infection 8. shock 9. NSTEMI 10. acute resp failure requiring intubation 11. metabolic and respiratory acidosis Plan would reduce levofed only give one potassium run no hd today MV
--- NOTE | 2020-02-06 11:57 | PN ---
Physical Exam: SUBJECTIVE: Patient seen and examined OBJECTIVE: Vital Signs Period Temp Pulse Resp BP Sys/Tapia Pulse Ox Last 24 Hr 97.2 F-98.5 F 71-99 20-24 83-150/42-66 95-100 GENERAL: Intubated and sedated EYES: Dilated left pupil. Pinpoint right pupil ENT: Pt intubated with Orogastric tube. Nares patent and normal. LUNGS: Bilateral Rhonchi HEART: normal S1 and S2. Perma cath on left chest ABDOMEN: Soft and nontender abdomen EXTREMITIES: Wrapped stump Laboratory Results - last 24 hr 02/02/20 02/02/20 02/02/20 14:27 14:27 14:51 WBC RBC Hgb Hct MCV MCH MCHC RDW Plt Count MPV PTT (Actin FS) Anticoagulation Therapy Puncture Site Patient Temperature ABG pH ABG pCO2 ABG pO2 ABG HCO3 ABG O2 Sat (Measured) ABG O2 Content ABG Base Excess Samson Test VBG pH 7.299 L POC VBG pCO2 37.9 L POC VBG pO2 135.0 H VBG HCO3 18.2 L VBG O2 Sat (Melyssa) TNP VBG Base Excess TNP Patient On Oxygen O2 Delivery Device Oxygen Flow Rate Vent Mode Vent Rate Mechanical Rate PEEP Pressure Support Vent Sodium 137 Potassium 3.1 L Chloride 104 Carbon Dioxide 20 L Anion Gap 14 BUN 12.2 Creatinine 1.4 H Est GFR (CKD-EPI)AfAm 54.61 Est GFR (CKD-EPI)NonAf 47.12 POC Glucometer Random Glucose 92 Lactic Acid 3.2 H* Calcium 6.9 L* Phosphorus Magnesium Total Bilirubin 0.8 AST 42 H ALT 26 Alkaline Phosphatase 91 Creatine Kinase Creatine Kinase Index CK-MB (CK-2) Troponin I Total Protein 5.3 L Albumin 1.5 L Blood Type Antibody Screen Crossmatch 02/03/20 02/05/20 02/05/20 00:20 12:24 16:55 WBC RBC Hgb Hct MCV MCH MCHC RDW Plt Count MPV PTT (Actin FS) Anticoagulation Therapy Puncture Site Patient Temperature ABG pH ABG pCO2 ABG pO2 ABG HCO3 ABG O2 Sat (Measured) ABG O2 Content ABG Base Excess Samson Test VBG pH POC VBG pCO2 POC VBG pO2 VBG HCO3 VBG O2 Sat (Melyssa) VBG Base Excess Patient On Oxygen O2 Delivery Device Oxygen Flow Rate Vent Mode Vent Rate Mechanical Rate PEEP Pressure Support Vent Sodium Potassium Chloride Carbon Dioxide Anion Gap BUN Creatinine Est GFR (CKD-EPI)AfAm Est GFR (CKD-EPI)NonAf POC Glucometer 107 81 Random Glucose Lactic Acid Calcium Phosphorus Magnesium Total Bilirubin AST ALT Alkaline Phosphatase Creatine Kinase Creatine Kinase Index CK-MB (CK-2) Troponin I Total Protein Albumin Blood Type O POSITIVE Antibody Screen Negative Crossmatch See Detail 02/05/20 02/06/20 02/06/20 22:51 05:30 05:30 WBC 25.7 H RBC 3.14 L Hgb 8.8 L Hct 27.7 L MCV 88.3 MCH 28.0 MCHC 31.7 L RDW 15.9 Plt Count 161 MPV 8.2 PTT (Actin FS) 76.3 H Anticoagulation Therapy Puncture Site Patient Temperature ABG pH ABG pCO2 ABG pO2 ABG HCO3 ABG O2 Sat (Measured) ABG O2 Content ABG Base Excess Samson Test VBG pH POC VBG pCO2 POC VBG pO2 VBG HCO3 VBG O2 Sat (Melyssa) VBG Base Excess Patient On Oxygen O2 Delivery Device Oxygen Flow Rate Vent Mode Vent Rate Mechanical Rate PEEP Pressure Support Vent Sodium Potassium Chloride Carbon Dioxide Anion Gap BUN Creatinine Est GFR (CKD-EPI)AfAm Est GFR (CKD-EPI)NonAf POC Glucometer 101 Random Glucose Lactic Acid Calcium Phosphorus Magnesium Total Bilirubin AST ALT Alkaline Phosphatase Creatine Kinase Creatine Kinase Index CK-MB (CK-2) Troponin I Total Protein Albumin Blood Type Antibody Screen Crossmatch 02/06/20 02/06/20 02/06/20 05:30 05:30 05:55 WBC RBC Hgb Hct MCV MCH MCHC RDW Plt Count MPV PTT (Actin FS) Anticoagulation Therapy No Result Required. Puncture Site Arterial line Patient Temperature No Result Required. ABG pH 7.366 ABG pCO2 33.80 L ABG pO2 143.0 H ABG HCO3 18.9 L ABG O2 Sat (Measured) 98.8 H ABG O2 Content No Result Required. ABG Base Excess -5.7 L Samson Test Not applicable VBG pH POC VBG pCO2 POC VBG pO2 VBG HCO3 VBG O2 Sat (Melyssa) VBG Base Excess Patient On Oxygen Yes O2 Delivery Device Vent Oxygen Flow Rate 40% Vent Mode A/c Vent Rate 24 Mechanical Rate Yes PEEP 5.0 Pressure Support Vent 400 Sodium 137 Potassium 3.3 L Chloride 103 Carbon Dioxide 24 Anion Gap 10 BUN 20.8 H Creatinine 1.7 H Est GFR (CKD-EPI)AfAm 43.18 Est GFR (CKD-EPI)NonAf 37.26 POC Glucometer Random Glucose 184 H Lactic Acid Calcium 6.4 L* Phosphorus 2.8 Magnesium 1.8 Total Bilirubin 0.8 AST 80 H ALT 135 H Alkaline Phosphatase 139 H Creatine Kinase 158 Cancelled Creatine Kinase Index 8.9 H CK-MB (CK-2) 14.2 H Troponin I 9.81 H* Cancelled Total Protein 4.3 L Albumin 1.1 L Blood Type Antibody Screen Crossmatch 02/06/20 02/06/20 08:26 10:15 WBC RBC Hgb Hct MCV MCH MCHC RDW Plt Count MPV PTT (Actin FS) Anticoagulation Therapy Puncture Site Patient Temperature ABG pH ABG pCO2 ABG pO2 ABG HCO3 ABG O2 Sat (Measured) ABG O2 Content ABG Base Excess Samson Test VBG pH POC VBG pCO2 POC VBG pO2 VBG HCO3 VBG O2 Sat (Melyssa) VBG Base Excess Patient On Oxygen O2 Delivery Device Oxygen Flow Rate Vent Mode Vent Rate Mechanical Rate PEEP Pressure Support Vent Sodium Potassium Chloride Carbon Dioxide Anion Gap BUN Creatinine Est GFR (CKD-EPI)AfAm Est GFR (CKD-EPI)NonAf POC Glucometer 189 Random Glucose Lactic Acid 1.3 Calcium Phosphorus Magnesium Total Bilirubin AST ALT Alkaline Phosphatase Creatine Kinase Creatine Kinase Index CK-MB (CK-2) Troponin I Total Protein Albumin Blood Type Antibody Screen Crossmatch Active Medications Generic Name Dose Route Start Last Admin Trade Name Freq PRN Reason Stop Dose Admin Atorvastatin Calcium 40 mg 02/02/20 22:00 02/05/20 21:37 Lipitor - PO 40 mg HS ZOLTAN Administration Chlorhexidine Gluconate 1 applic 02/02/20 22:00 02/05/20 21:38 Hibiclens For Decolonization - TP 1 applic HS ZOLTAN Administration Heparin Sodium (Porcine) 1,000 unit 02/03/20 04:34 Heparin - IVPUSH PRN PRN Heparin Heparin Sodium (Porcine) 5,000 unit 02/03/20 04:34 02/03/20 08:41 Heparin - IVPUSH 5,000 unit PRN PRN Administration Heparin Hydrocortisone Sodium Succinate 100 mg 02/03/20 12:00 02/06/20 10:10 Solu-Cortef - IVPB 100 mg Q8H-IV ZOLTAN Administration Norepinephrine Bitartrate 16, 500 mls @ 9.375 mls/hr 02/02/20 14:45 02/06/20 10:24 000 mcg/ Sodium Chloride IV 8 mcg/min TITR ZOLTAN 15 mls/hr Titration Protocol 5 MCG/MIN Midazolam HCl 100 mg/ Sodium 100 mls @ 1 mls/hr 02/02/20 14:45 02/05/20 14:10 Chloride IVPB Not Given TITR ZOLTAN Protocol 1 MG/HR Fentanyl 500 mcg in 100 mls @ 10 mls/hr 02/02/20 15:45 02/06/20 09:02 Sublimaze Ivpb IVPB 2 mcg/kg/hr TITR ZOLTAN 20 mls/hr Administration 1 MCG/KG/HR Vasopressin 40 units/ Sodium 100 mls @ 5 mls/hr 02/02/20 20:30 02/06/20 03:10 Chloride IVPB 2 units/hr ASDIR ZOLTAN 5 mls/hr Administration Protocol 2 UNITS/HR HEPARIN SOD,PORK IN 0.45% NACL 25,000 unit in 500 mls @ 16 mls/hr 02/03/20 04:45 02/06/20 10:09 Heparin-1/2ns 25,000 Units/500 IVPB 550 units/hr TITR ZOLTAN 11 mls/hr Administration Protocol 800 UNITS/HR Piperacillin Sod/Tazobactam 50 mls @ 100 mls/hr 02/03/20 12:00 02/06/20 10:12 Sod 2.25 gm/ Dextrose IVPB 100 mls/hr Q8H-IV ZOLTAN Administration Protocol Propofol 1,000,000 mcg in 100 mls @ 1.312 mls/hr 02/03/20 11:45 02/05/20 12:07 Diprivan - IVPB 10 mcg/kg/min TITR ZOLTAN 2.624 mls/hr Administration Protocol 5 MCG/KG/MIN Sodium Chloride 250 mls @ 3,000 mls/hr 02/03/20 19:10 Normal Saline - IV 02/04/20 19:10 PRN PRN Hypotension during Dialysis Insulin Aspart 1 vial 02/02/20 22:00 02/06/20 08:31 Novolog Vial Sliding Scale - SQ 2 units ACHS ZOLTAN Administration Protocol Mupirocin 1 applic 02/02/20 22:00 02/06/20 10:18 Bactroban Ointment (For Decolonization) - NS 02/07/20 21:59 1 applic BID ZOLTAN Administration Pantoprazole Sodium 40 mg 02/03/20 19:00 02/06/20 10:14 Protonix Iv IVPUSH 40 mg DAILY ZOLTAN Administration ASSESSMENT/PLAN: 79 yo male with a PMHx of ESRD (3X weekly dialysis-, and THU), DM, HLD, Anemia, HTN, PVD, CHF CHF (last echo unknown), CVA (50 years ago), 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 Patient was found unresponsive with BP 39/17 and was BIBA from [facility] [place] to ED. Sepsis 2/2 PNA vs R amputation wound infection #Neuro: -Continue sedation with vent Fentanyl and propofol to synch with vent setting -Continue daily neuro checks #Cardiac: -ECHO suggest severely reduced LVSF , mildly dilated RV with reduced systolic FX when compared to that from last month -On norepinephrine and Vasopressin- Central line placed in right subclavian -Continue IVF -Continue volume assist control -Hb now 9-Consider starting ASA, IV heparin once hematologically stable. -High-dose statin -Consider Stress test when sepsis treatment completed -cardiology consult sent #Resp: - Ventilated on settings: Rate24, TV 400, PEEP 5, FiO2 50%. Will titrate as need be - Titrate FiO2 to keep SpO2 >90% -Continue empiric zosyn and vanco fo suspected chest infection - CXR ordered - pH now 7.3 with repeat ABG, an improvement from 7.27. -Repeat ABG and give bicarb drip (D5 water 3 amps 1 L H2O 50-75ml/hr) -Pt vent settings changed to RR 24, TV 400, PEEP 5 FiO2: 50%. -Continue Stress dose steroid 100mg hydroxycortisone q8hrs. First dose given02/02 #ID: - Leukocytosis now 26.9, an improvement from 30;.6 - Blood pending. Follow up results - Wound culture Legionella and gram neg bacilli - Urine culture negative -Reapeat Vanco level 19.2, a drop from 21.5. -Continue Vanco and Zosyn -ID consulted -Surgery consulted for wound-Local wound care daily with wet to dry kerlix #Renal: -ESRD pat. HD 3X weekly(T, Th, S) kalyan duranacath -Renal consult sent -Last dialysis was on (02/03), no fluid taken out #Heme Onc: - Hgb now 9, an increase from 7.3. Continue to monitor Hb/Hct #Endo: -DM. Consider ISS when clinically appropriate #GIT: -Patient intubated. Tube feed started this AM -Pt on protonix 40mg IVP for GIT prophylaxis #FEN: -N/S as recommended -Continue to monitor and replete electrolytes prn -Continue tube feed #DISPOSITION: -DVT Prophylaxis: Heparin 5000 TID -Protonix for GIT prophylaxis -Continue sedation for vent synchrony -Pt now DNR -Continue ICU monitoring Visit type - Emergency Visit Emergency Visit: No - New Patient This patient is new to me today: Yes Date on this admission: 02/05/20 - Critical Care Critical Care patient: Yes Total Critical Care Time (in minutes): 720 Critical Care Statement: The care of this patient involved high complexity decision making to prevent further life threatening deterioration of the patient's condition and/or to evaluate & treat vital organ system(s) failure or risk of failure. - Medication Review Med list reviewed for High Risk Meds patients 65 and older: Yes ATTENDING PHYSICIAN STATEMENT I saw and evaluated the patient. I reviewed the resident's note and discussed the case with the resident. I agree with the resident's findings and plan as documented. SUBJECTIVE: OBJECTIVE: ASSESSMENT AND PLAN:
--- NOTE | 2020-02-06 12:28 | PN ---
Progress Note, Physician History of Present Illness: pt seen/ examined in icu Chart is reviewed Intubated/sedated On pressor support all f/u noted discussed with nursing staff also left foot now ischemic d/w RN/ Dr. Clinton and Dr. Shearer also - Current Medication List Current Medications: Active Medications Atorvastatin Calcium (Lipitor -) 40 mg PO HS ZOLTAN Last Admin: 02/05/20 21:37 Dose: 40 mg Documented by: Chlorhexidine Gluconate (Hibiclens For Decolonization -) 1 applic TP HS ZOLTAN Last Admin: 02/05/20 21:38 Dose: 1 applic Documented by: Heparin Sodium (Porcine) (Heparin -) 1,000 unit IVPUSH PRN PRN PRN Reason: Heparin Heparin Sodium (Porcine) (Heparin -) 5,000 unit IVPUSH PRN PRN PRN Reason: Heparin Last Admin: 02/03/20 08:41 Dose: 5,000 unit Documented by: Hydrocortisone Sodium Succinate (Solu-Cortef -) 100 mg IVPB Q8H-IV ZOLTAN Last Admin: 02/06/20 10:10 Dose: 100 mg Documented by: Norepinephrine Bitartrate 16, (000 mcg/ Sodium Chloride) 500 mls @ 9.375 mls/hr IV TITR ZOLTAN; Protocol Last Titration: 02/06/20 10:24 Dose: 8 mcg/min, 15 mls/hr Documented by: Midazolam HCl 100 mg/ Sodium (Chloride) 100 mls @ 1 mls/hr IVPB TITR ZOLTAN; Protocol Last Admin: 02/05/20 14:10 Dose: Not Given Documented by: Fentanyl (Sublimaze Ivpb) 500 mcg in 100 mls @ 10 mls/hr IVPB TITR ZOLTAN Last Admin: 02/06/20 09:02 Dose: 2 mcg/kg/hr, 20 mls/hr Documented by: Vasopressin 40 units/ Sodium (Chloride) 100 mls @ 5 mls/hr IVPB ASDIR ZOLTAN; Protocol Last Admin: 02/06/20 03:10 Dose: 2 units/hr, 5 mls/hr Documented by: HEPARIN SOD,PORK IN 0.45% NACL (Heparin-1/2ns 25,000 Units/500) 25,000 unit in 500 mls @ 16 mls/hr IVPB TITR ZOLTAN; Protocol Last Admin: 02/06/20 10:09 Dose: 550 units/hr, 11 mls/hr Documented by: Piperacillin Sod/Tazobactam (Sod 2.25 gm/ Dextrose) 50 mls @ 100 mls/hr IVPB Q8H-IV ZOLTAN; Protocol Last Admin: 02/06/20 10:12 Dose: 100 mls/hr Documented by: Propofol (Diprivan -) 1,000,000 mcg in 100 mls @ 1.312 mls/hr IVPB TITR ZOLTAN; Protocol Last Admin: 02/05/20 12:07 Dose: 10 mcg/kg/min, 2.624 mls/hr Documented by: Sodium Chloride (Normal Saline -) 250 mls @ 3,000 mls/hr IV PRN PRN PRN Reason: Hypotension during Dialysis Stop: 02/04/20 19:10 Insulin Aspart (Novolog Vial Sliding Scale -) 1 vial SQ ACHS [facility]; Protocol Last Admin: 02/06/20 08:31 Dose: 2 units Documented by: Mupirocin (Bactroban Ointment (For Decolonization) -) 1 applic NS BID [facility] Stop: 02/07/20 21:59 Last Admin: 02/06/20 10:18 Dose: 1 applic Documented by: Pantoprazole Sodium (Protonix Iv) 40 mg IVPUSH DAILY [facility] Last Admin: 02/06/20 10:14 Dose: 40 mg Documented by: - Objective Vital Signs: Vital Signs Temperature 97.2 F L 02/06/20 06:00 Pulse Rate 74 02/06/20 06:00 Respiratory Rate 24 H 02/06/20 08:33 Blood Pressure 141/57 L 02/06/20 10:24 O2 Sat by Pulse Oximetry (%) 100 02/06/20 08:33 Cardiovascular: Yes: Regular Rate and Rhythm Respiratory: Yes: Diminished Gastrointestinal: Yes: Soft Extremities: Yes: Amputation Labs: CBC, BMP 02/06/20 05:30 02/06/20 05:30 INR, PTT INR 1.02 (0.83-1.09) 02/05/20 05:30 Fibrinogen 355.0 mg/dL (238-498) 02/04/20 13:30 Problem List - Problems (1) Acute respiratory failure Code(s): J96.00 - ACUTE RESPIRATORY FAILURE, UNSP W HYPOXIA OR HYPERCAPNIA Qualifiers: Respiratory failure complication: hypoxia Qualified Code(s): J96.01 - Acute respiratory failure with hypoxia (2) Septic shock Code(s): A41.9 - SEPSIS, UNSPECIFIED ORGANISM; R65.21 - SEVERE SEPSIS WITH SEPTIC SHOCK (3) ESRD (end stage renal disease) Code(s): N18.6 - END STAGE RENAL DISEASE Assessment/Plan Septic shock Acute Respiratory Failure Recent R AKA--Infected Stump Acute NSTEMI ESRD on HD Diabetes Anemia left foor ischemia Continue present care on heparin drip Condition gaurded abx patient is DNR taper off vasopressors as tolerated critical care time approximately 30 minutes Will continue to follow
--- NOTE | 2020-02-06 13:23 | PN ---
Teaching Attending Note Name of Resident: Osman Blanco ATTENDING PHYSICIAN STATEMENT I saw and evaluated the patient. I reviewed the resident's note and discussed the case with the resident. I agree with the resident's findings and plan as documented. SUBJECTIVE: Pt seen and examined in the ICU. Remains intubated, sedated on levophed 6mcgs and vasopressin 2units. OBJECTIVE: Vital Signs Period Temp Pulse Resp BP Sys/Tapia Pulse Ox Last 24 Hr 96 F-98.5 F 66-99 14-24 93-156/48-66 95-100 Intake & Output 02/03/20 02/04/20 02/05/20 02/06/20 23:59 23:59 23:59 23:59 Intake Total 1800 3410.4 3398 940 Output Total 100 0 1078 10 Balance 1700 3410.4 2320 930 Weight 43.726 kg 43.545 kg 55.928 kg 60.146 kg Gen: intubated, sedated Heart: RRR Lung: scattered rhonchi Abd: soft, nontender Ext: stump wrapped, left foot ischemic CBC, BMP 02/06/20 05:30 02/06/20 05:30 Active Medications Atorvastatin Calcium (Lipitor -) 40 mg PO HS ZOLTAN Last Admin: 02/05/20 21:37 Dose: 40 mg Documented by: Chlorhexidine Gluconate (Hibiclens For Decolonization -) 1 applic TP HS ZOLTAN Last Admin: 02/05/20 21:38 Dose: 1 applic Documented by: Heparin Sodium (Porcine) (Heparin -) 1,000 unit IVPUSH PRN PRN PRN Reason: Heparin Heparin Sodium (Porcine) (Heparin -) 5,000 unit IVPUSH PRN PRN PRN Reason: Heparin Last Admin: 02/03/20 08:41 Dose: 5,000 unit Documented by: Hydrocortisone Sodium Succinate (Solu-Cortef -) 100 mg IVPB Q8H-IV ZOLTAN Last Admin: 02/06/20 10:10 Dose: 100 mg Documented by: Norepinephrine Bitartrate 16, (000 mcg/ Sodium Chloride) 500 mls @ 9.375 mls/hr IV TITR ZOLTAN; Protocol Last Titration: 02/06/20 10:24 Dose: 8 mcg/min, 15 mls/hr Documented by: Midazolam HCl 100 mg/ Sodium (Chloride) 100 mls @ 1 mls/hr IVPB TITR [facility]; Protocol Last Admin: 02/05/20 14:10 Dose: Not Given Documented by: Fentanyl (Sublimaze Ivpb) 500 mcg in 100 mls @ 10 mls/hr IVPB TITR ZOLTAN Last Admin: 02/06/20 09:02 Dose: 2 mcg/kg/hr, 20 mls/hr Documented by: Vasopressin 40 units/ Sodium (Chloride) 100 mls @ 5 mls/hr IVPB ASDIR [facility]; Protocol Last Admin: 02/06/20 03:10 Dose: 2 units/hr, 5 mls/hr Documented by: HEPARIN SOD,PORK IN 0.45% NACL (Heparin-1/2ns 25,000 Units/500) 25,000 unit in 500 mls @ 16 mls/hr IVPB TITR [facility]; Protocol Last Admin: 02/06/20 10:09 Dose: 550 units/hr, 11 mls/hr Documented by: Piperacillin Sod/Tazobactam (Sod 2.25 gm/ Dextrose) 50 mls @ 100 mls/hr IVPB Q8H-IV ZOLTAN; Protocol Last Admin: 02/06/20 10:12 Dose: 100 mls/hr Documented by: Propofol (Diprivan -) 1,000,000 mcg in 100 mls @ 1.312 mls/hr IVPB TITR [facility]; Protocol Last Admin: 02/05/20 12:07 Dose: 10 mcg/kg/min, 2.624 mls/hr Documented by: Sodium Chloride (Normal Saline -) 250 mls @ 3,000 mls/hr IV PRN PRN PRN Reason: Hypotension during Dialysis Stop: 02/04/20 19:10 Insulin Aspart (Novolog Vial Sliding Scale -) 1 vial SQ ACHS [facility]; Protocol Last Admin: 02/06/20 08:31 Dose: 2 units Documented by: Mupirocin (Bactroban Ointment (For Decolonization) -) 1 applic NS BID [facility] Stop: 02/07/20 21:59 Last Admin: 02/06/20 10:18 Dose: 1 applic Documented by: Pantoprazole Sodium (Protonix Iv) 40 mg IVPUSH DAILY [facility] Last Admin: 02/06/20 10:14 Dose: 40 mg Documented by: ASSESSMENT AND PLAN: Acute Respiratory Failure Recent R AKA Stump Infection Septic Shock Lactic Acidosis Acute NSTEMI ESRD on HD PAD DM Anemia - continue antibiotics - f/u cultures - wound care - titrate pressors to maintain MAP >65 - stress dose steroids - titrate FiO2 to keep SpO2 >90% - monitor H/H - lighten sedation to assess mental status - spontaneous breathing trials as tolerated when mental status improved - enteral feeds - DVT/GI prophylaxis - continue ICU monitoring critical care time spent in reviewing chart, evaluating patient and formulating plan 35 min
[2020-02-06] MEDS: NOREPINEPHRINE BITARTRATE 16,000 MCG in SODIUM CHLORIDE 484 ML IV SCH ×2 (14:37→15:06)
--- NOTE | 2020-02-06 15:40 | PN ---
Physical Exam: SUBJECTIVE: Patient seen and examined. Pt sedated and intubated. Pt was on sedation vacation today and was able to respond to command. Not able to open eyes on command. Pt mouth was less cyanotic than before. Pt right arm is more edematous. OBJECTIVE: GENERAL: Intubated and sedated HEAD: Jaw is now mottled EYES: left pupil dilated and right pupil pinpoint ENT: Auricles normal inspection,normal, nares patent, pt intubated with OG tube LUNGS: Bilateral rhonchi worse on the left. HEART:regular rate and rhythm, normal S1 and S2. Perma cath on left chest ABDOMEN: Soft abdomen EXTREMITIES : Righ and left arm fistula is engorged with no continuous bruit or palpable thrill. Unable to palpate right arm and left arm radial pulse. Pt Left leg has 2+ pulses. 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 With surgical scar and claudia with purulent pustule drainage and now darkening debris. No abscess noted. : genital area is swollen and mottled appearing Vital Signs Period Temp Pulse Resp BP Sys/Tapia Pulse Ox Last 24 Hr 96 F-98.5 F 66-99 14-24 115-156/49-66 95-100 Laboratory Results - last 24 hr 02/03/20 02/05/20 02/05/20 00:20 16:55 22:51 WBC RBC Hgb Hct MCV MCH MCHC RDW Plt Count MPV PTT (Actin FS) Anticoagulation Therapy Puncture Site Patient Temperature ABG pH ABG pCO2 ABG pO2 ABG HCO3 ABG O2 Sat (Measured) ABG O2 Content ABG Base Excess Samson Test Patient On Oxygen O2 Delivery Device Oxygen Flow Rate Vent Mode Vent Rate Mechanical Rate PEEP Pressure Support Vent Sodium Potassium Chloride Carbon Dioxide Anion Gap BUN Creatinine Est GFR (CKD-EPI)AfAm Est GFR (CKD-EPI)NonAf POC Glucometer 81 101 Random Glucose Lactic Acid Calcium Phosphorus Magnesium Total Bilirubin AST ALT Alkaline Phosphatase Creatine Kinase Creatine Kinase Index CK-MB (CK-2) Troponin I Total Protein Albumin Blood Type O POSITIVE Antibody Screen Negative Crossmatch See Detail 02/06/20 02/06/20 02/06/20 05:30 05:30 05:30 WBC 25.7 H RBC 3.14 L Hgb 8.8 L Hct 27.7 L MCV 88.3 MCH 28.0 MCHC 31.7 L RDW 15.9 Plt Count 161 MPV 8.2 PTT (Actin FS) 76.3 H Anticoagulation Therapy Puncture Site Patient Temperature ABG pH ABG pCO2 ABG pO2 ABG HCO3 ABG O2 Sat (Measured) ABG O2 Content ABG Base Excess Samson Test Patient On Oxygen O2 Delivery Device Oxygen Flow Rate Vent Mode Vent Rate Mechanical Rate PEEP Pressure Support Vent Sodium 137 Potassium 3.3 L Chloride 103 Carbon Dioxide 24 Anion Gap 10 BUN 20.8 H Creatinine 1.7 H Est GFR (CKD-EPI)AfAm 43.18 Est GFR (CKD-EPI)NonAf 37.26 POC Glucometer Random Glucose 184 H Lactic Acid Calcium 6.4 L* Phosphorus 2.8 Magnesium 1.8 Total Bilirubin 0.8 AST 80 H ALT 135 H Alkaline Phosphatase 139 H Creatine Kinase 158 Creatine Kinase Index 8.9 H CK-MB (CK-2) 14.2 H Troponin I 9.81 H* Total Protein 4.3 L Albumin 1.1 L Blood Type Antibody Screen Crossmatch 02/06/20 02/06/20 02/06/20 05:30 05:55 08:26 WBC RBC Hgb Hct MCV MCH MCHC RDW Plt Count MPV PTT (Actin FS) Anticoagulation Therapy No Result Required. Puncture Site Arterial line Patient Temperature No Result Required. ABG pH 7.366 ABG pCO2 33.80 L ABG pO2 143.0 H ABG HCO3 18.9 L ABG O2 Sat (Measured) 98.8 H ABG O2 Content No Result Required. ABG Base Excess -5.7 L Samson Test Not applicable Patient On Oxygen Yes O2 Delivery Device Vent Oxygen Flow Rate 40% Vent Mode A/c Vent Rate 24 Mechanical Rate Yes PEEP 5.0 Pressure Support Vent 400 Sodium Potassium Chloride Carbon Dioxide Anion Gap BUN Creatinine Est GFR (CKD-EPI)AfAm Est GFR (CKD-EPI)NonAf POC Glucometer 189 Random Glucose Lactic Acid Calcium Phosphorus Magnesium Total Bilirubin AST ALT Alkaline Phosphatase Creatine Kinase Cancelled Creatine Kinase Index CK-MB (CK-2) Troponin I Cancelled Total Protein Albumin Blood Type Antibody Screen Crossmatch 02/06/20 10:15 WBC RBC Hgb Hct MCV MCH MCHC RDW Plt Count MPV PTT (Actin FS) Anticoagulation Therapy Puncture Site Patient Temperature ABG pH ABG pCO2 ABG pO2 ABG HCO3 ABG O2 Sat (Measured) ABG O2 Content ABG Base Excess Samson Test Patient On Oxygen O2 Delivery Device Oxygen Flow Rate Vent Mode Vent Rate Mechanical Rate PEEP Pressure Support Vent Sodium Potassium Chloride Carbon Dioxide Anion Gap BUN Creatinine Est GFR (CKD-EPI)AfAm Est GFR (CKD-EPI)NonAf POC Glucometer Random Glucose Lactic Acid 1.3 Calcium Phosphorus Magnesium Total Bilirubin AST ALT Alkaline Phosphatase Creatine Kinase Creatine Kinase Index CK-MB (CK-2) Troponin I Total Protein Albumin Blood Type Antibody Screen Crossmatch Active Medications Generic Name Dose Route Start Last Admin Trade Name Freq PRN Reason Stop Dose Admin Atorvastatin Calcium 40 mg 02/02/20 22:00 02/05/20 21:37 Lipitor - PO 40 mg HS ZOLTAN Administration Chlorhexidine Gluconate 1 applic 02/02/20 22:00 02/05/20 21:38 Hibiclens For Decolonization - TP 1 applic HS ZOLTAN Administration Heparin Sodium (Porcine) 1,000 unit 02/03/20 04:34 Heparin - IVPUSH PRN PRN Heparin Heparin Sodium (Porcine) 5,000 unit 02/03/20 04:34 02/03/20 08:41 Heparin - IVPUSH 5,000 unit PRN PRN Administration Heparin Hydrocortisone Sodium Succinate 100 mg 02/03/20 12:00 02/06/20 10:10 Solu-Cortef - IVPB 100 mg Q8H-IV ZOLTAN Administration Norepinephrine Bitartrate 16, 500 mls @ 9.375 mls/hr 02/02/20 14:45 02/06/20 14:39 000 mcg/ Sodium Chloride IV 3 mcg/min TITR ZOLTAN 5.625 mls/hr Titration Protocol 5 MCG/MIN Midazolam HCl 100 mg/ Sodium 100 mls @ 1 mls/hr 02/02/20 14:45 02/05/20 14:10 Chloride IVPB Not Given TITR ZOLTAN Protocol 1 MG/HR Fentanyl 500 mcg in 100 mls @ 10 mls/hr 02/02/20 15:45 02/06/20 09:02 Sublimaze Ivpb IVPB 2 mcg/kg/hr TITR ZOLTAN 20 mls/hr Administration 1 MCG/KG/HR Vasopressin 40 units/ Sodium 100 mls @ 5 mls/hr 02/02/20 20:30 02/06/20 03:10 Chloride IVPB 2 units/hr ASDIR ZOLTAN 5 mls/hr Administration Protocol 2 UNITS/HR HEPARIN SOD,PORK IN 0.45% NACL 25,000 unit in 500 mls @ 16 mls/hr 02/03/20 04:45 02/06/20 10:09 Heparin-1/2ns 25,000 Units/500 IVPB 550 units/hr TITR ZOLTAN 11 mls/hr Administration Protocol 800 UNITS/HR Piperacillin Sod/Tazobactam 50 mls @ 100 mls/hr 02/03/20 12:00 02/06/20 10:12 Sod 2.25 gm/ Dextrose IVPB 100 mls/hr Q8H-IV ZOLTAN Administration Protocol Propofol 1,000,000 mcg in 100 mls @ 1.312 mls/hr 02/03/20 11:45 02/05/20 1 2:07 Diprivan - IVPB 10 mcg/kg/min TITR ZOLTAN 2.624 mls/hr Administration Protocol 5 MCG/KG/MIN Sodium Chloride 250 mls @ 3,000 mls/hr 02/03/20 19:10 Normal Saline - IV 02/04/20 19:10 PRN PRN Hypotension during Dialysis Insulin Aspart 1 vial 02/02/20 22:00 02/06/20 08:31 Novolog Vial Sliding Scale - SQ 2 units ACHS ZOLTAN Administration Protocol Mupirocin 1 applic 02/02/20 22:00 02/06/20 10:18 Bactroban Ointment (For Decolonization) - NS 02/07/20 21:59 1 applic BID ZOLTAN Administration Pantoprazole Sodium 40 mg 02/03/20 19:00 02/06/20 10:14 Protonix Iv IVPUSH 40 mg DAILY ZOLTAN Administration ASSESSMENT/PLAN: 79 yo male with pmh of hx of esrd (,,, last dialysis sat), dm, hl, anemia, htn, dm, pvd, CHF (last echo not known), CVA (50 years ago), 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 Able to respond on command. Pt does not open eyes. - Sedation on propofol Cardiac: ECHO severely reduced LVSF , mildly dilated RV with reduced systolic FX new from last month On norepinephrine 6 and Vasopressin 2- Central line placed in right subclavian (02/03/20) IVF PRBCs; increase Hb to approximately 8. Start ASA, IV heparin once hematologically stable. High-dose statin Troponin trended downward with no change in EKG Stress test when sepsis treated appreciate cardiology consult Resp: - Ventilated on settings: Rate 24, Tital volume 400, PEEP 5 FiO2 100%. Will titrate as need be - SpO2>96% - Will get CXR tomorrow - ABG has stabilized. Will monitor if pH dros below 7.15 please give bicarb drip (D5 water 3 amps 1 L H2O 50-75ml/hr) - Stress dose steroid 100mg hydroxycortisone q8hrs (started 02/02) ID - Leukocytosis 25.7 has come down. - PNA vs infected surgical wound (right knee amputation purulent discharge with erythema) - Blood cultures Bacteroides cocci - Wound culture Legionella and gram neg bacilli - Urine culture negative - Likely source of infection due to surgical wound. -CONTINUE EMPIRIC ZOSYN - ID consulted - Surgery consulted for wound-Local wound care daily with wet to dry kerlix. Will consider later wash out. Heme Onc - Hgb 8.8 no reported melena or hematochezia will give PRBC to keep hgb approx 8 - will repeat CBC in AM to trend hgb Renal - hx of esrd HLD (t, , S) thorugh permacath - pt produces minor amount of urine - electrolytes stable - appreciate renal consult - pt was dialyzed (02/04) no fluid taken out Endo - DM will order sliding scale GI - Pt currently intubated no reported rectal bleeding or melena - will provide GI prophylaxis FEN - Will monitor electrolytes and replete - Prophylaxis - Heparin 5000 TID - SCDs Visit type - Emergency Visit Emergency Visit: Yes ED Registration Date: 02/02/20 Care time: The patient presented to the Emergency Department on the above date and was hospitalized for further evaluation of their emergent condition. - New Patient This patient is new to me today: No - Critical Care Critical Care patient: Yes Total Critical Care Time (in minutes): 36 Critical Care Statement: The care of this patient involved high complexity decision making to prevent further life threatening deterioration of the patient's condition and/or to evaluate & treat vital organ system(s) failure or risk of failure. - Medication Review Med list reviewed for High Risk Meds patients 65 and older: Yes ATTENDING PHYSICIAN STATEMENT I saw and evaluated the patient. I reviewed the resident's note and discussed the case with the resident. I agree with the resident's findings and plan as documented. SUBJECTIVE: OBJECTIVE: ASSESSMENT AND PLAN:
[2020-02-06] MEDS: PROPOFOL 1,000,000 MCG/100 ML VIAL IVPB SCH (16:08)
[2020-02-06] MEDS ORDERED: KCL 10 MEQ IVPB 10 MEQ/100 ML INFUS.BAG IVPB SCH (16:15)
--- NOTE | 2020-02-06 17:34 | PN ---
Progress Note, Physician History of Present Illness: Mr. 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 Patient was receiving hemodialysis at the intermediate when they found him unresponsive. EMS was called; upon arrival the patient was unresponsive, hypotensive. He was started on IVF and norepi nephrine. Upon arrival, the patient was minimally responsive to sternal rub, blood pressure noted to be 50s over 30s, respiring spontaneously; however, unable to obtain an O2 saturation;hypothermic; leukocytotic. He was intubated and a central line was placed in the L femoral artery; Rt femoral arterial line. BGM by EMS 200s Noted to have a packed wound on the right AKA site. - Current Medication List Current Medications: Active Medications Atorvastatin Calcium (Lipitor -) 40 mg PO HS ZOLTAN Last Admin: 02/05/20 21:37 Dose: 40 mg Documented by: Chlorhexidine Gluconate (Hibiclens For Decolonization -) 1 applic TP HS ZOLTAN Last Admin: 02/05/20 21:38 Dose: 1 applic Documented by: Heparin Sodium (Porcine) (Heparin -) 1,000 unit IVPUSH PRN PRN PRN Reason: Heparin Heparin Sodium (Porcine) (Heparin -) 5,000 unit IVPUSH PRN PRN PRN Reason: Heparin Last Admin: 02/03/20 08:41 Dose: 5,000 unit Documented by: Hydrocortisone Sodium Succinate (Solu-Cortef -) 100 mg IVPB Q8H-IV ZOLTAN Last Admin: 02/06/20 10:10 Dose: 100 mg Documented by: Norepinephrine Bitartrate 16, (000 mcg/ Sodium Chloride) 500 mls @ 9.375 mls/hr IV TITR ZOLTAN; Protocol Last Admin: 02/06/20 15:06 Dose: 2 mcg/min, 3.75 mls/hr Documented by: Midazolam HCl 100 mg/ Sodium (Chloride) 100 mls @ 1 mls/hr IVPB TITR ZOLTAN; Protocol Last Admin: 02/05/20 14:10 Dose: Not Given Documented by: Fentanyl (Sublimaze Ivpb) 500 mcg in 100 mls @ 10 mls/hr IVPB TITR ZOLTAN Last Admin: 02/06/20 16:09 Dose: Not Given Documented by: Vasopressin 40 units/ Sodium (Chloride) 100 mls @ 5 mls/hr IVPB ASDIR ZOLTAN; Protocol Last Admin: 02/06/20 03:10 Dose: 2 units/hr, 5 mls/hr Documented by: HEPARIN SOD,PORK IN 0.45% NACL (Heparin-1/2ns 25,000 Units/500) 25,000 unit in 500 mls @ 16 mls/hr IVPB TITR ZOLTAN; Protocol Last Admin: 02/06/20 10:09 Dose: 550 units/hr, 11 mls/hr Documented by: Piperacillin Sod/Tazobactam (Sod 2.25 gm/ Dextrose) 50 mls @ 100 mls/hr IVPB Q8H-IV ZOLTAN; Protocol Last Admin: 02/06/20 10:12 Dose: 100 mls/hr Documented by: Propofol (Diprivan -) 1,000,000 mcg in 100 mls @ 1.312 mls/hr IVPB TITR ZOLTAN; Protocol Last Admin: 02/06/20 16:08 Dose: Not Given Documented by: Sodium Chloride (Normal Saline -) 250 mls @ 3,000 mls/hr IV PRN PRN PRN Reason: Hypotension during Dialysis Stop: 02/04/20 19:10 Insulin Aspart (Novolog Vial Sliding Scale -) 1 vial SQ ACHS [facility]; Protocol Last Admin: 02/06/20 08:31 Dose: 2 units Documented by: Mupirocin (Bactroban Ointment (For Decolonization) -) 1 applic NS BID [facility] Stop: 02/07/20 21:59 Last Admin: 02/06/20 10:18 Dose: 1 applic Documented by: Pantoprazole Sodium (Protonix Iv) 40 mg IVPUSH DAILY [facility] Last Admin: 02/06/20 10:14 Dose: 40 mg Documented by: - Objective Vital Signs: Vital Signs Temperature 96.3 F L 02/06/20 15:46 Pulse Rate 72 02/06/20 15:46 Respiratory Rate 15 02/06/20 15:46 Blood Pressure 125/49 L 02/06/20 15:46 O2 Sat by Pulse Oximetry (%) 100 02/06/20 15:46 Eyes: Yes: WNL, Conjunctiva Clear, EOM Intact HENT: Yes: WNL, Atraumatic, Normocephalic Neck: Yes: WNL, Supple, Trachea Midline Cardiovascular: Yes: WNL, Regular Rate and Rhythm, S1, S2 Respiratory: Yes: Diminished, Intubated, Mechanically Ventilated Gastrointestinal: Yes: WNL, Normal Bowel Sounds Genitourinary: Yes: WNL Musculoskeletal: Yes: WNL Extremities: Yes: WNL Edema: No Integumentary: Yes: WNL Labs: CBC, BMP 02/06/20 05:30 02/06/20 05:30 INR, PTT INR 1.02 (0.83-1.09) 02/05/20 05:30 Fibrinogen 355.0 mg/dL (238-498) 02/04/20 13:30 Assessment/Plan Septic shock (hypotensive; hypothermic; leukocytosis; unresponsive)-->intubation, fluids NSTEMI TNI 6.64 Bifascicular AV block; ?PAF ESRD Chronic anemia; quaiac + Gangrenous RLE-->AKA amputation 01/2020 PVD (hx Rt subclavian stent) DM ECHO severely reduced LVSF , mildly dilated RV with reduced systolic FX new from last month R/o PE Plan: On norepinephrine and Vasopressin IVF PRBCs; increase Hb to approximately 10. Start ASA, IV heparin once hem atologically stable. High-dose statin On Vancomycin and Zosyn Cardiac w/u when septic shocks resolves however due to CVA , Alzheimer dementia at baseline patient was unable to tolerate a stress test. cc time spent 36 min
[2020-02-06] MEDS: KCL 10 MEQ IVPB 10 MEQ/100 ML INFUS.BAG IVPB SCH ×2 (17:39→17:40)
[2020-02-06] MEDS: MIDAZOLAM 100 MG in SODIUM CHLORIDE 100 ML IVPB SCH (17:40)
[2020-02-06] MEDS: ATORVASTATIN CA 40 MG TABLET (FP) PO SCH (21:02)
[2020-02-06] MEDS: CHLORHEXIDINE GLUCONATE 4% CLEANSER FOR DECOLONIZATION TP SCH (21:02)
[2020-02-07] MEDS ORDERED: DEXTROSE 5%-WATER - 50 ML IVPB ONE ×2 (00:43→09:29)
[2020-02-07] MEDS ORDERED: PIPERACILLIN/TAZOBACTAM 2.25 GM VIAL IVPB ONE ×2 (00:43→09:29)
[2020-02-07] MEDS: PIPERACILLIN/TAZOB 2.25 GM 2.25 GM in DEXTROSE 5%-WATER - 50 ML IVPB SCH ×2 (01:11→09:31)
[2020-02-07] MEDS: HYDROCORTISONE SOD SUCCINATE 100 MG/2 ML VIAL IVPB SCH ×3 (01:11→17:25)
[2020-02-07] MEDS: HEPARIN SOD,PORK IN 0.45% NACL 25,000 UNIT/500 ML INFUS.BAG IVPB SCH (04:45)
[2020-02-07 05:46] LABS: BASO % 0.3 % (0-2.0); HEMATOCRIT 25.1 % (35.4-49); LYMPH % 1.1 % (8-40); MCH 28.3 pg (25.7-33.7); MCHC 31.7 g/dl (32.0-35.9); MEAN CELL VOLUME 89.3 fl (80-96); MEAN PLT VOLUME 8.7 fl (7.5-11.1); MONO % 2.4 % (3.8-10.2); NEUT % 96.2 % (42.8-82.8); PLATELET COUNT 125 K/MM3 (134-434); RBC 2.81 M/mm3 (4.00-5.60); RDW 16.8 % (11.9-15.9)
[2020-02-07 05:56] LABS: ALBUMIN 1.1 g/dl (3.4-5.0); BILIRUBIN,TOTAL 0.5 mg/dL (0.2-1); BLOOD UREA NITROGEN 25.7 mg/dL (7-18); CREATININE 2.1 mg/dL (0.55-1.3); MAGNESIUM 1.9 mg/dL (1.8-2.4); PHOSPHOROUS 2.4 mg/dL (2.5-4.9); POTASSIUM 3.2 mmol/L (3.5-5.1); TOT PROT 4.4 g/dl (6.4-8.2)
[2020-02-07 06:14] LABS: ARTERIAL BLD GAS O2 SATURATION 98.3 mmHg (95-98); ARTERIAL BLOOD GAS BASE EXCESS -4.3 mmol/L (-2-2); ARTERIAL BLOOD GAS PO2 116.7 mmHg (80-100); ARTERIAL BLOOD GAS pH 7.397 (7.350-7.450)
[2020-02-07 06:25] LABS: VENT MODE A/C; VENT RATE 14
[2020-02-07 06:45] LABS: CALCIUM 6.5 mg/dL (8.5-10.1)
[2020-02-07] MEDS: INSULIN SLIDING SCALE (NOVOLOG) 1 VIAL SQ SCH ×4 (06:55→22:50)
[2020-02-07] MEDS ORDERED: KCL 10 MEQ IVPB 10 MEQ/100 ML INFUS.BAG IVPB SCH (08:45)
[2020-02-07] MEDS ORDERED: PT OWN MED DRAWER 7, Y5N ONE (09:29)
[2020-02-07] MEDS: MUPIROCIN 2% TOPICAL OINTMENT FOR DECOLONIZATION NS SCH (09:32)
[2020-02-07] MEDS: PANTOPRAZOLE SODIUM 40 MG VIAL IVPUSH SCH (09:32)
[2020-02-07 10:02] LABS: ANISOCYTOSIS 1+; MACROCYTOSIS 0; PLATELET ESTIMATE DECREASED
--- NOTE | 2020-02-07 10:05 | PN ---
Progress Note (short form) - Note Progress Note: RENAL Pt is intubated unable to give any history sedated Last Vital Signs Temp Pulse Resp BP Pulse Ox 97.6 F 77 21 H 123/50 L 99 02/07/20 06:00 02/07/20 06:00 02/07/20 08:18 02/07/20 06:00 02/07/20 06:00 lungs bilat air entry cvs s1s2 rr +CONOR abd soft ext s/p AKA, stump infected, left foot ischemic neuro sedated, nods yes however CBC, BMP 02/07/20 05:10 02/07/20 05:10 Current Medications Generic Name Dose Route Start Last Admin Trade Name Freq PRN Reason Stop Dose Admin Atorvastatin Calcium 40 mg 02/02/20 22:00 02/06/20 21:02 Lipitor - PO 40 mg HS ZOLTAN Administration Chlorhexidine Gluconate 1 applic 02/02/20 22:00 02/06/20 21:02 Hibiclens For Decolonization - TP 1 applic HS ZOLTAN Administration Heparin Sodium (Porcine) 1,000 unit 02/03/20 04:34 Heparin - IVPUSH PRN PRN Heparin Heparin Sodium (Porcine) 5,000 unit 02/03/20 04:34 02/03/20 08:41 Heparin - IVPUSH 5,000 unit PRN PRN Administration Heparin Hydrocortisone Sodium Succinate 100 mg 02/03/20 12:00 02/07/20 09:32 Solu-Cortef - IVPB 100 mg Q8H-IV ZOLTAN Administration Norepinephrine Bitartrate 16, 500 mls @ 9.375 mls/hr 02/02/20 14:45 02/07/20 02:00 000 mcg/ Sodium Chloride IV 0.5 mcg/min TITR ZOLTAN 0.938 mls/hr Titration Protocol 5 MCG/MIN Midazolam HCl 100 mg/ Sodium 100 mls @ 1 mls/hr 02/02/20 14:45 02/06/20 17:40 Chloride IVPB Not Given TITR ZOLTAN Protocol 1 MG/HR Fentanyl 500 mcg in 100 mls @ 10 mls/hr 02/02/20 15:45 02/06/20 16:09 Sublimaze Ivpb IVPB Not Given TITR ZOLTAN 1 MCG/KG/HR Vasopressin 40 units/ Sodium 100 mls @ 5 mls/hr 02/02/20 20:30 02/07/20 02:00 Chloride IVPB 2 units/hr ASDIR ZOLTAN 5 mls/hr Titration Protocol 2 UNITS/HR HEPARIN SOD,PORK IN 0.45% NACL 25,000 unit in 500 mls @ 16 mls/hr 02/03/20 04:45 02/07/20 04:45 Heparin-1/2ns 25,000 Units/500 IVPB 550 units/hr TITR ZOLTAN 11 mls/hr Administration Protocol 800 UNITS/HR Piperacillin Sod/Tazobactam 50 mls @ 100 mls/hr 02/03/20 12:00 02/07/20 09:31 Sod 2.25 gm/ Dextrose IVPB 100 mls/hr Q8H-IV ZOLTAN Administration Protocol Propofol 1,000,000 mcg in 100 mls @ 1.312 mls/hr 02/03/20 11:45 02/06/20 16:08 Diprivan - IVPB Not Given TITR ZOLTAN Protocol 5 MCG/KG/MIN Sodium Chloride 250 mls @ 3,000 mls/hr 02/03/20 19:10 Normal Saline - IV 02/04/20 19:10 PRN PRN Hypotension during Dialysis Insulin Aspart 1 vial 02/02/20 22:00 02/07/20 06:55 Novolog Vial Sliding Scale - SQ Not Given ACHS ZOLTAN Protocol Mupirocin 1 applic 02/02/20 22:00 02/07/20 09:32 Bactroban Ointment (For Decolonization) - NS 02/07/20 21:59 1 applic BID ZOLTAN Administration Pantoprazole Sodium 40 mg 02/03/20 19:00 02/07/20 09:32 Protonix Iv IVPUSH 40 mg DAILY ZOLTAN Administration 1. ESRD on HD 2. sepsis 3. hx covid 4. CHF 5. DM 6. anemia 7. s/p right aka with stump infection 8. shock 9. NSTEMI 10. acute resp failure requiring intubation 11. metabolic and respiratory acidosis Plan will dialyze today for some fluid removal will give CARROLL MV
[2020-02-07] MEDS ORDERED: SODIUM CHLORIDE 250 ML IV PRN (10:33)
--- NOTE | 2020-02-07 12:11 | PN ---
Teaching Attending Note Name of Resident: Osman Blanco ATTENDING PHYSICIAN STATEMENT I saw and evaluated the patient. I reviewed the resident's note and discussed the case with the resident. I agree with the resident's findings and plan as documented. SUBJECTIVE: Pt seen and examined in the ICU. Remains intubated, sedated off levophed gtt on vasopressin 2units. OBJECTIVE: Vital Signs Period Temp Pulse Resp BP Sys/Tapia Pulse Ox Last 24 Hr 96.3 F-98.2 F 68-82 11-21 102-130/41-54 97-100 Intake & Output 02/04/20 02/05/20 02/06/20 02/07/20 23:59 23:59 23:59 23:59 Intake Total 3410.4 3398 1799 580 Output Total 0 1078 10 260 Balance 3410.4 2320 1789 320 Weight 43.545 kg 55.928 kg 60.146 kg 62.188 kg Gen: intubated, sedated Heart: RRR Lung: scattered rhonchi Abd: soft, nontender Ext: stump wrapped, left foot ischemic CBC, BMP 02/07/20 05:10 02/07/20 05:10 Active Medications Atorvastatin Calcium (Lipitor -) 40 mg PO HS ZOLTAN Last Admin: 02/06/20 21:02 Dose: 40 mg Documented by: Chlorhexidine Gluconate (Hibiclens For Decolonization -) 1 applic TP HS ZOLTAN Last Admin: 02/06/20 21:02 Dose: 1 applic Documented by: Heparin Sodium (Porcine) (Heparin -) 1,000 unit IVPUSH PRN PRN PRN Reason: Heparin Heparin Sodium (Porcine) (Heparin -) 5,000 unit IVPUSH PRN PRN PRN Reason: Heparin Last Admin: 02/03/20 08:41 Dose: 5,000 unit Documented by: Hydrocortisone Sodium Succinate (Solu-Cortef -) 100 mg IVPB Q8H-IV ZOLTAN Last Admin: 02/07/20 09:32 Dose: 100 mg Documented by: Norepinephrine Bitartrate 16, (000 mcg/ Sodium Chloride) 500 mls @ 9.375 mls/hr IV TITR ZOLTAN; Protocol Last Titration: 02/07/20 02:00 Dose: 0.5 mcg/min, 0.938 mls/hr Documented by: Midazolam HCl 100 mg/ Sodium (Chloride) 100 mls @ 1 mls/hr IVPB TITR ZOLTAN; Protocol Last Admin: 02/06/20 17:40 Dose: Not Given Documented by: Fentanyl (Sublimaze Ivpb) 500 mcg in 100 mls @ 10 mls/hr IVPB TITR ZOLTAN Last Admin: 02/06/20 16:09 Dose: Not Given Documented by: Vasopressin 40 units/ Sodium (Chloride) 100 mls @ 5 mls/hr IVPB ASDIR ZOLTAN; Protocol Last Titration: 02/07/20 02:00 Dose: 2 units/hr, 5 mls/hr Documented by: HEPARIN SOD,PORK IN 0.45% NACL (Heparin-1/2ns 25,000 Units/500) 25,000 unit in 500 mls @ 16 mls/hr IVPB TITR ZOLTAN; Protocol Last Admin: 02/07/20 04:45 Dose: 550 units/hr, 11 mls/hr Documented by: Piperacillin Sod/Tazobactam (Sod 2.25 gm/ Dextrose) 50 mls @ 100 mls/hr IVPB Q8H-IV ZOLTAN; Protocol Last Admin: 02/07/20 09:31 Dose: 100 mls/hr Documented by: Propofol (Diprivan -) 1,000,000 mcg in 100 mls @ 1.312 mls/hr IVPB TITR [facility]; Protocol Last Admin: 02/06/20 16:08 Dose: Not Given Documented by: Sodium Chloride (Normal Saline -) 250 mls @ 3,000 mls/hr IV PRN PRN PRN Reason: Hypotension during Dialysis Stop: 02/08/20 10:33 Insulin Aspart (Novolog Vial Sliding Scale -) 1 vial SQ ACHS [facility]; Protocol Last Admin: 02/07/20 12:09 Dose: Not Given Documented by: Mupirocin (Bactroban Ointment (For Decolonization) -) 1 applic NS BID [facility] Stop: 02/07/20 21:59 Last Admin: 02/07/20 09:32 Dose: 1 applic Documented by: Pantoprazole Sodium (Protonix Iv) 40 mg IVPUSH DAILY [facility] Last Admin: 02/07/20 09:32 Dose: 40 mg Documented by: ASSESSMENT AND PLAN: Acute Respiratory Failure Recent R AKA Stump Infection Septic Shock Lactic Acidosis Acute NSTEMI ESRD on HD PAD DM Anemia - continue antibiotics - f/u cultures - wound care - titrate pressors to maintain MAP >65 - taper stress dose steroids - titrate FiO2 to keep SpO2 >90% - monitor H/H - lighten sedation to assess mental status - spontaneous breathing trials as tolerated when mental status improved - enteral feeds - DVT/GI prophylaxis - continue ICU monitoring critical care time spent in reviewing chart, evaluating patient and formulating plan 35 min
[2020-02-07 13:48] LABS: ARTERIAL BLD GAS O2 SATURATION 99.7 mmHg (95-98); ARTERIAL BLOOD GAS BASE EXCESS 6.5 mmol/L (-2-2); ARTERIAL BLOOD GAS PO2 270.8 mmHg (80-100)
[2020-02-07 13:53] LABS: VENT MODE AC; VENT RATE 8
[2020-02-07 13:58] LABS: ARTERIAL BLOOD GAS pH 7.608 (7.350-7.450)
--- NOTE | 2020-02-07 14:07 | PN ---
Progress Note, Physician History of Present Illness: POORLY RESPONSIVE ON VENTILATOR AFEBRILE WBC REMAINS ELEVATED BUT IMPROVED WOUND C/S MIXED ORGANISMS INCL ESBL BC BACTEROIDES - Current Medication List Current Medications: Active Medications Atorvastatin Calcium (Lipitor -) 40 mg PO HS ZOLTAN Last Admin: 02/06/20 21:02 Dose: 40 mg Documented by: Chlorhexidine Gluconate (Hibiclens For Decolonization -) 1 applic TP HS ZOLTAN Last Admin: 02/06/20 21:02 Dose: 1 applic Documented by: Heparin Sodium (Porcine) (Heparin -) 1,000 unit IVPUSH PRN PRN PRN Reason: Heparin Heparin Sodium (Porcine) (Heparin -) 5,000 unit IVPUSH PRN PRN PRN Reason: Heparin Last Admin: 02/03/20 08:41 Dose: 5,000 unit Documented by: Hydrocortisone Sodium Succinate (Solu-Cortef -) 50 mg IVPB Q8H-IV ZOLTAN Norepinephrine Bitartrate 16, (000 mcg/ Sodium Chloride) 500 mls @ 9.375 mls/hr IV TITR ZOLTAN; Protocol Last Titration: 02/07/20 02:00 Dose: 0.5 mcg/min, 0.938 mls/hr Documented by: Midazolam HCl 100 mg/ Sodium (Chloride) 100 mls @ 1 mls/hr IVPB TITR [facility]OLTAN; Protocol Last Admin: 02/06/20 17:40 Dose: Not Given Documented by: Fentanyl (Sublimaze Ivpb) 500 mcg in 100 mls @ 10 mls/hr IVPB TITR ZOLTAN Last Admin: 02/06/20 16:09 Dose: Not Given Documented by: Vasopressin 40 units/ Sodium (Chloride) 100 mls @ 5 mls/hr IVPB ASDIR [facility]OLTAN; Protocol Last Titration: 02/07/20 02:00 Dose: 2 units/hr, 5 mls/hr Documented by: HEPARIN SOD,PORK IN 0.45% NACL (Heparin-1/2ns 25,000 Units/500) 25,000 unit in 500 mls @ 16 mls/hr IVPB TITR [facility]OLTAN; Protocol Last Admin: 02/07/20 04:45 Dose: 550 units/hr, 11 mls/hr Documented by: Piperacillin Sod/Tazobactam (Sod 2.25 gm/ Dextrose) 50 mls @ 100 mls/hr IVPB Q8H-IV ZOLTAN; Protocol Last Admin: 02/07/20 09:31 Dose: 100 mls/hr Documented by: Propofol (Diprivan -) 1,000,000 mcg in 100 mls @ 1.312 mls/hr IVPB TITR [facility]; Protocol Last Admin: 02/06/20 16:08 Dose: Not Given Documented by: Sodium Chloride (Normal Saline -) 250 mls @ 3,000 mls/hr IV PRN PRN PRN Reason: Hypotension during Dialysis Stop: 02/08/20 10:33 Insulin Aspart (Novolog Vial Sliding Scale -) 1 vial SQ ACHS [facility]; Protocol Last Admin: 02/07/20 12:09 Dose: Not Given Documented by: Mupirocin (Bactroban Ointment (For Decolonization) -) 1 applic NS BID [facility] Stop: 02/07/20 21:59 Last Admin: 02/07/20 09:32 Dose: 1 applic Documented by: Pantoprazole Sodium (Protonix Iv) 40 mg IVPUSH DAILY [facility] Last Admin: 02/07/20 09:32 Dose: 40 mg Documented by: - Objective Vital Signs: Vital Signs Temperature 97.4 F L 02/07/20 10:55 Pulse Rate 95 H 02/07/20 13:00 Respiratory Rate 14 02/07/20 13:00 Blood Pressure 123/61 02/07/20 13:00 O2 Sat by Pulse Oximetry (%) 97 02/07/20 12:32 Constitutional: Yes: No Distress Eyes: Yes: Conjunctiva Clear Cardiovascular: Yes: Regular Rate and Rhythm, Tachycardia, S1, S2 Respiratory: Yes: Diminished, Mechanically Ventilated Gastrointestinal: Yes: Normal Bowel Sounds, Soft. No: Tenderness Extremities: Yes: Other (R AKA STUMP OPEN WITH DRAINAGE) Labs: CBC, BMP 02/07/20 05:10 02/07/20 05:10 INR, PTT INR 1.02 (0.83-1.09) 02/05/20 05:30 Fibrinogen 355.0 mg/dL (238-498) 02/04/20 13:30 Assessment/Plan SEPSIS, SEPTIC SHOCK ANAEROBIC BACTEREMIA INFECTED AKA STUMP SITE ESRD LEUKOCYTOSIS IMPROVED ELEVATED LFTS IMPROVED SUBSTITUTE MEROPENEM/ FLAGYL, ADJUSTED FOR ESRD PROGNOSIS POOR
[2020-02-07 14:48] VITALS: BMI 25.0
--- NOTE | 2020-02-07 15:14 | PN ---
Progress Note (short form) - Note Progress Note: Sedated Intubated Vital Signs - 24 hr 02/06/20 02/06/20 02/06/20 15:46 16:00 16:53 Temperature 96.3 F L 96.4 F L Pulse Rate 72 68 Respiratory 15 14 16 Rate Blood Pressure 125/49 L 116/45 L O2 Sat by Pulse 100 100 Oximetry (%) 02/06/20 02/06/20 02/06/20 17:00 18:00 19:05 Temperature 96.9 F L 97.5 F L 98.2 F Pulse Rate 74 70 80 Respiratory 17 18 18 Rate Blood Pressure 111/43 L 111/43 L 119/47 L O2 Sat by Pulse Oximetry (%) 02/06/20 02/06/20 02/06/20 20:00 20:15 21:00 Temperature Pulse Rate 75 Respiratory 14 17 18 Rate Blood Pressure 102/41 L O2 Sat by Pulse 99 97 100 Oximetry (%) 02/06/20 02/07/20 02/07/20 22:00 00:00 00:25 Temperature 98.2 F Pulse Rate 75 75 Respiratory 11 13 18 Rate Blood Pressure 108/47 L 108/43 L O2 Sat by Pulse 98 99 Oximetry (%) 02/07/20 02/07/20 02/07/20 01:00 02:00 04:00 Temperature 97.4 F L Pulse Rate 76 76 75 Respiratory 18 14 13 Rate Blood Pressure 118/48 L 121/50 L 120/49 L O2 Sat by Pulse 99 100 Oximetry (%) 02/07/20 02/07/20 02/07/20 05:04 06:00 08:18 Temperature 97.6 F Pulse Rate 77 Respiratory 17 13 21 H Rate Blood Pressure 123/50 L O2 Sat by Pulse 99 Oximetry (%) 02/07/20 02/07/20 02/07/20 09:00 10:00 10:55 Temperature 97.4 F L 97.4 F L Pulse Rate 81 80 Respiratory 12 12 Rate Blood Pressure 126/54 L 121/50 L O2 Sat by Pulse 99 99 Oximetry (%) 02/07/20 02/07/20 02/07/20 11:00 11:30 12:00 Temperature Pulse Rate 82 79 82 Respiratory 14 14 12 Rate Blood Pressure 126/50 L 130/48 L 113/50 L O2 Sat by Pulse Oximetry (%) 02/07/20 02/07/20 02/07/20 12:30 12:32 13:00 Temperature Pulse Rate 87 95 H Respiratory 14 11 14 Rate Blood Pressure 96/40 L 123/61 O2 Sat by Pulse 97 Oximetry (%) Current Medications Generic Name Dose Route Start Last Admin Trade Name Freq PRN Reason Stop Dose Admin Atorvastatin Calcium 40 mg 02/02/20 22:00 02/06/20 21:02 Lipitor - PO 40 mg HS ZOLTAN Administration Chlorhexidine Gluconate 1 applic 02/02/20 22:00 02/06/20 21:02 Hibiclens For Decolonization - TP 1 applic HS ZOLTAN Administration Heparin Sodium (Porcine) 1,000 unit 02/03/20 04:34 Heparin - IVPUSH PRN PRN Heparin Heparin Sodium (Porcine) 5,000 unit 02/03/20 04:34 02/03/20 08:41 Heparin - IVPUSH 5,000 unit PRN PRN Administration Heparin Hydrocortisone Sodium Succinate 50 mg 02/07/20 12:20 Solu-Cortef - IVPB Q8H-IV ZOLTAN Norepinephrine Bitartrate 16, 500 mls @ 9.375 mls/hr 02/02/20 14:45 02/07/20 02:00 000 mcg/ Sodium Chloride IV 0.5 mcg/min TITR ZOLTAN 0.938 mls/hr Titration Protocol 5 MCG/MIN Midazolam HCl 100 mg/ Sodium 100 mls @ 1 mls/hr 02/02/20 14:45 02/06/20 17:40 Chloride IVPB Not Given TITR ZOLTAN Protocol 1 MG/HR Fentanyl 500 mcg in 100 mls @ 10 mls/hr 02/02/20 15:45 02/06/20 16:09 Sublimaze Ivpb IVPB Not Given TITR ZOLTAN 1 MCG/KG/HR Vasopressin 40 units/ Sodium 100 mls @ 5 mls/hr 02/02/20 20:30 02/07/20 02:00 Chloride IVPB 2 units/hr ASDIR ZOLTAN 5 mls/hr Titration Protocol 2 UNITS/HR HEPARIN SOD,PORK IN 0.45% NACL 25,000 unit in 500 mls @ 16 mls/hr 02/03/20 04:45 02/07/20 04:45 Heparin-1/2ns 25,000 Units/500 IVPB 550 units/hr TITR ZOLTAN 11 mls/hr Administration Protocol 800 UNITS/HR Propofol 1,000,000 mcg in 100 mls @ 1.312 mls/hr 02/03/20 11:45 02/06/20 16:08 Diprivan - IVPB Not Given TITR ZOLTAN Protocol 5 MCG/KG/MIN Sodium Chloride 250 mls @ 3,000 mls/hr 02/07/20 10:33 Normal Saline - IV 02/08/20 10:33 PRN PRN Hypotension during Dialysis Meropenem 500 mg/ Dextrose 100 mls @ 200 mls/hr 02/07/20 14:15 IVPB Q24H ZOLTAN Metronidazole 500 mg in 100 mls @ 100 mls/hr 02/07/20 18:00 Flagyl 500mg Premixed Ivpb - IVPB Q8H-IV ZOLTAN Insulin Aspart 1 vial 02/02/20 22:00 02/07/20 12:09 Novolog Vial Sliding Scale - SQ Not Given ACHS ZOLTAN Protocol Mupirocin 1 applic 02/02/20 22:00 02/07/20 09:32 Bactroban Ointment (For Decolonization) - NS 02/07/20 21:59 1 applic BID ZOLTAN Administration Pantoprazole Sodium 40 mg 02/03/20 19:00 02/07/20 09:32 Protonix Iv IVPUSH 40 mg DAILY ZOLTAN Administration Laboratory Results - last 24 hr 02/05/20 02/06/20 02/06/20 12:40 16:21 17:55 WBC RBC Hgb Hct MCV MCH MCHC RDW Plt Count MPV Absolute Neuts (auto) Neutrophils % Neutrophils % (Manual) Band Neutrophils % Lymphocytes % Lymphocytes % (Manual) Monocytes % Monocytes % (Manual) Eosinophils % Eosinophils % (Manual) Basophils % Basophils % (Manual) Myelocytes % (Man) Promyelocytes % (Man) Blast Cells % (Manual) Nucleated RBC % Metamyelocytes Hypochromia Platelet Estimate Polychromasia Poikilocytosis Anisocytosis Microcytosis Macrocytosis PTT (Actin FS) Anticoagulation Therapy Puncture Site Patient Temperature ABG pH ABG pCO2 ABG pO2 ABG HCO3 ABG O2 Sat (Measured) ABG O2 Content ABG Base Excess Samson Test Patient On Oxygen O2 Delivery Device Oxygen Flow Rate Vent Mode Vent Rate Mechanical Rate PEEP Pressure Support Vent Sodium Potassium Chloride Carbon Dioxide Anion Gap BUN Creatinine Est GFR (CKD-EPI)AfAm Est GFR (CKD-EPI)NonAf POC Glucometer 170 186 Random Glucose Calcium Phosphorus Magnesium Total Bilirubin AST ALT Alkaline Phosphatase Total Protein Albumin Hep Bs Antigen Negative Hep C Ab Diagnostic 0.1 02/06/20 02/07/20 02/07/20 21:59 05:10 05:10 WBC 22.0 H RBC 2.81 L Hgb 8.0 L Hct 25.1 L MCV 89.3 MCH 28.3 MCHC 31.7 L RDW 16.8 H Plt Count 125 L D MPV 8.7 Absolute Neuts (auto) 21.1 H Neutrophils % 96.2 H Neutrophils % (Manual) 96.0 H Band Neutrophils % 0.0 Lymphocytes % 1.1 L D Lymphocytes % (Manual) 1.0 L D Monocytes % 2.4 L Monocytes % (Manual) 3 L Eosinophils % 0.0 Eosinophils % (Manual) 0.0 Basophils % 0.3 Basophils % (Manual) 0.0 Myelocytes % (Man) 0 Promyelocytes % (Man) 0 Blast Cells % (Manual) 0 Nucleated RBC % 0 Metamyelocytes 0 Hypochromia 0 Platelet Estimate Decreased Polychromasia 1+ Poikilocytosis 0 Anisocytosis 1+ Microcytosis 1+ Macrocytosis 0 PTT (Actin FS) 62.0 H Anticoagulation Therapy Puncture Site Patient Temperature ABG pH ABG pCO2 ABG pO2 ABG HCO3 ABG O2 Sat (Measured) ABG O2 Content ABG Base Excess Samson Test Patient On Oxygen O2 Delivery Device Oxygen Flow Rate Vent Mode Vent Rate Mechanical Rate PEEP Pressure Support Vent Sodium Potassium Chloride Carbon Dioxide Anion Gap BUN Creatinine Est GFR (CKD-EPI)AfAm Est GFR (CKD-EPI)NonAf POC Glucometer 181 Random Glucose Calcium Phosphorus Magnesium Total Bilirubin AST ALT Alkaline Phosphatase Total Protein Albumin Hep Bs Antigen Hep C Ab Diagnostic 02/07/20 02/07/20 02/07/20 05:10 05:27 11:34 WBC RBC Hgb Hct MCV MCH MCHC RDW Plt Count MPV Absolute Neuts (auto) Neutrophils % Neutrophils % (Manual) Band Neutrophils % Lymphocytes % Lymphocytes % (Manual) Monocytes % Monocytes % (Manual) Eosinophils % Eosinophils % (Manual) Basophils % Basophils % (Manual) Myelocytes % (Man) Promyelocytes % (Man) Blast Cells % (Manual) Nucleated RBC % Metamyelocytes Hypochromia Platelet Estimate Polychromasia Poikilocytosis Anisocytosis Microcytosis Macrocytosis PTT (Actin FS) Anticoagulation Therapy No Result Required. Puncture Site Arterial line Patient Temperature No Result Required. ABG pH 7.397 ABG pCO2 33.20 L ABG pO2 116.7 H ABG HCO3 20.0 L ABG O2 Sat (Measured) 98.3 H ABG O2 Content No Result Required. ABG Base Excess -4.3 L Samson Test Not applicable Patient On Oxygen Yes O2 Delivery Device Vent Oxygen Flow Rate 40% Vent Mode A/c Vent Rate 14 Mechanical Rate Yes PEEP 5.0 Pressure Support Vent 400 Sodium 136 Potassium 3.2 L Chloride 101 Carbon Dioxide 23 Anion Gap 11 BUN 25.7 H Creatinine 2.1 H Est GFR (CKD-EPI)AfAm 33.45 Est GFR (CKD-EPI)NonAf 28.86 POC Glucometer 101 Random Glucose 124 H Calcium 6.5 L* Phosphorus 2.4 L Magnesium 1.9 Total Bilirubin 0.5 AST 55 H ALT 96 H Alkaline Phosphatase 126 H Total Protein 4.4 L Albumin 1.1 L Hep Bs Antigen Hep C Ab Diagnostic 02/07/20 13:35 WBC RBC Hgb Hct MCV MCH MCHC RDW Plt Count MPV Absolute Neuts (auto) Neutrophils % Neutrophils % (Manual) Band Neutrophils % Lymphocytes % Lymphocytes % (Manual) Monocytes % Monocytes % (Manual) Eosinophils % Eosinophils % (Manual) Basophils % Basophils % (Manual) Myelocytes % (Man) Promyelocytes % (Man) Blast Cells % (Manual) Nucleated RBC % Metamyelocytes Hypochromia Platelet Estimate Polychromasia Poikilocytosis Anisocytosis Microcytosis Macrocytosis PTT (Actin FS) Anticoagulation Therapy No Result Required. Puncture Site Arterial line Patient Temperature No Result Required. ABG pH 7.608 H* ABG pCO2 28.30 L ABG pO2 270.8 H ABG HCO3 27.7 H ABG O2 Sat (Measured) 99.7 H ABG O2 Content No Result Required. ABG Base Excess 6.5 H Samson Test Not applicable Patient On Oxygen Yes O2 Delivery Device Mech/vent Oxygen Flow Rate 100 Vent Mode Ac Vent Rate 8 Mechanical Rate No Result Required. PEEP 5.0 Pressure Support Vent 400 Sodium Potassium Chloride Carbon Dioxide Anion Gap BUN Creatinine Est GFR (CKD-EPI)AfAm Est GFR (CKD-EPI)NonAf POC Glucometer Random Glucose Calcium Phosphorus Magnesium Total Bilirubin AST ALT Alkaline Phosphatase Total Protein Albumin Hep Bs Antigen Hep C Ab Diagnostic Microbiology 02/02/20 14:27 Blood - Peripheral Venous Blood Culture - Final NO GROWTH AFTER 5 DAYS INCUBATION 02/02/20 19:11 Leg - Right Upper Gram Stain - Final 02/02/20 19:11 Leg - Right Upper Wound Culture - Final Escherichia Coli Esbl [employer] Proteus Mirabilis Prevotella Loescheii Enterococcus Faecalis 02/02/20 14:27 Blood - Peripheral Venous Blood Culture - Final Bacteroides Caccae 02/03/20 07:55 Leg - Right Knee Gram Stain - Final 02/03/20 07:55 Leg - Right Knee Wound Culture - Final Lactose Fermenting Neg Bacilli Lactose Fermenting Neg Bacilli#2 Proteus Species 02/02/20 15:20 Urine - Urine Kelly Urine Culture - Final NO GROWTH OBTAINED S1 S2 RRR Lungs decreased Abd- soft, NT AKA right - stump site left toes discoloration PLAN iv antibiotics wound culture mixed HD per renal continue with meds shock liver poor prognosis Problem List - Problems (1) Acute respiratory failure Code(s): J96.00 - ACUTE RESPIRATORY FAILURE, UNSP W HYPOXIA OR HYPERCAPNIA Qualifiers: Respiratory failure complication: hypoxia Qualified Code(s): J96.01 - Acute respiratory failure with hypoxia (2) Septic shock Code(s): A41.9 - SEPSIS, UNSPECIFIED ORGANISM; R65.21 - SEVERE SEPSIS WITH SEPTIC SHOCK (3) Abnormal LFTs Code(s): R94.5 - ABNORMAL RESULTS OF LIVER FUNCTION STUDIES (4) Gangrene of foot Code(s): I96 - GANGRENE, NOT ELSEWHERE CLASSIFIED (5) Sepsis Code(s): A41.9 - SEPSIS, UNSPECIFIED ORGANISM
[2020-02-07] MEDS: NOREPINEPHRINE BITARTRATE 16,000 MCG in SODIUM CHLORIDE 484 ML IV SCH (15:16)
[2020-02-07] MEDS: MIDAZOLAM 100 MG in SODIUM CHLORIDE 100 ML IVPB SCH (15:19)
[2020-02-07] MEDS: PROPOFOL 1,000,000 MCG/100 ML VIAL IVPB SCH (15:20)
[2020-02-07] MEDS ORDERED: DEXTROSE 5%-WATER 100 ML IVPB ONE (15:28)
[2020-02-07] MEDS ORDERED: MEROPENEM 500 MG VIAL (RESTRICTED TO ID) IVPB ONE (15:28)
[2020-02-07] MEDS: MEROPENEM 500 MG in DEXTROSE 5%-WATER 100 ML IVPB SCH (15:31)
--- NOTE | 2020-02-07 15:41 | PN ---
Progress Note, Physician History of Present Illness: Mr. 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 Patient was receiving hemodialysis at the long term when they found him unresponsive. EMS was called; upon arrival the patient was unresponsive, hypotensive. He was started on IVF and norepi nephrine. Upon arrival, the patient was minimally responsive to sternal rub, blood pressure noted to be 50s over 30s, respiring spontaneously; however, unable to obtain an O2 saturation;hypothermic; leukocytotic. He was intubated and a central line was placed in the L femoral artery; Rt femoral arterial line. BGM by EMS 200s Noted to have a packed wound on the right AKA site. - Current Medication List Current Medications: Active Medications Atorvastatin Calcium (Lipitor -) 40 mg PO HS ZOLTAN Last Admin: 02/06/20 21:02 Dose: 40 mg Documented by: Chlorhexidine Gluconate (Hibiclens For Decolonization -) 1 applic TP HS ZOLTAN Last Admin: 02/06/20 21:02 Dose: 1 applic Documented by: Heparin Sodium (Porcine) (Heparin -) 1,000 unit IVPUSH PRN PRN PRN Reason: Heparin Heparin Sodium (Porcine) (Heparin -) 5,000 unit IVPUSH PRN PRN PRN Reason: Heparin Last Admin: 02/03/20 08:41 Dose: 5,000 unit Documented by: Hydrocortisone Sodium Succinate (Solu-Cortef -) 50 mg IVPB Q8H-IV ZOLTAN Norepinephrine Bitartrate 16, (000 mcg/ Sodium Chloride) 500 mls @ 9.375 mls/hr IV TITR [facility]OLTAN; Protocol Last Admin: 02/07/20 15:16 Dose: Not Given Documented by: Midazolam HCl 100 mg/ Sodium (Chloride) 100 mls @ 1 mls/hr IVPB TITR [facility]OLTAN; Protocol Last Admin: 02/07/20 15:19 Dose: Not Given Documented by: Fentanyl (Sublimaze Ivpb) 500 mcg in 100 mls @ 10 mls/hr IVPB TITR ZOLTAN Last Admin: 02/06/20 16:09 Dose: Not Given Documented by: Vasopressin 40 units/ Sodium (Chloride) 100 mls @ 5 mls/hr IVPB ASDIR [facility]; Protocol Last Titration: 02/07/20 02:00 Dose: 2 units/hr, 5 mls/hr Documented by: HEPARIN SOD,PORK IN 0.45% NACL (Heparin-1/2ns 25,000 Units/500) 25,000 unit in 500 mls @ 16 mls/hr IVPB TITR [facility]; Protocol Last Admin: 02/07/20 04:45 Dose: 550 units/hr, 11 mls/hr Documented by: Propofol (Diprivan -) 1,000,000 mcg in 100 mls @ 1.312 mls/hr IVPB TITR [facility]; Protocol Last Admin: 02/07/20 15:20 Dose: Not Given Documented by: Sodium Chloride (Normal Saline -) 250 mls @ 3,000 mls/hr IV PRN PRN PRN Reason: Hypotension during Dialysis Stop: 02/08/20 10:33 Meropenem 500 mg/ Dextrose 100 mls @ 200 mls/hr IVPB Q24H ZOLTAN Last Admin: 02/07/20 15:31 Dose: 200 mls/hr Documented by: Metronidazole (Flagyl 500mg Premixed Ivpb -) 500 mg in 100 mls @ 100 mls/hr IVPB Q8H-IV ZOLTAN Insulin Aspart (Novolog Vial Sliding Scale -) 1 vial SQ ACHS [facility]; Protocol Last Admin: 02/07/20 12:09 Dose: Not Given Documented by: Mupirocin (Bactroban Ointment (For Decolonization) -) 1 applic NS BID [facility] Stop: 02/07/20 21:59 Last Admin: 02/07/20 09:32 Dose: 1 applic Documented by: Pantoprazole Sodium (Protonix Iv) 40 mg IVPUSH DAILY [facility] Last Admin: 02/07/20 09:32 Dose: 40 mg Documented by: - Objective Vital Signs: Vital Signs Temperature 97.4 F L 02/07/20 10:55 Pulse Rate 95 H 02/07/20 13:00 Respiratory Rate 14 02/07/20 13:00 Blood Pressure 123/61 02/07/20 13:00 O2 Sat by Pulse Oximetry (%) 97 02/07/20 12:32 Eyes: Yes: WNL, Conjunctiva Clear, EOM Intact HENT: Yes: WNL, Atraumatic, Normocephalic Neck: Yes: WNL, Supple, Trachea Midline Cardiovascular: Yes: WNL, Regular Rate and Rhythm Respiratory: Yes: WNL, Regular, CTA Bilaterally Gastrointestinal: Yes: WNL, Normal Bowel Sounds Genitourinary: Yes: WNL Musculoskeletal: Yes: WNL Extremities: Yes: Amputation Edema: No Integumentary: Yes: WNL Labs: CBC, BMP 02/07/20 05:10 02/07/20 05:10 INR, PTT INR 1.02 (0.83-1.09) 02/05/20 05:30 Fibrinogen 355.0 mg/dL (238-498) 02/04/20 13:30 Assessment/Plan Septic shock (hypotensive; hypothermic; leukocytosis; unresponsive)-->intubati on, fluids NSTEMI TNI 6.64 Bifascicular AV block; ?PAF ESRD Chronic anemia; quaiac + Gangrenous RLE-->AKA amputation 01/2020 PVD (hx Rt subclavian stent) DM ECHO severely reduced LVSF , mildly dilated RV with reduced systolic FX new from last month R/o PE Plan: On norepinephrine and Vasopressin IVF PRBCs; increase Hb to approximately 10. Start ASA, IV heparin once hematologically stable. High-dose statin On Vancomycin and Zosyn Cardiac w/u when septic shocks resolves however due to CVA , Alzheimer dementia at baseline patient was unable to tolerate a stress test. cc time spent 35 min
[2020-02-07] MEDS: VASOPRESSIN 40 UNITS in SODIUM CHLORIDE 98 ML IVPB SCH ×2 (17:25→20:30)
[2020-02-07] MEDS: FENTANYL IVPB 500 MCG/100 ML BAG IVPB SCH (19:15)
--- NOTE | 2020-02-07 21:26 | PN ---
Physical Exam: SUBJECTIVE: Patient seen and examined. Pt more alert than yesterday on sedation vacation able to respond to commands. Pt had questionable saturation into the 60s so was put back on volume ac. Will try again tomorrow to take out tube. OBJECTIVE: Vital Signs Period Temp Pulse Resp BP Sys/Tapia Pulse Ox Last 24 Hr 96.5 F-98.2 F 57-119 11-27 94-137/40-66 90-100 GENERAL: Intubated and sedated HEAD: Jaw is less mottled. EYES: left pupil dilated and right pupil pinpoint ENT: Auricles normal inspection,normal, nares patent, pt intubated with OG tube LUNGS: Bilateral rhonchi worse on the left. HEART:regular rate and rhythm, normal S1 and S2. Perma cath on left chest ABDOMEN: Soft abdomen EXTREMITIES : Righ and left arm fistula is engorged with no continuous bruit or palpable thrill. Unable to palpate right arm and left arm radial pulse. Pt Left leg has 2+ pulses. 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 With surgical scar and claudia with purulent pustule drainage and now darkening debris. No abscess noted. : genital area is swollen and mottled appearing Laboratory Results - last 24 hr 02/05/20 02/06/20 02/07/20 12:40 21:59 05:10 WBC RBC Hgb Hct MCV MCH MCHC RDW Plt Count MPV Absolute Neuts (auto) Neutrophils % Neutrophils % (Manual) Band Neutrophils % Lymphocytes % Lymphocytes % (Manual) Monocytes % Monocytes % (Manual) Eosinophils % Eosinophils % (Manual) Basophils % Basophils % (Manual) Myelocytes % (Man) Promyelocytes % (Man) Blast Cells % (Manual) Nucleated RBC % Metamyelocytes Hypochromia Platelet Estimate Polychromasia Poikilocytosis Anisocytosis Microcytosis Macrocytosis PTT (Actin FS) 62.0 H Anticoagulation Therapy Puncture Site Patient Temperature ABG pH ABG pCO2 ABG pO2 ABG HCO3 ABG O2 Sat (Measured) ABG O2 Content ABG Base Excess Samson Test Patient On Oxygen O2 Delivery Device Oxygen Flow Rate Vent Mode Vent Rate Mechanical Rate PEEP Pressure Support Vent Sodium Potassium Chloride Carbon Dioxide Anion Gap BUN Creatinine Est GFR (CKD-EPI)AfAm Est GFR (CKD-EPI)NonAf POC Glucometer 181 Random Glucose Calcium Phosphorus Magnesium Total Bilirubin AST ALT Alkaline Phosphatase Total Protein Albumin Hep Bs Antigen Negative Hep C Ab Diagnostic 0.1 02/07/20 02/07/20 02/07/20 05:10 05:10 05:27 WBC 22.0 H RBC 2.81 L Hgb 8.0 L Hct 25.1 L MCV 89.3 MCH 28.3 MCHC 31.7 L RDW 16.8 H Plt Count 125 L D MPV 8.7 Absolute Neuts (auto) 21.1 H Neutrophils % 96.2 H Neutrophils % (Manual) 96.0 H Band Neutrophils % 0.0 Lymphocytes % 1.1 L D Lymphocytes % (Manual) 1.0 L D Monocytes % 2.4 L Monocytes % (Manual) 3 L Eosinophils % 0.0 Eosinophils % (Manual) 0.0 Basophils % 0.3 Basophils % (Manual) 0.0 Myelocytes % (Man) 0 Promyelocytes % (Man) 0 Blast Cells % (Manual) 0 Nucleated RBC % 0 Metamyelocytes 0 Hypochromia 0 Platelet Estimate Decreased Polychromasia 1+ Poikilocytosis 0 Anisocytosis 1+ Microcytosis 1+ Macrocytosis 0 PTT (Actin FS) Anticoagulation Therapy No Result Required. Puncture Site Arterial line Patient Temperature No Result Required. ABG pH 7.397 ABG pCO2 33.20 L ABG pO2 116.7 H ABG HCO3 20.0 L ABG O2 Sat (Measured) 98.3 H ABG O2 Content No Result Required. ABG Base Excess -4.3 L Samson Test Not applicable Patient On Oxygen Yes O2 Delivery Device Vent Oxygen Flow Rate 40% Vent Mode A/c Vent Rate 14 Mechanical Rate Yes PEEP 5.0 Pressure Support Vent 400 Sodium 136 Potassium 3.2 L Chloride 101 Carbon Dioxide 23 Anion Gap 11 BUN 25.7 H Creatinine 2.1 H Est GFR (CKD-EPI)AfAm 33.45 Est GFR (CKD-EPI)NonAf 28.86 POC Glucometer Random Glucose 124 H Calcium 6.5 L* Phosphorus 2.4 L Magnesium 1.9 Total Bilirubin 0.5 AST 55 H ALT 96 H Alkaline Phosphatase 126 H Total Protein 4.4 L Albumin 1.1 L Hep Bs Antigen Hep C Ab Diagnostic 02/07/20 02/07/20 02/07/20 11:34 13:35 17:00 WBC RBC Hgb Hct MCV MCH MCHC RDW Plt Count MPV Absolute Neuts (auto) Neutrophils % Neutrophils % (Manual) Band Neutrophils % Lymphocytes % Lymphocytes % (Manual) Monocytes % Monocytes % (Manual) Eosinophils % Eosinophils % (Manual) Basophils % Basophils % (Manual) Myelocytes % (Man) Promyelocytes % (Man) Blast Cells % (Manual) Nucleated RBC % Metamyelocytes Hypochromia Platelet Estimate Polychromasia Poikilocytosis Anisocytosis Microcytosis Macrocytosis PTT (Actin FS) Anticoagulation Therapy No Result Required. Puncture Site Arterial line Patient Temperature No Result Required. ABG pH 7.608 H* ABG pCO2 28.30 L ABG pO2 270.8 H ABG HCO3 27.7 H ABG O2 Sat (Measured) 99.7 H ABG O2 Content No Result Required. ABG Base Excess 6.5 H Samson Test Not applicable Patient On Oxygen Yes O2 Delivery Device Mech/vent Oxygen Flow Rate 100 Vent Mode Ac Vent Rate 8 Mechanical Rate No Result Required. PEEP 5.0 Pressure Support Vent 400 Sodium Potassium Chloride Carbon Dioxide Anion Gap BUN Creatinine Est GFR (CKD-EPI)AfAm Est GFR (CKD-EPI)NonAf POC Glucometer 101 152 Random Glucose Calcium Phosphorus Magnesium Total Bilirubin AST ALT Alkaline Phosphatase Total Protein Albumin Hep Bs Antigen Hep C Ab Diagnostic Active Medications Generic Name Dose Route Start Last Admin Trade Name Freq PRN Reason Stop Dose Admin Atorvastatin Calcium 40 mg 02/02/20 22:00 02/06/20 21:02 Lipitor - PO 40 mg HS ZOLTAN Administration Chlorhexidine Gluconate 1 applic 02/02/20 22:00 02/06/20 21:02 Hibiclens For Decolonization - TP 1 applic HS ZOLTAN Administration Heparin Sodium (Porcine) 1,000 unit 02/03/20 04:34 Heparin - IVPUSH PRN PRN Heparin Heparin Sodium (Porcine) 5,000 unit 02/03/20 04:34 02/03/20 08:41 Heparin - IVPUSH 5,000 unit PRN PRN Administration Heparin Hydrocortisone Sodium Succinate 50 mg 02/07/20 12:20 02/07/20 17:25 Solu-Cortef - IVPB 50 mg Q8H-IV ZOLTAN Administration Norepinephrine Bitartrate 16, 500 mls @ 9.375 mls/hr 02/02/20 14:45 02/07/20 15:16 000 mcg/ Sodium Chloride IV Not Given TITR ZOLTAN Protocol 5 MCG/MIN Midazolam HCl 100 mg/ Sodium 100 mls @ 1 mls/hr 02/02/20 14:45 02/07/20 15:19 Chloride IVPB Not Given TITR ZOLTAN Protocol 1 MG/HR Fentanyl 500 mcg in 100 mls @ 10 mls/hr 02/02/20 15:45 02/06/20 16:09 Sublimaze Ivpb IVPB Not Given TITR ZOLTAN 1 MCG/KG/HR Vasopressin 40 units/ Sodium 100 mls @ 5 mls/hr 02/02/20 20:30 02/07/20 18:27 Chloride IVPB 1 units/hr ASDIR ZOLTAN 2.5 mls/hr Titration Protocol 2 UNITS/HR HEPARIN SOD,PORK IN 0.45% NACL 25,000 unit in 500 mls @ 16 mls/hr 02/03/20 04:45 02/07/20 04:45 Heparin-1/2ns 25,000 Units/500 IVPB 550 units/hr TITR ZOLTAN 11 mls/hr Administration Protocol 800 UNITS/HR Propofol 1,000,000 mcg in 100 mls @ 1.312 mls/hr 02/03/20 11:45 02/07/20 15:20 Diprivan - IVPB Not Given TITR ZOLTAN Protocol 5 MCG/KG/MIN Sodium Chloride 250 mls @ 3,000 mls/hr 02/07/20 10:33 Normal Saline - IV 02/08/20 10:33 PRN PRN Hypotension during Dialysis Meropenem 500 mg/ Dextrose 100 mls @ 200 mls/hr 02/07/20 14:15 02/07/20 15:31 IVPB 200 mls/hr Q24H ZOLTAN Administration Metronidazole 500 mg in 100 mls @ 100 mls/hr 02/07/20 18:00 02/07/20 17:25 Flagyl 500mg Premixed Ivpb - IVPB 100 mls/hr Q8H-IV ZOLTAN Administration Insulin Aspart 1 vial 02/02/20 22:00 02/07/20 17:08 Novolog Vial Sliding Scale - SQ 2 units ACHS ZOLTAN Administration Protocol Mupirocin 1 applic 02/02/20 22:00 02/07/20 09:32 Bactroban Ointment (For Decolonization) - NS 02/07/20 21:59 1 applic BID ZOLTAN Administration Pantoprazole Sodium 40 mg 02/03/20 19:00 02/07/20 09:32 Protonix Iv IVPUSH 40 mg DAILY ZOLTAN Administration ASSESSMENT/PLAN: 79 yo male with pmh of hx of esrd (,,, last dialysis sat), dm, hl, anemia, htn, dm, pvd, CHF (last echo not known), CVA (50 years ago), 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 Able to respond on command and open eyes. -Pt off sedation to try and wean. Cardiac: ECHO severely reduced LVSF , mildly dilated RV with reduced systolic FX new from last month On Vasopressin 2- Central line placed in right subclavian (02/03/20) IVF PRBCs; increase Hb to approximately 8. Start ASA, IV heparin once hematologically stable. High-dose statin Troponin trended downward with no change in EKG Stress test when sepsis treated appreciate cardiology consult Resp: - Ventilated on settings: Rate 14, Tital volume 400, PEEP 5 FiO2 40%. Will titrate as need be - SpO2>96% - Will get CXR tomorrow - ABG has stabilized. Will monitor if pH dros below 7.15 please give bicarb drip (D5 water 3 amps 1 L H2O 50-75ml/hr) - Stress dose steroid 50mg hydroxycortisone q8hrs (started 02/02- changed 02/06 from 100-50mg) ID - Leukocytosis 25.7 has come down. - PNA vs infected surgical wound (right knee amputation purulent discharge with erythema) - Blood cultures Bacteroides cocci - Wound culture Legionella and gram neg bacilli - Urine culture negative - Likely source of infection due to surgical wound. -Start on meropenem and flaggyl - ID consulted - Surgery consulted for wound-Local wound care daily with wet to dry kerlix. Will consider later wash out. Heme Onc - Hgb 8 no reported melena or hematochezia will give PRBC to keep hgb approx 8 - will repeat CBC in AM to trend hgb Renal - hx of esrd HLD (, , S) thorugh permacath - pt produces minor amount of urine - electrolytes stable - appreciate renal consult - pt was dialyzed (02/06) fluid was taken out due to pt overloaded picture Endo - DM will order sliding scale GI - Pt currently intubated no reported rectal bleeding or melena - will provide GI prophylaxis FEN - Will monitor electrolytes and replete - Prophylaxis - Heparin 5000 TID - SCDs Visit type - Emergency Visit Emergency Visit: Yes ED Registration Date: 02/02/20 Care time: The patient presented to the Emergency Department on the above date and was hospitalized for further evaluation of their emergent condition. - New Patient This patient is new to me today: No - Critical Care Critical Care patient: Yes Total Critical Care Time (in minutes): 36 Critical Care Statement: The care of this patient involved high complexity decision making to prevent further life threatening deterioration of the patient's condition and/or to evaluate & treat vital organ system(s) failure or risk of failure. - Medication Review Med list reviewed for High Risk Meds patients 65 and older: Yes ATTENDING PHYSICIAN STATEMENT I saw and evaluated the patient. I reviewed the resident's note and discussed the case with the resident. I agree with the resident's findings and plan as documented. SUBJECTIVE: OBJECTIVE: ASSESSMENT AND PLAN:
[2020-02-07] MEDS: ATORVASTATIN CA 40 MG TABLET (FP) PO SCH (21:35)
[2020-02-07] MEDS: CHLORHEXIDINE GLUCONATE 4% CLEANSER FOR DECOLONIZATION TP SCH (21:35)
[2020-02-08] MEDS: HYDROCORTISONE SOD SUCCINATE 100 MG/2 ML VIAL IVPB SCH ×3 (01:37→22:11)
[2020-02-08 05:40] LABS: ARTERIAL BLD GAS O2 SATURATION 98.3 mmHg (95-98); ARTERIAL BLOOD GAS BASE EXCESS 1.8 mmol/L (-2-2); ARTERIAL BLOOD GAS PO2 106.7 mmHg (80-100); ARTERIAL BLOOD GAS pH 7.494 (7.350-7.450)
[2020-02-08 05:50] LABS: ALLENS TEST POSITIVE
[2020-02-08 05:51] LABS: VENT MODE A/C; VENT RATE 24
[2020-02-08] MEDS: HEPARIN SOD,PORK IN 0.45% NACL 25,000 UNIT/500 ML INFUS.BAG IVPB SCH (07:00)
[2020-02-08 07:17] LABS: BASO % 0.3 % (0-2.0); HEMATOCRIT 23.8 % (35.4-49); HEMOGLOBIN 7.7 GM/dL (11.7-16.9); LYMPH % 2.1 % (8-40); MCH 29.1 pg (25.7-33.7); MCHC 32.4 g/dl (32.0-35.9); MEAN CELL VOLUME 89.7 fl (80-96); MEAN PLT VOLUME 9.1 fl (7.5-11.1); MONO % 2.1 % (3.8-10.2); NEUT % 95.5 % (42.8-82.8); PLATELET COUNT 94 K/MM3 (134-434); RBC 2.65 M/mm3 (4.00-5.60); RDW 16.2 % (11.9-15.9)
[2020-02-08 07:24] LABS: INR 1.16 (0.83-1.09); PROTHROMBIN TIME (PATIENT) 13.7 SEC (9.7-13.0)
[2020-02-08 07:25] LABS: ACTIVATED PTT 65.4 SECONDS (25.2-36.5)
[2020-02-08 07:28] LABS: ALBUMIN 1.1 g/dl (3.4-5.0); BILIRUBIN,TOTAL 0.8 mg/dL (0.2-1); BLOOD UREA NITROGEN 19.4 mg/dL (7-18); CREATININE 1.5 mg/dL (0.55-1.3); MAGNESIUM 1.8 mg/dL (1.8-2.4); PHOSPHOROUS 1.4 mg/dL (2.5-4.9); TOT PROT 4.2 g/dl (6.4-8.2)
[2020-02-08 07:47] LABS: POTASSIUM 2.9 mmol/L (3.5-5.1)
[2020-02-08 07:48] LABS: CALCIUM 6.7 mg/dL (8.5-10.1)
[2020-02-08] MEDS: INSULIN SLIDING SCALE (NOVOLOG) 1 VIAL SQ SCH ×4 (07:50→22:22)
[2020-02-08] MEDS ORDERED: PT OWN MED DRAWER 7, Y5N ONE ×2 (08:05→12:25)
[2020-02-08] MEDS ORDERED: POTASSIUM CHLORIDE TABS 20 MEQ TABLET.ER (FP) PO ONE ×2 (08:28)
[2020-02-08 08:47] LABS: ANISOCYTOSIS 0; MACROCYTOSIS 0; PLATELET ESTIMATE DECREASED
--- NOTE | 2020-02-08 09:20 | PN ---
Progress Note (short form) - Note Progress Note: Pt seen and examined. Remains intubated/sedated. Was unable to be w eaned/extubated yesterday secondary to hypotension (was receiving HD at the same time). No events overnight per RN. Vital Signs Temp 97.7 F 02/08/20 06:00 Pulse 77 02/08/20 06:00 Resp 25 H 02/08/20 07:49 BP 118/58 L 02/08/20 06:00 Pulse Ox 98 02/08/20 07:49 Intake & Output 02/07/20 02/07/20 02/08/20 11:59 23:59 11:59 Intake Total 580 1406 128 Output Total 260 46034 0 Balance 320 -8726 128 Weight 137 lb 1.6 oz 123 lb 12.8 oz Intake: IV 140 246 88 HEPARIN-1/2NS 25,000 88 176 88 UNITS/500 25,000 unit In 500 ml @ 800 UNITS/HR 16 mls/hr IVPB TITR ZOLTAN Rx#: [id number] Levophed - 16,000 Mcg In 12 Normal Saline - 484 ml @ 5 MCG/MIN 9.375 mls/hr IV TITR ZOLTAN Rx#:[id number] Pitressin - 40 Units In 40 70 Normal Saline - 98 ml @ 2 UNITS/HR 5 mls/hr IVPB ASDIR ZOLTAN Rx#:[id number] IVPB 720 40 Tube Feeding 280 280 Tube Irrigant (Tube 160 160 Feeding Water) Output: Urine 10 0 Kelly 10 0 Fluid Removed, 2400 Hemodialysis Fluid Removed, 260 7722 Hemodialysis Other: Voiding Method Indwelling Catheter Indwelling Catheter Indwelling Catheter Bowel Movement No No Yes Body Mass Index (BMI) 25.0 Weight Measurement Method Built in [facility] Built in [facility] CBC, BMP 02/08/20 05:30 02/08/20 05:30 Gen: intubated, sedated Resp: vented Ext: RLE aka stump open with significant necrotic tissue present, bone exposed, +fibrinous exudate and serous drainage. surrounding skin necrotic (pressor related), anterior portion of skin desquamated wound bed clean. No palpable fluid collection, no crepitus. ?discomfort with dressing change (retracts stump) L foot with stable ischemia of all toes with extension to PIP of great toe with +skin desquamation and serosanguinous drainage. A/P: 79 y/o M w/ PMhx of ESRD (, ,), DM, HLD, diastolic CHF, anemia, Htn, PVD, COPD, s/p CVA many years ago, R AKA on 01/11 now admitted after being found unresponsive at [facility], upon arrival pt noted to be hypothermic, hypoxic, + leukocytosis, Vascular consulted for RLE dehiscence/infection of aka stump. Pt w/ acute hypoxic respiratory failure related to sepsis syndrome/septic shock on pressors, Coronary artery disease with evidence of non-ST segment elevation myocardial infarction/demand ischemic injury pt remains intubated/sedated, planned for weaning trial today r aka stump open, no purulent drainage however wound with significant necrotic tissue and bone exposure Culture-polymicrobial -Daily dressing changes with quarter strength dakins 4x4s/kerlix -Keep dry gauze between toes on lle -IV abx per ID -Vent weaning per ICU -will follow closely d/w attending Dr Hensley
[2020-02-08] MEDS: PANTOPRAZOLE SODIUM 40 MG VIAL IVPUSH SCH (09:21)
[2020-02-08] MEDS ORDERED: POTASSIUM PHOSPHATE 15 MM in SODIUM CHLORIDE 250 ML IVPB ONE (09:28)
--- NOTE | 2020-02-08 11:05 | PN ---
Progress Note (short form) - Note Progress Note: extubated awake no distress on venti mask Vital Signs - 24 hr 02/07/20 02/07/20 02/07/20 11:30 12:00 12:30 Temperature Pulse Rate 79 82 87 Respiratory 14 12 14 Rate Blood Pressure 130/48 L 113/50 L 96/40 L O2 Sat by Pulse Oximetry (%) 02/07/20 02/07/20 02/07/20 12:32 13:00 13:30 Temperature Pulse Rate 95 H 90 Respiratory 11 14 14 Rate Blood Pressure 123/61 110/62 O2 Sat by Pulse 97 Oximetry (%) 02/07/20 02/07/20 02/07/20 14:00 14:30 16:00 Temperature 97.5 F L 96.5 F L Pulse Rate 92 H 90 57 L Respiratory 12 14 24 H Rate Blood Pressure 120/60 134/64 126/52 L O2 Sat by Pulse 100 90 L Oximetry (%) 02/07/20 02/07/20 02/07/20 16:53 17:25 18:00 Temperature 97.2 F L Pulse Rate 90 119 H Respiratory 27 H 24 H Rate Blood Pressure 112/54 L 94/66 O2 Sat by Pulse 100 100 Oximetry (%) 02/07/20 02/07/20 02/07/20 18:27 20:00 20:31 Temperature Pulse Rate 86 82 Respiratory 24 H 24 H Rate Blood Pressure 120/58 L 104/73 O2 Sat by Pulse 100 100 Oximetry (%) 02/07/20 02/07/20 02/08/20 21:00 22:00 00:00 Temperature 98.1 F Pulse Rate 80 82 Respiratory 24 H 24 H 24 H Rate Blood Pressure 121/81 125/44 L O2 Sat by Pulse 100 100 Oximetry (%) 02/08/20 02/08/20 02/08/20 00:16 02:00 04:00 Temperature 97.6 F 97.7 F Pulse Rate 75 77 Respiratory 24 H 24 H 24 H Rate Blood Pressure 119/68 119/64 O2 Sat by Pulse 100 100 Oximetry (%) 02/08/20 02/08/20 02/08/20 04:16 06:00 07:49 Temperature 97.7 F Pulse Rate 77 Respiratory 24 H 24 H 25 H Rate Blood Pressure 118/58 L O2 Sat by Pulse 100 98 Oximetry (%) 02/08/20 02/08/20 02/08/20 08:00 09:00 09:45 Temperature Pulse Rate 85 81 Respiratory 24 H 24 H Rate Blood Pressure 110/54 L O2 Sat by Pulse 94 L 94 L 98 Oximetry (%) 02/08/20 10:00 Temperature 97.5 F L Pulse Rate 87 Respiratory 11 Rate Blood Pressure 124/61 O2 Sat by Pulse 100 Oximetry (%) Current Medications Generic Name Dose Route Start Last Admin Trade Name Freq PRN Reason Stop Dose Admin Atorvastatin Calcium 40 mg 02/02/20 22:00 02/07/20 21:35 Lipitor - PO 40 mg HS ZOLTAN Administration Chlorhexidine Gluconate 1 applic 02/02/20 22:00 02/07/20 21:35 Hibiclens For Decolonization - TP 1 applic HS ZOLTAN Administration Heparin Sodium (Porcine) 1,000 unit 02/03/20 04:34 Heparin - IVPUSH PRN PRN Heparin Heparin Sodium (Porcine) 5,000 unit 02/03/20 04:34 02/03/20 08:41 Heparin - IVPUSH 5,000 unit PRN PRN Administration Heparin Hydrocortisone Sodium Succinate 50 mg 02/07/20 12:20 02/08/20 09:21 Solu-Cortef - IVPB 50 mg Q8H-IV ZOLTAN Administration Norepinephrine Bitartrate 16, 500 mls @ 9.375 mls/hr 02/02/20 14:45 02/07/20 15:16 000 mcg/ Sodium Chloride IV Not Given TITR ZOLTAN Protocol 5 MCG/MIN Midazolam HCl 100 mg/ Sodium 100 mls @ 1 mls/hr 02/02/20 14:45 02/07/20 15:19 Chloride IVPB Not Given TITR ZOLTAN Protocol 1 MG/HR Fentanyl 500 mcg in 100 mls @ 10 mls/hr 02/02/20 15:45 02/07/20 19:15 Sublimaze Ivpb IVPB Not Given TITR ZOLTAN 1 MCG/KG/HR Vasopressin 40 units/ Sodium 100 mls @ 5 mls/hr 02/02/20 20:30 02/08/20 02:00 Chloride IVPB 0.5 units/hr ASDIR ZOLTAN 1.25 mls/hr Titration Protocol 2 UNITS/HR HEPARIN SOD,PORK IN 0.45% NACL 25,000 unit in 500 mls @ 16 mls/hr 02/03/20 04:45 02/08/20 07:00 Heparin-1/2ns 25,000 Units/500 IVPB 550 units/hr TITR ZOLTAN 11 mls/hr Administration Protocol 800 UNITS/HR Propofol 1,000,000 mcg in 100 mls @ 1.312 mls/hr 02/03/20 11:45 02/07/20 15:20 Diprivan - IVPB Not Given TITR ZOLTAN Protocol 5 MCG/KG/MIN Sodium Chloride 250 mls @ 3,000 mls/hr 02/07/20 10:33 Normal Saline - IV 02/08/20 10:33 PRN PRN Hypotension during Dialysis Meropenem 500 mg/ Dextrose 100 mls @ 200 mls/hr 02/07/20 14:15 02/07/20 15:31 IVPB 200 mls/hr Q24H ZOLTAN Administration Metronidazole 500 mg in 100 mls @ 100 mls/hr 02/07/20 18:00 02/08/20 09:21 Flagyl 500mg Premixed Ivpb - IVPB 100 mls/hr Q8H-IV ZOLTAN Administration Potassium Phosphate 15 mm/ 255 mls @ 63.75 mls/hr 02/08/20 09:28 02/08/20 10:20 Sodium Chloride IVPB 02/08/20 13:27 63.75 mls/hr ONCE ONE Administration 15 MM/4 HR Insulin Aspart 1 vial 02/02/20 22:00 02/08/20 07:50 Novolog Vial Sliding Scale - SQ Not Given ACHS ZOLTAN Protocol Pantoprazole Sodium 40 mg 02/03/20 19:00 02/08/20 09:21 Protonix Iv IVPUSH 40 mg DAILY ZOLTAN Administration Laboratory Results - last 24 hr 02/07/20 02/07/20 02/07/20 11:34 13:35 17:00 WBC RBC Hgb Hct MCV MCH MCHC RDW Plt Count MPV Absolute Neuts (auto) Neutrophils % Neutrophils % (Manual) Band Neutrophils % Lymphocytes % Lymphocytes % (Manual) Monocytes % Monocytes % (Manual) Eosinophils % Eosinophils % (Manual) Basophils % Basophils % (Manual) Myelocytes % (Man) Promyelocytes % (Man) Blast Cells % (Manual) Nucleated RBC % Metamyelocytes Hypochromia Platelet Estimate Polychromasia Poikilocytosis Anisocytosis Microcytosis Macrocytosis PT with INR INR PTT (Actin FS) Anticoagulation Therapy No Result Required. Puncture Site Arterial line Patient Temperature No Result Required. ABG pH 7.608 H* ABG pCO2 28.30 L ABG pO2 270.8 H ABG HCO3 27.7 H ABG O2 Sat (Measured) 99.7 H ABG O2 Content No Result Required. ABG Base Excess 6.5 H Samson Test Not applicable Patient On Oxygen Yes O2 Delivery Device Mech/vent Oxygen Flow Rate 100 Vent Mode Ac Vent Rate 8 Mechanical Rate No Result Required. PEEP 5.0 Pressure Support Vent 400 Sodium Potassium Chloride Carbon Dioxide Anion Gap BUN Creatinine Est GFR (CKD-EPI)AfAm Est GFR (CKD-EPI)NonAf POC Glucometer 101 152 Random Glucose Calcium Phosphorus Magnesium Total Bilirubin AST ALT Alkaline Phosphatase Total Protein Albumin 02/07/20 02/08/20 02/08/20 22:42 05:25 05:30 WBC RBC Hgb Hct MCV MCH MCHC RDW Plt Count MPV Absolute Neuts (auto) Neutrophils % Neutrophils % (Manual) Band Neutrophils % Lymphocytes % Lymphocytes % (Manual) Monocytes % Monocytes % (Manual) Eosinophils % Eosinophils % (Manual) Basophils % Basophils % (Manual) Myelocytes % (Man) Promyelocytes % (Man) Blast Cells % (Manual) Nucleated RBC % Metamyelocytes Hypochromia Platelet Estimate Polychromasia Poikilocytosis Anisocytosis Microcytosis Macrocytosis PT with INR 13.70 H INR 1.16 H PTT (Actin FS) 65.4 H Anticoagulation Therapy No Result Required. Puncture Site Arterial line Patient Temperature No Result Required. ABG pH 7.494 H ABG pCO2 33.00 L ABG pO2 106.7 H ABG HCO3 24.8 ABG O2 Sat (Measured) 98.3 H ABG O2 Content No Result Required. ABG Base Excess 1.8 Samson Test Positive Patient On Oxygen Yes O2 Delivery Device Vent Oxygen Flow Rate 50% Vent Mode A/c Vent Rate 24 Mechanical Rate No Result Required. PEEP 5.0 Pressure Support Vent 400 Sodium Potassium Chloride Carbon Dioxide Anion Gap BUN Creatinine Est GFR (CKD-EPI)AfAm Est GFR (CKD-EPI)NonAf POC Glucometer 124 Random Glucose Calcium Phosphorus Magnesium Total Bilirubin AST ALT Alkaline Phosphatase Total Protein Albumin 02/08/20 02/08/20 02/08/20 05:30 05:30 10:40 WBC 16.0 H RBC 2.65 L Hgb 7.7 L Hct 23.8 L MCV 89.7 MCH 29.1 MCHC 32.4 RDW 16.2 H Plt Count 94 L D MPV 9.1 Absolute Neuts (auto) 15.3 H Neutrophils % 95.5 H Neutrophils % (Manual) 94.0 H Band Neutrophils % 4.0 Lymphocytes % 2.1 L D Lymphocytes % (Manual) 1.0 L Monocytes % 2.1 L Monocytes % (Manual) 0 L D Eosinophils % 0.0 Eosinophils % (Manual) 0.0 Basophils % 0.3 Basophils % (Manual) 0.0 Myelocytes % (Man) 1 D Promyelocytes % (Man) 0 Blast Cells % (Manual) 0 Nucleated RBC % 0 Metamyelocytes 0 Hypochromia 0 Platelet Estimate Decreased Polychromasia 0 Poikilocytosis 0 Anisocytosis 0 Microcytosis 0 Macrocytosis 0 PT with INR INR PTT (Actin FS) Anticoagulation Therapy Puncture Site Patient Temperature ABG pH ABG pCO2 ABG pO2 ABG HCO3 ABG O2 Sat (Measured) ABG O2 Content ABG Base Excess Samson Test Patient On Oxygen O2 Delivery Device Oxygen Flow Rate Vent Mode Vent Rate Mechanical Rate PEEP Pressure Support Vent Sodium 140 Potassium 2.9 L* Chloride 105 Carbon Dioxide 28 Anion Gap 7 L BUN 19.4 H Creatinine 1.5 H Est GFR (CKD-EPI)AfAm 50.24 Est GFR (CKD-EPI)NonAf 43.35 POC Glucometer 159 Random Glucose 150 H Calcium 6.7 L* Phosphorus 1.4 L Magnesium 1.8 Total Bilirubin 0.8 AST 54 H ALT 71 H Alkaline Phosphatase 141 H Total Protein 4.2 L Albumin 1.1 L Microbiology 02/03/20 07:55 Gram Stain - Final Leg - Right Knee Wound Culture - Final Lactose Fermenting Neg Bacilli Lactose Fermenting Neg Bacilli#2 Proteus Species 02/02/20 14:27 Blood Culture - Final Blood - Peripheral Venous NO GROWTH AFTER 5 DAYS INCUBATION 02/02/20 19:11 Gram Stain - Final Leg - Right Upper Wound Culture - Final Escherichia Coli Esbl 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 Proteus Mirabilis Prevotella Loescheii Enterococcus Faecalis S1 S2 RRR Lungs decreased Abd- soft, NT AKA right - stump site left toes discoloration PLAN iv antibiotics wound culture mixed HD per renal continue with meds shock liver-- LFT better guarded prognosis replace potassium pt is DNR Problem List - Problems (1) Acute respiratory failure Code(s): J96.00 - ACUTE RESPIRATORY FAILURE, UNSP W HYPOXIA OR HYPERCAPNIA Qualifiers: Qualified Code(s): J96.01 - Acute respiratory failure with hypoxia (2) Septic shock Code(s): A41.9 - SEPSIS, UNSPECIFIED ORGANISM; R65.21 - SEVERE SEPSIS WITH SEPTIC SHOCK (3) Abnormal LFTs Code(s): R94.5 - ABNORMAL RESULTS OF LIVER FUNCTION STUDIES (4) Gangrene of foot Code(s): I96 - GANGRENE, NOT ELSEWHERE CLASSIFIED (5) Sepsis Code(s): A41.9 - SEPSIS, UNSPECIFIED ORGANISM
[2020-02-08] MEDS ORDERED: MEROPENEM 500 MG VIAL (RESTRICTED TO ID) IVPB ONE (12:24)
[2020-02-08] MEDS ORDERED: DEXTROSE 5%-WATER 100 ML IVPB ONE (12:25)
[2020-02-08] MEDS: PROPOFOL 1,000,000 MCG/100 ML VIAL IVPB SCH (12:30)
[2020-02-08] MEDS: SODIUM HYPOCHLORITE 0.25%- 473 ML BULK BOTTLE TP SCH (12:31)
--- NOTE | 2020-02-08 12:39 | PN ---
Teaching Attending Note Name of Resident: Osman Blanco ATTENDING PHYSICIAN STATEMENT I saw and evaluated the patient. I reviewed the resident's note and discussed the case with the resident. I agree with the resident's findings and plan as documented. SUBJECTIVE: Pt seen and examined in the ICU. Remains intubated, off pressors. Good cough with suctioning, placed on CPAP/PS with good respiratory effort and RSBI so subsequently extubated to ventimask. Post extubation, noted to have increased bloody secretions on suctioning with desaturations now on NRB. OBJECTIVE: Vital Signs Period Temp Pulse Resp BP Sys/Tapia Pulse Ox Last 24 Hr 96.5 F-98.1 F 57-119 10-27 94-137/44-81 90-100 Intake & Output 02/05/20 02/06/20 02/07/20 02/08/20 23:59 23:59 23:59 23:59 Intake Total 3398 1799 1986 128 Output Total 1078 10 81216 0 Balance 2320 1789 -8406 128 Weight 55.928 kg 60.146 kg 62.188 kg 56.155 kg Gen: intubated, sedated Heart: RRR Lung: scattered rhonchi Abd: soft, nontender Ext: stump wrapped, left foot ischemic CBC, BMP 02/08/20 05:30 02/08/20 05:30 Active Medications Atorvastatin Calcium (Lipitor -) 40 mg PO HS [facility]TAN Last Admin: 02/07/20 21:35 Dose: 40 mg Documented by: Chlorhexidine Gluconate (Hibiclens For Decolonization -) 1 applic TP HS ZOLTAN Last Admin: 02/07/20 21:35 Dose: 1 applic Documented by: Heparin Sodium (Porcine) (Heparin -) 1,000 unit IVPUSH PRN PRN PRN Reason: Heparin Heparin Sodium (Porcine) (Heparin -) 5,000 unit IVPUSH PRN PRN PRN Reason: Heparin Last Admin: 02/03/20 08:41 Dose: 5,000 unit Documented by: Hydrocortisone Sodium Succinate (Solu-Cortef -) 50 mg IVPB Q8H-IV [facility]AN Last Admin: 02/08/20 09:21 Dose: 50 mg Documented by: Norepinephrine Bitartrate 16, (000 mcg/ Sodium Chloride) 500 mls @ 9.375 mls/hr IV TITR [facility]; Protocol Last Admin: 02/07/20 15:16 Dose: Not Given Documented by: Midazolam HCl 100 mg/ Sodium (Chloride) 100 mls @ 1 mls/hr IVPB TITR [facility]; Protocol Last Admin: 02/07/20 15:19 Dose: Not Given Documented by: Fentanyl (Sublimaze Ivpb) 500 mcg in 100 mls @ 10 mls/hr IVPB TITR [facility] Last Admin: 02/07/20 19:15 Dose: Not Given Documented by: Vasopressin 40 units/ Sodium (Chloride) 100 mls @ 5 mls/hr IVPB ASDIR [facility]; Protocol Last Titration: 02/08/20 02:00 Dose: 0.5 units/hr, 1.25 mls/hr Documented by: HEPARIN SOD,PORK IN 0.45% NACL (Heparin-1/2ns 25,000 Units/500) 25,000 unit in 500 mls @ 16 mls/hr IVPB TITR [facility]; Protocol Last Admin: 02/08/20 07:00 Dose: 550 units/hr, 11 mls/hr Documented by: Propofol (Diprivan -) 1,000,000 mcg in 100 mls @ 1.312 mls/hr IVPB TITR [facility]; Protocol Last Admin: 02/08/20 12:30 Dose: Not Given Documented by: Sodium Chloride (Normal Saline -) 250 mls @ 3,000 mls/hr IV PRN PRN PRN Reason: Hypotension during Dialysis Stop: 02/08/20 10:33 Meropenem 500 mg/ Dextrose 100 mls @ 200 mls/hr IVPB Q24H [facility] Last Admin: 02/07/20 15:31 Dose: 200 mls/hr Documented by: Metronidazole (Flagyl 500mg Premixed Ivpb -) 500 mg in 100 mls @ 100 mls/hr IVPB Q8H-IV [facility] Last Admin: 02/08/20 09:21 Dose: 100 mls/hr Documented by: Potassium Phosphate 15 mm/ (Sodium Chloride) 255 mls @ 63.75 mls/hr IVPB ONCE ONE Stop: 02/08/20 13:27 Last Admin: 02/08/20 10:20 Dose: 63.75 mls/hr Documented by: Insulin Aspart (Novolog Vial Sliding Scale -) 1 vial SQ ACHS [facility]; Protocol Last Admin: 02/08/20 11:41 Dose: 2 units Documented by: Pantoprazole Sodium (Protonix Iv) 40 mg IVPUSH DAILY [facility] Last Admin: 02/08/20 09:21 Dose: 40 mg Documented by: Sodium Hypochlorite (Dakin's Solution 0.25% (Half-Strength) -) 1 applic TP DAILY [facility] Last Admin: 02/08/20 12:31 Dose: 1 applic Documented by: ASSESSMENT AND PLAN: Acute Respiratory Failure Recent R AKA Stump Infection Septic Shock Lactic Acidosis Acute NSTEMI ESRD on HD PAD DM Anemia - pt extubated - continue antibiotics - wound care - off pressors, maintain MAP >65 - taper stress dose steroids - titrate FiO2 to keep SpO2 >90% - monitor H/H - aspiration precautions - DVT/GI prophylaxis - continue ICU monitoring critical care time spent in reviewing chart, evaluating patient and formulating plan 35 min
[2020-02-08] MEDS: MEROPENEM 500 MG in DEXTROSE 5%-WATER 100 ML IVPB SCH (13:15)
--- NOTE | 2020-02-08 13:24 | PN ---
Progress Note, Physician History of Present Illness: Mr. 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 [facility]. EMS was called; upon arrival the patient was unresponsive, hypotensive. He was started on IVF and norepi nephrine. Upon arrival, the patient was minimally responsive to sternal rub, blood pressure noted to be 50s over 30s, respiring spontaneously; however, unable to obtain an O2 saturation;hypothermic; leukocytotic. He was intubated and a central line was placed in the L femoral artery; Rt femoral arterial line. BGM by EMS 200s Noted to have a packed wound on the right AKA site. - Current Medication List Current Medications: Active Medications Atorvastatin Calcium (Lipitor -) 40 mg PO HS [facility]OLTAN Last Admin: 02/07/20 21:35 Dose: 40 mg Documented by: Chlorhexidine Gluconate (Hibiclens For Decolonization -) 1 applic TP HS [facility] Last Admin: 02/07/20 21:35 Dose: 1 applic Documented by: Heparin Sodium (Porcine) (Heparin -) 1,000 unit IVPUSH PRN PRN PRN Reason: Heparin Heparin Sodium (Porcine) (Heparin -) 5,000 unit IVPUSH PRN PRN PRN Reason: Heparin Last Admin: 02/03/20 08:41 Dose: 5,000 unit Documented by: Hydrocortisone Sodium Succinate (Solu-Cortef -) 50 mg IVPB Q12H [facility] Norepinephrine Bitartrate 16, (000 mcg/ Sodium Chloride) 500 mls @ 9.375 mls/hr IV TITR [facility]; Protocol Last Admin: 02/07/20 15:16 Dose: Not Given Documented by: Midazolam HCl 100 mg/ Sodium (Chloride) 100 mls @ 1 mls/hr IVPB TITR [facility]; Protocol Last Admin: 02/07/20 15:19 Dose: Not Given Documented by: Fentanyl (Sublimaze Ivpb) 500 mcg in 100 mls @ 10 mls/hr IVPB TITR [facility] Last Admin: 02/07/20 19:15 Dose: Not Given Documented by: Vasopressin 40 units/ Sodium (Chloride) 100 mls @ 5 mls/hr IVPB ASDIR [facility]; Protocol Last Titration: 02/08/20 02:00 Dose: 0.5 units/hr, 1.25 mls/hr Documented by: HEPARIN SOD,PORK IN 0.45% NACL (Heparin-1/2ns 25,000 Units/500) 25,000 unit in 500 mls @ 16 mls/hr IVPB TITR [facility]; Protocol Last Admin: 02/08/20 07:00 Dose: 550 units/hr, 11 mls/hr Documented by: Propofol (Diprivan -) 1,000,000 mcg in 100 mls @ 1.312 mls/hr IVPB TITR [facility]; Protocol Last Admin: 02/08/20 12:30 Dose: Not Given Documented by: Sodium Chloride (Normal Saline -) 250 mls @ 3,000 mls/hr IV PRN PRN PRN Reason: Hypotension during Dialysis Stop: 02/08/20 10:33 Meropenem 500 mg/ Dextrose 100 mls @ 200 mls/hr IVPB Q24H [facility] Last Admin: 02/07/20 15:31 Dose: 200 mls/hr Documented by: Metronidazole (Flagyl 500mg Premixed Ivpb -) 500 mg in 100 mls @ 100 mls/hr IVPB Q8H-IV [facility] Last Admin: 02/08/20 09:21 Dose: 100 mls/hr Documented by: Potassium Phosphate 15 mm/ (Sodium Chloride) 255 mls @ 63.75 mls/hr IVPB ONCE ONE Stop: 02/08/20 13:27 Last Admin: 02/08/20 10:20 Dose: 63.75 mls/hr Documented by: Insulin Aspart (Novolog Vial Sliding Scale -) 1 vial SQ ACHS [facility]; Protocol Last Admin: 02/08/20 11:41 Dose: 2 units Documented by: Pantoprazole Sodium (Protonix Iv) 40 mg IVPUSH DAILY [facility] Last Admin: 02/08/20 09:21 Dose: 40 mg Documented by: Sodium Hypochlorite (Dakin's Solution 0.25% (Half-Strength) -) 1 applic TP DAILY [facility] Last Admin: 02/08/20 12:31 Dose: 1 applic Documented by: - Objective Vital Signs: Vital Signs Temperature 97.5 F L 02/08/20 10:00 Pulse Rate 87 02/08/20 12:00 Respiratory Rate 10 02/08/20 12:00 Blood Pressure 110/46 L 02/08/20 12:00 O2 Sat by Pulse Oximetry (%) 100 02/08/20 12:00 Eyes: Yes: WNL, Conjunctiva Clear, EOM Intact HENT: Yes: WNL, Atraumatic, Normocephalic Neck: Yes: WNL, Supple, Trachea Midline Cardiovascular: Yes: WNL, Regular Rate and Rhythm Respiratory: Yes: Diminished, Intubated, Mechanically Ventilated Gastrointestinal: Yes: WNL, Normal Bowel Sounds Genitourinary: Yes: WNL Musculoskeletal: Yes: WNL Extremities: Yes: Amputation Edema: No Integumentary: Yes: WNL Neurological: Yes: WNL, Alert, Oriented ...Motor Strength: WNL Psychiatric: Yes: WNL Labs: CBC, BMP 02/08/20 05:30 02/08/20 05:30 INR, PTT INR 1.16 (0.83-1.09) H 02/08/20 05:30 Fibrinogen 355.0 mg/dL (238-498) 02/04/20 13:30 Assessment/Plan Septic shock (hypotensive; hypothermic; leukocytosis; unresponsive)-->intub ation, fluids NSTEMI TNI 6.64 Bifascicular AV block; ?PAF ESRD Chronic anemia; quaiac + Gangrenous RLE-->AKA amputation 01/2020 PVD (hx Rt subclavian stent) DM ECHO severely reduced LVSF , mildly dilated RV with reduced systolic FX new from last month R/o PE off pressors Plan: IVF PRBCs; increase Hb to approximately 10. Start ASA, IV heparin once hematologically stable. High-dose statin On Vancomycin and Zosyn Cardiac w/u when septic shocks resolves however due to CVA , Alzheimer dementia at baseline patient was unable to tolerate a stress test. cc time spent 35 min
--- NOTE | 2020-02-08 14:59 | PN ---
Progress Note (short form) - Note Progress Note: RENAL Pt has been extubated Last Vital Signs Temp Pulse Resp BP Pulse Ox 97.5 F L 87 10 110/46 L 100 02/08/20 10:00 02/08/20 12:00 02/08/20 12:00 02/08/20 12:00 02/08/20 12:00 lungs bilat air entry cvs s1s2 rr +CONOR abd soft ext s/p AKA, stump infected, left foot ischemic neuro sedated, nods yes however CBC, BMP 02/08/20 05:30 02/08/20 05:30 Current Medications Generic Name Dose Route Start Last Admin Trade Name Freq PRN Reason Stop Dose Admin Atorvastatin Calcium 40 mg 02/02/20 22:00 02/07/20 21:35 Lipitor - PO 40 mg HS ZOLTAN Administration Chlorhexidine Gluconate 1 applic 02/02/20 22:00 02/07/20 21:35 Hibiclens For Decolonization - TP 1 applic HS [facility] Administration Heparin Sodium (Porcine) 1,000 unit 02/03/20 04:34 Heparin - IVPUSH PRN PRN Heparin Heparin Sodium (Porcine) 5,000 unit 02/03/20 04:34 02/03/20 08:41 Heparin - IVPUSH 5,000 unit PRN PRN Administration Heparin Hydrocortisone Sodium Succinate 50 mg 02/08/20 22:00 Solu-Cortef - IVPB Q12H [facility] Norepinephrine Bitartrate 16, 500 mls @ 9.375 mls/hr 02/02/20 14:45 02/07/20 15:16 000 mcg/ Sodium Chloride IV Not Given TITR [facility] Protocol 5 MCG/MIN Midazolam HCl 100 mg/ Sodium 100 mls @ 1 mls/hr 02/02/20 14:45 02/07/20 15:19 Chloride IVPB Not Given TITR [facility] Protocol 1 MG/HR Fentanyl 500 mcg in 100 mls @ 10 mls/hr 02/02/20 15:45 02/07/20 19:15 Sublimaze Ivpb IVPB Not Given TITR [facility] 1 MCG/KG/HR Vasopressin 40 units/ Sodium 100 mls @ 5 mls/hr 02/02/20 20:30 02/08/20 02:00 Chloride IVPB 0.5 units/hr ASDIR [facility] 1.25 mls/hr Titration Protocol 2 UNITS/HR HEPARIN SOD,PORK IN 0.45% NACL 25,000 unit in 500 mls @ 16 mls/hr 02/03/20 04:45 02/08/20 07:00 Heparin-1/2ns 25,000 Units/500 IVPB 550 units/hr TITR [facility] 11 mls/hr Administration Protocol 800 UNITS/HR Propofol 1,000,000 mcg in 100 mls @ 1.312 mls/hr 02/03/20 11:45 02/08/20 12:30 Diprivan - IVPB Not Given TITR [facility] Protocol 5 MCG/KG/MIN Sodium Chloride 250 mls @ 3,000 mls/hr 02/07/20 10:33 Normal Saline - IV 02/08/20 10:33 PRN PRN Hypotension during Dialysis Meropenem 500 mg/ Dextrose 100 mls @ 200 mls/hr 02/07/20 14:15 02/08/20 13:15 IVPB 200 mls/hr Q24H [facility] Administration Metronidazole 500 mg in 100 mls @ 100 mls/hr 02/07/20 18:00 02/08/20 09:21 Flagyl 500mg Premixed Ivpb - IVPB 100 mls/hr Q8H-IV [facility] Administration Insulin Aspart 1 vial 02/02/20 22:00 02/08/20 11:41 Novolog Vial Sliding Scale - SQ 2 units ACHS [facility] Administration Protocol Pantoprazole Sodium 40 mg 02/03/20 19:00 02/08/20 09:21 Protonix Iv IVPUSH 40 mg DAILY [facility] Administration Sodium Hypochlorite 1 applic 02/08/20 11:45 02/08/20 12:31 Dakin's Solution 0.25% (Half-Strength) - TP 1 applic DAILY [facility] Administration impression 1. ESRD on HD 2. sepsis 3. hx covid 4. CHF 5. DM 6. anemia 7. s/p right aka with stump infection 8. shock 9. NSTEMI 10. acute resp failure requiring intubation 11. metabolic and respiratory acidosis Plan will dialyze tomorrow l will give CARROLL replace k MV
[2020-02-08] MEDS ORDERED: SODIUM CHLORIDE 250 ML IV PRN (15:03)
[2020-02-08] MEDS: MIDAZOLAM 100 MG in SODIUM CHLORIDE 100 ML IVPB SCH (17:07)
[2020-02-08] MEDS: NOREPINEPHRINE BITARTRATE 16,000 MCG in SODIUM CHLORIDE 484 ML IV SCH (17:07)
[2020-02-08] MEDS: FENTANYL IVPB 500 MCG/100 ML BAG IVPB SCH (17:07)
--- NOTE | 2020-02-08 19:33 | PN ---
Physical Exam: SUBJECTIVE: Patient seen and examined. Pt was extubated today and minimally responding to command on hiflow. Pt has signed a DNI form along with DNR form. OBJECTIVE: GENERAL:Pt on hiflow, minimally responsive to command HEAD: NCAT. EYES: left pupil dilated and right pupil pinpoint ENT: Auricles normal inspection,normal, nares patent, pt intubated with OG tube LUNGS: Bilateral rhonchi worse on the left. HEART:regular rate and rhythm, normal S1 and S2. Perma cath on left chest ABDOMEN: Soft abdomen EXTREMITIES : Righ and left arm fistula is engorged with no continuous bruit or palpable thrill. Unable to palpate right arm and left arm radial pulse. Pt Left leg has 2+ pulses. 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 With surgical scar and claudia with purulent pustule drainage and now darkening debris and bone. No abscess noted. : genital area is swollen and mottled appearing Vital Signs Period Temp Pulse Resp BP Sys/Tapia Pulse Ox Last 24 Hr 97.5 F-98.1 F 75-91 9-25 104-140/35-81 94-100 Laboratory Results - last 24 hr 02/07/20 02/08/20 02/08/20 22:42 05:25 05:30 WBC RBC Hgb Hct MCV MCH MCHC RDW Plt Count MPV Absolute Neuts (auto) Neutrophils % Neutrophils % (Manual) Band Neutrophils % Lymphocytes % Lymphocytes % (Manual) Monocytes % Monocytes % (Manual) Eosinophils % Eosinophils % (Manual) Basophils % Basophils % (Manual) Myelocytes % (Man) Promyelocytes % (Man) Blast Cells % (Manual) Nucleated RBC % Metamyelocytes Hypochromia Platelet Estimate Polychromasia Poikilocytosis Anisocytosis Microcytosis Macrocytosis PT with INR 13.70 H INR 1.16 H PTT (Actin FS) 65.4 H Anticoagulation Therapy No Result Required. Puncture Site Arterial line Patient Temperature No Result Required. ABG pH 7.494 H ABG pCO2 33.00 L ABG pO2 106.7 H ABG HCO3 24.8 ABG O2 Sat (Measured) 98.3 H ABG O2 Content No Result Required. ABG Base Excess 1.8 Samson Test Positive Patient On Oxygen Yes O2 Delivery Device Vent Oxygen Flow Rate 50% Vent Mode A/c Vent Rate 24 Mechanical Rate No Result Required. PEEP 5.0 Pressure Support Vent 400 Sodium Potassium Chloride Carbon Dioxide Anion Gap BUN Creatinine Est GFR (CKD-EPI)AfAm Est GFR (CKD-EPI)NonAf POC Glucometer 124 Random Glucose Calcium Phosphorus Magnesium Total Bilirubin AST ALT Alkaline Phosphatase Total Protein Albumin 02/08/20 02/08/20 02/08/20 05:30 05:30 10:40 WBC 16.0 H RBC 2.65 L Hgb 7.7 L Hct 23.8 L MCV 89.7 MCH 29.1 MCHC 32.4 RDW 16.2 H Plt Count 94 L D MPV 9.1 Absolute Neuts (auto) 15.3 H Neutrophils % 95.5 H Neutrophils % (Manual) 94.0 H Band Neutrophils % 4.0 Lymphocytes % 2.1 L D Lymphocytes % (Manual) 1.0 L Monocytes % 2.1 L Monocytes % (Manual) 0 L D Eosinophils % 0.0 Eosinophils % (Manual) 0.0 Basophils % 0.3 Basophils % (Manual) 0.0 Myelocytes % (Man) 1 D Promyelocytes % (Man) 0 Blast Cells % (Manual) 0 Nucleated RBC % 0 Metamyelocytes 0 Hypochromia 0 Platelet Estimate Decreased Polychromasia 0 Poikilocytosis 0 Anisocytosis 0 Microcytosis 0 Macrocytosis 0 PT with INR INR PTT (Actin FS) Anticoagulation Therapy Puncture Site Patient Temperature ABG pH ABG pCO2 ABG pO2 ABG HCO3 ABG O2 Sat (Measured) ABG O2 Content ABG Base Excess Samson Test Patient On Oxygen O2 Delivery Device Oxygen Flow Rate Vent Mode Vent Rate Mechanical Rate PEEP Pressure Support Vent Sodium 140 Potassium 2.9 L* Chloride 105 Carbon Dioxide 28 Anion Gap 7 L BUN 19.4 H Creatinine 1.5 H Est GFR (CKD-EPI)AfAm 50.24 Est GFR (CKD-EPI)NonAf 43.35 POC Glucometer 159 Random Glucose 150 H Calcium 6.7 L* Phosphorus 1.4 L Magnesium 1.8 Total Bilirubin 0.8 AST 54 H ALT 71 H Alkaline Phosphatase 141 H Total Protein 4.2 L Albumin 1.1 L 02/08/20 16:17 WBC RBC Hgb Hct MCV MCH MCHC RDW Plt Count MPV Absolute Neuts (auto) Neutrophils % Neutrophils % (Manual) Band Neutrophils % Lymphocytes % Lymphocytes % (Manual) Monocytes % Monocytes % (Manual) Eosinophils % Eosinophils % (Manual) Basophils % Basophils % (Manual) Myelocytes % (Man) Promyelocytes % (Man) Blast Cells % (Manual) Nucleated RBC % Metamyelocytes Hypochromia Platelet Estimate Polychromasia Poikilocytosis Anisocytosis Microcytosis Macrocytosis PT with INR INR PTT (Actin FS) Anticoagulation Therapy Puncture Site Patient Temperature ABG pH ABG pCO2 ABG pO2 ABG HCO3 ABG O2 Sat (Measured) ABG O2 Content ABG Base Excess Samson Test Patient On Oxygen O2 Delivery Device Oxygen Flow Rate Vent Mode Vent Rate Mechanical Rate PEEP Pressure Support Vent Sodium Potassium Chloride Carbon Dioxide Anion Gap BUN Creatinine Est GFR (CKD-EPI)AfAm Est GFR (CKD-EPI)NonAf POC Glucometer 166 Random Glucose Calcium Phosphorus Magnesium Total Bilirubin AST ALT Alkaline Phosphatase Total Protein Albumin Active Medications Generic Name Dose Route Start Last Admin Trade Name Freq PRN Reason Stop Dose Admin Atorvastatin Calcium 40 mg 02/02/20 22:00 02/07/20 21:35 Lipitor - PO 40 mg HS ZOLTAN Administration Chlorhexidine Gluconate 1 applic 02/02/20 22:00 02/07/20 21:35 Hibiclens For Decolonization - TP 1 applic HS [facility] Administration Heparin Sodium (Porcine) 1,000 unit 02/03/20 04:34 Heparin - IVPUSH PRN PRN Heparin Heparin Sodium (Porcine) 5,000 unit 02/03/20 04:34 02/03/20 08:41 Heparin - IVPUSH 5,000 unit PRN PRN Administration Heparin Hydrocortisone Sodium Succinate 50 mg 02/08/20 22:00 Solu-Cortef - IVPB Q12H [facility] Norepinephrine Bitartrate 16, 500 mls @ 9.375 mls/hr 02/02/20 14:45 02/08/20 17:07 000 mcg/ Sodium Chloride IV Not Given TITR [facility] Protocol 5 MCG/MIN Midazolam HCl 100 mg/ Sodium 100 mls @ 1 mls/hr 02/02/20 14:45 02/08/20 17:07 Chloride IVPB Not Given TITR [facility] Protocol 1 MG/HR Fentanyl 500 mcg in 100 mls @ 10 mls/hr 02/02/20 15:45 02/08/20 17:07 Sublimaze Ivpb IVPB Not Given TITR [facility] 1 MCG/KG/HR Vasopressin 40 units/ Sodium 100 mls @ 5 mls/hr 02/02/20 20:30 02/08/20 02:00 Chloride IVPB 0.5 units/hr ASDIR [facility] 1.25 mls/hr Titration Protocol 2 UNITS/HR HEPARIN SOD,PORK IN 0.45% NACL 25,000 unit in 500 mls @ 16 mls/hr 02/03/20 04:45 02/08/20 07:00 Heparin-1/2ns 25,000 Units/500 IVPB 550 units/hr TITR [facility] 11 mls/hr Administration Protocol 800 UNITS/HR Propofol 1,000,000 mcg in 100 mls @ 1.312 mls/hr 02/03/20 11:45 02/08/20 12:30 Diprivan - IVPB Not Given TITR [facility] Protocol 5 MCG/KG/MIN Sodium Chloride 250 mls @ 3,000 mls/hr 02/07/20 10:33 Normal Saline - IV 02/08/20 10:33 PRN PRN Hypotension during Dialysis Meropenem 500 mg/ Dextrose 100 mls @ 200 mls/hr 02/07/20 14:15 02/08/20 13:15 IVPB 200 mls/hr Q24H [facility] Administration Metronidazole 500 mg in 100 mls @ 100 mls/hr 02/07/20 18:00 02/08/20 17:06 Flagyl 500mg Premixed Ivpb - IVPB 100 mls/hr Q8H-IV [facility] Administration Sodium Chloride 250 mls @ 3,000 mls/hr 02/08/20 15:03 Normal Saline - IV 02/09/20 15:03 PRN PRN Hypotension during Dialysis Insulin Aspart 1 vial 02/02/20 22:00 02/08/20 16:18 Novolog Vial Sliding Scale - SQ 2 units ACHS [facility] Administration Protocol Pantoprazole Sodium 40 mg 02/03/20 19:00 02/08/20 09:21 Protonix Iv IVPUSH 40 mg DAILY [facility] Administration Sodium Hypochlorite 1 applic 02/08/20 11:45 02/08/20 12:31 Dakin's Solution 0.25% (Half-Strength) - TP 1 applic DAILY [facility] Administration ASSESSMENT/PLAN: 79 yo male with pmh of hx of esrd (,Th,Sa, last dialysis sat), dm, hl, anemia, htn, dm, pvd, CHF (last echo not known), CVA (50 years ago), s/p R AKA on 01/11 with recent admission 01/02-01/15 for right foot gangreen BIB[facility] from [facility] ED because pt was found unresponsive at around 2:30 today with Bp in 39/17 Sepsis 2/2 PNA vs R amputation wound infection Neuro - Pt is off sedation and now extubated Cardiac: ECHO severely reduced LVSF , mildly dilated RV with reduced systolic FX new from last month Pt not on any pressors. Central line placed in right subclavian (02/03/20) IVF PRBCs; increase Hb to approximately 8. Start ASA, IV heparin once hematologically stable. High-dose statin Troponin trended downward with no change in EKG Stress test when sepsis treated appreciate cardiology consult Resp: - Pt off vent and now on high flow - SpO2>96% - Will get CXR tomorrow - ABG has stabilized. Will monitor if pH dros below 7.15 please give bicarb drip (D5 water 3 amps 1 L H2O 50-75ml/hr) - Stress dose steroid 50mg hydroxycortisone q8hrs (started 02/02- changed 02/06 from 100-50mg) ID - Leukocytosis 16 has come down. - PNA vs infected surgical wound (right knee amputation purulent discharge with erythema) - Blood cultures Bacteroides cocci - Wound culture Legionella and gram neg bacilli - Urine culture negative - Likely source of infection due to surgical wound. -Start on meropenem and flaggyl - ID consulted - Surgery consulted for wound-Local wound care daily with wet to dry kerlix. Will consider later wash out. Heme Onc - Hgb 7.7 no reported melena or hematochezia will give PRBC to keep hgb approx 8 - will repeat CBC in AM to trend hgb Renal - hx of esrd HLD (t, , S) thorugh permacath - pt produces minor amount of urine - appreciate renal consult - pt was dialyzed (02/06) fluid was taken out due to pt overloaded picture -Pt will be dialyzed tomorrow Endo - DM will order sliding scale GI - Pt currently intubated no reported rectal bleeding or melena - will provide GI prophylaxis FEN - Will monitor electrolytes and replete - K 2.9 today gave 60 PO potassium Prophylaxis - Heparin 5000 TID - SCDs Visit type - Emergency Visit Emergency Visit: Yes ED Registration Date: 02/02/20 Care time: The patient presented to the Emergency Department on the above date and was hospitalized for further evaluation of their emergent condition. - New Patient This patient is new to me today: No - Critical Care Critical Care patient: Yes Total Critical Care Time (in minutes): 36 Critical Care Statement: The care of this patient involved high complexity decision making to prevent further life threatening deterioration of the patien t's condition and/or to evaluate & treat vital organ system(s) failure or risk of failure. - Medication Review Med list reviewed for High Risk Meds patients 65 and older: Yes ATTENDING PHYSICIAN STATEMENT I saw and evaluated the patient. I reviewed the resident's note and discussed the case with the resident. I agree with the resident's findings and plan as documented. SUBJECTIVE: OBJECTIVE: ASSESSMENT AND PLAN:
[2020-02-08] MEDS ORDERED: INSULIN (NOVOLOG) ASPART 100 UNITS/ML 10ML VIAL ONE (21:18)
[2020-02-08] MEDS ORDERED: ALBUTEROL SO4 2.5/IPRATROPIUM 0.5 INH SOL 3 ML VIAL.NEB. NEB PRN (21:29)
--- NOTE | 2020-02-08 21:53 | PN ---
Progress Note, Physician History of Present Illness: EXTUBATED AFEBRILE WBC IMPROVED THROMBOCYTOPENIC WOUND C/S MIXED ORGANISMS INCL ESBL BC BACTEROIDES - Current Medication List Current Medications: Active Medications Albuterol/Ipratropium (Duoneb -) 1 amp NEB Q4H PRN PRN Reason: WHEEZING Atorvastatin Calcium (Lipitor -) 40 mg PO HS ZOLTAN Last Admin: 02/07/20 21:35 Dose: 40 mg Documented by: Chlorhexidine Gluconate (Hibiclens For Decolonization -) 1 applic TP HS ZOLTAN Last Admin: 02/07/20 21:35 Dose: 1 applic Documented by: Heparin Sodium (Porcine) (Heparin -) 1,000 unit IVPUSH PRN PRN PRN Reason: Heparin Heparin Sodium (Porcine) (Heparin -) 5,000 unit IVPUSH PRN PRN PRN Reason: Heparin Last Admin: 02/03/20 08:41 Dose: 5,000 unit Documented by: Hydrocortisone Sodium Succinate (Solu-Cortef -) 50 mg IVPB Q12H ZOLTAN Norepinephrine Bitartrate 16, (000 mcg/ Sodium Chloride) 500 mls @ 9.375 mls/hr IV TITR [facility]; Protocol Last Admin: 02/08/20 17:07 Dose: Not Given Documented by: Midazolam HCl 100 mg/ Sodium (Chloride) 100 mls @ 1 mls/hr IVPB TITR [facility]; Protocol Last Admin: 02/08/20 17:07 Dose: Not Given Documented by: Fentanyl (Sublimaze Ivpb) 500 mcg in 100 mls @ 10 mls/hr IVPB TITR [facility]OL[facility]AN Last Admin: 02/08/20 17:07 Dose: Not Given Documented by: Vasopressin 40 units/ Sodium (Chloride) 100 mls @ 5 mls/hr IVPB ASDIR [facility]; Protocol Last Titration: 02/08/20 02:00 Dose: 0.5 units/hr, 1.25 mls/hr Documented by: HEPARIN SOD,PORK IN 0.45% NACL (Heparin-1/2ns 25,000 Units/500) 25,000 unit in 500 mls @ 16 mls/hr IVPB TITR [facility]; Protocol Last Admin: 02/08/20 07:00 Dose: 550 units/hr, 11 mls/hr Documented by: Propofol (Diprivan -) 1,000,000 mcg in 100 mls @ 1.312 mls/hr IVPB TITR [facility]; Protocol Last Admin: 02/08/20 12:30 Dose: Not Given Documented by: Sodium Chloride (Normal Saline -) 250 mls @ 3,000 mls/hr IV PRN PRN PRN Reason: Hypotension during Dialysis Stop: 02/08/20 10:33 Meropenem 500 mg/ Dextrose 100 mls @ 200 mls/hr IVPB Q24H ZOLTAN Last Admin: 02/08/20 13:15 Dose: 200 mls/hr Documented by: Metronidazole (Flagyl 500mg Premixed Ivpb -) 500 mg in 100 mls @ 100 mls/hr IVPB Q8H-IV ZOLTAN Last Admin: 02/08/20 17:06 Dose: 100 mls/hr Documented by: Sodium Chloride (Normal Saline -) 250 mls @ 3,000 mls/hr IV PRN PRN PRN Reason: Hypotension during Dialysis Stop: 02/09/20 15:03 Insulin Aspart (Novolog Vial Sliding Scale -) 1 vial SQ ACHS [facility]; Protocol Last Admin: 02/08/20 16:18 Dose: 2 units Documented by: Pantoprazole Sodium (Protonix Iv) 40 mg IVPUSH DAILY [facility] Last Admin: 02/08/20 09:21 Dose: 40 mg Documented by: Sodium Hypochlorite (Dakin's Solution 0.25% (Half-Strength) -) 1 applic TP DAILY [facility] Last Admin: 02/08/20 12:31 Dose: 1 applic Documented by: - Objective Vital Signs: Vital Signs Temperature 97.5 F L 02/08/20 14:00 Pulse Rate 90 02/08/20 18:00 Respiratory Rate 14 02/08/20 18:00 Blood Pressure 135/60 02/08/20 18:00 O2 Sat by Pulse Oximetry (%) 100 02/08/20 18:00 Constitutional: Yes: No Distress Eyes: Yes: Conjunctiva Clear Cardiovascular: Yes: Regular Rate and Rhythm, S1, S2 Respiratory: Yes: Diminished Extremities: Yes: Other (R AKA STUMP OPEN WITH DRAINAGE) Labs: CBC, BMP 02/08/20 05:30 02/08/20 05:30 INR, PTT INR 1.16 (0.83-1.09) H 02/08/20 05:30 Fibrinogen 355.0 mg/dL (238-498) 02/04/20 13:30 Assessment/Plan SEPSIS, SEPTIC SHOCK ANAEROBIC BACTEREMIA INFECTED AKA STUMP SITE ESRD LEUKOCYTOSIS IMPROVED ELEVATED LFTS IMPROVED CONTINUE MEROPENEM/ FLAGYL, ADJUSTED FOR ESRD PROGNOSIS POOR
[2020-02-08] MEDS: VASOPRESSIN 40 UNITS in SODIUM CHLORIDE 98 ML IVPB SCH (22:11)
[2020-02-08] MEDS: CHLORHEXIDINE GLUCONATE 4% CLEANSER FOR DECOLONIZATION TP SCH (22:12)
[2020-02-08] MEDS: ATORVASTATIN CA 40 MG TABLET (FP) PO SCH (22:15)
[2020-02-09] MEDS: NOREPINEPHRINE BITARTRATE 16,000 MCG in SODIUM CHLORIDE 484 ML IV SCH ×2 (00:30→14:45)
--- NOTE | 2020-02-09 01:23 | PDOC ---
*Physical Exam - Vital Signs Last Vital Signs Temp Pulse Resp BP Pulse Ox 97.5 F L 106 H 18 89/18 L 92 L 02/08/20 14:00 02/09/20 00:40 02/08/20 22:00 02/09/20 00:40 02/08/20 22:00 ED Treatment Course - LABORATORY CBC & Chemistry Diagram: 02/08/20 05:30 02/08/20 05:30 - ADDITIONAL ORDERS Additional order review: 02/02/20 14:27 Blood Culture - Final Blood - Peripheral Venous NO GROWTH AFTER 5 DAYS INCUBATION 02/02/20 14:27 Blood Culture - Final Blood - Peripheral Venous Bacteroides Caccae 02/02/20 15:20 Urine Culture - Final Urine - Urine Kelly NO GROWTH OBTAINED 02/02/20 14:27 RBC 2.66 L MCV 91.5 MCHC 30.0 L RDW 16.4 H MPV 7.9 D Neutrophils % 94.9 H Lymphocytes % 2.3 L D Monocytes % 2.7 L Eosinophils % 0.0 D Basophils % 0.1 - Medications Given in the ED: ED Medications Discontinued Medications Generic Name Dose Route Start Last Admin Trade Name Mishaq PRN Reason Stop Dose Admin Aspirin 325 mg 02/03/20 10:15 02/03/20 10:27 Asa - PO 02/03/20 10:16 325 mg ONCE ONE Administration Dextrose 25 gm 02/03/20 11:12 02/03/20 12:02 D50w (Vial) - IVPUSH 02/03/20 11:13 25 gm NOW ONE Administration Etomidate 20 mg 02/02/20 14:31 02/02/20 14:36 Amidate - IVPUSH 02/02/20 14:32 20 mg ONCE ONE Administration Heparin Sodium (Porcine) 5,000 unit 02/02/20 22:00 02/02/20 22:40 Heparin - SQ 5,000 unit TID ZOLTAN Administration Hydrocortisone Sodium Succinate 100 mg 02/03/20 12:00 02/07/20 09:32 Solu-Cortef - IVPB 100 mg Q8H-IV ZOLTAN Administration Hydrocortisone Sodium Succinate 50 mg 02/07/20 12:20 02/08/20 09:21 Solu-Cortef - IVPB 50 mg Q8H-IV ZOLTAN Administration Piperacillin Sod/Tazobactam 100 mls @ 200 mls/hr 02/02/20 14:50 02/02/20 15:47 Sod 4.5 gm/ Dextrose IVPB 02/02/20 15:19 200 mls/hr ONCE ONE Administration Protocol Dopamine HCl/Dextrose 400,000 mcg in 250 mls @ 9.375 mls/hr 02/02/20 16:15 02/02/20 16:59 Dopamine 400 Mg/D5w - IVPB 5 mcg/kg/min TITR ZOLTAN 9.375 mls/hr Administration Protocol 5 MCG/KG/MIN Potassium Chloride 10 meq in 100 mls @ 100 mls/hr 02/02/20 19:30 02/02/20 23:18 Potassium Chloride 10 Meq Premix Ivpb - IVPB 02/02/20 22:29 100 mls/hr Q60M ZOLTAN Administration Piperacillin Sod/Tazobactam 100 mls @ 200 mls/hr 02/03/20 02:50 02/03/20 03:30 Sod 4.5 gm/ Dextrose IVPB 02/03/20 03:19 200 mls/hr ONCE ONE Administration Protocol Vancomycin HCl 750 mg/ 250 mls @ 250 mls/hr 02/03/20 16:00 02/03/20 16:37 Dextrose IVPB 02/03/20 16:59 250 mls/hr ONCE ONE Administration Protocol Piperacillin Sod/Tazobactam 50 mls @ 100 mls/hr 02/03/20 12:00 02/07/20 09:31 Sod 2.25 gm/ Dextrose IVPB 100 mls/hr Q8H-IV ZOLTAN Administration Protocol Vancomycin HCl 1,000 mg in 250 mls @ 166.667 mls/hr 02/03/20 12:15 02/03/20 12:23 Vancomycin (Pre-Docked) IVPB 02/03/20 13:44 166.667 mls/hr ONCE ONE Administration Protocol Sodium Chloride 250 mls @ 250 mls/hr 02/03/20 13:59 02/03/20 14:31 Normal Saline - IV 02/03/20 14:58 250 mls/hr ASDIR STA Administration Potassium Chloride 10 meq in 100 mls @ 100 mls/hr 02/06/20 16:15 02/06/20 16:32 Potassium Chloride 10 Meq Premix Ivpb - IVPB 02/06/20 17:14 100 mls/hr Q60M ZOLTAN Administration Potassium Chloride 10 meq in 100 mls @ 100 mls/hr 02/07/20 08:45 02/07/20 08:46 Potassium Chloride 10 Meq Premix Ivpb - IVPB 02/07/20 09:44 100 mls/hr Q60M ZOLTAN Administration Potassium Phosphate 15 mm/ 255 mls @ 63.75 mls/hr 02/08/20 09:28 02/08/20 10:20 Sodium Chloride IVPB 02/08/20 13:27 63.75 mls/hr ONCE ONE Administration 15 MM/4 HR Lactated Ringer's 1,000 ml 02/02/20 15:43 02/02/20 15:47 Lactated Ringers Solution IV 02/02/20 15:44 1,000 ml ONCE ONE Administration Lactated Ringer's 1,000 ml 02/02/20 21:22 02/02/20 21:42 Lactated Ringers Solution IV 02/02/20 21:23 1,000 ml ONCE ONE Administration Lactated Ringer's 500 ml 02/03/20 08:40 02/03/20 08:56 Lactated Ringers Solution IV 02/03/20 08:41 500 ml ONCE ONE Administration Magnesium Sulfate 2 gm 02/03/20 02:08 02/03/20 03:25 Magnesium Sulf 2 G/50 Ml Bag IVPB 02/03/20 02:09 2 gm ONCE ONE Administration Mupirocin 1 applic 02/02/20 22:00 02/07/20 09:32 Bactroban Ointment (For Decolonization) - NS 02/07/20 21:59 1 applic BID ZOLTAN Administration Rocuronium [place] 50 mg 02/02/20 14:30 02/02/20 14:36 Zemuron - IV 02/02/20 14:31 50 mg ONCE ONE Administration Sodium Chloride 1,000 ml 02/02/20 15:04 02/02/20 15:47 Normal Saline - IV 02/02/20 15:05 1,000 ml ONCE ONE Administration Vancomycin HCl 1,000 mg 02/02/20 14:50 02/02/20 16:05 Vancomycin (Pre-Docked) IVPB 02/02/20 14:51 1,000 mg ONCE ONE Administration Protocol Medical Decision Making - Medical Decision Making 02/09/20 01:22 Femoral Arterial Line Procedure Note INDICATION: accurate BP readings PROCEDURE KAIAKO KURA [place]AUPAPA MAORI: Dr Duque ATTENDING PHYSICIAN: Dr Colon PROCEDURE SUMMARY: The R inguinal region was prepped using chlorhexidine scrub and draped in sterile fashion. The femoral pulse was identified with ultrasound. The introducer needle was inserted into the femoral artery. Arterial blood was withdrawn. The syringe was removed and a guidewire was advanced through the needle into the femoral artery. The needle was exchanged over the wire for an arterial catheter. The wire was removed and the catheter was secured to the skin using a suture. The patient tolerated the procedure without any complications, minimal blood loss Discharge - Discharge Information Problems reviewed: Yes Clinical Impression/Diagnosis: Septic shock Acute respiratory failure Qualifiers: Respiratory failure complication: hypoxia Qualified Code(s): J96.01 - Acute respiratory failure with hypoxia Condition: Critical - Follow up/Referral - Patient Discharge Instructions - Post Discharge Activity
[2020-02-09] MEDS: HEPARIN SOD,PORK IN 0.45% NACL 25,000 UNIT/500 ML INFUS.BAG IVPB SCH (05:09)
[2020-02-09 06:12] LABS: ARTERIAL BLOOD GAS PO2 254.7 mmHg (80-100)
[2020-02-09 06:40] LABS: ARTERIAL BLOOD GAS PCO2 > 148.50 mmHg (35-45); ARTERIAL BLOOD GAS pH 6.851 (7.350-7.450)
[2020-02-09] MEDS ORDERED: SODIUM BICARBONATE 8.4% 50 MEQ/50 ML DISP.SYRIN IVPUSH ONE ×3 (06:40→08:58)
[2020-02-09] MEDS: INSULIN SLIDING SCALE (NOVOLOG) 1 VIAL SQ SCH ×2 (07:00→13:50)
[2020-02-09 07:24] LABS: BASO % 0.1 % (0-2.0); HEMATOCRIT 27.1 % (35.4-49); HEMOGLOBIN 8.2 GM/dL (11.7-16.9); LYMPH % 0.6 % (8-40); MCH 28.2 pg (25.7-33.7); MCHC 30.2 g/dl (32.0-35.9); MEAN CELL VOLUME 93.6 fl (80-96); MEAN PLT VOLUME 8.9 fl (7.5-11.1); MONO % 1.4 % (3.8-10.2); NEUT % 97.9 % (42.8-82.8); PLATELET COUNT 166 K/MM3 (134-434); RDW 17.4 % (11.9-15.9); WHITE BLOOD COUNT 29.3 K/mm3 (4.0-10.0)
[2020-02-09 07:38] LABS: INR 1.2 (0.83-1.09); PROTHROMBIN TIME (PATIENT) 14.2 SEC (9.7-13.0)
[2020-02-09 08:15] LABS: ALBUMIN 1.2 g/dl (3.4-5.0); BILIRUBIN,TOTAL 0.4 mg/dL (0.2-1); BLOOD UREA NITROGEN 28.2 mg/dL (7-18); CREATININE 1.9 mg/dL (0.55-1.3); PHOSPHOROUS 5.7 mg/dL (2.5-4.9); POTASSIUM 3.8 mmol/L (3.5-5.1); TOT PROT 4.7 g/dl (6.4-8.2)
[2020-02-09] MEDS ORDERED: SODIUM BICARBONATE 8.4% - 150 MEQ in DEXTROSE 5%-WATER - 950 ML IVPB SCH ×3 (08:15→09:00)
[2020-02-09] MEDS ORDERED: SODIUM BICARBONATE 8.4% - 100 ML ONE (08:30)
[2020-02-09 08:33] LABS: CALCIUM 6.6 mg/dL (8.5-10.1)
[2020-02-09] MEDS ORDERED: WATER IVPB SCH (08:36)
[2020-02-09] MEDS ORDERED: SODIUM BICARBONATE IVPB SCH (08:36)
[2020-02-09] MEDS ORDERED: DEXTROSE 5% IVPB SCH (08:36)
[2020-02-09 08:40] LABS: ACTIVATED PTT 221.9 SECONDS (25.2-36.5)
[2020-02-09] MEDS: PANTOPRAZOLE SODIUM 40 MG VIAL IVPUSH SCH (09:35)
--- NOTE | 2020-02-09 10:11 | PN ---
Progress Note (short form) - Note Progress Note: RENAL remains extubated but not interactive Last Vital Signs Temp Pulse Resp BP Pulse Ox 97.5 F L 88 20 59/32 L 98 02/08/20 14:00 02/09/20 08:00 02/09/20 08:00 02/09/20 08:00 02/09/20 08:00 lungs bilat air entry cvs s1s2 rr +CONOR abd soft ext s/p AKA, stump infected, left foot ischemic neuro sedated, nods yes however CBC, BMP 02/09/20 05:31 02/09/20 05:31 Current Medications Generic Name Dose Route Start Last Admin Trade Name Freq PRN Reason Stop Dose Admin Albuterol/Ipratropium 1 amp 02/08/20 21:29 Duoneb - NEB Q4H PRN WHEEZING Atorvastatin Calcium 40 mg 02/02/20 22:00 02/08/20 22:15 Lipitor - PO Not Given HS ZOLTAN Chlorhexidine Gluconate 1 applic 02/02/20 22:00 02/08/20 22:12 Hibiclens For Decolonization - TP 1 applic HS ZOLTAN Administration Heparin Sodium (Porcine) 1,000 unit 02/03/20 04:34 Heparin - IVPUSH PRN PRN Heparin Heparin Sodium (Porcine) 5,000 unit 02/03/20 04:34 02/03/20 08:41 Heparin - IVPUSH 5,000 unit PRN PRN Administration Heparin Hydrocortisone Sodium Succinate 50 mg 02/08/20 22:00 02/08/20 22:11 Solu-Cortef - IVPB 50 mg Q12H ZOLTAN Administration Norepinephrine Bitartrate 16, 500 mls @ 9.375 mls/hr 02/02/20 14:45 02/09/20 01:30 000 mcg/ Sodium Chloride IV 6 mcg/min TITR ZOLTAN 11.25 mls/hr Titration Protocol 5 MCG/MIN Midazolam HCl 100 mg/ Sodium 100 mls @ 1 mls/hr 02/02/20 14:45 02/08/20 17:07 Chloride IVPB Not Given TITR [facility]OLTAN Protocol 1 MG/HR Fentanyl 500 mcg in 100 mls @ 10 mls/hr 02/02/20 15:45 02/08/20 17:07 Sublimaze Ivpb IVPB Not Given TITR ZOLTAN 1 MCG/KG/HR Vasopressin 40 units/ Sodium 100 mls @ 5 mls/hr 02/02/20 20:30 02/08/20 23:30 Chloride IVPB 6 units/hr ASDIR ZOLTAN 15 mls/hr Titration Protocol 2 UNITS/HR HEPARIN SOD,PORK IN 0.45% NACL 25,000 unit in 500 mls @ 16 mls/hr 02/03/20 04:45 02/09/20 05:09 Heparin-1/2ns 25,000 Units/500 IVPB Not Given TITR ZOLTAN Protocol 800 UNITS/HR Propofol 1,000,000 mcg in 100 mls @ 1.312 mls/hr 02/03/20 11:45 02/08/20 1 2:30 Diprivan - IVPB Not Given TITR ZOLTAN Protocol 5 MCG/KG/MIN Sodium Chloride 250 mls @ 3,000 mls/hr 02/07/20 10:33 Normal Saline - IV 02/08/20 10:33 PRN PRN Hypotension during Dialysis Meropenem 500 mg/ Dextrose 100 mls @ 200 mls/hr 02/07/20 14:15 02/08/20 13:15 IVPB 200 mls/hr Q24H ZOLTAN Administration Metronidazole 500 mg in 100 mls @ 100 mls/hr 02/07/20 18:00 02/09/20 09:37 Flagyl 500mg Premixed Ivpb - IVPB 100 mls/hr Q8H-IV [facility]OLTAN Administration Sodium Chloride 250 mls @ 3,000 mls/hr 02/08/20 15:03 Normal Saline - IV 02/09/20 15:03 PRN PRN Hypotension during Dialysis Sodium Bicarbonate 150 meq/ 1,100 mls @ 125 mls/hr 02/09/20 09:00 02/09/20 09:30 Dextrose IVPB 125 mls/hr Q8H ZOLTAN Administration Insulin Aspart 1 vial 02/02/20 22:00 02/08/20 22:22 Novolog Vial Sliding Scale - SQ 2 units ACHS [facility]OLTAN Administration Protocol Pantoprazole Sodium 40 mg 02/03/20 19:00 02/09/20 09:35 Protonix Iv IVPUSH 40 mg DAILY [facility]AN Administration Sodium Hypochlorite 1 applic 02/08/20 11:45 02/08/20 12:31 Dakin's Solution 0.25% (Half-Strength) - TP 1 applic DAILY [facility] Administration impression 1. ESRD on HD 2. sepsis 3. hx covid 4. CHF 5. DM 6. anemia 7. s/p right aka with stump infection 8. shock 9. NSTEMI 10. acute resp failure requiring intubation 11. sever respiratory acidosis Plan attempt hd today l will give CARROLL replace k bicarb will not help resp acidosis MV
[2020-02-09] MEDS: HYDROCORTISONE SOD SUCCINATE 100 MG/2 ML VIAL IVPB SCH (10:42)
[2020-02-09 11:12] LABS: ANISOCYTOSIS 0; MACROCYTOSIS 0; PLATELET ESTIMATE NORMAL
--- NOTE | 2020-02-09 12:53 | PN ---
Teaching Attending Note Name of Resident: Osman Blanco ATTENDING PHYSICIAN STATEMENT I saw and evaluated the patient. I reviewed the resident's note and discussed the case with the resident. I agree with the resident's findings and plan as documented. SUBJECTIVE: Pt seen and examined in the ICU. Remains on levophed, vasopressin gtts. ABG with severe respiratory acidosis but pt made DNI by family. OBJECTIVE: Vital Signs Period Temp Pulse Resp BP Sys/Tapia Pulse Ox Last 24 Hr 97.5 F-97.8 F 83-125 9-22 56-140/14-62 92-100 Intake & Output 02/06/20 02/07/20 02/08/20 02/09/20 23:59 23:59 23:59 23:59 Intake Total 1799 1986 460 412 Output Total 10 18071 0 0 Balance 1789 -8406 460 412 Weight 60.146 kg 62.188 kg 56.155 kg Gen: lethargic Heart: RRR Lung: scattered rhonchi Abd: soft, nontender Ext: stump wrapped, left foot ischemic CBC, BMP 02/09/20 05:31 02/09/20 05:31 Active Medications Albuterol/Ipratropium (Duoneb -) 1 amp NEB Q4H PRN PRN Reason: WHEEZING Atorvastatin Calcium (Lipitor -) 40 mg PO HS [facility]TAN Last Admin: 02/08/20 22:15 Dose: Not Given Documented by: Chlorhexidine Gluconate (Hibiclens For Decolonization -) 1 applic TP HS [facility]TAN Last Admin: 02/08/20 22:12 Dose: 1 applic Documented by: Heparin Sodium (Porcine) (Heparin -) 1,000 unit IVPUSH PRN PRN PRN Reason: Heparin Heparin Sodium (Porcine) (Heparin -) 5,000 unit IVPUSH PRN PRN PRN Reason: Heparin Last Admin: 02/03/20 08:41 Dose: 5,000 unit Documented by: Hydrocortisone Sodium Succinate (Solu-Cortef -) 50 mg IVPB Q12H [facility] Last Admin: 02/08/20 22:11 Dose: 50 mg Documented by: Norepinephrine Bitartrate 16, (000 mcg/ Sodium Chloride) 500 mls @ 9.375 mls/hr IV TITR [facility]; Protocol Last Titration: 02/09/20 01:30 Dose: 6 mcg/min, 11.25 mls/hr Documented by: Midazolam HCl 100 mg/ Sodium (Chloride) 100 mls @ 1 mls/hr IVPB TITR [facility]; Protocol Last Admin: 02/08/20 17:07 Dose: Not Given Documented by: Fentanyl (Sublimaze Ivpb) 500 mcg in 100 mls @ 10 mls/hr IVPB TITR [facility] Last Admin: 02/08/20 17:07 Dose: Not Given Documented by: Vasopressin 40 units/ Sodium (Chloride) 100 mls @ 5 mls/hr IVPB ASDIR [facility]; Protocol Last Titration: 02/08/20 23:30 Dose: 6 units/hr, 15 mls/hr Documented by: HEPARIN SOD,PORK IN 0.45% NACL (Heparin-1/2ns 25,000 Units/500) 25,000 unit in 500 mls @ 16 mls/hr IVPB TITR [facility]; Protocol Last Admin: 02/09/20 05:09 Dose: Not Given Documented by: Propofol (Diprivan -) 1,000,000 mcg in 100 mls @ 1.312 mls/hr IVPB TITR [facility]; Protocol Last Admin: 02/08/20 12:30 Dose: Not Given Documented by: Sodium Chloride (Normal Saline -) 250 mls @ 3,000 mls/hr IV PRN PRN PRN Reason: Hypotension during Dialysis Stop: 02/08/20 10:33 Meropenem 500 mg/ Dextrose 100 mls @ 200 mls/hr IVPB Q24H [facility] Last Admin: 02/08/20 13:15 Dose: 200 mls/hr Documented by: Metronidazole (Flagyl 500mg Premixed Ivpb -) 500 mg in 100 mls @ 100 mls/hr IVPB Q8H-IV [facility] Last Admin: 02/09/20 09:37 Dose: 100 mls/hr Documented by: Sodium Chloride (Normal Saline -) 250 mls @ 3,000 mls/hr IV PRN PRN PRN Reason: Hypotension during Dialysis Stop: 02/09/20 15:03 Insulin Aspart (Novolog Vial Sliding Scale -) 1 vial SQ ACHS [facility]; Protocol Last Admin: 02/08/20 22:22 Dose: 2 units Documented by: Pantoprazole Sodium (Protonix Iv) 40 mg IVPUSH DAILY [facility] Last Admin: 02/09/20 09:35 Dose: 40 mg Documented by: Sodium Hypochlorite (Dakin's Solution 0.25% (Half-Strength) -) 1 applic TP DAILY [facility] Last Admin: 02/08/20 12:31 Dose: 1 applic Documented by: ASSESSMENT AND PLAN: Acute Hypercapneic Respiratory Failure Recent R AKA Stump Infection Septic Shock Lactic Acidosis Acute NSTEMI ESRD on HD PAD DM Anemia - continue antibiotics - wound care - titrate pressors maintain MAP >65 - stress dose steroids - titrate FiO2 to keep SpO2 >90% - monitor H/H - aspiration precautions - DVT/GI prophylaxis - continue ICU monitoring - poor overall prognosis without respiratory support, continue discussions regarding goals of care - recommend comfort measures critical care time spent in reviewing chart, evaluating patient and formulating plan 35 min
--- NOTE | 2020-02-09 13:33 | PN ---
Progress Note (short form) - Note Progress Note: extubated Vital Signs - 24 hr 02/08/20 02/08/20 02/08/20 18:00 19:00 20:00 Temperature Pulse Rate 90 125 H Respiratory 14 16 19 Rate Blood Pressure 135/60 74/40 L O2 Sat by Pulse 100 100 94 L Oximetry (%) 02/08/20 02/08/20 02/08/20 22:00 22:11 22:30 Temperature Pulse Rate 93 H 93 H 93 H Respiratory 18 Rate Blood Pressure 79/19 L 79/19 L 79/23 L O2 Sat by Pulse 92 L Oximetry (%) 02/08/20 02/08/20 02/09/20 23:00 23:30 00:05 Temperature Pulse Rate 103 H 121 H 99 H Respiratory 22 H Rate Blood Pressure 79/29 L 61/15 L 100/27 L O2 Sat by Pulse 100 Oximetry (%) 02/09/20 02/09/20 02/09/20 00:30 00:40 01:30 Temperature Pulse Rate 120 H 106 H 102 H Respiratory Rate Blood Pressure 59/14 L 89/18 L 66/17 L O2 Sat by Pulse Oximetry (%) 02/09/20 02/09/20 02/09/20 02:00 04:00 06:00 Temperature Pulse Rate 99 H 91 H 86 Respiratory 22 H 19 20 Rate Blood Pressure 128/46 L 109/39 L 66/14 L O2 Sat by Pulse 98 99 100 Oximetry (%) Current Medications Generic Name Dose Route Start Last Admin Trade Name Freq PRN Reason Stop Dose Admin Albuterol/Ipratropium 1 amp 02/08/20 21:29 Duoneb - NEB Q4H PRN WHEEZING Atorvastatin Calcium 40 mg 02/02/20 22:00 02/08/20 22:15 Lipitor - PO Not Given HS ZOLTAN Chlorhexidine Gluconate 1 applic 02/02/20 22:00 02/08/20 22:12 Hibiclens For Decolonization - TP 1 applic HS ZOLTAN Administration Hydrocortisone Sodium Succinate 50 mg 02/08/20 22:00 02/09/20 10:42 Solu-Cortef - IVPB 50 mg Q12H ZOLTAN Administration Norepinephrine Bitartrate 16, 500 mls @ 9.375 mls/hr 02/02/20 14:45 02/09/20 14:45 000 mcg/ Sodium Chloride IV Not Given TITR ZOLTAN Protocol 5 MCG/MIN Vasopressin 40 units/ Sodium 100 mls @ 5 mls/hr 02/02/20 20:30 02/08/20 23:30 Chloride IVPB 6 units/hr ASDIR ZOLTAN 15 mls/hr Titration Protocol 2 UNITS/HR Meropenem 500 mg/ Dextrose 100 mls @ 200 mls/hr 02/07/20 14:15 02/09/20 14:45 IVPB 200 mls/hr Q24H ZOLTAN Administration Metronidazole 500 mg in 100 mls @ 100 mls/hr 02/07/20 18:00 02/09/20 09:37 Flagyl 500mg Premixed Ivpb - IVPB 100 mls/hr Q8H-IV ZOLTAN Administration Sodium Chloride 250 mls @ 3,000 mls/hr 02/08/20 15:03 Normal Saline - IV 02/09/20 15:03 PRN PRN Hypotension during Dialysis Dextrose 1,000 mls @ 42 mls/hr 02/09/20 15:15 02/09/20 15:15 D10w - IV 42 mls/hr ASDIR ZOLTAN Administration Insulin Aspart 1 vial 02/02/20 22:00 02/09/20 13:50 Novolog Vial Sliding Scale - SQ Not Given ACHS ZOLTAN Protocol Pantoprazole Sodium 40 mg 02/03/20 19:00 02/09/20 09:35 Protonix Iv IVPUSH 40 mg DAILY ZOLTAN Administration Sodium Hypochlorite 1 applic 02/08/20 11:45 02/09/20 13:42 Dakin's Solution 0.25% (Half-Strength) - TP 1 applic DAILY ZOLTAN Administration Laboratory Results - last 24 hr 02/08/20 02/09/20 02/09/20 22:18 05:31 05:31 WBC 29.3 H RBC 2.90 L Hgb 8.2 L Hct 27.1 L MCV 93.6 MCH 28.2 MCHC 30.2 L RDW 17.4 H Plt Count 166 D MPV 8.9 Absolute Neuts (auto) 28.7 H Neutrophils % 97.9 H Neutrophils % (Manual) 98.1 H Band Neutrophils % 0.0 Lymphocytes % 0.6 L Lymphocytes % (Manual) 0.9 L Monocytes % 1.4 L Monocytes % (Manual) 0 L Eosinophils % 0.0 Eosinophils % (Manual) 0.0 Basophils % 0.1 Basophils % (Manual) 0.0 Myelocytes % (Man) 0 D Promyelocytes % (Man) 1 D Blast Cells % (Manual) 0 Nucleated RBC % 0 Metamyelocytes 0 Hypochromia 0 Platelet Estimate Normal Polychromasia 0 Poikilocytosis 0 Anisocytosis 0 Microcytosis 0 Macrocytosis 0 PT with INR 14.20 H INR 1.20 H PTT (Actin FS) 221.9 H Anticoagulation Therapy Puncture Site Patient Temperature ABG pH ABG pCO2 ABG pO2 ABG HCO3 ABG O2 Sat (Measured) ABG O2 Content ABG Base Excess Samson Test Patient On Oxygen O2 Delivery Device Oxygen Flow Rate Vent Mode Vent Rate Mechanical Rate PEEP Pressure Support Vent Sodium Potassium Chloride Carbon Dioxide Anion Gap BUN Creatinine Est GFR (CKD-EPI)AfAm Est GFR (CKD-EPI)NonAf POC Glucometer 192 Random Glucose Calcium Phosphorus Magnesium Total Bilirubin AST ALT Alkaline Phosphatase Total Protein Albumin 02/09/20 02/09/20 02/09/20 05:31 05:40 05:55 WBC RBC Hgb Hct MCV MCH MCHC RDW Plt Count MPV Absolute Neuts (auto) Neutrophils % Neutrophils % (Manual) Band Neutrophils % Lymphocytes % Lymphocytes % (Manual) Monocytes % Monocytes % (Manual) Eosinophils % Eosinophils % (Manual) Basophils % Basophils % (Manual) Myelocytes % (Man) Promyelocytes % (Man) Blast Cells % (Manual) Nucleated RBC % Metamyelocytes Hypochromia Platelet Estimate Polychromasia Poikilocytosis Anisocytosis Microcytosis Macrocytosis PT with INR INR PTT (Actin FS) Anticoagulation Therapy No Result Required. Puncture Site Arterial line Patient Temperature No Result Required. ABG pH 6.851 L* ABG pCO2 > 148.50 H* ABG pO2 254.7 H ABG HCO3 No Result Required. ABG O2 Sat (Measured) No Result Required. ABG O2 Content No Result Required. ABG Base Excess No Result Required. Samson Test Not applicable Patient On Oxygen Yes O2 Delivery Device Nrb Oxygen Flow Rate 100% Vent Mode No Result Required. Vent Rate No Result Required. Mechanical Rate No Result Required. PEEP No Result Required. Pressure Support Vent No Result Required. Sodium 140 Potassium 3.8 Chloride 105 Carbon Dioxide 29 Anion Gap 6 L BUN 28.2 H Creatinine 1.9 H Est GFR (CKD-EPI)AfAm 37.75 Est GFR (CKD-EPI)NonAf 32.57 POC Glucometer 74 Random Glucose 101 Calcium 6.6 L* Phosphorus 5.7 H Magnesium 2.0 Total Bilirubin 0.4 AST 45 H ALT 61 Alkaline Phosphatase 158 H Total Protein 4.7 L Albumin 1.2 L 02/09/20 02/09/20 02/09/20 09:30 12:20 13:54 WBC RBC Hgb Hct MCV MCH MCHC RDW Plt Count MPV Absolute Neuts (auto) Neutrophils % Neutrophils % (Manual) Band Neutrophils % Lymphocytes % Lymphocytes % (Manual) Monocytes % Monocytes % (Manual) Eosinophils % Eosinophils % (Manual) Basophils % Basophils % (Manual) Myelocytes % (Man) Promyelocytes % (Man) Blast Cells % (Manual) Nucleated RBC % Metamyelocytes Hypochromia Platelet Estimate Polychromasia Poikilocytosis Anisocytosis Microcytosis Macrocytosis PT with INR INR PTT (Actin FS) > 400.0 H > 400.0 H Anticoagulation Therapy Puncture Site Patient Temperature ABG pH ABG pCO2 ABG pO2 ABG HCO3 ABG O2 Sat (Measured) ABG O2 Content ABG Base Excess Samson Test Patient On Oxygen O2 Delivery Device Oxygen Flow Rate Vent Mode Vent Rate Mechanical Rate PEEP Pressure Support Vent Sodium Potassium Chloride Carbon Dioxide Anion Gap BUN Creatinine Est GFR (CKD-EPI)AfAm Est GFR (CKD-EPI)NonAf POC Glucometer 47 Random Glucose Calcium Phosphorus Magnesium Total Bilirubin AST ALT Alkaline Phosphatase Total Protein Albumin 02/09/20 02/09/20 02/09/20 14:40 14:53 15:59 WBC RBC Hgb Hct MCV MCH MCHC RDW Plt Count MPV Absolute Neuts (auto) Neutrophils % Neutrophils % (Manual) Band Neutrophils % Lymphocytes % Lymphocytes % (Manual) Monocytes % Monocytes % (Manual) Eosinophils % Eosinophils % (Manual) Basophils % Basophils % (Manual) Myelocytes % (Man) Promyelocytes % (Man) Blast Cells % (Manual) Nucleated RBC % Metamyelocytes Hypochromia Platelet Estimate Polychromasia Poikilocytosis Anisocytosis Microcytosis Macrocytosis PT with INR INR PTT (Actin FS) 100.2 H Anticoagulation Therapy Puncture Site Patient Temperature ABG pH ABG pCO2 ABG pO2 ABG HCO3 ABG O2 Sat (Measured) ABG O2 Content ABG Base Excess Samson Test Patient On Oxygen O2 Delivery Device Oxygen Flow Rate Vent Mode Vent Rate Mechanical Rate PEEP Pressure Support Vent Sodium Potassium Chloride Carbon Dioxide Anion Gap BUN Creatinine Est GFR (CKD-EPI)AfAm Est GFR (CKD-EPI)NonAf POC Glucometer 44 188 Random Glucose Calcium Phosphorus Magnesium Total Bilirubin AST ALT Alkaline Phosphatase Total Protein Albumin S1 S2 RRR Lungs decreased Abd- soft, NT AKA right - stump site left toes discoloration PLAN iv antibiotics wound culture mixed HD per renal continue with meds shock liver-- LFT better guarded prognosis replace potassium pt is DNR Problem List - Problems (1) Acute respiratory failure Code(s): J96.00 - ACUTE RESPIRATORY FAILURE, UNSP W HYPOXIA OR HYPERCAPNIA Qualifiers: Respiratory failure complication: hypoxia Qualified Code(s): J96.01 - Acute respiratory failure with hypoxia (2) Septic shock Code(s): A41.9 - SEPSIS, UNSPECIFIED ORGANISM; R65.21 - SEVERE SEPSIS WITH SEPTIC SHOCK (3) Abnormal LFTs Code(s): R94.5 - ABNORMAL RESULTS OF LIVER FUNCTION STUDIES (4) Gangrene of foot Code(s): I96 - GANGRENE, NOT ELSEWHERE CLASSIFIED (5) Sepsis Code(s): A41.9 - SEPSIS, UNSPECIFIED ORGANISM
[2020-02-09] MEDS: SODIUM HYPOCHLORITE 0.25%- 473 ML BULK BOTTLE TP SCH (13:42)
[2020-02-09] MEDS: PROPOFOL 1,000,000 MCG/100 ML VIAL IVPB SCH (13:43)
[2020-02-09] MEDS ORDERED: DEXTROSE 50%-WATER 25 GM/50 ML DISP.SYRIN ONE (13:56)
[2020-02-09] MEDS ORDERED: DEXTROSE 50%-WATER - 25 GM/50 ML VIAL IVPUSH ONE ×2 (13:57→15:01)
--- NOTE | 2020-02-09 14:21 | PN ---
Progress Note, Physician History of Present Illness: Mr. 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 Patient was receiving hemodialysis at the assisted when they found him unresponsive. EMS was called; upon arrival the patient was unresponsive, hypotensive. He was started on IVF and norepi nephrine. Upon arrival, the patient was minimally responsive to sternal rub, blood pressure noted to be 50s over 30s, respiring spontaneously; however, unable to obtain an O2 saturation;hypothermic; leukocytotic. He was intubated and a central line was placed in the L femoral artery; Rt femoral arterial line. BGM by EMS 200s Noted to have a packed wound on the right AKA site. - Current Medication List Current Medications: Active Medications Albuterol/Ipratropium (Duoneb -) 1 amp NEB Q4H PRN PRN Reason: WHEEZING Atorvastatin Calcium (Lipitor -) 40 mg PO HS ZOLTAN Last Admin: 02/08/20 22:15 Dose: Not Given Documented by: Chlorhexidine Gluconate (Hibiclens For Decolonization -) 1 applic TP HS ZOLTAN Last Admin: 02/08/20 22:12 Dose: 1 applic Documented by: Dextrose (D50w (Vial) -) 25 gm IVPUSH NOW ONE Stop: 02/09/20 13:58 Last Admin: 02/09/20 14:00 Dose: 25 gm Documented by: Heparin Sodium (Porcine) (Heparin -) 1,000 unit IVPUSH PRN PRN PRN Reason: Heparin Heparin Sodium (Porcine) (Heparin -) 5,000 unit IVPUSH PRN PRN PRN Reason: Heparin Last Admin: 02/03/20 08:41 Dose: 5,000 unit Documented by: Hydrocortisone Sodium Succinate (Solu-Cortef -) 50 mg IVPB Q12H ZOLTAN Last Admin: 02/09/20 10:42 Dose: 50 mg Documented by: Norepinephrine Bitartrate 16, (000 mcg/ Sodium Chloride) 500 mls @ 9.375 mls/hr IV TITR ZOLTAN; Protocol Last Titration: 02/09/20 13:45 Dose: 8 mcg/min, 15 mls/hr Documented by: Midazolam HCl 100 mg/ Sodium (Chloride) 100 mls @ 1 mls/hr IVPB TITR [facility]; Protocol Last Admin: 02/08/20 17:07 Dose: Not Given Documented by: Fentanyl (Sublimaze Ivpb) 500 mcg in 100 mls @ 10 mls/hr IVPB TITR ZOLTAN Last Admin: 02/08/20 17:07 Dose: Not Given Documented by: Vasopressin 40 units/ Sodium (Chloride) 100 mls @ 5 mls/hr IVPB ASDIR [facility]; Protocol Last Titration: 02/08/20 23:30 Dose: 6 units/hr, 15 mls/hr Documented by: HEPARIN SOD,PORK IN 0.45% NACL (Heparin-1/2ns 25,000 Units/500) 25,000 unit in 500 mls @ 16 mls/hr IVPB TITR [facility]; Protocol Last Admin: 02/09/20 05:09 Dose: Not Given Documented by: Propofol (Diprivan -) 1,000,000 mcg in 100 mls @ 1.312 mls/hr IVPB TITR [facility]; Protocol Last Admin: 02/09/20 13:43 Dose: Not Given Documented by: Sodium Chloride (Normal Saline -) 250 mls @ 3,000 mls/hr IV PRN PRN PRN Reason: Hypotension during Dialysis Stop: 02/08/20 10:33 Meropenem 500 mg/ Dextrose 100 mls @ 200 mls/hr IVPB Q24H ZOLTAN Last Admin: 02/08/20 13:15 Dose: 200 mls/hr Documented by: Metronidazole (Flagyl 500mg Premixed Ivpb -) 500 mg in 100 mls @ 100 mls/hr IVPB Q8H-IV ZOLTAN Last Admin: 02/09/20 09:37 Dose: 100 mls/hr Documented by: Sodium Chloride (Normal Saline -) 250 mls @ 3,000 mls/hr IV PRN PRN PRN Reason: Hypotension during Dialysis Stop: 02/09/20 15:03 Insulin Aspart (Novolog Vial Sliding Scale -) 1 vial SQ ACHS [facility]; Protocol Last Admin: 02/09/20 13:50 Dose: Not Given Documented by: Pantoprazole Sodium (Protonix Iv) 40 mg IVPUSH DAILY [facility] Last Admin: 02/09/20 09:35 Dose: 40 mg Documented by: Sodium Hypochlorite (Dakin's Solution 0.25% (Half-Strength) -) 1 applic TP DAILY ZOLTAN Last Admin: 02/09/20 13:42 Dose: 1 applic Documented by: - Objective Vital Signs: Vital Signs Temperature 97.8 F 02/09/20 10:00 Pulse Rate 76 02/09/20 12:00 Respiratory Rate 02/09/20 10:00 Blood Pressure 52/16 L 02/09/20 12:00 O2 Sat by Pulse Oximetry (%) 98 02/09/20 10:00 Eyes: Yes: WNL, Conjunctiva Clear, EOM Intact HENT: Yes: WNL, Atraumatic, Normocephalic Neck: Yes: WNL, Supple, Trachea Midline Cardiovascular: Yes: S1, S2 Respiratory: Yes: Diminished Gastrointestinal: Yes: WNL, Normal Bowel Sounds Genitourinary: Yes: WNL Musculoskeletal: Yes: WNL Extremities: Yes: Amputation Edema: No Integumentary: Yes: WNL Labs: CBC, BMP 02/09/20 05:31 02/09/20 05:31 INR, PTT INR 1.20 (0.83-1.09) H 02/09/20 05:31 Fibrinogen 355.0 mg/dL (238-498) 02/04/20 13:30 Assessment/Plan Septic shock (hypotensive; hypothermic; leukocytosis; unresponsive)-->in tubation, fluids NSTEMI TNI 6.64 Bifascicular AV block; ?PAF ESRD Chronic anemia; quaiac + Gangrenous RLE-->AKA amputation 01/2020 PVD (hx Rt subclavian stent) DM ECHO severely reduced LVSF , mildly dilated RV with reduced systolic FX new from last month R/o PE off pressors Plan: IVF PRBCs; increase Hb to approximately 10. Start ASA, IV heparin once hematologically stable. High-dose statin On Vancomycin and Zosyn extubated on pressors. DNI as per family cc time spent 35 min
[2020-02-09 14:28] VITALS: BP 48/32; TEMP 97.5
[2020-02-09] MEDS ORDERED: MEROPENEM 500 MG VIAL (RESTRICTED TO ID) IVPB ONE (14:42)
[2020-02-09] MEDS ORDERED: DEXTROSE 5%-WATER 100 ML IVPB ONE (14:42)
[2020-02-09] MEDS: MEROPENEM 500 MG in DEXTROSE 5%-WATER 100 ML IVPB SCH (14:45)
[2020-02-09] MEDS ORDERED: DEXTROSE 10%-WATER - 1,000 ML IV SCH (15:15)
--- NOTE | 2020-02-09 17:54 | PN ---
Progress Note (short form) - Note Progress Note: Called to bedside for evaluation of patient Patient was asystolic on monitor. Patient was not having respirations. On physical exam, patient did not respond to verbal and tactile stimulation. Pupils were fixed and non reactive to light. No EOMI. No respirations were auscultated and no auscultation of heart sounds. Time of at 5:[address] Dill was notified, the [facility] was notified, and the [facility] was notified. [facility] declined case ([id number]).
--- NOTE | 2020-02-09 17:55 | DS ---
Physical Examination Vital Signs: Vital Signs Temperature 97.5 F L 02/09/20 14:00 Pulse Rate 88 02/09/20 14:00 Respiratory Rate 20 02/09/20 10:00 Blood Pressure 48/32 L 02/09/20 14:00 O2 Sat by Pulse Oximetry (%) 85 L 02/09/20 14:00 Labs: CBC, BMP 02/09/20 05:31 02/09/20 05:31 Discharge Summary Problems reviewed: Yes Reason For Visit: SEPIS Current Active Problems Acute respiratory failure (Acute) Septic shock (Acute) Hospital Course: patient admitted for septic shock, acute respiratory failure Found to have infected stump Was on IV antibiotics wound cultures and blood cultures positive Patient admitted in ICU Family decided DNR Patient weaned to extubate Condition declined and patient today 5:37pm Condition: Critical - Instructions Disposition: - Home Medications Comprehensive Discharge Medication List: Ambulatory Orders Acetaminophen [Tylenol .Regular Strength -] 325 mg PO Q6H PRN tablet 09/09/19 Aspirin [ASA -] 81 mg PO DAILY 09/09/19 Atorvastatin Ca [Lipitor] 40 mg PO HS 09/09/19 Calcium 500Mg/Vit-D 200 Units [Os-Dustin 500+D -] 1 tab PO DAILY tab 09/09/19 Cyanocobalamin (Vitamin B-12) [Vitamin B-12] 1,000 mcg PO DAILY 09/09/19 Lisinopril [Zestril] 2.5 mg PO DAILY 09/09/19 Tamsulosin HCl [Flomax] 0.4 mg PO DAILY 09/09/19 Zinc Sulfate [Orazinc -] 220 mg PO BID capsule 09/09/19 Docusate Sodium [Colace -] 100 mg PO BID PRN capsule 01/16/20 Heparin - 5,000 unit SQ BID vial 01/16/20 Insulin Sliding Scale [Novolog Vial Sliding Scale -] 1 vial SQ BIDAC units 01/16/20 Polyethylene Glycol 3350 [Miralax 119 gm Btl -] 17 gm PO DAILY PRN bottle 01/16/20 Vitamin B Comp W-C [Nephro-Cata -] 1 tablet PO DAILY tablet 01/16/20
--- NOTE | 2020-02-09 18:04 | PN ---
Physical Exam: SUBJECTIVE: Patient seen and examined. Pt is extubated but minimally responsive today. Pt does not want Intubation and signed DNI. Pt family was notified of poor ABG results and hypotension. Pt famliy still wanted pressors but no intubation. Pt family was able to see pt at bedside earlier in the day before pt . OBJECTIVE: GENERAL: Pt awake but minimally responsive HEAD: No signs of trauma, normocephalic, atraumatic EYES: PERRL ENT: Auricles normal inspection,\, nares patent, Pt on nonrebreather. NECK: , no lymphadenopathy, JVD, or masses LUNGS: Rhonchi bilaterally HEART: Regular rate and rhythm, normal S1 and S2, no murmurs, rubs or gallops, peripheral pulses normal and equal bilaterally. ABDOMEN: Soft, nontender No guarding, no rebound. 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 Pt on left has 2+ pulse but erythema on toes. NEUROLOGICAL: Pt minimally responsive to assess : Pt penis is erythematous and necrosis on tip 80 Vital Signs Period Temp Pulse Resp BP Sys/Tapia Pulse Ox Last 24 Hr 97.5 F-97.8 F 76-125 16-22 48-128/14-46 85-100 Laboratory Results - last 24 hr 02/08/20 02/09/20 02/09/20 22:18 05:31 05:31 WBC 29.3 H RBC 2.90 L Hgb 8.2 L Hct 27.1 L MCV 93.6 MCH 28.2 MCHC 30.2 L RDW 17.4 H Plt Count 166 D MPV 8.9 Absolute Neuts (auto) 28.7 H Neutrophils % 97.9 H Neutrophils % (Manual) 98.1 H Band Neutrophils % 0.0 Lymphocytes % 0.6 L Lymphocytes % (Manual) 0.9 L Monocytes % 1.4 L Monocytes % (Manual) 0 L Eosinophils % 0.0 Eosinophils % (Manual) 0.0 Basophils % 0.1 Basophils % (Manual) 0.0 Myelocytes % (Man) 0 D Promyelocytes % (Man) 1 D Blast Cells % (Manual) 0 Nucleated RBC % 0 Metamyelocytes 0 Hypochromia 0 Platelet Estimate Normal Polychromasia 0 Poikilocytosis 0 Anisocytosis 0 Microcytosis 0 Macrocytosis 0 PT with INR 14.20 H INR 1.20 H PTT (Actin FS) 221.9 H Anticoagulation Therapy Puncture Site Patient Temperature ABG pH ABG pCO2 ABG pO2 ABG HCO3 ABG O2 Sat (Measured) ABG O2 Content ABG Base Excess Samson Test Patient On Oxygen O2 Delivery Device Oxygen Flow Rate Vent Mode Vent Rate Mechanical Rate PEEP Pressure Support Vent Sodium Potassium Chloride Carbon Dioxide Anion Gap BUN Creatinine Est GFR (CKD-EPI)AfAm Est GFR (CKD-EPI)NonAf POC Glucometer 192 Random Glucose Calcium Phosphorus Magnesium Total Bilirubin AST ALT Alkaline Phosphatase Total Protein Albumin 02/09/20 02/09/20 02/09/20 05:31 05:40 05:55 WBC RBC Hgb Hct MCV MCH MCHC RDW Plt Count MPV Absolute Neuts (auto) Neutrophils % Neutrophils % (Manual) Band Neutrophils % Lymphocytes % Lymphocytes % (Manual) Monocytes % Monocytes % (Manual) Eosinophils % Eosinophils % (Manual) Basophils % Basophils % (Manual) Myelocytes % (Man) Promyelocytes % (Man) Blast Cells % (Manual) Nucleated RBC % Metamyelocytes Hypochromia Platelet Estimate Polychromasia Poikilocytosis Anisocytosis Microcytosis Macrocytosis PT with INR INR PTT (Actin FS) Anticoagulation Therapy No Result Required. Puncture Site Arterial line Patient Temperature No Result Required. ABG pH 6.851 L* ABG pCO2 > 148.50 H* ABG pO2 254.7 H ABG HCO3 No Result Required. ABG O2 Sat (Measured) No Result Required. ABG O2 Content No Result Required. ABG Base Excess No Result Required. Samson Test Not applicable Patient On Oxygen Yes O2 Delivery Device Nrb Oxygen Flow Rate 100% Vent Mode No Result Required. Vent Rate No Result Required. Mechanical Rate No Result Required. PEEP No Result Required. Pressure Support Vent No Result Required. Sodium 140 Potassium 3.8 Chloride 105 Carbon Dioxide 29 Anion Gap 6 L BUN 28.2 H Creatinine 1.9 H Est GFR (CKD-EPI)AfAm 37.75 Est GFR (CKD-EPI)NonAf 32.57 POC Glucometer 74 Random Glucose 101 Calcium 6.6 L* Phosphorus 5.7 H Magnesium 2.0 Total Bilirubin 0.4 AST 45 H ALT 61 Alkaline Phosphatase 158 H Total Protein 4.7 L Albumin 1.2 L 02/09/20 02/09/20 02/09/20 09:30 12:20 13:54 WBC RBC Hgb Hct MCV MCH MCHC RDW Plt Count MPV Absolute Neuts (auto) Neutrophils % Neutrophils % (Manual) Band Neutrophils % Lymphocytes % Lymphocytes % (Manual) Monocytes % Monocytes % (Manual) Eosinophils % Eosinophils % (Manual) Basophils % Basophils % (Manual) Myelocytes % (Man) Promyelocytes % (Man) Blast Cells % (Manual) Nucleated RBC % Metamyelocytes Hypochromia Platelet Estimate Polychromasia Poikilocytosis Anisocytosis Microcytosis Macrocytosis PT with INR INR PTT (Actin FS) > 400.0 H > 400.0 H Anticoagulation Therapy Puncture Site Patient Temperature ABG pH ABG pCO2 ABG pO2 ABG HCO3 ABG O2 Sat (Measured) ABG O2 Content ABG Base Excess Samson Test Patient On Oxygen O2 Delivery Device Oxygen Flow Rate Vent Mode Vent Rate Mechanical Rate PEEP Pressure Support Vent Sodium Potassium Chloride Carbon Dioxide Anion Gap BUN Creatinine Est GFR (CKD-EPI)AfAm Est GFR (CKD-EPI)NonAf POC Glucometer 47 Random Glucose Calcium Phosphorus Magnesium Total Bilirubin AST ALT Alkaline Phosphatase Total Protein Albumin 02/09/20 02/09/20 02/09/20 14:40 14:53 15:59 WBC RBC Hgb Hct MCV MCH MCHC RDW Plt Count MPV Absolute Neuts (auto) Neutrophils % Neutrophils % (Manual) Band Neutrophils % Lymphocytes % Lymphocytes % (Manual) Monocytes % Monocytes % (Manual) Eosinophils % Eosinophils % (Manual) Basophils % Basophils % (Manual) Myelocytes % (Man) Promyelocytes % (Man) Blast Cells % (Manual) Nucleated RBC % Metamyelocytes Hypochromia Platelet Estimate Polychromasia Poikilocytosis Anisocytosis Microcytosis Macrocytosis PT with INR INR PTT (Actin FS) 100.2 H Anticoagulation Therapy Puncture Site Patient Temperature ABG pH ABG pCO2 ABG pO2 ABG HCO3 ABG O2 Sat (Measured) ABG O2 Content ABG Base Excess Samson Test Patient On Oxygen O2 Delivery Device Oxygen Flow Rate Vent Mode Vent Rate Mechanical Rate PEEP Pressure Support Vent Sodium Potassium Chloride Carbon Dioxide Anion Gap BUN Creatinine Est GFR (CKD-EPI)AfAm Est GFR (CKD-EPI)NonAf POC Glucometer 44 188 Random Glucose Calcium Phosphorus Magnesium Total Bilirubin AST ALT Alkaline Phosphatase Total Protein Albumin Active Medications Generic Name Dose Route Start Last Admin Trade Name Freq PRN Reason Stop Dose Admin Albuterol/Ipratropium 1 amp 02/08/20 21:29 Duoneb - NEB Q4H PRN WHEEZING Atorvastatin Calcium 40 mg 02/02/20 22:00 02/08/20 22:15 Lipitor - PO Not Given HS ZOLTAN Chlorhexidine Gluconate 1 applic 02/02/20 22:00 02/08/20 22:12 Hibiclens For Decolonization - TP 1 applic HS ZOLTAN Administration Hydrocortisone Sodium Succinate 50 mg 02/08/20 22:00 02/09/20 10:42 Solu-Cortef - IVPB 50 mg Q12H ZOLTAN Administration Norepinephrine Bitartrate 16, 500 mls @ 9.375 mls/hr 02/02/20 14:45 02/09/20 14:45 000 mcg/ Sodium Chloride IV Not Given TITR ZOLTAN Protocol 5 MCG/MIN Vasopressin 40 units/ Sodium 100 mls @ 5 mls/hr 02/02/20 20:30 02/08/20 23:30 Chloride IVPB 6 units/hr ASDIR ZOLTAN 15 mls/hr Titration Protocol 2 UNITS/HR Meropenem 500 mg/ Dextrose 100 mls @ 200 mls/hr 02/07/20 14:15 02/09/20 14:45 IVPB 200 mls/hr Q24H ZOLTAN Administration Metronidazole 500 mg in 100 mls @ 100 mls/hr 02/07/20 18:00 02/09/20 09:37 Flagyl 500mg Premixed Ivpb - IVPB 100 mls/hr Q8H-IV ZOLTAN Administration Sodium Chloride 250 mls @ 3,000 mls/hr 02/08/20 15:03 Normal Saline - IV 02/09/20 15:03 PRN PRN Hypotension during Dialysis Dextrose 1,000 mls @ 42 mls/hr 02/09/20 15:15 02/09/20 15:15 D10w - IV 42 mls/hr ASDIR ZOLTAN Administration Insulin Aspart 1 vial 02/02/20 22:00 02/09/20 13:50 Novolog Vial Sliding Scale - SQ Not Given ACHS ZOLTAN Protocol Pantoprazole Sodium 40 mg 02/03/20 19:00 02/09/20 09:35 Protonix Iv IVPUSH 40 mg DAILY ZOLTAN Administration Sodium Hypochlorite 1 applic 02/08/20 11:45 02/09/20 13:42 Dakin's Solution 0.25% (Half-Strength) - TP 1 applic DAILY ZOLTAN Administration ASSESSMENT/PLAN: 79 yo male preseniting to ICU for sepsis due to most likely AKA Neuro - pt minimally responsive Cardiac - Pt IV heparin was stopped due to high PTT - on norepi 6 due to hypotension Resp: -pt pH was less than 7.15 but resp acidosis - pt proxy signed DNI ID - pt leukocytosis 29.2 - terating with meropenem and flaggyl Heme - pt hemoglobin was 8.2 no need to transfuse renal - pt at ESRD - pt dialyzed 02/06 Prophylaxis - heparin drip scds Visit type - Emergency Visit Emergency Visit: Yes ED Registration Date: 02/02/20 Care time: The patient presented to the Emergency Department on the above date and was hospitalized for further evaluation of their emergent condition. - New Patient This patient is new to me today: No - Critical Care Critical Care patient: Yes Total Critical Care Time (in minutes): 36 Critical Care Statement: The care of this patient involved high complexity decision making to prevent further life threatening deterioration of the patient's condition and/or to evaluate & treat vital organ system(s) failure or risk of failure. - Medication Review Med list reviewed for High Risk Meds patients 65 and older: Yes ATTENDING PHYSICIAN STATEMENT I saw and evaluated the patient. I reviewed the resident's note and discussed the case with the resident. I agree with the resident's findings and plan as documented. SUBJECTIVE: OBJECTIVE: ASSESSMENT AND PLAN:
[2020-02-09 18:07] VITALS: PULSE 82
== END 2020-02-09 17:37 | disposition expired | DRG 862 ==
LOC: JER 14:13 → JERBED 17:06 → JICU 18:20
PROVIDERS: ADMIT Internal Medicine; ATTEND Internal Medicine
PROC: 0BH17EZ Insertion of Endotracheal Airway into Trachea, Via Natural or Artificial Opening (ICD-10-PCS; principal; 2020-02-02)
PROC: 5A1955Z Respiratory Ventilation, Greater than 96 Consecutive Hours (ICD-10-PCS; 2020-02-02)
PROC: 0DH673Z Insertion of Infusion Device into Stomach, Via Natural or Artificial Opening (ICD-10-PCS; 2020-02-02)
PROC: 05H533Z Insertion of Infusion Device into Right Subclavian Vein, Percutaneous Approach (ICD-10-PCS; 2020-02-03)
PROC: 30233N1 Transfusion of Nonautologous Red Blood Cells into Peripheral Vein, Percutaneous Approach (ICD-10-PCS; 2020-02-03)
PROC: B546ZZA Ultrasonography of Right Subclavian Vein, Guidance (ICD-10-PCS; 2020-02-03)
PROC: 5A1D70Z Performance of Urinary Filtration, Intermittent, Less than 6 Hours Per Day (ICD-10-PCS; 2020-02-05)
PROC: 5A1D70Z Performance of Urinary Filtration, Intermittent, Less than 6 Hours Per Day (ICD-10-PCS; 2020-02-07)
DX: T81.49XA Infection following a procedure, other surgical site, initial encounter (principal); N18.6 End stage renal disease; J96.01 Acute respiratory failure with hypoxia; R65.21 Severe sepsis with septic shock; J18.9 Pneumonia, unspecified organism; I21.4 Non-ST elevation (NSTEMI) myocardial infarction; K72.00 Acute and subacute hepatic failure without coma; A41.89 Other specified sepsis; T87.43 Infection of amputation stump, right lower extremity; I12.0 Hypertensive chronic kidney disease with stage 5 chronic kidney disease or end stage renal disease; E11.52 Type 2 diabetes mellitus with diabetic peripheral angiopathy with gangrene; I96 Gangrene, not elsewhere classified; I45.2 Bifascicular block; I13.2 Hypertensive heart and chronic kidney disease with heart failure and with stage 5 chronic kidney disease, or end stage renal disease; I50.32 Chronic diastolic (congestive) heart failure; E87.2 Acidosis; L03.90 Cellulitis, unspecified; T87.41 Infection of amputation stump, right upper extremity; T81.44XA Sepsis following a procedure, initial encounter; E11.51 Type 2 diabetes mellitus with diabetic peripheral angiopathy without gangrene; E78.5 Hyperlipidemia, unspecified; D64.9 Anemia, unspecified; I71.9 Aortic aneurysm of unspecified site, without rupture; E11.22 Type 2 diabetes mellitus with diabetic chronic kidney disease; D72.829 Elevated white blood cell count, unspecified; R68.0 Hypothermia, not associated with low environmental temperature; E87.6 Hypokalemia; D63.1 Anemia in chronic kidney disease; Z86.73 Personal history of transient ischemic attack (TIA), and cerebral infarction without residual deficits; Z99.2 Dependence on renal dialysis; Z89.611 Acquired absence of right leg above knee; I95.9 Hypotension, unspecified; Y83.8 Other surgical procedures as the cause of abnormal reaction of the patient, or of later complication, without mention of misadventure at the time of the procedure
CPT/HCPCS: 36415; 36430; 36600; 70450-TC; 71045-TC-FY; 76604; 76705-TC; 76937; 80048; 80053; 81003; 82550; 82553; 82803; 82962; 83605; 83735; 83880; 84100; 84478; 84484; 85025; 85027; 85379; 85384; 85610; 85730; 86803; 86850; 86900; 86901; 86922; 87040; 87070; 87076; 87086; 87186; 87205; 87340; 93005; 93010; 93306-TC; 93308; 94002; 99291; G0480; J1644; P9058; U0003